=== PATIENT | female | born 1955 | race Caucasian/White ===

== ENCOUNTER 2022-12-01 14:34 | Inpatient (IN) | payer MEDICARE, SELFPAY ==
--- NOTE | ~2022-12-01 | US_ITS ---
EXAMINATION: US RETROPERITONEAL LIMITED (RENAL ONLY) CLINICAL INFORMATION: Acute renal sufficiency.. COMPARISON: None available. TECHNIQUE: Real-time imaging of the kidneys. FINDINGS: RIGHT KIDNEY: 13.0 x 6.1 x 6.8 cm (SAG x AP x TRV). The kidney is normal in size, contour, and echogenicity. Renal cortical thickness is normal. No calculi or focal parenchymal lesions. No hydronephrosis. LEFT KIDNEY: 11.5 x 6.8 x 6.8 cm (SAG x AP x TRV). The kidney is normal in size, contour, and echogenicity. Renal cortical thickness is normal. No calculi or focal parenchymal lesions. No hydronephrosis. US/US renal BI IMPRESSION: Unremarkable renal ultrasound.
--- NOTE | ~2022-12-01 | US_ITS ---
EXAMINATION: US VENOUS ULTRASOUND WITH DOPPLER LOWER EXTREMITY, RIGHT CLINICAL INFORMATION: Right lower extremity edema and pain. COMPARISON: None available. TECHNIQUE: Ultrasound of the deep veins is performed from the hip to the calf with compression sonography and color and pulse Doppler assessment. Spectral analysis with color-flow imaging is performed. FINDINGS: Evaluation is very limited due to overlying subcutaneous edema as well as the presence of wounds that are covered by bandages. The calf veins were not well seen. The visualized common femoral vein, superficial femoral vein, profunda femoral vein, and popliteal vein shows no evidence of deep venous thrombosis. There is a 3.5 x 1.7 x 2.2 cm cyst in the popliteal fossa with some degree of wall thickening as well as heterogeneous avascular debris. US/US venous duplex LE RT IMPRESSION: 1. No evidence of deep venous thrombosis in the right lower extremity with the caveat that the calf veins were not visualized in view of the limitations as above. If the patient's symptoms persist, followup ultrasound in 5 days 7 days might be of value to exclude proximal propagation from a non-visualized calf vein. 2. There is a 3.5 cm complicated Bran's cyst in the popliteal fossa with some degree of wall thickening and heterogeneous debris, recommend clinical correlation for superimposed infection. A short-term follow-up ultrasound is recommended.
--- NOTE | ~2022-12-01 | CT_ITS ---
EXAMINATION: CT HEAD WITHOUT CONTRAST CLINICAL INFORMATION: Pain. COMPARISON: 12/25/2013. TECHNIQUE: Contiguous axial imaging was performed from the skull base to vertex without intravenous administration of contrast. This CT examination was performed using dose optimization techniques as appropriate, variously including the following: *Automated exposure control *Adjustment of mA and/or kV according to patient size (this includes techniques or standardized protocols for targeted exams where dose is matched to indication/reason for exam; i.e. extremities or head) *Use of iterative reconstruction technique DLP: 1138 mGy-cm FINDINGS: The lateral, third and fourth ventricles are normally outlined. The cortical sulci and basal cisterns are normally outlined as well. There is no acute territorial defect, hemorrhage or midline shift. The extra-axial spaces are unremarkable. Calvarium: Intact. Maxillofacial sinuses and mastoids: Clear as visualized CT/CT head/brain wo IV con IMPRESSION: No acute intracranial abnormality.
--- NOTE | ~2022-12-01 | XR_ITS ---
EXAMINATION: XR CHEST CLINICAL INFORMATION: Shortness of breath. COMPARISON: Chest radiograph 12/25/2013. TECHNIQUE: Frontal view of the chest was obtained. FINDINGS: Evaluation is limited due to patient's rotation and poor inspiratory effort. Stable prominence of the cardiomediastinal silhouette and epicardial fat pad obscuring the left lower lobe. Clear right lung. No significant pleural effusion. No pneumothorax. No acute osseous findings. XR/XR chest 1V IMPRESSION: Limited examination without convincing change compared to 12/25/2013. Evaluation of the left lower lobe is limited as above, further imaging with a lateral x-ray could be obtained as clinically deemed appropriate.
--- NOTE | 2022-12-01 15:37 | ED.GENADULT ---
HPI - General Adult General Chief complaint: Wound/Laceration Stated complaint: r leg swelling and leaking fluid Time Seen by Provider: 12/01/22 16:35 Source: patient Mode of arrival: ambulatory Limitations: no limitations History of Present Illness HPI narrative: Patient comes to the emergency room complaining of left lower extremity swelling, pain, cellulitis from the toes on the right leg up to the buttocks. Patient also complaining of nausea and vomiting for 3 days. Note, patient states she has no past medical history but has not been seen by a doctor in 34 years. Related Data Allergies Allergy/AdvReac Type Severity Reaction Status Date / Time No Known Allergies Allergy Unverified 10/31/19 14:57 Review of Systems Review of Systems: Constitutional : No Weight loss, No Fever, No Chills, No Night Sweats, No Fatigue, No Malaise ENT/Mouth : No Hearing loss, No Ear Pain, No Nasal Congestion, No Sinus Pain, No Hoarseness, No sore throat, No Rhinorrhea, No Swallowing Difficulty Eyes: No Eye Pain, No Swelling, No Redness, No Foreign Body, No Discharge, No Vision Changes Cardiovascular : No Chest Pain, No SOB, No Dyspnea on Exertion, No Orthopnea, No Edema, No Palpitations Respiratory : No Cough, No Sputum, No Wheezing, No Smoke Exposure, No Dyspnea Gastrointestinal : Complaining of nausea and vomiting, No Diarrhea, No Constipation, No abdominal Pain, No Hematochezia, No Melena Genitourinary : no irregular bleeding, No Dysuria, No Urinary Frequency, No Hematuria, No Urinary Incontinence, No Urgency, No Flank Pain, No Urinary Flow Changes, No Hesitancy Musculoskeletal : No joint pain, No Myalgias, No Joint Swelling Skin : Complaining of skin redness, right lower extremity weeping and pain Neuro : No Weakness, No Numbness, No Paresthesias, No Loss of Consciousness, No Dizziness, No Headache Psych : No Anxiety/Panic, No Depression, No SI/HI/AH/VH, No Social Issues, Heme/Lymph: No Bruising, No Bleeding,No Lymphadenopathy Endocrine : No Polyuria, No Polydipsia, No Temperature Intolerance PMF Social History Social History Advance Directives: No Advance Directives Information Provided: No Physical Exam ED Vital Signs: Vital Signs - 24 hr 12/01/22 15:38 Temperature 97.2 F Pulse Rate 89 Respiratory Rate 22 H Blood Pressure 107/62 Pulse Oximetry 96 Oxygen Delivery Method Room Air BMI result Body Mass Index 45.8 Const Other: Appearance: Alert. Oriented X3. Seems uncomfortable Eyes: Pupils equal, round and reactive to light. ENT: Pharynx normal. Neck: Normal inspection. Neck supple. No lymph nodes noted. No crepitus CVS: Normal heart rate and rhythm. Pulses normal. Normal S1 and S2 Respiratory: No respiratory distress. Breath sounds normal. No Wheezing. No rales Abdomen: Soft and nontender. No rigidity. No distention. Skin: Patient has extensive cellulitis in the right lower extremity, candidiasis in the left groin area Extremities: No lower extremity edema. No Lacerations. No Rash Neuro: Oriented X 3. No motor deficit. No sensory deficit. Moving all extremities. No slurred speech. CN 2 through 12 grossly intact Psych: calm, cooperative, normal affect Course Course Course Narrative: RME: 67yo F w/no sig PMHx (has not been to a doctor in 30+ years) c/o Left groin and RLE weeping blisters x2 weeks & decreased PO intake. chronic SOB. Denies taking any home medications +RLE edema w/erythema and fluid filled vesicles w/weeping. Groin not evaluated in triage Labs, lactic/blood cx, viral testing, CXR ordered Full HPI, ROS and PE to be performed by primary ED provider. Medications Administered Discontinued Medications Generic Name Dose Route Start Last Admin Trade Name Freq PRN Reason Stop Dose Admin Sodium Chloride 2,000 mls @ 999 mls/hr 12/01/22 17:33 12/01/22 18:34 Ns IVCONT 12/01/22 19:33 999 mls/hr .Q2H1M ONE Administration Vancomycin HCl 2,000 mg in 500 mls @ 250 mls/hr 12/01/22 17:33 12/01/22 19:07 Vancomycin/Ns IV 12/01/22 19:32 250 mls/hr ONCE ONE Administration Piperacillin Sod/Tazobactam 50 mls @ 100 mls/hr 12/01/22 17:33 12/01/22 19:16 Sod 3.375 gm/ Sodium Chloride IV 12/01/22 18:02 Infused ONCE ONE Infusion Nystatin 1 appl 12/01/22 17:42 12/01/22 18:35 Nystatin Powder 15 Gm Bottle TOPICAL 12/01/22 17:43 1 appl ONCE ONE Administration Protocol Ondansetron HCl 4 mg 12/01/22 16:23 12/01/22 19:07 Ondansetron Odt 4 Mg Tab.Rapdis TRANSLINGU 12/01/22 16:24 Not Given ONCE ONE Ondansetron HCl 4 mg 12/01/22 17:34 12/01/22 18:35 Ondansetron Hcl 4 Mg/2 Ml Vial IVPUSH 12/01/22 17:35 4 mg ONCE ONE Administration Potassium Chloride 80 meq 12/01/22 17:40 12/01/22 19:08 Potassium Chloride Packet 20 Meq Packet PO 12/01/22 17:41 Not Given ONCE ONE Medical Decision Making Medical Decision Making [facility] Narrative: -my interpretation of ultrasound, no obvious DVT -discussed with Dr. Amaral that patient does have a Bran's cyst in the popliteal fossa which may be infected. Given the patient's extensive cellulitis, it may be a possibility, patient may need orthopedics consult -patient was not able to tolerate p.o. potassium, patient was given -interpretation of EKG: Atrial fibrillation, heart rate 77, rate control, no ST segment depression or elevation, no T-wave inversions, QTC 457 -my interpretation of chest x-ray: No pneumonia or infiltrates -patient's troponin 24.5, likely secondary to intermittent tachycardia due to AFib patient denies any chest pain or shortness of breath -I discussed the patient with Dr. Kim, patient being admitted Differential Diagnosis Differential Diagnoses: The differential diagnosis associated with the presentation includes (Cellulitis, abscess, DVT, infected Bran cyst) Admission/Observation Consideration of admission/observation: Escalation of care including admission/observation considered Consult Healthcare Provider Management of the patient was discussed with: Hospitalist Lab Data [facility] Lab Attestation statement: I reviewed the patient's lab results. 12/01/22 16:15 12/01/22 16:15 Labs: Lab Results 12/01/22 Range/Units 16:15 WBC 23.3 H (4.8-10.8) X10*3/uL RBC 5.05 (4.20-5.50) X10*6/uL Hgb 15.5 (12.0-16.0) g/dl Hct 45.5 (37.0-47.0) % MCV 90.1 (80.0-98.0) fL MCH 30.7 (27.0-33.0) pg MCHC 34.1 (31.0-35.0) g/dl RDW 14.2 (11.0-16.0) % Plt Count 240 (160-400) X10*3/uL MPV 9.9 (9.4-12.3) fL Immature Gran % (Auto) 1.3 H (0.0-0.4) % Neut % (Auto) 91.5 H (45-73) % Lymph % (Auto) 2.5 L (20-40) % [place] % (Auto) 4.0 (2-11) % Eos % (Auto) 0.2 (0-4) % Baso % (Auto) 0.5 (0-2) % Lymph # (Auto) 0.6 L (1.2-4.9) X10*3/uL [place] # (Auto) 0.9 (0.1-1.2) X10*3/uL Eos # (Auto) 0.1 (0.0-0.4) X10*3/uL Baso # (Auto) 0.1 (0.0-0.2) X10*3/uL Abs Immat Gran (auto) 0.31 H (0.00-0.03) X10*3/uL Absolute Neuts (auto) 21.2 H (2.0-8.3) x10*3/uL Absolute Nucleated RBC 0.020 H (0.0-0.012) X10*3/uL Nucleated RBC % (auto) 0.1 (0.0-0.2) /100WBC Smear Tech's Comments VERIFIED ESR 64 H (0-20) MM/HR PT 15.9 H (11.1-13.3) SEC INR 1.3 H (0.9-1.1) Sodium 138 (135-145) mmol/L Potassium 2.8 L (3.3-5.1) mmol/L Chloride 99 (96-108) mmol/L Carbon Dioxide 18 L (22-29) mmol/L Anion Gap 24 H (12-20) BUN 60 H (9-16) mg/dL Creatinine 2.71 H (0.5-1.4) mg/dL Estim Creat Clear Calc 26.4 Estimated GFR 17 Random Glucose 124 H (60-115) mg/dL Estimat Average Glucose 103 mg/dL Hemoglobin A1c % 5.2 (<6.0) % Lactic Acid 1.5 (0.5-2.0) mmol/L Calcium 9.1 (8.4-10.2) mg/dL Magnesium 2.1 (1.6-2.6) mg/dL Total Bilirubin 0.6 (0.0-1.0) mg/dL Direct Bilirubin 0.6 H (0.0-0.5) mg/dL AST 46 H (5-31) U/L ALT 28 (0-31) U/L Alkaline Phosphatase 148 H (39-117) U/L Troponin I High Sens 24.5 H (<3.5-17.0) ng/L C-Reactive Protein 47.39 H (< or = 0.50) mg/dL B-Natriuretic Peptide 115 H (<100) pg/mL Total Protein 8.0 (6.5-8.0) g/dL Albumin 3.4 L (3.5-5.0) g/dL COVID-19 (OG) Negative (Negative) COVID-19 Clin Com See Note Influenza Type A (PER) Negative (Negative) Influenza Type B (PER) Negative (Negative) Influenza A & B Note See Note Independent Interpretation I performed an independent interpretation of an: EKG Interpretation: FINDINGS: Evaluation is very limited due to overlying subcutaneous edema as well as the presence of wounds that are covered by bandages. The calf veins were not well seen. The visualized common femoral vein, superficial femoral vein, profunda femoral vein, and popliteal vein shows no evidence of deep venous thrombosis. There is a 3.5 x 1.7 x 2.2 cm cyst in the popliteal fossa with some degree of wall thickening as well as heterogeneous avascular debris. US/US venous duplex LE RT IMPRESSION: 1. No evidence of deep venous thrombosis in the right lower extremity with the caveat that the calf veins were not visualized in view of the limitations as above. If the patient's symptoms persist, followup ultrasound in 5 days 7 days might be of value to exclude proximal propagation from a non-visualized calf vein. 2. There is a 3.5 cm complicated Bran's cyst in the popliteal fossa with some degree of wall thickening and heterogeneous debris, recommend clinical correlation for superimposed infection. A short-term follow-up ultrasound is recommended. Critical Care Time Critical Care Time Critical Care Time: Yes Total Critical Care Time: 90 Attestation: I have personally provided critical care time. Time includes review of lab data, radiology results, discussion with consultants, and monitoring for potential decompensation. Intervention performed as documented. Discharge Plan Discharge Clinical Impression: Cellulitis, Acute hypokalemia, WANDY (acute kidney injury), New onset a-fib Patient Disposition: Admitted As Inpatient
[2022-12-01 15:38] VITALS: BP 107/62; PULSE 89; RESP 22; TEMP 36.2; O2SAT 96; BMI 45.8
--- NOTE | 2022-12-01 15:43 | ECG_ITS ---
Test Reason : LEG WOUND Blood Pressure : / mmHG Vent. Rate : 077 BPM Atrial Rate : 000 BPM P-R Int : 000 ms QRS Dur : 096 ms QT Int : 404 ms P-R-T Axes : 000 -32 024 degrees QTc Int : 457 ms Atrial fibrillation Left anterior fascicular block Nonspecific ST abnormality Abnormal ECG No previous ECGs available Referred By: Lily Foss Electronically Signed By:DONNY WHITAKER MD
[2022-12-01 16:35] LABS: Basophils Absolute Auto 0.1 X10*3/uL (0.0-0.2); Basophils Percent Auto 0.5 % (0-2); Eosinophils Absolute Auto 0.1 X10*3/uL (0.0-0.4); Eosinophils Percent Auto 0.2 % (0-4); Hematocrit 45.5 % (37.0-47.0); Hemoglobin 15.5 g/dl (12.0-16.0); Imm Gran Abs Auto 0.31 X10*3/uL (0.00-0.03); Imm Gran Pct Auto 1.3 % (0.0-0.4); Lymphocytes Absolute Auto 0.6 X10*3/uL (1.2-4.9); Lymphocytes Percent Auto 2.5 % (20-40); MANUAL DIFF FLAG SCAN; Mean Corpuscular HGB Conc 34.1 g/dl (31.0-35.0); Mean Corpuscular Hemoglobin 30.7 pg (27.0-33.0); Mean Corpuscular Volume 90.1 fL (80.0-98.0); Mean Platelet Volume 9.9 fL (9.4-12.3); Monocytes Absolute Auto 0.9 X10*3/uL (0.1-1.2); NRBC Pct Auto 0.1 /100WBC (0.0-0.2); Neutrophils Absolute Auto 21.2 x10*3/uL (2.0-8.3); Neutrophils Percent Auto 91.5 % (45-73); Platelet Count 240 X10*3/uL (160-400); Red Blood Count 5.05 X10*6/uL (4.20-5.50); Red Cell Distribution Width 14.2 % (11.0-16.0); SCAN SMEAR FLAG 1; White Blood Count 23.3 X10*3/uL (4.8-10.8)
[2022-12-01 16:37] LABS: Lactic Acid 1.5 mmol/L (0.5-2.0)
[2022-12-01 16:38] LABS: INTERNATIONAL NORM RATIO 1.3 (0.9-1.1); Prothrombin Time 15.9 SEC (11.1-13.3)
[2022-12-01 16:44] LABS: COVID-19 Test Negative (Negative); IDNOW Serial# 55D5AD1C
[2022-12-01 16:45] LABS: IDNOW Serial# 9DB6401D; Influenza A Negative (Negative); Influenza B2 Negative (Negative)
[2022-12-01 16:47] LABS: Estimated Average Glucose 103 mg/dL; Hemoglobin A1c % 5.2 % (<6.0)
[2022-12-01 16:48] LABS: Alanine Aminotransferase 28 U/L (0-31); Albumin Level 3.4 g/dL (3.5-5.0); Alkaline Phosphatase 148 U/L (39-117); Anion Gap 24 (12-20); Aspartate Amino Transferase 46 U/L (5-31); Bilirubin Direct 0.6 mg/dL (0.0-0.5); Bilirubin Total 0.6 mg/dL (0.0-1.0); Blood Urea Nitrogen 60 mg/dL (9-16); C Reactive Protein 47.39 mg/dL (< or = 0.50); Calcium 9.1 mg/dL (8.4-10.2); Carbon Dioxide 18 mmol/L (22-29); Chloride 99 mmol/L (96-108); Creatinine Clr Calc Pharmacy 26.4; Estimated Glomerular Filt Rate 17; Glucose Random 124 mg/dL (60-115); Magnesium 2.1 mg/dL (1.6-2.6); Potassium 2.8 mmol/L (3.3-5.1); Sodium 138 mmol/L (135-145)
[2022-12-01 16:52] LABS: B Type Natriuretic Peptide 115 pg/mL (<100)
[2022-12-01 16:53] LABS: Troponin-I High Sensitivity 24.5 ng/L (<3.5-17.0)
[2022-12-01 17:05] LABS: SLIDE REVIEW VERIFIED
[2022-12-01 17:21] LABS: Erythrocyte Sedimentation Rate 64 MM/HR (0-20)
[2022-12-01] MEDS: Piperacillin Sodium/Tazobactam 3.375 GM in 0.9 % Sodium Chloride 50 ML IV (18:33)
[2022-12-01] MEDS: 0.9 % Sodium Chloride 2,000 ML 999 ML IVCONT (18:34)
[2022-12-01] MEDS: Nystatin Powder 15 GM BOTTLE 1 APPL TOPICAL (18:35)
[2022-12-01] MEDS: ondansetron HCL 4 MG/2 ML VIAL IVPUSH (18:35)
[2022-12-01] MEDS: vancomycin/NS 2,000 MG/500 ML PLAST..BAG 250 MG IV (19:07)
--- NOTE | 2022-12-01 19:21 | PM.IMHP ---
History of Present Illness Date of Service: 12/01/22 Attending physician on admission: Channing Kim Chief Complaint: Left leg swelling and redness Pt is a 67-year-old female with no reported significant PMH who has not seen a PCP in 34 years who presents to the ED for evaluation of right lower leg swelling, pain, and redness for the past couple weeks. Patient states symptoms began when she noticed redness and swelling of her lower right leg. Redness eventually spread to foot and up her thigh to her buttocks and she began developing fluid filled blisters and sores on her lower leg. This started a few days ago with a couple of ?bubbles and then her leg ?blew up? with multiple weeping sores. Patient also been experiencing nausea and vomiting x3 days with 1 episode of vomiting per day. Notes decreased p.o. intake during this time, occasional subjective fever and chills. Patient denies any trauma to the area or any known cuts or lacerations. Patient currently experiencing 10/10 pain in the back of her calf near her Achilles that wraps around to the front. Also complains of chronic SOB with exertion. Denies history of smoking. Patient denies chest pain/pressure, palpitations. No abdominal pain the patient sates she is often ?burpy? and ?gassy?. Reports redness and itching in her left groin.? In the ED patient was afebrile with pulse of 89 and tachypneic at 22, satting at 96% on RA. Labs were significant for WBC 23.3, potassium 2.8, BUN 60 with creatinine 2.71 (baseline unknown), bilirubin 0.6, AST 46, alk-phos 148, initial troponin 24.5, BNP mildly elevated to 115. Stable H&H. A1c 5.2. Lactic acid WNL at 1.5. CXR limited without convincing change compared to 12/25/2013. Venous duplex ultrasound of right lower extremity found no evidence of deep vein thrombosis with the caveats that the calf veins were not well visualized. Did show a 3.5 cm complicated Bran cyst in the popliteal fossa with some degree of wall thickening and heterogeneous debris, recommend short-term follow-up ultrasound. EKG demonstrated atrial fibrillation let evidence of significant ST elevations or depressions. Pt was treated with vancomycin and Zosyn, IVF, ondansetron, nystatin, and potassium chloride. Pt will be admitted to the hospital for treatment right leg cellulitis, hypokalemia, and new onset AFib. Review of Systems Review of Systems: Right lower leg swelling, pain, and erythema Subjective fever, chills Nausea, vomiting x3 days Reduced p.o. intake Left groin itching, redness Chronic SOB with exertion Denies chest pain/pressure, palpitations PMFSH Social History Advance Directives: No Advance Directives Information Provided: No Meds Allergies Allergy/AdvReac Type Severity Reaction Status Date / Time No Known Allergies Allergy Unverified 10/31/19 14:57 Active Medications: Current Medications Acetaminophen (Acetaminophen 325 Mg Tablet) 650 mg PO Q6H PRN PRN Reason: Pain, Mild (Pain Scale 1-3) Acetaminophen (Acetaminophen Supp 650 Mg Supp.Rect) 650 mg IN Q6H PRN PRN Reason: Pain, Mild (Pain Scale 1-3) Enoxaparin Sodium (Enoxaparin Sodium 30 Mg/0.3 Ml Syringe) 30 mg SUBCUT Q24H [facility] Sodium Chloride (Ns) 2,000 mls @ 999 mls/hr IVCONT .Q2H1M ONE Stop: 12/01/22 19:33 Last Admin: 12/01/22 18:34 Dose: 999 mls/hr Vancomycin HCl (Vancomycin/Ns) 2,000 mg in 500 mls @ 250 mls/hr IV ONCE ONE Stop: 12/01/22 19:32 Last Admin: 12/01/22 19:07 Dose: 250 mls/hr Potassium Chloride (Potassium Chloride/H20) 10 meq in 100 mls @ 100 mls/hr IV Q1H [facility] Stop: 12/01/22 20:59 Melatonin (Melatonin 3 Mg Tablet) 6 mg PO BEDTIME PRN PRN Reason: Insomnia Ondansetron HCl (Ondansetron Hcl 4 Mg/2 Ml Vial) 4 mg IVPUSH Q8H PRN PRN Reason: Nausea and Vomiting Pharmacy Consult (Consult Rx Vancomycin Dosing) 1 each MISCELLANE DAILY PRN PRN Reason: Consult order Sodium Chloride (0.9 % Sodium Chloride Flush 3 Ml Syringe) 3 ml IVFLUSH QSHIFT [facility] Home Medications Medication Instructions Recorded Confirmed Last Taken Type ibuprofen 200 mg tablet 400 mg PO Q6H PRN Pain 12/01/22 12/01/22 Unknown History Physical Exam Vital Signs and Narrative: Vital Signs: Last Vital Signs Temp 97.2 F 12/01/22 15:38 Pulse 89 12/01/22 15:38 Resp 22 H 12/01/22 15:38 BP 107/62 12/01/22 15:38 Pulse Ox 96 12/01/22 15:38 O2 Del Method Room Air 12/01/22 15:38 BMI result Body Mass Index 45.8 Constitutional: Alert, in no acute distress. Mental Status: Oriented to person, place and time. Eyes: Pupils are equal, round, and reactive to light. Ear, Nose, and Throat: Oropharynx clear, mucous membranes moist. Ears and nose without deformities. Trachea midline. Respiratory: Clear to auscultation bilaterally. No wheezing, rales, or rhonchi. Cardiovascular: Irregularly irregular rhythm. 2/6 murmur heard at right sternal border. Gastrointestinal: Abdomen soft, non-tender, obese. Normal bowel sounds. Neurologic: Cranial nerves II-XII are grossly intact bilaterally. No focal neurological deficits. Moves all extremities spontaneously. Musculoskeletal: No cyanosis or clubbing. Extremities: Bilateral nonpitting lower leg edema. Right leg with significant erythema from toes up to buttocks. Multiple lesions and fluid-filled vesicles. Signs of chronic venous insufficiency. See pictures below. Psychiatric: Normal mood and affect. Results Labs 12/01/22 16:15 12/01/22 16:15 Labs: Laboratory Results - last 24 hr 12/01/22 16:15 MCV 90.1 MCH 30.7 MCHC 34.1 RDW 14.2 Plt Count 240 MPV 9.9 Immature Gran % (Auto) 1.3 H Neut % (Auto) 91.5 H Lymph % (Auto) 2.5 L [place] % (Auto) 4.0 Eos % (Auto) 0.2 Baso % (Auto) 0.5 Lymph # (Auto) 0.6 L [place] # (Auto) 0.9 Eos # (Auto) 0.1 Baso # (Auto) 0.1 Abs Immat Gran (auto) 0.31 H Absolute Neuts (auto) 21.2 H Absolute Nucleated RBC 0.020 H Nucleated RBC % (auto) 0.1 Smear Tech's Comments VERIFIED ESR 64 H PT 15.9 H INR 1.3 H Anion Gap 24 H Estim Creat Clear Calc 26.4 Estimated GFR 17 Random Glucose 124 H Estimat Average Glucose 103 Hemoglobin A1c % 5.2 Lactic Acid 1.5 Calcium 9.1 Magnesium 2.1 Total Bilirubin 0.6 Direct Bilirubin 0.6 H AST 46 H ALT 28 Alkaline Phosphatase 148 H C-Reactive Protein 47.39 H B-Natriuretic Peptide 115 H Total Protein 8.0 Albumin 3.4 L COVID-19 (OG) Negative COVID-19 Clin Com See Note Influenza Type A (PER) Negative Influenza Type B (PER) Negative Influenza A & B Note See Note Imaging Radiologist's Impressions: Impressions Chest X-Ray 12/01/22 15:57 IMPRESSION: Limited examination without convincing change compared to 12/25/2013. Evaluation of the left lower lobe is limited as above, further imaging with a lateral x-ray could be obtained as clinically deemed appropriate. Assessment and Plan (1) New onset a-fib: Status: Acute (2) Acute hypokalemia: Status: Acute (3) Cellulitis of right leg: Status: Acute Plan Pt is a 67-year-old female with no reported significant PMH who has not seen a PCP in 34 years who presents to the ED for evaluation of right lower leg swelling, pain, and redness for the past couple weeks. Pt will be admitted to the hospital for treatment of right leg cellulitis, hypokalemia, and new onset AFib. Right leg cellulitis Patient with extensive swelling and extending from toes to buttocks and multiple weeping lesions on RLE Patient meets sepsis criteria: Leukocytosis, tachypnea; lactic acid WNL at 1.5 Patient received IVF and started on broad-spectrum antibiotics in ED Will treat with vancomycin and Zosyn, started on 12/01/2022 Analgesics for pain management General surgery consult for possible debridement of lesions New onset AFib EKG shows AFib with rate of 77, auscultation reveals irregularly irregular rhythm with 2/6 murmur Patient denies any previous cardiac history, has not seen a doctor in over 34 years Echocardiogram Cardiology consult Monitor on telemetry Hypokalemia Patient's potassium 2.8 Likely secondary to reduced p.o. intake and GI losses from vomiting Patient received potassium supplementation in ED Follow BMP Elevated creatinine BUN 60 with creatinine 2.71, baseline unknown Patient with decreased p.o. intake and GI losses from vomiting Patient given IVF in the ED Follow BMP Elevated troponins Initial troponin elevated at 24.5 Patient asymptomatic, EKG without ischemic changes Most likely type 2 in the setting of demand ischemia Check repeat troponin Complicated Bran cyst Venous duplex of right lower extremity found 3.5 cm complicated Bran cyst in popliteal fossa with some degree of wall thickening and heterogeneous debris Ortho consult Obesity class III Weight loss encouraged DNR/DNI Attending:?Dr. Kim DVT Prophylaxis: Lovenox Pt will require a hospitalization of at least two nights for treatment of?right leg cellulitis, hypokalemia, and new onset AFib patient will be treated with IVF, IV antibiotics, and specialist consultation. Time Spent With Patient Time: Total time managing care of this patient today ____ minutes. Quality Stroke Does the patient have a stroke diagnosis?: No VTE Prior VTE?: No VTE Risk Level:: Medical - moderate - high VTE Device Contraindication: Treatment Not Indicated VTE Drug Contraindication: N/A - Med Ordered
--- NOTE | 2022-12-01 20:05 | PHA.MEDREC ---
Pharmacy Consult ? Medication Reconciliation Pharmacy has completed the medication reconciliation. Patient report no medications, just ibuprofen if needed. Genny Max, LaliD
--- NOTE | 2022-12-01 20:07 | PHA.PROG ---
Admission Date/Time: Indication: Cellulitis Weight in k.738 kg Adjusted body weight in K kg [place] body weight in K kg Obesity Dosing Indication % IBW: 217% Serum Creatinine - Last 168 Hours 12/01/22 16:15 Creatinine 2.71 H Estimated CrCl and GFR - Last 168 Hours 12/01/22 16:15 Estim Creat Clear Calc 26.4 Estimated GFR 17 Vancomycin Loading Dose: 2000 mg (16 mg/kg) Current Vancomycin Dosing Regimen: 500 mg Q24H Vancomycin Monitoring using AUC goal of 400 - 600 range with trough as surrogate marker: Date and Time for next Vancomycin Level to be drawn: Pharmacist Comments on Vancomycin Plan: Patient is morbidly obese with %IBW > 130% therefore careful monitoring is required due to vancomycin high volume of distribution Patient received load dose vancomycin 2000 mg on 12/01 @ 1907 Maintenance dose vancomycin 500 mg Q24H is scheduled to start 12/02 @ 1907. Expected AUC 428 with a trough of 15. Level is scheduled for prior to the 4th dose, if patient's renal function worsen then a level can be drawn sooner to access for safety Pharmacy will monitor renal function daily. Genny Max, Wilfredo Vancomycin dosing will take advantage of [employer] as a clinical decision support tool that uses Bayesian modeling to calculate individual patient's pharmacokinetic parameters and forecast the patient's drug concentration time course with the target goal AUC 24 range of 400 - 600 mg/L/hr.
--- NOTE | 2022-12-01 20:35 | MHC.EDTECH ---
Walked patient to the bathroom pads changed on bed
[2022-12-01 20:44] VITALS: BP 126/70; PULSE 83; RESP 18; TEMP 36.7; O2SAT 96
--- NOTE | 2022-12-01 20:44 | MHC.EDTECH ---
Patient given, water, gingerale and crackers
[2022-12-01] MEDS: oxyCODONE HCl Immed Release 5 MG TABLET PO (21:05)
[2022-12-01] MEDS: Potassium Chloride ER 20 MEQ TAB.ER.PRT PO (21:06)
[2022-12-01] MEDS: Enoxaparin Sodium 30 MG/0.3 ML SYRINGE SUBCUT (21:06)
[2022-12-01] MEDS: Prochlorperazine Edisylate 10 MG/2 ML VIAL IVPUSH (21:07)
[2022-12-01] MEDS: Potassium Chloride/H20 10 MEQ/100 ML PIGGYBACK 100 MEQ IV (21:08)
--- NOTE | 2022-12-01 21:12 | PC.NURSE ---
pt reposition for comfort, medicated per Mar, Pt placed on bedside monitor. Will continue to monitor.
[2022-12-01 21:18] LABS: Appearance Urine Cloudy; Color Urine Dark Yellow; Glucose Urine UA Negative (Negative); Leukocyte Esterase Urine Small (1+) (Negative); Nitrite Urine Negative (Negative); PH 5.5 (5.0-9.0); UMIC TRIGGER UACC YES; Urine Blood Small (1+) (Negative); Urine Ketones Negative (Negative); Urine Protein 100 (2+) mg/dL (Neg-Trace)
[2022-12-01 21:27] LABS: Bacteria Urine 1+ (None Seen); Granular Casts Urine Present; Squamous Epithelial Cell Urine >20 /HPF (0-2); UACC Culture Trigger YES; WBC Urine 0-5 /HPF (0-5)
--- NOTE | 2022-12-01 21:53 | PC.NURSE ---
second line place by faraz lopez, medicated per Mar, Will continue to monitor.
--- NOTE | 2022-12-01 21:57 | PC.NURSE ---
Per Dr. Kim only administer 2 bags of Iv Potassium
[2022-12-01] MEDS: Morphine Sulfate 2 MG/ML CARTRIDGE IVPUSH (22:51)
[2022-12-01] MEDS: Nystatin Cream 15 GM TUBE 1 APPL TOPICAL (22:56)
--- NOTE | 2022-12-01 22:59 | PC.NURSE ---
pt medicated per pain managment.
[2022-12-02] VITALS (10 sets, daily range): BP systolic 111–135; BP diastolic 57–76; PULSE 58–97; RESP 13–18; TEMP 35.9–37; O2SAT 91–97
[2022-12-02] MEDS: 0.9 % Sodium Chloride Flush 3 ML SYRINGE IVFLUSH ×3 (02:29→15:33)
--- NOTE | 2022-12-02 02:31 | PC.NURSE ---
pt transferred to Hospital bed, compete hanny care, pure wic in place. Pt placed on bed side monitor. Will continue to monitor.
--- NOTE | 2022-12-02 04:01 | PC.NURSE ---
Bilateral legs still sweeping, plumber maintenance pads placed, pt repoitioned for comfort, are is red, warm to touch, does have foul odor. Will continue to monitor.
--- NOTE | 2022-12-02 06:21 | MHC.EDTECH ---
This tech went in with the RN with the goals of changing the bed pad from PT's leg, As well as get a core temp. The patient refused a core temp. The nurse went over how important a core temp is for anyone with an infection. The patient stated again I Don't want a core temp .
--- NOTE | 2022-12-02 06:30 | PC.NURSE ---
This Rn with PCT AJ attempted to take rectal temp, pt refusing, this Rn educated pt on the importance of a core temp, when having an infection. pt still refused, vp publisher development pads replace and legs repositioned for comfort. Will continue to monitor
--- NOTE | 2022-12-02 07:00 | CA_ITS ---
Transthoracic Echocardiogram Patient (Last, First, Middle): Karma Yee J Gender: Female Date of : 1955 Age: 67 Procedure Date: 12/02/2022 Procedure Type: Transthoracic Echocardiogram Location: ER Height: 165.1 cm Weight: 124.74 kg BSA: 2.26 m2 Heart Rate: bpm BP: 125 / 75 mmHg Technology Manager: Referring MD: Channing Kim MD Symptoms: new onset afib ; murmur Study Quality: Technically Difficult due to obesity ECG Rhythm: Atrial Fibrillation Conclusions: - The left ventricular systolic function is normal. The visually estimated ejection fraction is between 65-70%. - There is moderately increased left ventricular wall thickness. - There is moderate to severe aortic valve stenosis. Paradoxical low flow, low gradient. Findings Procedure Information Contrast agent, definity, is being given per protocol without apparent complications. Left Ventricle Normal left ventricular cavity size. There is moderately increased left ventricular wall thickness. The left ventricular systolic function is normal. The visually estimated ejection fraction is between 65-70%. There is no evidence of regional wall motion abnormalities. Diastolic function is indeterminate on the basis of available data. Right Ventricle Mildly increased right ventricular cavity size. There is normal right ventricular systolic function. Atria The left atrium is normal in size. Aortic Valve There is moderate calcification of the aortic valve. There is moderate to severe aortic valve stenosis. The peak aortic velocity is 2.83 m/s with a calculated peak gradient of 32 mmHg. The mean gradient is 18 mmHg. The aortic valve area is 0.82 cm2. Dimensionless index 0.28. Stroke volume index 19ml/m2. Mitral Valve There is mild mitral annular calcification. There is no mitral valve regurgitation. There is no mitral valve stenosis. Pulmonic Valve The pulmonic valve is likely normal. Tricuspid Valve There is mild tricuspid valve regurgitation. Mild pulmonary hypertension is present. Great Vessels The aorta was not well visualized. The asc aorta is normal in size. Venous The inferior vena cava is mildly dilated and collapses greater than 50% with inspiration. Pericardium/Pleural There is no evidence of pericardial effusion. Prior Study Comparison No prior study available for comparison. Measurements 2D Linear Measurements IVSd: 1.39 0.6-0.9/0.6-1.0 cm LVIDd: 4.69 3.9-5.3/4.2-5.9 cm LVIDd Index: 2.08 2.4-3.2/2.2-3.1 cm/m2 LVIDs: 3.57 2.0-3.6 cm LVPWd: 1.35 0.7-1.1 cm LA Diam: 3.70 2.7-3.8/3.0-4.0 cm LAIDs Index: 1.64 1.5-2.3 cm/m2 LV Mass: 319.29 67-162/88-224 g LV Mass Index: 141.28 43-95/49-115 g/m2 LVOT Diam: 2.00 3.0+(-)1.3 cm 2D Systolic Function EF 4C: 60.70 >55% EF 2C: 70.50 >55% EF BiP: 66.60 >55% Mitral Valve MV Pk E: 1.10 MV Decel Time: 204.00 E'Lateral: 14.40 E'Medial: 8.81 E/E' Med: 12.50 E/E' Lat: 7.60 PHT: 60.00 MVA PHT: 3.67 Decel Harper: 5.40 Aortic Valve AoV Pk Pee: 2.83 AoV Mn Pee: 1.98 AoV VTI: 0.52 AoV Pk Grad: 32.00 Aov Mn Grad: 18.00 MEDINA Cont.VTI: 0.82 LVOT LVOT Pk Pee: 0.79 LVOT Mn Pee: 0.55 LVOT VTI: 0.14 LVOT Pk Grad: 2.00 LVOT Mn Grad: 2.00 LVOT Diam: 2.00 LVOT Area: 3.14 Diastolic Function MV Pk E: 1.10 E'Medial: 8.81 E/E' Med: 12.50 E' Laterial: 14.40 E/E' Lat: 7.60 Right Ventricle TAPSE (mm): 30.00 TVS' Pee: 13.00 Tricuspid Valve TR Pk Pee: 2.95 TR Pk Grad: 35.00 RA Press: 8.00 RVSP: 43.00 Pulmonary Valve PV Pk Pee: 1.22 Peak PV Grad: 6.00 Updated in Other Vendor System with Status of Final Mitchell Greco MD electronically signed on 12/02/2022 12:00:57 PM with status of Final
--- NOTE | 2022-12-02 07:16 | PM.EVENT ---
Event Note Date of Service: 12/02/22 Event Note: Imaging reviewed: No orthopedic intervention warranted at this time Bakers cyst may be drained by IR if they feel is warranted but at this time with the cellulitis unlikely No additional treatment for Bakers cyst by orthopedics Time Spent With Patient Time: Total time managing care of this patient today ____ minutes.
--- NOTE | 2022-12-02 08:55 | PC.NURSE ---
echocardiogram being performed at the bedside
--- NOTE | 2022-12-02 09:22 | MHC.CM.PN ---
CM ATTEMPTED TO SEE PT X2, PT HAVING BEDSIDE IMAGING COMPLETED CM WILL REVISIT
--- NOTE | 2022-12-02 09:33 | PM.CNCAR ---
History of Present Illness History of Present Illness Date of Service: 12/02/22 Chief complaint: leg infection Narrative: This is a cardiology consultation regarding question of atrial fibrillation. Patient apparently has not seen a doctor in more than 30 years. Current admission because of right lower extremity swelling redness for the last few weeks. There has also been bubble/weeping sores extra. Some nausea and vomiting. From a cardiac standpoint, no clear symptoms. There was evidence of atrial fibrillation on the EKG and hence we been asked to see her. Patient denies any history of cardiac issues in the past. However, does not follow up with medical care either. Does not have any acute cardiac symptoms at this time. Review of Systems Review of Systems: Yes all other systems are reviewed and are negative Constitutional: Constitutional: Reports as per HPI and Reports no additional constitutional complaints Eyes: Eyes: Reports as per HPI and Denies no additional eye complaints ENT: Denies system reviewed and no additional complaints, except as documented and Reports as per HPI Cardiovascular: Cardiovascular: Reports as per HPI, Reports no additional cardiovascular complaints, Denies acrocyanosis, Denies cool extremities, Denies chest pain, Denies leg edema, Denies lightheadedness, Denies palpitations and Denies dyspnea Respiratory: Respiratory: Reports as per HPI, Denies no additional respiratory complaints and Denies dyspnea Gastrointestinal: Gastrointestinal: Reports as per HPI and Denies no additional gastrointestinal complaints Genitourinary: Genitourinary: Reports as per HPI Musculoskeletal: Musculoskeletal: Reports no additional musculoskeletal complaints and Reports as per HPI Integumentary/Breasts: Skin/Breast: Reports system reviewed and no additional complaints, except as docu Neurologic: Reports system reviewed and no additional complaints, except as documented and Reports as per HPI Psychiatric: Psychiatric: Reports no additional psychiatric complaints and Reports as per HPI Endocrine: Endocrine: Reports no additional endocrine complaints, Reports as per HPI and Denies palpitations Hematologic/Lymphatic: Hematologic/Lymphatic: Reports no additional hematologic/lymphatic complaints and Reports as per HPI Allergic/Immunologic: Allergic/Immunologic: Reports no additional allergic/immunologic complaints and Reports as per HPI [facility] Family History Pertinent family history: No significant past family history pertinent to this admission. Social History Social History Patient Tobacco Use Status: Never used Tobacco service: No Meds Allergies Allergy/AdvReac Type Severity Reaction Status Date / Time No Known Allergies Allergy Unverified 10/31/19 14:57 Active Medications: Current Medications Acetaminophen (Acetaminophen 325 Mg Tablet) 650 mg PO Q6H PRN PRN Reason: Pain, Mild (Pain Scale 1-3) Acetaminophen (Acetaminophen Supp 650 Mg Supp.Rect) 650 mg IN Q6H PRN PRN Reason: Pain, Mild (Pain Scale 1-3) Enoxaparin Sodium (Enoxaparin Sodium 30 Mg/0.3 Ml Syringe) 30 mg SUBCUT Q24H [facility] Last Admin: 12/01/22 21:06 Dose: 30 mg Vancomycin HCl 500 mg/ Sodium (Chloride) 110 mls @ 110 mls/hr IV Q24H [facility] Melatonin (Melatonin 3 Mg Tablet) 6 mg PO BEDTIME PRN PRN Reason: Insomnia Morphine Sulfate (Morphine Sulfate 2 Mg/Ml Cartridge) 2 mg IVPUSH Q4H PRN; Protocol PRN Reason: Pain, Severe (Pain Scale 7-10) Last Admin: 12/01/22 22:51 Dose: 2 mg Nystatin (Nystatin Cream 15 Gm Tube) 1 appl TOPICAL BID STEFAN; Protocol Last Admin: 12/01/22 22:56 Dose: 1 appl Ondansetron HCl (Ondansetron Hcl 4 Mg/2 Ml Vial) 4 mg IVPUSH Q8H PRN PRN Reason: Nausea and Vomiting Oxycodone HCl (Oxycodone Hcl Immed Release 5 Mg Tablet) 5 mg PO Q6H PRN PRN Reason: Pain, Moderate(Pain Scale 4-6) Last Admin: 12/01/22 21:05 Dose: 5 mg Pharmacy Consult (Consult Rx Vancomycin Dosing) 1 each MISCELLANE DAILY PRN PRN Reason: Consult order Sodium Chloride (0.9 % Sodium Chloride Flush 3 Ml Syringe) 3 ml IVFLUSH QSHIFT [facility] Last Admin: 12/02/22 02:29 Dose: 3 ml Home Medications Medication Instructions Recorded Confirmed Last Taken Type ibuprofen 200 mg tablet 400 mg PO Q6H PRN Pain 12/01/22 12/01/22 Unknown History Physical Exam Vital Signs: Vital Signs: Last Vital Signs Temp 97.1 F 12/02/22 05:51 Pulse 95 12/02/22 05:51 Resp 15 12/02/22 05:51 BP 125/75 12/02/22 05:51 Pulse Ox 96 12/02/22 05:51 O2 Del Method Nasal Cannula 12/02/22 05:51 O2 Flow Rate 2 12/02/22 05:51 BMI result Body Mass Index 45.8 Const: General: ill appearing, poor hygiene and tired appearing Nutritional Appearance: overweight Orientation/consciousness: patient oriented x3 Limitations: physical limitations HEENT: Other: Unremarkable Head: Yes normal to inspection Neck: Neck: Yes normal visual inspection Chest: Chest palpation & inspection: normal inspection of the chest Resp: Auscultation: clear to auscultation bilaterally Cardio: Palpation: normal PMI Heart sounds: S1 normal heart sound present, S2 normal heart sound present, no gallops, Murmur heart sound present systolic III/ and at the right sternal border and no rubs GI: Palpation (GI): Soft to palpation Back/Spine/Pelvis: Other: unremarkable Skin: General skin exam: no rashes or lesions noted Neuro: General: patient oriented x3 Extrem: Other: Chronic changes in both lower extremities with more acute findings on the right side. Psych: Mental Status: mental status grossly normal Objective Labs and Meds 12/01/22 16:15 12/01/22 16:15 Lab results: Laboratory Results - last 24 hr 12/01/22 12/01/22 16:15 21:11 WBC 23.3 H RBC 5.05 Hgb 15.5 Hct 45.5 MCV 90.1 MCH 30.7 MCHC 34.1 RDW 14.2 Plt Count 240 MPV 9.9 Immature Gran % (Auto) 1.3 H Neut % (Auto) 91.5 H Lymph % (Auto) 2.5 L [place] % (Auto) 4.0 Eos % (Auto) 0.2 Baso % (Auto) 0.5 Lymph # (Auto) 0.6 L [place] # (Auto) 0.9 Eos # (Auto) 0.1 Baso # (Auto) 0.1 Abs Immat Gran (auto) 0.31 H Absolute Neuts (auto) 21.2 H Absolute Nucleated RBC 0.020 H Nucleated RBC % (auto) 0.1 Smear Tech's Comments VERIFIED ESR 64 H PT 15.9 H INR 1.3 H Sodium 138 Potassium 2.8 L Chloride 99 Carbon Dioxide 18 L Anion Gap 24 H BUN 60 H Creatinine 2.71 H Estim Creat Clear Calc 26.4 Estimated GFR 17 Random Glucose 124 H Estimat Average Glucose 103 Hemoglobin A1c % 5.2 Lactic Acid 1.5 Calcium 9.1 Magnesium 2.1 Total Bilirubin 0.6 Direct Bilirubin 0.6 H AST 46 H ALT 28 Alkaline Phosphatase 148 H Troponin I High Sens 24.5 H C-Reactive Protein 47.39 H B-Natriuretic Peptide 115 H Total Protein 8.0 Albumin 3.4 L Urine Color Dark Yellow Urine Appearance Cloudy Urine pH 5.5 Ur Specific [place] 1.020 Urine Protein 100 (2+) H Urine Glucose (UA) Negative Urine Ketones Negative Urine Blood Small (1+) H Urine Nitrite Negative Ur Leukocyte Esterase Small (1+) H Urine RBC 3-5 H Urine WBC 0-5 Ur Squamous Epith Cells >20 Urine Bacteria 1+ Hyaline Casts 11-20 Granular Casts Present COVID-19 (OG) Negative COVID-19 Clin Com See Note Influenza Type A (PER) Negative Influenza Type B (PER) Negative Influenza A & B Note See Note ECG Interpretation: EKG with atrial fibrillation at a rate of 77/Min; leftward axis; nonspecific ST-T changes. Imaging Radiologist's impression: Impressions Chest X-Ray 12/01/22 15:57 IMPRESSION: Limited examination without convincing change compared to 12/25/2013. Evaluation of the left lower lobe is limited as above, further imaging with a lateral x-ray could be obtained as clinically deemed appropriate. Venous Duplex 12/01/22 18:45 IMPRESSION: 1. No evidence of deep venous thrombosis in the right lower extremity with the caveat that the calf veins were not visualized in view of the limitations as above. If the patient's symptoms persist, followup ultrasound in 5 days 7 days might be of value to exclude proximal propagation from a non-visualized calf vein. 2. There is a 3.5 cm complicated Bran's cyst in the popliteal fossa with some degree of wall thickening and heterogeneous debris, recommend clinical correlation for superimposed infection. A short-term follow-up ultrasound is recommended. Assessment and Plan (1) New onset a-fib: Status: Acute (2) Cellulitis: Status: Acute (3) Hypokalemia: Status: Acute Plan Atrial fibrillation of unknown duration. As she does not follow up with regular medical care, we do not know how long she has had for. Could have been chronic. On clinical exam, murmur suggestive of aortic stenosis. At this time, primarily treat the lower extremity cellulitis. Potassium levels are low and that needs to be corrected. With regard to atrial fibrillation self, we can monitor on telemetry. If the rates are too fast, then start some beta-blockers. Otherwise, anticoagulation. If no surgery is planned, then can start Eliquis. If there is plan for surgery, then use IV heparin or Lovenox. Echocardiogram. Discussed with Dr. Hurley. Time Spent With Patient Time: Total time managing care of this patient today ____ minutes. Procedures Date of Service Date of Service: 12/02/22
--- NOTE | 2022-12-02 09:37 | MHC.CM.PN ---
PT REPORTS SHE LIVES WITH HER AND DAUGHTER AND IS INDEPENDENT WITH CARE SHE DENIES USE OF DME OR HOME SERVICES PT REPORTS SHE DID NOT HAVE A PCP FOR MANY YEARS BUT DOES HAVE AN APPT NOW WITH DR SIMONS SHE DECLINES TO COMPLETE A HCP IMM DELIVERED DCP: HOME NO SERVICES VIA FAM[facility] TRANSPORT PT AWARE IF [facility] IS INDICATED, THE PCP WILL HAVE TO ARRANGE AFTER APPT
--- NOTE | 2022-12-02 10:21 | P.CONGS_ITS ---
History of Present Illness Consult details Consult date: 12/02/22 <Keira Olsen PA-C - Last Filed: 12/02/22 10:36> Reason for consult: wound care <MACIEL Cabrera Last Filed: 12/02/22 10:36> Requesting physician: Johnie Arango <MACIEL Cabrera Last Filed: 12/02/22 10:36> Narrative: Pt is a 67-year-old female with no reported significant PMH who has not seen a PCP in 34 years who presents to the ED for evaluation of right lower leg swelling, pain, and redness for the past couple weeks. The patient is a very poor historian. The redness began at the right lower leg and eventually spread to her foot and up to her thigh and buttocks along with swelling, pain and subjective fevers and chills. She then developed blisters and wounds on her lower leg. Patient denies any trauma to the area, cuts or lacerations or bites. She had a WBC count of 23.3. Venous duplex ultrasound of right lower extremity found no evidence of deep vein thrombosis however calf veins were not well visualized. She was admitted to the hospitalist service for treatment of right leg cellulitis, hypokalemia, and new onset AFib. She was started on IV vanco. General surgery was asked to see regarding her right lower leg cellulitis and wounds. <MACIEL Cabrera Last Filed: 12/02/22 10:36> Review of Systems 2 Constitutional: Constitutional: Reports as per HPI and Reports chills < MACIEL Cabrera Last Filed: 12/02/22 10:36> ENT: Denies dizziness <MACIEL Cabrera Last Filed: 12/02/22 10:36> Cardiovascular: Cardiovascular: Denies chest pain <ASHWIN Cabrera Last Filed: 12/02/22 10:36> Gastrointestinal: Gastrointestinal: Denies abdominal pain and Denies nausea <MACIEL Cabrera Last Filed: 12/02/22 10:36> Integumentary/Breasts: Skin/Breast: Reports as per HPI <MACIEL Cabrera Filed: 12/02/22 10:36> Neurologic: Denies dizziness <Keira Olsen PA-C - Last Filed: 12/02/22 10:36> [facility] Social History Social History: Social History Patient Tobacco Use Status: Never used Tobacco Smoked in Last 30 Days: No Use of substances other than those prescribed or required for medical reasons: No Advance Directives: No Advance Directives Information Provided: No service: No <Keira Olsen PA-C - Last Filed: 12/02/22 10:36> Meds Allergies/Adverse reactions: Allergies Allergy/AdvReac Type Severity Reaction Status Date / Time No Known Allergies Allergy Unverified 10/31/19 14:57 <Keira Olsen PA-C - Last Filed: 12/02/22 10:36> Active Medications: Current Medications Acetaminophen (Acetaminophen 325 Mg Tablet) 650 mg PO Q6H PRN PRN Reason: Pain, Mild (Pain Scale 1-3) Acetaminophen (Acetaminophen Supp 650 Mg Supp.Rect) 650 mg [place] Q6H PRN PRN Reason: Pain, Mild (Pain Scale 1-3) Enoxaparin Sodium (Enoxaparin Sodium 30 Mg/0.3 Ml Syringe) 30 mg SUBCUT Q24H [facility] Last Admin: 12/01/22 21:06 Dose: 30 mg Vancomycin HCl 500 mg/ Sodium (Chloride) 110 mls @ 110 mls/hr IV Q24H [facility] Melatonin (Melatonin 3 Mg Tablet) 6 mg PO BEDTIME PRN PRN Reason: Insomnia Morphine Sulfate (Morphine Sulfate 2 Mg/Ml Cartridge) 2 mg IVPUSH Q4H PRN; Protocol PRN Reason: Pain, Severe (Pain Scale 7-10) Last Admin: 12/01/22 22:51 Dose: 2 mg Nystatin (Nystatin Cream 15 Gm Tube) 1 appl TOPICAL BID [facility]; Protocol Last Admin: 12/01/22 22:56 Dose: 1 appl Ondansetron HCl (Ondansetron Hcl 4 Mg/2 Ml Vial) 4 mg IVPUSH Q8H PRN PRN Reason: Nausea and Vomiting Oxycodone HCl (Oxycodone Hcl Immed Release 5 Mg Tablet) 5 mg PO Q6H PRN PRN Reason: Pain, Moderate(Pain Scale 4-6) Last Admin: 12/01/22 21:05 Dose: 5 mg Pharmacy Consult (Consult Rx Vancomycin Dosing) 1 each MISCELLANE DAILY PRN PRN Reason: Consult order Sodium Chloride (0.9 % Sodium Chloride Flush 3 Ml Syringe) [facility] Last Admin: 12/02/22 02:29 Dose: 3 ml <MACIEL Cabrera Last Filed: 12/02/22 10:36> Home medications: Home Medications Medication Instructions Recorded Confirmed Last Taken Type ibuprofen 200 mg tablet 400 mg PO Q6H PRN Pain 12/01/22 12/01/22 Unknown History <MACIEL Cabrera Last Filed: 12/02/22 10:36> Physical Exam 2 Vital Signs: Vital Signs: Last Vital Signs Temp 97.1 F 12/02/22 05:51 Pulse 95 12/02/22 05:51 Resp 15 12/02/22 05:51 BP 125/75 12/02/22 05:51 Pulse Ox 96 12/02/22 05:51 O2 Del Method Nasal Cannula 12/02/22 05:51 O2 Flow Rate 2 12/02/22 05:51 BMI result Body Mass Index 45.8 <MACIEL Cabrera Last Filed: 12/02/22 10:36> Const: General: no acute distress and alert <MACIEL Cabrera Last Filed: 12/02/22 10:36> Nutritional Appearance: obese <MACIEL Cabrera Last Filed: 12/02/22 10:36> Orientation/consciousness: patient oriented x3 <MACIEL Cabrera Last Filed: 12/02/22 10:36> Skin: General skin exam: no jaundice <MACIEL Cabrera Last Filed: 12/02/22 10:36> Neuro: General: patient oriented x3 <MACIEL Cabrera Last Filed: 12/02/22 10:36> Extrem: Other: deep erythema and significant edema of right lower leg with multiple weeping bulla of anterior and lateral lower leg with serous drainage with desquamation of skin; no appreciable fluctuance or crepitus, erythema and edema extends proximally to right hip on the lateral aspect of leg <Keira Olsen PA-C - Last Filed: 12/02/22 10:36> Results Labs Result diagrams: 12/01/22 16:15 12/01/22 16:15 <Keira Olsen PA-C - Last Filed: 12/02/22 10:36> Labs: Abnormal lab results 12/01/22 12/01/22 Range/Units 16:15 21:11 WBC 23.3 H (4.8-10.8) X10*3/uL Immature Gran % (Auto) 1.3 H (0.0-0.4) % Neut % (Auto) 91.5 H (45-73) % Lymph % (Auto) 2.5 L (20-40) % Lymph # (Auto) 0.6 L (1.2-4.9) X10*3/uL Abs Immat Gran (auto) 0.31 H (0.00-0.03) X10*3/uL Absolute Neuts (auto) 21.2 H (2.0-8.3) x10*3/uL Absolute Nucleated RBC 0.020 H (0.0-0.012) X10*3/uL ESR 64 H (0-20) MM/HR PT 15.9 H (11.1-13.3) SEC INR 1.3 H (0.9-1.1) Potassium 2.8 L (3.3-5.1) mmol/L Carbon Dioxide 18 L (22-29) mmol/L Anion Gap 24 H (12-20) BUN 60 H (9-16) mg/dL Creatinine 2.71 H (0.5-1.4) mg/dL Random Glucose 124 H (60-115) mg/dL Direct Bilirubin 0.6 H (0.0-0.5) mg/dL AST 46 H (5-31) U/L Alkaline Phosphatase 148 H (39-117) U/L Troponin I High Sens 24.5 H (<3.5-17.0) ng/L C-Reactive Protein 47.39 H (< or = 0.50) mg/dL B-Natriuretic Peptide 115 H (<100) pg/mL Albumin 3.4 L (3.5-5.0) g/dL Urine Protein 100 (2+) H (Neg-Trace) mg/dL Urine Blood Small (1+) H (Negative) Ur Leukocyte Esterase Small (1+) H (Negative) Urine RBC 3-5 H (0-2) /HPF Short CBC 12/01/22 Range/Units 16:15 WBC 23.3 H (4.8-10.8) X10*3/uL Hgb 15.5 (12.0-16.0) g/dl Hct 45.5 (37.0-47.0) % Plt Count 240 (160-400) X10*3/uL BMP 12/01/22 16:15 Sodium 138 Potassium 2.8 L Chloride 99 Carbon Dioxide 18 L BUN 60 H Creatinine 2.71 H Calcium 9.1 Liver Function 12/01/22 Range/Units 16:15 Total Bilirubin 0.6 (0.0-1.0) mg/dL Direct Bilirubin 0.6 H (0.0-0.5) mg/dL AST 46 H (5-31) U/L ALT 28 (0-31) U/L Alkaline Phosphatase 148 H (39-117) U/L Albumin 3.4 L (3.5-5.0) g/dL Urine 12/01/22 Range/Units 21:11 Urine Color Dark Yellow Urine Appearance Cloudy Urine pH 5.5 (5.0-9.0) Ur Specific [place] 1.020 (1.005-1.025) Urine Protein 100 (2+) H (Neg-Trace) mg/dL Urine Glucose (UA) Negative (Negative) mg/dL All other labs normal. <Keira Olsen PA-C - Last Filed: 12/02/22 10:36> Assessment and Plan (1) Cellulitis of right leg: Status: Acute <Keira Olsen PA-C - Last Filed: 12/02/22 10:36> 67 year old female with multiple acute medical problems including right lower leg cellulitis for which she is on IV vanco. She has several large bulla that are open and draining serous fluid. Recommend applying nonadherent dressing (telfa) followed by abd dressing and kerlix wrap. She has a significant amount of edema and needs right leg elevation to help reduce this. The bulla may need to be unroofed however will hold off currently as they are open and draining. Will follow along. <Keira Olsen PA-C - Last Filed: 12/02/22 10:36> Time Spent With Patient Time: Total time managing care of this patient today ____ minutes. <Keira Olsen PA-C - Last Filed: 12/02/22 10:36> Procedures Date of Service Date of Service: 12/02/22 <Keira Olsen PA-C - Last Filed: 12/02/22 10:36> 12/02/22 <Miguelangel Love MD - Last Filed: 12/02/22 11:04>
--- NOTE | 2022-12-02 11:00 | HO.PM.IMPN ---
Subjective Subjective Date of Service: 12/02/22 Interval History: reporting pain in her right leg still has erythema and drainage Afib w controlled rate Review of Systems Review of Systems: Yes all other systems are reviewed and are negative Physical Exam Vital Signs: Vital Signs: Last Vital Signs Temp 97.1 F 12/02/22 05:51 Pulse 95 12/02/22 05:51 Resp 15 12/02/22 05:51 BP 125/75 12/02/22 05:51 Pulse Ox 96 12/02/22 05:51 O2 Del Method Nasal Cannula 12/02/22 05:51 O2 Flow Rate 2 12/02/22 05:51 BMI result Body Mass Index 45.8 Const: Other: Constitutional : Awake, interactive, morbidly obese, not in distress Neck : Normal inspection, Supple Cardiovascular : RRR, no JVP, +1 bilateral lower extremity edema Respiratory : good bilateral air entry, no crackles, wheezes or rhonchi Gastrointestinal: soft, lax, Normal bowel sounds, Non tender Skin : Warm, Dry, multiple open wounds and bullae in RLE with erythema and tenderness Neurological : Alert & oriented x3, No focal deficit Extrem: Other: deep erythema and significant edema of right lower leg with multiple weeping bulla of anterior and lateral lower leg with serous drainage with desquamation of skin; no appreciable fluctuance or crepitus, erythema and edema extends proximally to right hip on the lateral aspect of leg Objective Data Active Medications Acetaminophen (Acetaminophen 325 Mg Tablet) 650 mg PO Q6H PRN PRN Reason: Pain, Mild (Pain Scale 1-3) Acetaminophen (Acetaminophen Supp 650 Mg Supp.Rect) 650 mg [place] Q6H PRN PRN Reason: Pain, Mild (Pain Scale 1-3) Enoxaparin Sodium (Enoxaparin Sodium 30 Mg/0.3 Ml Syringe) 30 mg SUBCUT Q[facility]H [facility] Last Admin: 12/01/22 21:06 Dose: 30 mg Documented By: ESTEFANY Vancomycin HCl 500 mg/ Sodium (Chloride) 110 mls @ 110 mls/hr IV Q24H [facility] Melatonin (Melatonin 3 Mg Tablet) 6 mg PO BEDTIME PRN PRN Reason: Insomnia Morphine Sulfate (Morphine Sulfate 2 Mg/Ml Cartridge) 2 mg IVPUSH Q4H PRN; Protocol PRN Reason: Pain, Severe (Pain Scale 7-10) Last Admin: 12/01/22 22:51 Dose: 2 mg Documented By: ESTEFANY Nystatin (Nystatin Cream 15 Gm Tube) 1 appl TOPICAL BID STEFAN; Protocol Last Admin: 12/01/22 22:56 Dose: 1 appl Documented By: ESTEFANY Ondansetron HCl (Ondansetron Hcl 4 Mg/2 Ml Vial) 4 mg IVPUSH Q8H PRN PRN Reason: Nausea and Vomiting Oxycodone HCl (Oxycodone Hcl Immed Release 5 Mg Tablet) 5 mg PO Q6H PRN PRN Reason: Pain, Moderate(Pain Scale 4-6) Last Admin: 12/01/22 21:05 Dose: 5 mg Documented By: ESTEFANY Pharmacy Consult (Consult Rx Vancomycin Dosing) 1 each MISCELLANE DAILY PRN PRN Reason: Consult order Sodium Chloride (0.9 % Sodium Chloride Flush 3 Ml Syringe) 3 ml IVFLUSH [facility] Last Admin: 12/02/22 02:29 Dose: 3 ml Documented By: ESTEFANY Labs 12/01/22 16:15 12/01/22 16:15 Labs: Laboratory Results - last 24 hr 12/01/22 12/01/22 16:15 21:11 MCV 90.1 MCH 30.7 MCHC 34.1 RDW 14.2 Plt Count 240 MPV 9.9 Immature Gran % (Auto) 1.3 H Neut % (Auto) 91.5 H Lymph % (Auto) 2.5 L [place] % (Auto) 4.0 Eos % (Auto) 0.2 Baso % (Auto) 0.5 Lymph # (Auto) 0.6 L [place] # (Auto) 0.9 Eos # (Auto) 0.1 Baso # (Auto) 0.1 Abs Immat Gran (auto) 0.31 H Absolute Neuts (auto) 21.2 H Absolute Nucleated RBC 0.020 H Nucleated RBC % (auto) 0.1 Smear Tech's Comments VERIFIED ESR 64 H PT 15.9 H INR 1.3 H Anion Gap 24 H Estim Creat Clear Calc 26.4 Estimated GFR 17 Random Glucose 124 H Estimat Average Glucose 103 Hemoglobin A1c % 5.2 Lactic Acid 1.5 Calcium 9.1 Magnesium 2.1 Total Bilirubin 0.6 Direct Bilirubin 0.6 H AST 46 H ALT 28 Alkaline Phosphatase 148 H C-Reactive Protein 47.39 H B-Natriuretic Peptide 115 H Total Protein 8.0 Albumin 3.4 L Urine Color Dark Yellow Urine Appearance Cloudy Urine pH 5.5 Ur Specific [place] 1.020 Urine Protein 100 (2+) H Urine Glucose (UA) Negative Urine Ketones Negative Urine Blood Small (1+) H Urine Nitrite Negative Ur Leukocyte Esterase Small (1+) H Urine RBC 3-5 H Urine WBC 0-5 Ur Squamous Epith Cells >20 Urine Bacteria 1+ Hyaline Casts 11-20 Granular Casts Present COVID-19 (OG) Negative COVID-19 Clin Com See Note Influenza Type A (PER) Negative Influenza Type B (PER) Negative Influenza A & B Note See Note Assessment and Plan (1) Hypokalemia: Status: Acute (2) Cellulitis of right leg: Status: Acute (3) New onset a-fib: Status: Acute (4) Acute hypokalemia: Status: Acute (5) Sepsis: Status: Acute Plan Pt is a 67-year-old female with no reported significant PMH who has not seen a PCP in 34 years who presents to the ED for evaluation of right lower leg swelling, pain, and redness for the past couple weeks. Pt will be admitted to the hospital for treatment of right leg cellulitis, hypokalemia, and new onset AFib. Sepsis 2\2 Right leg cellulitis Pending cultures Continue IV Vancomycin and Zosyn, started on 12/01/2022 Leg elevation, Lasix for edema Surgery input,Recommend applying nonadherent dressing (telfa) followed by abd dressing and kerlix wrap Analgesics for pain management Wound care to follow Newly diagnosed AFib Rate controlled Patient denies any previous cardiac history, has not seen a doctor in over 34 years Echocardiogram Cardiology consult Monitor on telemetry Hypokalemia Patient's potassium 2.8, replacement given Follow BMP Elevated creatinine BUN 60 with creatinine 2.71, baseline unknown Hx of NSAIDs usage, images? Patient given IVF in the ED Follow BMP Elevated troponins Trop trended negative Complicated Bran cyst Venous duplex of right lower extremity found 3.5 cm complicated Bran cyst in popliteal fossa with some degree of wall thickening and heterogeneous debris Ortho recommended No intervention at this point, IR may drain the cyst after cellulitis is treated Obesity class III Weight loss encouraged DNR/DNI DVT Prophylaxis: Lovenox Pt will require a hospitalization of at least overnight for treatment of?right leg cellulitis, hypokalemia, and new onset AFib patient will be treated with IVF, IV antibiotics, and specialist consultation. Time Spent With Patient Time: Total time managing care of this patient today ____ minutes. Quality Stroke Does the patient have a stroke diagnosis?: No VTE Prior VTE?: No VTE Risk Level:: Medical - moderate - high VTE Device Contraindication: Treatment Not Indicated VTE Drug Contraindication: N/A - Med Ordered
[2022-12-02] MEDS: Nystatin Cream 15 GM TUBE 1 APPL TOPICAL ×2 (11:13→20:01)
[2022-12-02] MEDS: Morphine Sulfate 2 MG/ML CARTRIDGE IVPUSH (11:14)
--- NOTE | 2022-12-02 11:33 | PC.NURSE ---
medicated per the MAR, requesting morphine for pain. nystatin cream to groin area. pt refusing to wear oxygen at this time stating she only wears it when she is sleeping.
[2022-12-02] MEDS: Furosemide 40 MG/4 ML VIAL IVPUSH (12:51)
[2022-12-02] MEDS: Enoxaparin Sodium 120 MG/0.8 ML SYRINGE SUBCUT (12:51)
--- NOTE | 2022-12-02 12:58 | MHC.CLN ---
NUTRITION CONSULT FOR RLE WOUND. PATIENT WITH RIGHT CELLULITIS AND WEEPING BLISTERS, WOUNDS DO NOT APPEAR TO BE PRESSURE RELATED. NO ADDITIONAL NUTRITION INTERVENTIONS AT THIS TIME.
[2022-12-02 14:07] LABS: Anion Gap 25 (12-20); Blood Urea Nitrogen 66 mg/dL (9-16); Calcium 8.1 mg/dL (8.4-10.2); Carbon Dioxide 10 mmol/L (22-29); Chloride 105 mmol/L (96-108); Creatinine Clr Calc Pharmacy 30.5; Estimated Glomerular Filt Rate 21; Glucose Random 111 mg/dL (60-115); Potassium 3.9 mmol/L (3.3-5.1); Sodium 136 mmol/L (135-145)
--- NOTE | 2022-12-02 15:00 | HE.PHANOTE ---
Lovenox Lovenox 120 mg q12h order by dr. sagastume. Patient Crcl borderline for q24h dosing. One time dose of lovenox 120 mg ordered and will reasses renal function and surgery status in the morning.
[2022-12-02] MEDS: Sodium Bicarbonate 8.4% 150 MEQ in Dextrose 5 % 850 ML 100 MEQ IV (15:33)
[2022-12-02] MEDS: oxyCODONE HCl Immed Release 5 MG TABLET PO (20:09)
[2022-12-02] MEDS: vancomycin HCL 500 MG in 0.9 % Sodium Chloride 100 ML 110 MG IV (20:10)
--- NOTE | 2022-12-02 20:20 | P.EN_ITS ---
Event Note Date of Service: 12/02/22 Event Note: Was asked to evaluate the patient. Patient has no complaints at the time of my evaluation. She is drowsy but awakens to verbal stimulus. Follows commands and is conversational. Knows she is at [facility] but does not know why she is here. CT head, VBG and BMP pending Time Spent With Patient Time: Total time managing care of this patient today ____ minutes.
[2022-12-03 03:07] VITALS: BP 106/51; PULSE 103; RESP 14; TEMP 36.6; O2SAT 93
[2022-12-03] MEDS: Sodium Bicarbonate 8.4% 150 MEQ in Dextrose 5 % 850 ML 100 MEQ IV ×2 (03:19→13:42)
[2022-12-03 06:13] LABS: Hematocrit 39.7 % (37.0-47.0); Mean Corpuscular HGB Conc 32.7 g/dl (31.0-35.0); Mean Corpuscular Hemoglobin 30.7 pg (27.0-33.0); Mean Corpuscular Volume 93.9 fL (80.0-98.0); Platelet Count 217 X10*3/uL (160-400); Red Blood Count 4.23 X10*6/uL (4.20-5.50); Red Cell Distribution Width 14.6 % (11.0-16.0)
[2022-12-03 06:27] LABS: Anion Gap 20 (12-20); Blood Urea Nitrogen 78 mg/dL (9-16); Calcium 7.5 mg/dL (8.4-10.2); Carbon Dioxide 17 mmol/L (22-29); Chloride 102 mmol/L (96-108); Creatinine Clr Calc Pharmacy 27.5; Estimated Glomerular Filt Rate 18; Glucose Random 120 mg/dL (60-115); Potassium 3.1 mmol/L (3.3-5.1); Sodium 136 mmol/L (135-145)
[2022-12-03 07:16] VITALS: BP 113/56; PULSE 95; RESP 12; TEMP 36.4; O2SAT 95
[2022-12-03] MEDS: Potassium Chloride Packet 20 MEQ PACKET 40 MEQ PO (07:52)
[2022-12-03] MEDS: Nystatin Cream 15 GM TUBE 1 APPL TOPICAL ×2 (07:54→19:37)
--- NOTE | 2022-12-03 10:13 | PM.PNGS ---
Subjective Subjective Date of Service: 12/03/22 Interval history: Lower extremities examined Complains of pain especially on the right lower leg Physical Exam Vital Signs: Vital Signs: Last Vital Signs Temp 97.6 F 12/03/22 07:16 Pulse 95 12/03/22 07:16 Resp 12 12/03/22 07:16 BP 113/56 L 12/03/22 07:16 Pulse Ox 95 12/03/22 07:16 O2 Del Method Nasal Cannula 12/03/22 07:16 O2 Flow Rate 2.5 12/03/22 07:16 BMI result Body Mass Index 45.8 Const: Other: With significant wheezing General: comfortable and no acute distress Nutritional Appearance: obese Resp: Other: Significant wheezing Cardio: Rhythm: regular rhythm GI: Other: Obese, soft Extrem: Other: Marked edema of both lower extremities with significant stasis changes on the right lower, some blistering, dry, nonviable skin patches, diffuse weeping, cellulitis Objective Data Active Medications Acetaminophen (Acetaminophen 325 Mg Tablet) 650 mg PO Q6H PRN PRN Reason: Pain, Mild (Pain Scale 1-3) Acetaminophen (Acetaminophen Supp 650 Mg Supp.Rect) 650 mg [place] Q6H PRN PRN Reason: Pain, Mild (Pain Scale 1-3) Albuterol Sulfate (Albuterol Sulfate (0.083%) 2.5 Mg/3 Ml Vial.Neb) 2.5 mg INHALE Q4H PRN PRN Reason: Wheezing Albuterol/Ipratropium (Albuterol/Iprat 2.5/0.5mg 3 Ml Ampul.Neb) 3 ml INHALE RQ6H WHILE AWAKE [facility] Enoxaparin Sodium (Enoxaparin Sodium 120 Mg/0.8 Ml Syringe) 120 mg 1 mg/kg (120 mg) SUBCUT Q24H [facility] Vancomycin HCl 500 mg/ Sodium (Chloride) 110 mls @ 110 mls/hr IV Q24H [facility] Last Infusion: 12/02/22 21:10 Dose: Infused Documented By: GONSALO Sodium Bicarbonate 150 meq/ (Dextrose) 1,000 mls @ 100 mls/hr IV .Q10H [facility] Last Admin: 12/03/22 03:19 Dose: 100 mls/hr Documented By: GHANSHYAM Melatonin (Melatonin 3 Mg Tablet) 6 mg PO BEDTIME PRN PRN Reason: Insomnia Nystatin (Nystatin Cream 15 Gm Tube) 1 appl TOPICAL BID [facility]; Protocol Last Admin: 12/03/22 07:54 Dose: 1 appl Documented By: JUDSON Ondansetron HCl (Ondansetron Hcl 4 Mg/2 Ml Vial) 4 mg IVPUSH Q8H PRN PRN Reason: Nausea and Vomiting Oxycodone HCl (Oxycodone Hcl Immed Release 5 Mg Tablet) 5 mg PO Q6H PRN PRN Reason: Pain, Moderate(Pain Scale 4-6) Last Admin: 12/02/22 20:09 Dose: 5 mg Documented By: GONSALO Pharmacy Consult (Consult Rx Vancomycin Dosing) 1 each MISCELLANE DAILY PRN PRN Reason: Consult order Sodium Chloride (0.9 % Sodium Chloride Flush 3 Ml Syringe) 3 ml IVFLUSH QSHIFT [facility] Last Admin: 12/03/22 07:51 Dose: Not Given Documented By: JUDSON Non-Admin Reason: IV Running Labs 12/03/22 05:29 12/03/22 05:29 Labs: Laboratory Results - last 24 hr 12/02/22 12/03/22 10:45 05:29 MCV 93.9 MCH 30.7 MCHC 32.7 RDW 14.6 Plt Count 217 MPV 10.0 Absolute Nucleated RBC 0.000 Nucleated RBC % (auto) 0.0 Anion Gap 25 H 20 Estim Creat Clear Calc 30.5 27.5 Estimated GFR 21 18 Random Glucose 111 120 H Estimat Average Glucose Cancelled Hemoglobin A1c % Cancelled Calcium 8.1 L D 7.5 L D Total Creatine Kinase 134 Microbiology Microbiology Results: Microbiology 12/01/22 18:25 Blood Culture - Preliminary Blood - Venous No growth after 24 hours. 12/01/22 16:17 Blood Culture - Preliminary Blood - Venous No growth after 24 hours. 12/01/22 21:11 Urine Culture - Preliminary Urine clean catch - Urine barros top Culture too young to evaluate. Procedures Date of Service Date of Service: 12/03/22 Progress Note: A&P Assessment and plan (1) Cellulitis of right leg: Status: Acute Assessment and Plan: She has had chronic diffuse edema with significant stasis changes, cellulitis I did sharp excisional debridement of areas of blisters on the anterior leg and some nonviable tissue patchy areas, probably about 3 x 4 cm total to remove part of nonviable skin I wrapped the entire leg with thick jimenez Placed pillow under Continue leg elevation Redness seems to have faded compared to yesterday Continue current care Has multiple medical problems Time Spent With Patient Time: Total time managing care of this patient today ____ minutes. Quality Stroke Does the patient have a stroke diagnosis?: No VTE Prior VTE?: No VTE Risk Level:: Medical - moderate - high VTE Device Contraindication: Treatment Not Indicated VTE Drug Contraindication: N/A - Med Ordered
[2022-12-03] MEDS: Enoxaparin Sodium 120 MG/0.8 ML SYRINGE SUBCUT (11:16)
[2022-12-03 11:57] VITALS: BP 117/63; PULSE 83; RESP 14; TEMP 36.5; O2SAT 96
--- NOTE | 2022-12-03 12:42 | HO.PM.IMPN ---
Subjective Subjective Date of Service: 12/03/22 Interval History: reporting pain in her right leg still has erythema and drainage Cr mildly worse Afib w controlled rate Review of Systems Review of Systems: Yes all other systems are reviewed and are negative Physical Exam Vital Signs: Vital Signs: Last Vital Signs Temp 97.7 F 12/03/22 11:57 Pulse 83 12/03/22 11:57 Resp 14 12/03/22 11:57 BP 117/63 12/03/22 11:57 Pulse Ox 96 12/03/22 11:57 O2 Del Method Nasal Cannula 12/03/22 11:57 O2 Flow Rate 2.5 12/03/22 11:57 BMI result Body Mass Index 45.8 Const: Other: Constitutional : Awake, interactive, morbidly obese, not in distress Neck : Normal inspection, Supple Cardiovascular : RRR, no JVP, +1 bilateral lower extremity edema Respiratory : good bilateral air entry, no crackles, wheezes or rhonchi Gastrointestinal: soft, lax, Normal bowel sounds, Non tender Skin : Warm, Dry, multiple open wounds and bullae in RLE with erythema and tenderness Neurological : Alert & oriented x3, No focal deficit Objective Data Active Medications Acetaminophen (Acetaminophen 325 Mg Tablet) 650 mg PO Q6H PRN PRN Reason: Pain, Mild (Pain Scale 1-3) Acetaminophen (Acetaminophen Supp 650 Mg Supp.Rect) 650 mg [place] Q6H PRN PRN Reason: Pain, Mild (Pain Scale 1-3) Albuterol Sulfate (Albuterol Sulfate (0.083%) 2.5 Mg/3 Ml Vial.Neb) 2.5 mg INHALE Q4H PRN PRN Reason: Wheezing Albuterol/Ipratropium (Albuterol/Iprat 2.5/0.5mg 3 Ml Ampul.Neb) 3 ml INHALE RQ6H WHILE AWAKE [facility] Last Admin: 12/03/22 11:57 Dose: Not Given Documented By: ROB Non-Admin Reason: Administered by Alternate Route Enoxaparin Sodium (Enoxaparin Sodium 120 Mg/0.8 Ml Syringe) 120 mg 1 mg/kg (120 mg) SUBCUT Q24H [facility] Last Admin: 12/03/22 11:16 Dose: 120 mg Documented By: JUDSON Vancomycin HCl 500 mg/ Sodium (Chloride) 110 mls @ 110 mls/hr IV Q24H [facility] Last Infusion: 12/02/22 21:10 Dose: Infused Documented By: GONSALO Sodium Bicarbonate 150 meq/ (Dextrose) 1,000 mls @ 100 mls/hr IV .Q10H [facility] Last Admin: 12/03/22 03:19 Dose: 100 mls/hr Documented By: GHANSHYAM Melatonin (Melatonin 3 Mg Tablet) 6 mg PO BEDTIME PRN PRN Reason: Insomnia Nystatin (Nystatin Cream 15 Gm Tube) 1 appl TOPICAL BID STEFAN; Protocol Last Admin: 12/03/22 07:54 Dose: 1 appl Documented By: JUDSON Ondansetron HCl (Ondansetron Hcl 4 Mg/2 Ml Vial) 4 mg IVPUSH Q8H PRN PRN Reason: Nausea and Vomiting Oxycodone HCl (Oxycodone Hcl Immed Release 5 Mg Tablet) 5 mg PO Q6H PRN PRN Reason: Pain, Moderate(Pain Scale 4-6) Last Admin: 12/02/22 20:09 Dose: 5 mg Documented By: GONSALO Pharmacy Consult (Consult Rx Vancomycin Dosing) 1 each MISCELLANE DAILY PRN PRN Reason: Consult order Sodium Chloride (0.9 % Sodium Chloride Flush 3 Ml Syringe) 3 ml IVFLUSH QSHIFT [facility] Last Admin: 12/03/22 07:51 Dose: Not Given Documented By: JUDSON Non-Admin Reason: IV Running Labs 12/03/22 05:29 12/03/22 05:29 Labs: Laboratory Results - last 24 hr 12/02/22 12/03/22 10:45 05:29 MCV 93.9 MCH 30.7 MCHC 32.7 RDW 14.6 Plt Count 217 MPV 10.0 Absolute Nucleated RBC 0.000 Nucleated RBC % (auto) 0.0 Anion Gap 25 H 20 Estim Creat Clear Calc 30.5 27.5 Estimated GFR 21 18 Random Glucose 111 120 H Estimat Average Glucose Cancelled Hemoglobin A1c % Cancelled Calcium 8.1 L D 7.5 L D Total Creatine Kinase 134 Microbiology Microbiology Results: Microbiology 12/01/22 21:11 Urine Culture - Final Urine clean catch - Urine barros top 12/01/22 18:25 Blood Culture - Preliminary Blood - Venous No growth after 24 hours. 12/01/22 16:17 Blood Culture - Preliminary Blood - Venous No growth after 24 hours. Assessment and Plan (1) Sepsis: Status: Acute (2) Hypokalemia: Status: Acute (3) WANDY (acute kidney injury): Status: Acute (4) Metabolic acidosis: Status: Acute Plan Pt is a 67-year-old female with no reported significant PMH who has not seen a PCP in 34 years who presents to the ED for evaluation of right lower leg swelling, pain, and redness for the past couple weeks. Pt will be admitted to the hospital for treatment of right leg cellulitis, hypokalemia, and new onset AFib. Sepsis 2\2 Right leg cellulitis in state of chronic stasis dermatitis Pending cultures Continue IV Vancomycin and Zosyn, started on 12/01/2022 Leg elevation, Lasix for edema Surgery input,sharp excisional debridement of areas of blisters on the anterior leg and some nonviable tissue patchy areas, leg elevation Analgesics for pain management Wound care to follow Newly diagnosed AFib Rate controlled Patient denies any previous cardiac history, has not seen a doctor in over 34 years Echocardiogram Cardiology following Monitor on telemetry Hypokalemia improved as replacement given Follow BMP Elevated creatinine BUN 78 with creatinine 2.7, baseline unknown Hx of NSAIDs usage US negative for any obstructions Patient given IVF in the ED Follow BMP Elevated troponins Trop trended negative Complicated Bran cyst Venous duplex of right lower extremity found 3.5 cm complicated Bran cyst in popliteal fossa with some degree of wall thickening and heterogeneous debris Ortho recommended No intervention at this point, IR may drain the cyst after cellulitis is treated Obesity class III Weight loss encouraged DNR/DNI DVT Prophylaxis: Lovenox Pt will require a hospitalization of at least overnight for treatment of?right leg cellulitis, hypokalemia, and new onset AFib patient will be treated with IVF, IV antibiotics, and specialist consultation. Time Spent With Patient Time: Total time managing care of this patient today ____ minutes. Quality Stroke Does the patient have a stroke diagnosis?: No VTE Prior VTE?: No VTE Risk Level:: Medical - moderate - high VTE Device Contraindication: Treatment Not Indicated VTE Drug Contraindication: N/A - Med Ordered
[2022-12-03 15:17] VITALS: BP 121/55; PULSE 84; RESP 14; TEMP 35.8; O2SAT 95
--- NOTE | 2022-12-03 15:40 | MHC.CM.PN ---
Pt completed HCP form today, her daughter was here visiting and requested to complete this, Karma was able to state that she wanted her daughter Katarzyna to be her HCP and her Stan to be the alternate. Form added to chart.
[2022-12-03 15:41] VITALS: BP 100/59; PULSE 78; RESP 16; TEMP 35.8; O2SAT 95
[2022-12-03 17:25] LABS: Vancomycin Random 11.5 mcg/mL (15-20)
[2022-12-03 19:17] VITALS: BP 119/58; PULSE 86; RESP 16; TEMP 35.8; O2SAT 93
[2022-12-03] MEDS: vancomycin HCL 500 MG in 0.9 % Sodium Chloride 100 ML 110 MG IV (19:36)
[2022-12-03] MEDS: ondansetron HCL 4 MG/2 ML VIAL IVPUSH (22:29)
[2022-12-04] VITALS (9 sets, daily range): BP systolic 93–117; BP diastolic 52–69; PULSE 73–96; RESP 16–22; TEMP 36.1–36.8; O2SAT 88–97
[2022-12-04] MEDS: Sodium Bicarbonate 8.4% 150 MEQ in Dextrose 5 % 850 ML 100 MEQ IV (04:08)
[2022-12-04] MEDS: oxyCODONE HCl Immed Release 5 MG TABLET PO (04:19)
--- NOTE | 2022-12-04 04:35 | PC.NURSE ---
Patient c/o low abdomen pain with soriano in place and not draining. Bladder scan >700. Patient states she often has sediment in urine, MD contacted for orders to irrigate. Sediment removed and now draining properly with releif to patient.
[2022-12-04 06:33] LABS: Hematocrit 37.2 % (37.0-47.0); Mean Corpuscular HGB Conc 32.3 g/dl (31.0-35.0); Mean Corpuscular Hemoglobin 30.6 pg (27.0-33.0); Mean Corpuscular Volume 94.9 fL (80.0-98.0); Mean Platelet Volume 10.1 fL (9.4-12.3); NRBC Pct Auto 0.1 /100WBC (0.0-0.2); Platelet Count 211 X10*3/uL (160-400); Red Blood Count 3.92 X10*6/uL (4.20-5.50); Red Cell Distribution Width 14.6 % (11.0-16.0); White Blood Count 18.7 X10*3/uL (4.8-10.8)
[2022-12-04 06:55] LABS: Anion Gap 18 (12-20); Blood Urea Nitrogen 87 mg/dL (9-16); Calcium 7.2 mg/dL (8.4-10.2); Carbon Dioxide 22 mmol/L (22-29); Chloride 99 mmol/L (96-108); Creatinine Clr Calc Pharmacy 32.3; Estimated Glomerular Filt Rate 22; Glucose Random 117 mg/dL (60-115); Potassium 3.6 mmol/L (3.3-5.1); Sodium 135 mmol/L (135-145)
--- NOTE | 2022-12-04 07:56 | PM.CNNEP ---
History of Present Illness Reason for Consult Consult date: 12/04/22 Chief Complaint Chief complaint: leg infection History of Present Illness Narrative: 67 year old patient with unknown baseline kidney function admitted with cellulitis currently with elevated serum creatinine. She reports decreased oral intake and vomiting. Patient admits also taking NSAID. Renal US was negative for obstrtuction. Review of her vital signs showed low BP with systolic BP down to the 90s. Review of Systems Review of Systems 10 points ROS negative except for pertinent in [facility] Social History Social History Household Members: Family Housing: House Do you presently have visiting nurse or other home services: No Patient Tobacco Use Status: Never used Tobacco service: No Meds Allergies Allergy/AdvReac Type Severity Reaction Status Date / Time No Known Allergies Allergy Unverified 10/31/19 14:57 Active Medications: Current Medications Acetaminophen (Acetaminophen 325 Mg Tablet) 650 mg PO Q6H PRN PRN Reason: Pain, Mild (Pain Scale 1-3) Acetaminophen (Acetaminophen Supp 650 Mg Supp.Rect) 650 mg [place] Q6H PRN PRN Reason: Pain, Mild (Pain Scale 1-3) Albuterol Sulfate (Albuterol Sulfate (0.083%) 2.5 Mg/3 Ml Vial.Neb) 2.5 mg INHALE Q4H PRN PRN Reason: Wheezing Albuterol/Ipratropium (Albuterol/Iprat 2.5/0.5mg 3 Ml Ampul.Neb) 3 ml INHALE RQ6H WHILE AWAKE [facility] Last Admin: 12/04/22 07:46 Dose: Not Given Enoxaparin Sodium (Enoxaparin Sodium 120 Mg/0.8 Ml Syringe) 120 mg 1 mg/kg (120 mg) SUBCUT Q24H [facility] Last Admin: 12/03/22 11:16 Dose: 120 mg Vancomycin HCl 500 mg/ Sodium (Chloride) 110 mls @ 110 mls/hr IV Q24H [facility] Last Infusion: 12/03/22 20:43 Dose: Infused Sodium Bicarbonate 150 meq/ (Dextrose) 1,000 mls @ 100 mls/hr IV .Q10H [facility] Last Admin: 12/04/22 04:08 Dose: 100 mls/hr Melatonin (Melatonin 3 Mg Tablet) 6 mg PO BEDTIME PRN PRN Reason: Insomnia Nystatin (Nystatin Cream 15 Gm Tube) 1 appl TOPICAL BID STEFAN; Protocol Last Admin: 12/03/22 19:37 Dose: 1 appl Ondansetron HCl (Ondansetron Hcl 4 Mg/2 Ml Vial) 4 mg IVPUSH Q8H PRN PRN Reason: Nausea and Vomiting Last Admin: 12/03/22 22:29 Dose: 4 mg Oxycodone HCl (Oxycodone Hcl Immed Release 5 Mg Tablet) 5 mg PO Q6H PRN PRN Reason: Pain, Moderate(Pain Scale 4-6) Last Admin: 12/04/22 04:19 Dose: 5 mg Pharmacy Consult (Consult Rx Vancomycin Dosing) 1 each MISCELLANE DAILY PRN PRN Reason: Consult order Sodium Chloride (0.9 % Sodium Chloride Flush 3 Ml Syringe) 3 ml IVFLUSH QSHIFT [facility] Last Admin: 12/04/22 00:28 Dose: Not Given Home Medications Medication Instructions Recorded Confirmed Last Taken Type ibuprofen 200 mg tablet 400 mg PO Q6H PRN Pain 12/01/22 12/01/22 Unknown History Physical Exam Vital Signs: Last Vital Signs Temp 96.9 F 12/04/22 07:21 Pulse 94 12/04/22 07:21 Resp 22 H 12/04/22 07:21 BP 94/59 L 12/04/22 07:21 Pulse Ox 90 L 12/04/22 07:21 O2 Del Method Aerosol Mask 12/04/22 07:21 O2 Flow Rate 2 12/04/22 07:21 BMI result Body Mass Index 45.8 Const General: alert and awake HEENT Head: Yes normocephalic and Yes atraumatic Neck Neck: Yes supple Resp Auscultation: diminished lung sounds Cardio Heart sounds: S1 normal heart sound present and S2 normal heart sound present GI Palpation (GI): Soft to palpation and nontender Extrem General: Yes normal to inspection Results Lab Results 12/04/22 05:44 12/04/22 05:44 Lab results: Chemistry 12/01/22 12/02/22 12/03/22 16:15 10:45 05:29 Sodium 138 136 136 Potassium 2.8 L 3.9 D 3.1 L D Carbon Dioxide 18 L 10 L* D 17 L BUN 60 H 66 H 78 H Creatinine 2.71 H 2.34 H 2.60 H Calcium 9.1 8.1 L D 7.5 L D 12/04/22 05:44 Sodium 135 Potassium 3.6 Carbon Dioxide 22 BUN 87 H Creatinine 2.21 H Calcium 7.2 L Hematology 12/01/22 12/03/22 12/04/22 16:15 05:29 05:44 WBC 23.3 H 21.0 H 18.7 H Hgb 15.5 13.0 12.0 Plt Count 240 217 211 Urinalysis 12/01/22 21:11 Urine Color Dark Yellow Urine Appearance Cloudy Urine pH 5.5 Ur Specific [place] 1.020 Urine Protein 100 (2+) H Urine Glucose (UA) Negative Urine Ketones Negative Urine Blood Small (1+) H Urine Nitrite Negative Ur Leukocyte Esterase Small (1+) H Urine RBC 3-5 H Urine WBC 0-5 Ur Squamous Epith Cells >20 Hyaline Casts 11-20 Assessment and Plan (1) WANDY (acute kidney injury): Status: Acute Plan elevated Scr hypotensive WANDY versus CKD no prior baseline kidney function available h/o NSAID use differential diagnosis includes: -renal hypoperfusion -hanny infectious GN renal US negative for obstruction urine c/w microsocpic hematuria REC dc bicarbonate dripo LR 80 cc/hr complement level c3 and c4 urine protein to creatinine ratio urine sodium follow random vancomycin level follow kidney function and electrolytes Time Spent With Patient Time: Total time managing care of this patient today ____ minutes. Procedures Date of Service Date of Service: 12/04/22
[2022-12-04] MEDS: Nystatin Cream 15 GM TUBE 1 APPL TOPICAL ×2 (08:23→19:29)
[2022-12-04] MEDS: Lactated Ringers 1,000 ML 80 ML IVCONT ×2 (08:24→19:23)
[2022-12-04 08:44] LABS: Alanine Aminotransferase 48 U/L (0-31); Albumin Level 2.6 g/dL (3.5-5.0); Alkaline Phosphatase 122 U/L (39-117); Aspartate Amino Transferase 120 U/L (5-31); Bilirubin Direct 0.1 mg/dL (0.0-0.5); Bilirubin Total 0.4 mg/dL (0.0-1.0); Total Protein 6.6 g/dL (6.5-8.0)
--- NOTE | 2022-12-04 10:03 | P.PNGS_ITS ---
Subjective Subjective Date of Service: 12/05/22 Interval history: no new events reported patient clinically looks the same some shortness of breath and wheezing Physical Exam 2 Vital Signs: Vital Signs: Last Vital Signs Temp 96.9 F 12/04/22 07:21 Pulse 94 12/04/22 07:21 Resp 22 H 12/04/22 07:21 BP 94/59 L 12/04/22 07:21 Pulse Ox 90 L 12/04/22 07:21 O2 Del Method Aerosol Mask 12/04/22 07:21 O2 Flow Rate 2 12/04/22 07:21 BMI result Body Mass Index 45.8 Const: Other: morbidly obese and frail looking General: comfortable Resp: Other: some wheezing and shortness of breath Cardio: Rate: tachycardic GI: Other: morbidly obese, with pannus, and under the pannus if usually Extrem: Other: dressings in place on the right lower leg, cellulitic changes not worse Objective Data Active Medications Acetaminophen (Acetaminophen 325 Mg Tablet) 650 mg PO Q6H PRN PRN Reason: Pain, Mild (Pain Scale 1-3) Acetaminophen (Acetaminophen Supp 650 Mg Supp.Rect) 650 mg [place] Q6H PRN PRN Reason: Pain, Mild (Pain Scale 1-3) Albuterol Sulfate (Albuterol Sulfate (0.083%) 2.5 Mg/3 Ml Vial.Neb) 2.5 mg INHALE Q4H PRN PRN Reason: Wheezing Albuterol/Ipratropium (Albuterol/Iprat 2.5/0.5mg 3 Ml Ampul.Neb) 3 ml INHALE RQ6H WHILE AWAKE [facility] Last Admin: 12/04/22 07:46 Dose: Not Given Documented By: LOLI Non-Admin Reason: Patient Asleep Enoxaparin Sodium (Enoxaparin Sodium 120 Mg/0.8 Ml Syringe) 120 mg 1 mg/kg (120 mg) SUBCUT Q24H [facility] Last Admin: 12/03/22 11:16 Dose: 120 mg Documented By: JUDSON Vancomycin HCl 500 mg/ Sodium (Chloride) 110 mls @ 110 mls/hr IV Q24H [facility] Last Infusion: 12/03/22 20:43 Dose: Infused Documented By: IVAN Lactated Ringer's (Lr) 1,000 mls @ 80 mls/hr IVCONT .[id number] [facility] Last Admin: 12/04/22 08:24 Dose: 80 mls/hr Documented By: JUDSON Melatonin (Melatonin 3 Mg Tablet) 6 mg PO BEDTIME PRN PRN Reason: Insomnia Nystatin (Nystatin Cream 15 Gm Tube) 1 appl TOPICAL BID [facility]; Protocol Last Admin: 12/04/22 08:23 Dose: 1 appl Documented By: JUDSON Ondansetron HCl (Ondansetron Hcl 4 Mg/2 Ml Vial) 4 mg IVPUSH Q8H PRN PRN Reason: Nausea and Vomiting Last Admin: 12/03/22 22:29 Dose: 4 mg Documented By: IVAN Oxycodone HCl (Oxycodone Hcl Immed Release 5 Mg Tablet) 5 mg PO Q6H PRN PRN Reason: Pain, Moderate(Pain Scale 4-6) Last Admin: 12/04/22 04:19 Dose: 5 mg Documented By: GHANSHYAM Pharmacy Consult (Consult Rx Vancomycin Dosing) 1 each MISCELLANE DAILY PRN PRN Reason: Consult order Sodium Chloride (0.9 % Sodium Chloride Flush 3 Ml Syringe) 3 ml IVFLUSH QSHIFT [facility] Last Admin: 12/04/22 08:26 Dose: Not Given Documented By: JUDSON Non-Admin Reason: IV Running Labs 12/05/22 05:53 12/05/22 05:53 Labs: Laboratory Results - last 24 hr 12/03/22 12/04/22 16:58 05:44 MCV 94.9 MCH 30.6 MCHC 32.3 RDW 14.6 Plt Count 211 MPV 10.1 Absolute Nucleated RBC 0.020 H Nucleated RBC % (auto) 0.1 Anion Gap 18 Estim Creat Clear Calc 32.3 Estimated GFR 22 Random Glucose 117 H Calcium 7.2 L Total Bilirubin 0.4 Direct Bilirubin 0.1 AST 120 H ALT 48 H Alkaline Phosphatase 122 H Total Protein 6.6 Albumin 2.6 L Random Vancomycin 11.5 L Microbiology Microbiology Results: Microbiology 12/01/22 18:25 Blood Culture - Preliminary Blood - Venous No growth after 48 hours. 12/01/22 16:17 Blood Culture - Preliminary Blood - Venous No growth after 48 hours. 12/01/22 21:11 Urine Culture - Final Urine clean catch - Urine barros top Procedures Date of Service Date of Service: 12/05/22 Progress Note: A&P Assessment and plan (1) Cellulitis of right leg: Status: Acute Assessment and Plan: dressings changed by the nursing staff continue good wound care leg elevation manage ongoing medical conditions Time Spent With Patient Time: Total time managing care of this patient today ____ minutes. Quality Stroke Does the patient have a stroke diagnosis?: No VTE Prior VTE?: No VTE Risk Level:: Medical - moderate - high VTE Device Contraindication: Treatment Not Indicated VTE Drug Contraindication: N/A - Med Ordered
[2022-12-04] MEDS: Enoxaparin Sodium 120 MG/0.8 ML SYRINGE SUBCUT (11:54)
--- NOTE | 2022-12-04 13:22 | P.PNIM_ITS ---
Subjective Subjective Date of Service: 12/04/22 Interval History: reporting improving pain in her right leg mildly better erythema and but has extensive drainage Cr mildly better at 2.2 Acidemia resolved Afib w controlled rate Review of Systems Review of Systems: Yes all other systems are reviewed and are negative Physical Exam 2 Vital Signs: Vital Signs: Last Vital Signs Temp 96.9 F 12/04/22 07:21 Pulse 94 12/04/22 07:21 Resp 22 H 12/04/22 07:21 BP 94/59 L 12/04/22 07:21 Pulse Ox 97 12/04/22 11:22 O2 Del Method Nasal Cannula 12/04/22 11:22 O2 Flow Rate 2 12/04/22 11:22 BMI result Body Mass Index 45.8 Const: Other: Constitutional : Awake, interactive, morbidly obese, not in distress Neck : Normal inspection, Supple Cardiovascular : RRR, no JVP, +1 bilateral lower extremity edema Respiratory : good bilateral air entry, no crackles, wheezes or rhonchi Gastrointestinal: soft, lax, Normal bowel sounds, Non tender Skin : Warm, Dry, multiple open wounds and bullae in RLE with erythema and tenderness Neurological : Alert & oriented x3, No focal deficit Objective Data Active Medications Acetaminophen (Acetaminophen 325 Mg Tablet) 650 mg PO Q6H PRN PRN Reason: Pain, Mild (Pain Scale 1-3) Acetaminophen (Acetaminophen Supp 650 Mg Supp.Rect) 650 mg [place] Q6H PRN PRN Reason: Pain, Mild (Pain Scale 1-3) Albuterol Sulfate (Albuterol Sulfate (0.083%) 2.5 Mg/3 Ml Vial.Neb) 2.5 mg INHALE Q4H PRN PRN Reason: Wheezing Albuterol/Ipratropium (Albuterol/Iprat 2.5/0.5mg 3 Ml Ampul.Neb) 3 ml INHALE RQ6H WHILE AWAKE [facility] Last Admin: 12/04/22 07:46 Dose: Not Given Documented By: LOLI Non-Admin Reason: Patient Asleep Enoxaparin Sodium (Enoxaparin Sodium 120 Mg/0.8 Ml Syringe) 120 mg 1 mg/kg (120 mg) SUBCUT Q24H [facility] Last Admin: 12/04/22 11:54 Dose: 120 mg Documented By: JUDSON Fluconazole (Fluconazole 100 Mg Tablet) 100 mg PO DAILY [facility] Vancomycin HCl 500 mg/ Sodium (Chloride) 110 mls @ 110 mls/hr IV Q24H [facility] Last Infusion: 12/03/22 20:43 Dose: Infused Documented By: IVAN Lactated Ringer's (Lr) 1,000 mls @ 80 mls/hr IVCONT .[id number] [facility] Last Admin: 12/04/22 08:24 Dose: 80 mls/hr Documented By: JUDSON Melatonin (Melatonin 3 Mg Tablet) 6 mg PO BEDTIME PRN PRN Reason: Insomnia Nystatin (Nystatin Cream 15 Gm Tube) 1 appl TOPICAL BID STEFAN; Protocol Last Admin: 12/04/22 08:23 Dose: 1 appl Documented By: JUDSON Ondansetron HCl (Ondansetron Hcl 4 Mg/2 Ml Vial) 4 mg IVPUSH Q8H PRN PRN Reason: Nausea and Vomiting Last Admin: 12/03/22 22:29 Dose: 4 mg Documented By: IVAN Oxycodone HCl (Oxycodone Hcl Immed Release 5 Mg Tablet) 5 mg PO Q6H PRN PRN Reason: Pain, Moderate(Pain Scale 4-6) Last Admin: 12/04/22 04:19 Dose: 5 mg Documented By: GHANSHYAM Pharmacy Consult (Consult Rx Vancomycin Dosing) 1 each MISCELLANE DAILY PRN PRN Reason: Consult order Sodium Chloride (0.9 % Sodium Chloride Flush 3 Ml Syringe) 3 ml IVFLUSH QSHIFT [facility] Last Admin: 12/04/22 08:26 Dose: Not Given Documented By: JUDSON Non-Admin Reason: IV Running Labs 12/04/22 05:44 12/04/22 05:44 Labs: Laboratory Results - last 24 hr 12/03/22 12/04/22 16:58 05:44 MCV 94.9 MCH 30.6 MCHC 32.3 RDW 14.6 Plt Count 211 MPV 10.1 Absolute Nucleated RBC 0.020 H Nucleated RBC % (auto) 0.1 Anion Gap 18 Estim Creat Clear Calc 32.3 Estimated GFR 22 Random Glucose 117 H Calcium 7.2 L Total Bilirubin 0.4 Direct Bilirubin 0.1 AST 120 H ALT 48 H Alkaline Phosphatase 122 H Total Protein 6.6 Albumin 2.6 L Random Vancomycin 11.5 L Microbiology Microbiology Results: Microbiology 12/01/22 18:25 Blood Culture - Preliminary Blood - Venous No growth after 48 hours. 12/01/22 16:17 Blood Culture - Preliminary Blood - Venous No growth after 48 hours. 12/01/22 21:11 Urine Culture - Final Urine clean catch - Urine barros top Assessment and Plan (1) Metabolic acidosis: Status: Acute (2) Hypokalemia: Status: Acute (3) Cellulitis of right leg: Status: Acute (4) New onset a-fib: Status: Acute (5) Acute hypokalemia: Status: Acute Plan Pt is a 67-year-old female with no reported significant PMH who has not seen a PCP in 34 years who presents to the ED for evaluation of right lower leg swelling, pain, and redness for the past couple weeks. Pt will be admitted to the hospital for treatment of right leg cellulitis, hypokalemia, and new onset AFib. Sepsis 2\2 Right leg cellulitis in state of chronic stasis dermatitis Pending cultures Continue IV Vancomycin and Zosyn, started on 12/01/2022 Leg elevation, Hold on Lasix Surgery input,sharp excisional debridement of areas of blisters on the anterior leg and some nonviable tissue patchy areas, leg elevation Analgesics for pain management Wound care to follow Newly diagnosed AFib Rate controlled Patient denies any previous cardiac history, has not seen a doctor in over 34 years Echocardiogram on Lovenox renally adjusted dose Cardiology following Monitor on telemetry Hypokalemia improved as replacement given Follow BMP Elevated creatinine w metabolic acidosis WANDY vs CKD ? BUN continues to increase: check occult, give IVF creatinine 2.2 today, baseline unknown US negative for any obstructions Nephrology consult Follow BMP PseudoHypocalcemia corrected Ca of 8.2 Elevated troponins Trop trended negative Complicated Bran cyst Venous duplex of right lower extremity found 3.5 cm complicated Bran cyst in popliteal fossa with some degree of wall thickening and heterogeneous debris Ortho recommended No intervention at this point, IR may drain the cyst after cellulitis is treated Obesity class III Weight loss encouraged DNR/DNI DVT Prophylaxis: Lovenox Pt will require a hospitalization of at least overnight for treatment of?right leg cellulitis, hypokalemia, and new onset AFib patient will be treated with IVF, IV antibiotics, and specialist consultation. Time Spent With Patient Time: Total time managing care of this patient today ____ minutes. Quality Stroke Does the patient have a stroke diagnosis?: No VTE Prior VTE?: No VTE Risk Level:: Medical - moderate - high VTE Device Contraindication: Treatment Not Indicated VTE Drug Contraindication: N/A - Med Ordered
[2022-12-04] MEDS: Fluconazole 150 MG TABLET PO (13:59)
[2022-12-04 15:22] LABS: Creatinine Urine 92.35 mg/dL; Sodium Urine Random < 20.0 mmol/L; Total Protein Urine Random 72 mg/dL (<12)
[2022-12-04 17:13] LABS: Vancomycin Trough 11.2 mcg/mL (10.0-20.0)
[2022-12-04] MEDS: vancomycin HCL 500 MG in 0.9 % Sodium Chloride 100 ML 110 MG IV (19:27)
[2022-12-04] MEDS: Albuterol/Iprat 2.5/0.5MG 3 ML AMPUL.NEB INHALE (20:03)
[2022-12-04] MEDS: Acetaminophen 325 MG TABLET 650 MG PO (20:05)
[2022-12-05] MEDS: oxyCODONE HCl Immed Release 5 MG TABLET PO ×3 (00:08→17:03)
[2022-12-05 06:06] LABS: Hematocrit 35.2 % (37.0-47.0); Hemoglobin 11.2 g/dl (12.0-16.0); Mean Corpuscular HGB Conc 31.8 g/dl (31.0-35.0); Mean Corpuscular Hemoglobin 30.7 pg (27.0-33.0); Mean Corpuscular Volume 96.4 fL (80.0-98.0); Mean Platelet Volume 9.6 fL (9.4-12.3); Platelet Count 204 X10*3/uL (160-400); Red Blood Count 3.65 X10*6/uL (4.20-5.50); Red Cell Distribution Width 14.6 % (11.0-16.0); White Blood Count 15.5 X10*3/uL (4.8-10.8)
[2022-12-05 06:19] LABS: Anion Gap 15 (12-20); Blood Urea Nitrogen 99 mg/dL (9-16); Calcium 7.6 mg/dL (8.4-10.2); Carbon Dioxide 27 mmol/L (22-29); Chloride 100 mmol/L (96-108); Creatinine Clr Calc Pharmacy 31.6; Estimated Glomerular Filt Rate 22; Glucose Random 108 mg/dL (60-115); Potassium 3.1 mmol/L (3.3-5.1); Sodium 139 mmol/L (135-145)
[2022-12-05 08:00] VITALS: BP 130/58; PULSE 84; RESP 17; TEMP 36.3; O2SAT 96
[2022-12-05] MEDS: Albuterol/Iprat 2.5/0.5MG 3 ML AMPUL.NEB INHALE ×3 (08:05→20:06)
[2022-12-05 08:07] VITALS: PULSE 76; RESP 18; O2SAT 93
[2022-12-05] MEDS: Lactated Ringers 1,000 ML 80 ML IVCONT ×2 (08:41→21:47)
[2022-12-05] MEDS: Fluconazole 100 MG TABLET PO (08:42)
[2022-12-05] MEDS: Potassium Chloride Packet 20 MEQ PACKET 40 MEQ PO (08:42)
[2022-12-05] MEDS: Nystatin Cream 15 GM TUBE 1 APPL TOPICAL ×2 (08:43→21:56)
--- NOTE | 2022-12-05 09:46 | PM.PNGS ---
Subjective Subjective Date of Service: 12/05/22 Interval history: No new complaints Has some pain on the right leg ulcer Remains short of breath Physical Exam Vital Signs: Vital Signs: Last Vital Signs Temp 97.4 F 12/05/22 08:00 Pulse 76 12/05/22 08:07 Resp 18 12/05/22 08:07 BP 130/58 L 12/05/22 08:00 Pulse Ox 96 12/05/22 08:00 O2 Del Method Nasal Cannula 12/05/22 08:00 O2 Flow Rate 5.0 12/05/22 08:00 BMI result Body Mass Index 45.8 Const: Other: Has some mild shortness of breath Resp: Other: Mild shortness of breath Cardio: Rate: regular rate GI: Other: Obese, soft Extrem: Other: Right dressings changed - ulcers examined; no necrotic tissue, no pus, of diffuse weeping throughout the very edematous leg, cellulitis seems actually better Objective Data Active Medications Acetaminophen (Acetaminophen 325 Mg Tablet) 650 mg PO Q6H PRN PRN Reason: Pain, Mild (Pain Scale 1-3) Last Admin: 12/04/22 20:05 Dose: 650 mg Documented By: IVAN Acetaminophen (Acetaminophen Supp 650 Mg Supp.Rect) 650 mg IA Q6H PRN PRN Reason: Pain, Mild (Pain Scale 1-3) Albuterol Sulfate (Albuterol Sulfate (0.083%) 2.5 Mg/3 Ml Vial.Neb) 2.5 mg INHALE Q4H PRN PRN Reason: Wheezing Albuterol/Ipratropium (Albuterol/Iprat 2.5/0.5mg 3 Ml Ampul.Neb) 3 ml INHALE RQ6H WHILE AWAKE [facility] Last Admin: 12/05/22 08:05 Dose: 3 ml Documented By: LOLI Enoxaparin Sodium (Enoxaparin Sodium 120 Mg/0.8 Ml Syringe) 120 mg 1 mg/kg (120 mg) SUBCUT Q24H [facility] Last Admin: 12/04/22 11:54 Dose: 120 mg Documented By: JUDSON Fluconazole (Fluconazole 100 Mg Tablet) 100 mg PO DAILY [facility] Last Admin: 12/05/22 08:42 Dose: 100 mg Documented By: AUBRIE Vancomycin HCl 500 mg/ Sodium (Chloride) 110 mls @ 110 mls/hr IV Q24H [facility] Last Infusion: 12/04/22 20:51 Dose: Infused Documented By: IVAN Lactated Ringer's (Lr) 1,000 mls @ 80 mls/hr IVCONT .[id number] [facility] Last Admin: 12/05/22 08:41 Dose: 80 mls/hr Documented By: AUBRIE Melatonin (Melatonin 3 Mg Tablet) 6 mg PO BEDTIME PRN PRN Reason: Insomnia Nystatin (Nystatin Cream 15 Gm Tube) 1 appl TOPICAL BID [facility]; Protocol Last Admin: 12/05/22 08:43 Dose: 1 appl Documented By: AUBRIE Ondansetron HCl (Ondansetron Hcl 4 Mg/2 Ml Vial) 4 mg IVPUSH Q8H PRN PRN Reason: Nausea and Vomiting Last Admin: 12/03/22 22:29 Dose: 4 mg Documented By: IVAN Oxycodone HCl (Oxycodone Hcl Immed Release 5 Mg Tablet) 5 mg PO Q6H PRN PRN Reason: Pain, Moderate(Pain Scale 4-6) Last Admin: 12/05/22 08:27 Dose: 5 mg Documented By: AUBRIE Pharmacy Consult (Consult Rx Vancomycin Dosing) 1 each MISCELLANE DAILY PRN PRN Reason: Consult order Sodium Chloride (0.9 % Sodium Chloride Flush 3 Ml Syringe) 3 ml IVFLUSH QSHIFT [facility] Last Admin: 12/05/22 08:43 Dose: Not Given Documented By: AUBRIE Non-Admin Reason: IV Running Labs 12/05/22 05:53 12/05/22 05:53 Labs: Laboratory Results - last 24 hr 12/04/22 12/04/22 12/05/22 12:30 16:48 05:53 MCV 96.4 MCH 30.7 MCHC 31.8 RDW 14.6 Plt Count 204 MPV 9.6 Absolute Nucleated RBC 0.000 Nucleated RBC % (auto) 0.0 Anion Gap 15 Estim Creat Clear Calc 31.6 Estimated GFR 22 Random Glucose 108 Calcium 7.6 L U Random Total Protein 72 H Ur Random Sodium < 20.0 Urine Creatinine 92.35 Vancomycin Trough 11.2 Procedures Date of Service Date of Service: 12/05/22 Progress Note: A&P Assessment and plan (1) Cellulitis of right leg: Status: Acute Assessment and Plan: I changed her dressings and applied nonadherent dressings on the ulcer sites on the anterior leg and posteriorly I wrapped the leg with Kerlix roll as well as Mao bandage Leg elevation Continue current care Good wound care Patient with multiple medical problems Time Spent With Patient Time: Total time managing care of this patient today ____ minutes. Quality Stroke Does the patient have a stroke diagnosis?: No VTE Prior VTE?: No VTE Risk Level:: Medical - moderate - high VTE Device Contraindication: Treatment Not Indicated VTE Drug Contraindication: N/A - Med Ordered
--- NOTE | 2022-12-05 10:28 | MHC.CM.PN ---
EMR reviewed and per MD rounds pt is not medically cleared for dc at this time. CM will continue to follow.
--- NOTE | 2022-12-05 10:37 | MHC.CM.PN ---
EMR reviewed and per MD rounds patient is not medically cleared for dc. Pts baseline is independent at home, currently 2-3 assist. MD will order PT eval, ?STR. Patient is agreeable and does not have a preferred facility, but would like to stay in the [place] area if possible. Referrals placed. CM will continue to follow.
--- NOTE | 2022-12-05 14:03 | P.PNIM_ITS ---
Subjective Subjective Date of Service: 12/05/22 Interval History: improving pain, erythema in her right leg still having extensive drainage surgery did bedside excision Cr mildly better at 2.2 Afib w controlled rate Review of Systems Review of Systems: Yes all other systems are reviewed and are negative Physical Exam 2 Vital Signs: Vital Signs: Last Vital Signs Temp 97.4 F 12/05/22 08:00 Pulse 76 12/05/22 08:07 Resp 18 12/05/22 08:07 BP 130/58 L 12/05/22 08:00 Pulse Ox 96 12/05/22 08:00 O2 Del Method Nasal Cannula 12/05/22 08:00 O2 Flow Rate 5.0 12/05/22 08:00 BMI result Body Mass Index 45.8 Const: Other: Constitutional : Awake, interactive, morbidly obese, not in distress Neck : Normal inspection, Supple Cardiovascular : RRR, no JVP, +1 bilateral lower extremity edema Respiratory : good bilateral air entry, no crackles, wheezes or rhonchi Gastrointestinal: soft, lax, Normal bowel sounds, Non tender Skin : Warm, Dry, multiple open wounds bilaterally more in RLE with erythema and tenderness that is improving Neurological : Alert & oriented x3, No focal deficit Objective Data Active Medications Acetaminophen (Acetaminophen 325 Mg Tablet) 650 mg PO Q6H PRN PRN Reason: Pain, Mild (Pain Scale 1-3) Last Admin: 12/04/22 20:05 Dose: 650 mg Documented By: IVAN Acetaminophen (Acetaminophen Supp 650 Mg Supp.Rect) 650 mg [place] Q6H PRN PRN Reason: Pain, Mild (Pain Scale 1-3) Albuterol Sulfate (Albuterol Sulfate (0.083%) 2.5 Mg/3 Ml Vial.Neb) 2.5 mg INHALE Q4H PRN PRN Reason: Wheezing Albuterol/Ipratropium (Albuterol/Iprat 2.5/0.5mg 3 Ml Ampul.Neb) 3 ml INHALE RQ6H WHILE AWAKE [facility] Last Admin: 12/05/22 08:05 Dose: 3 ml Documented By: LOLI Enoxaparin Sodium (Enoxaparin Sodium 120 Mg/0.8 Ml Syringe) 120 mg 1 mg/kg (120 mg) SUBCUT Q24H [facility] Last Admin: 12/04/22 11:54 Dose: 120 mg Documented By: JUDSON Fluconazole (Fluconazole 100 Mg Tablet) 100 mg PO DAILY [facility] Last Admin: 12/05/22 08:42 Dose: 100 mg Documented By: AUBRIE Vancomycin HCl 500 mg/ Sodium (Chloride) 110 mls @ 110 mls/hr IV Q24H [facility] Last Infusion: 12/04/22 20:51 Dose: Infused Documented By: IVAN Lactated Ringer's (Lr) 1,000 mls @ 80 mls/hr IVCONT .[id number] [facility] Last Admin: 12/05/22 08:41 Dose: 80 mls/hr Documented By: AUBRIE Melatonin (Melatonin 3 Mg Tablet) 6 mg PO BEDTIME PRN PRN Reason: Insomnia Nystatin (Nystatin Cream 15 Gm Tube) 1 appl TOPICAL BID [facility]; Protocol Last Admin: 12/05/22 08:43 Dose: 1 appl Documented By: AUBRIE Ondansetron HCl (Ondansetron Hcl 4 Mg/2 Ml Vial) 4 mg IVPUSH Q8H PRN PRN Reason: Nausea and Vomiting Last Admin: 12/03/22 22:29 Dose: 4 mg Documented By: IVAN Oxycodone HCl (Oxycodone Hcl Immed Release 5 Mg Tablet) 5 mg PO Q6H PRN PRN Reason: Pain, Moderate(Pain Scale 4-6) Last Admin: 12/05/22 08:27 Dose: 5 mg Documented By: AUBRIE Pharmacy Consult (Consult Rx Vancomycin Dosing) 1 each MISCELLANE DAILY PRN PRN Reason: Consult order Sodium Chloride (0.9 % Sodium Chloride Flush 3 Ml Syringe) 3 ml IVFLUSH QSHIFT [facility] Last Admin: 12/05/22 08:43 Dose: Not Given Documented By: AUBRIE Non-Admin Reason: IV Running Labs 12/05/22 05:53 12/05/22 05:53 Labs: Laboratory Results - last 24 hr 12/04/22 12/04/22 12/05/22 12:30 16:48 05:53 MCV 96.4 MCH 30.7 MCHC 31.8 RDW 14.6 Plt Count 204 MPV 9.6 Absolute Nucleated RBC 0.000 Nucleated RBC % (auto) 0.0 Anion Gap 15 Estim Creat Clear Calc 31.6 Estimated GFR 22 Random Glucose 108 Calcium 7.6 L U Random Total Protein 72 H Ur Random Sodium < 20.0 Urine Creatinine 92.35 Vancomycin Trough 11.2 Assessment and Plan (1) Metabolic acidosis: Status: Acute (2) Sepsis: Status: Acute (3) Hypokalemia: Status: Acute (4) Cellulitis of right leg: Status: Acute (5) WANDY (acute kidney injury): Status: Acute Plan Pt is a 67-year-old female with no reported significant PMH who has not seen a PCP in 34 years who presents to the ED for evaluation of right lower leg swelling, pain, and redness for the past couple weeks. Pt will be admitted to the hospital for treatment of right leg cellulitis, hypokalemia, and new onset AFib. Sepsis 2\2 Right leg cellulitis in state of chronic stasis dermatitis Improving Negative cultures Continue IV Vancomycin and PO Diflucan, started on 12/01/2022 Leg elevation, Hold on Lasix Surgery input,sharp excisional debridement of areas of blisters on the anterior leg, repeated, leg elevation Analgesics for pain management Wound care to follow Newly diagnosed AFib Rate controlled Patient denies any previous cardiac history, has not seen a doctor in over 34 years Echocardiogram on Lovenox renally adjusted dose Cardiology following Monitor on telemetry acute Hypokalemia replacement given Follow BMP Elevated creatinine w metabolic acidosis WANDY vs CKD ? BUN continues to increase to 90s: check occult, give IVF creatinine 2.2 today, baseline unknown US negative for any obstructions Nephrology consult Follow BMP PseudoHypocalcemia corrected Ca of 8.2 Elevated troponins Trop trended negative Complicated Bran cyst Venous duplex of right lower extremity found 3.5 cm complicated Bran cyst in popliteal fossa with some degree of wall thickening and heterogeneous debris Ortho recommended No intervention at this point, IR may drain the cyst after cellulitis is treated Obesity class III Weight loss encouraged DNR/DNI DVT Prophylaxis: Lovenox Pt will require a hospitalization of at least overnight for treatment of?right leg cellulitis, hypokalemia, and new onset AFib patient will be treated with IVF, IV antibiotics, and specialist consultation. Time Spent With Patient Time: Total time managing care of this patient today ____ minutes. Quality Stroke Does the patient have a stroke diagnosis?: No VTE Prior VTE?: No VTE Risk Level:: Medical - moderate - high VTE Device Contraindication: Treatment Not Indicated VTE Drug Contraindication: N/A - Med Ordered
--- NOTE | 2022-12-05 14:25 | MHC.CLN ---
NUTRITION CONSULT FOR POOR APPETITE. INTAKE VARIABLE WITH MOST MEALS LESS THAN OR EQUAL TO 50%. PATIENT NOT ABLE TO DISCUSS DIET CONCERNS. SKIN WITH LEG INFECTION. DOES NOT APPEAR TO BE PRESSURE RELATED. RD TO FOLLOW UP IN 5 DAYS.
[2022-12-05 15:09] VITALS: PULSE 93; RESP 20
[2022-12-05 15:55] VITALS: BP 108/49; PULSE 93; RESP 20; TEMP 36.7; O2SAT 92
[2022-12-05 18:31] LABS: Vancomycin Random 11.1 mcg/mL (15-20)
--- NOTE | 2022-12-05 18:44 | HE.PHANOTE ---
RE POLO INCREASE DOSE TO 750MG Q24H, AUC 467 AND TROUGH 15.9. NEXT LEVEL DUE 12/06 @1700
[2022-12-05 20:00] VITALS: BP 125/58; PULSE 99; RESP 20; TEMP 36.6; O2SAT 93
[2022-12-05 20:06] VITALS: PULSE 94; RESP 16; O2SAT 94
[2022-12-05] MEDS: vancomycin HCL 750 MG in 0.9 % Sodium Chloride 250 ML 265 MG IV (21:45)
[2022-12-06] VITALS (20 sets, daily range): BP systolic 91–118; BP diastolic 44–66; PULSE 69–100; RESP 10–80; TEMP 36.1–36.8; O2SAT 93–98
[2022-12-06] MEDS: oxyCODONE HCl Immed Release 5 MG TABLET PO (05:39)
[2022-12-06 06:44] LABS: Hematocrit 36.2 % (37.0-47.0); Hemoglobin 11.3 g/dl (12.0-16.0); Mean Corpuscular HGB Conc 31.2 g/dl (31.0-35.0); Mean Corpuscular Hemoglobin 30.3 pg (27.0-33.0); Mean Corpuscular Volume 97.1 fL (80.0-98.0); Mean Platelet Volume 9.7 fL (9.4-12.3); NRBC Pct Auto 0.2 /100WBC (0.0-0.2); Platelet Count 221 X10*3/uL (160-400); Red Blood Count 3.73 X10*6/uL (4.20-5.50); Red Cell Distribution Width 14.4 % (11.0-16.0)
[2022-12-06 06:50] LABS: Anion Gap 17 (12-20); Blood Urea Nitrogen 113 mg/dL (9-16); Calcium 8.6 mg/dL (8.4-10.2); Carbon Dioxide 26 mmol/L (22-29); Chloride 101 mmol/L (96-108); Creatinine Clr Calc Pharmacy 35.9; Estimated Glomerular Filt Rate 25; Glucose Random 97 mg/dL (60-115); Potassium 3.5 mmol/L (3.3-5.1); Sodium 140 mmol/L (135-145)
[2022-12-06 07:43] LABS: Alanine Aminotransferase 35 U/L (0-31); Albumin Level 2.7 g/dL (3.5-5.0); Alkaline Phosphatase 101 U/L (39-117); Aspartate Amino Transferase 60 U/L (5-31); Bilirubin Direct 0.2 mg/dL (0.0-0.5); Bilirubin Total 0.4 mg/dL (0.0-1.0); Total Protein 6.7 g/dL (6.5-8.0)
--- NOTE | 2022-12-06 07:59 | HE.PHANOTE ---
re marylino SCR improving. will change trough date to 12/07 @ 1700. predicted auc 430 and trough 14.3 yamile
[2022-12-06] MEDS: Albuterol/Iprat 2.5/0.5MG 3 ML AMPUL.NEB INHALE ×3 (08:28→19:23)
[2022-12-06 08:37] LABS: VBG Base Excess 1.4 mmol/L; VBG HCO3 29 mmol/L (22-26); VBG pCO2 62 mmHg; VBG pH 7.27 (7.32-7.43); VBG pO2 87 mmHg
[2022-12-06 08:44] LABS: Venous Blood Gas Refer to POC result
[2022-12-06] MEDS: Acetaminophen 325 MG TABLET 650 MG PO (09:01)
[2022-12-06] MEDS: Fluconazole 100 MG TABLET PO (09:01)
[2022-12-06] MEDS: Nystatin Cream 15 GM TUBE 1 APPL TOPICAL (09:34)
[2022-12-06 10:30] LABS: ABG Base Excess 2.5 mmol/L; ABG HCO3 31 mmol/L (22-26); ABG pCO2 67 mmHg (32-45); ABG pH 7.26 (7.35-7.45); ABG pO2 99 mmHg (83-108)
[2022-12-06] MEDS: Lactated Ringers 1,000 ML 80 ML IVCONT (10:35)
--- NOTE | 2022-12-06 11:00 | PC.NURSE ---
Pt very lethargic today. Will open eyes to verbal stimuli, but then falls back asleep. V.S.S. Venous blood gas done, and then Arterial blood gas done. Decision made to send pt to ICU for Bipap. Report called to nurse and pt brought down to ICU by Gian and Nery.
--- NOTE | 2022-12-06 12:04 | W.PM.CCCN ---
History of Present Illness Data of Consult Service Date: 12/06/22 Requesting physician: Yany Hurley Primary Care Provider: Dennis Chavira MD [facility] Reason for consult: metabolic encephalopathy/ acute hypercapnic respiratory failure 67-year-old morbidly obese female presents with right lower extremity cellulitis with a large open weeping wound cared for by a surgical debridement and wound care and thus far to our knowledge also acute renal insufficiency and atrial fibrillation we do not know the timing of which because she has not seen a physician in many years and over time start to become more lethargic and in the face of increasing azotemia while creatinine is coming down and I urine sodium done that was less than 20 mEq per L and I went and reviewed the echocardiogram and I think that there is evidence of at at least mild reduction of systolic reserve I believe the ejection fraction is about 50% there is mild diffuse hypokinesis and it concentric left ventricular hypertrophy and I do believe there is at least mild dilatation of the right ventricle and the aortic valve is moderately calcified with reduced opening but a peak velocity just under 3 m/sec and a calculated aortic valve area of about 0.8 sq cm and that might be Spore E a Slee low because in the face of the atrial fibrillation and some reduction of systolic reserve this could be a lower flow scenario for that we would need to test her with dobutamine but I do think that the you low urine sodium is an indication of a relatively low flow or cardiac output state and probably exacerbated by an acute on chronic cor pulmonale picture but this is mostly acute hypercarbic respiratory failure I think resulting in her diminished mental state and toward that and just placing her on BiPAP might give us the mechanical support to 1 load left and right ventricle and then aim to control heart rate with digoxin and withhold her IV fluid and see if he starts auto diurese and we should start to see improvement in urine sodium and also a diminished degree of azotemia Review of Systems Review of Systems: Yes Unobtainable due to mental status PMFSH Social History Social History Household Members: Family Housing: House Do you presently have visiting nurse or other home services: No Patient Tobacco Use Status: Never used Tobacco service: No Meds Allergies Allergy/AdvReac Type Severity Reaction Status Date / Time No Known Allergies Allergy Unverified 10/31/19 14:57 Active Medications: Current Medications Acetaminophen (Acetaminophen 325 Mg Tablet) 650 mg PO Q6H PRN PRN Reason: Pain, Mild (Pain Scale 1-3) Last Admin: 12/06/22 09:01 Dose: 650 mg Acetaminophen (Acetaminophen Supp 650 Mg Supp.Rect) 650 mg [place] Q6H PRN PRN Reason: Pain, Mild (Pain Scale 1-3) Albuterol Sulfate (Albuterol Sulfate (0.083%) 2.5 Mg/3 Ml Vial.Neb) 2.5 mg INHALE Q4H PRN PRN Reason: Wheezing Albuterol/Ipratropium (Albuterol/Iprat 2.5/0.5mg 3 Ml Ampul.Neb) 3 ml INHALE RQ6H WHILE AWAKE [facility] Last Admin: 12/06/22 08:28 Dose: 3 ml Enoxaparin Sodium (Enoxaparin Sodium 120 Mg/0.8 Ml Syringe) 120 mg 1 mg/kg (120 mg) SUBCUT Q24H [facility] Last Admin: 12/04/22 11:54 Dose: 120 mg Fluconazole (Fluconazole 100 Mg Tablet) 100 mg PO DAILY [facility] Last Admin: 12/06/22 09:01 Dose: 100 mg Lactated Ringer's (Lr) 1,000 mls @ 80 mls/hr IVCONT .[id number] [facility] Last Admin: 12/06/22 10:35 Dose: 80 mls/hr Vancomycin HCl 750 mg/ Sodium (Chloride) 265 mls @ 265 mls/hr IV Q24H [facility] Last Infusion: 12/05/22 23:29 Dose: Infused Melatonin (Melatonin 3 Mg Tablet) 6 mg PO BEDTIME PRN PRN Reason: Insomnia Nystatin (Nystatin Cream 15 Gm Tube) 1 appl TOPICAL BID [facility]; Protocol Last Admin: 12/06/22 09:34 Dose: 1 appl Ondansetron HCl (Ondansetron Hcl 4 Mg/2 Ml Vial) 4 mg IVPUSH Q8H PRN PRN Reason: Nausea and Vomiting Last Admin: 12/03/22 22:29 Dose: 4 mg Oxycodone HCl (Oxycodone Hcl Immed Release 5 Mg Tablet) 5 mg PO Q6H PRN PRN Reason: Pain, Moderate(Pain Scale 4-6) Last Admin: 12/06/22 05:39 Dose: 5 mg Pharmacy Consult (Consult Rx Vancomycin Dosing) 1 each MISCELLANE DAILY PRN PRN Reason: Consult order Sodium Chloride (0.9 % Sodium Chloride Flush 3 Ml Syringe) 3 ml IVFLUSH QSHIFT [facility] Last Admin: 12/06/22 09:06 Dose: Not Given Home Medications Medication Instructions Recorded Confirmed Last Taken Type ibuprofen 200 mg tablet 400 mg PO Q6H PRN Pain 12/01/22 12/01/22 Unknown History Physical Exam Vital Signs: Vital Signs: Last Vital Signs Temp 97.1 F 12/06/22 08:00 Pulse 81 12/06/22 08:31 Resp 14 12/06/22 11:38 BP 118/64 12/06/22 08:00 Pulse Ox 97 12/06/22 08:00 O2 Del Method Nasal Cannula 12/06/22 08:00 O2 Flow Rate 3.0 12/06/22 08:00 BMI result Body Mass Index 45.8 vital signs are stable and the patient is easily arousable especially when the wound was being dressed and cleaned somewhat diminished bilateral carotid upstrokes commensurate w ith diminished stroke work reserve abdomen seems to be benign it is obese but the no organomegaly lungs clear by chest x-ray and no adventitious sounds by auscultation Results Labs 12/06/22 05:36 12/06/22 05:36 Labs: Short CBC 12/06/22 Range/Units 05:36 WBC 17.0 H (4.8-10.8) X10*3/uL Hgb 11.3 L (12.0-16.0) g/dl Hct 36.2 L (37.0-47.0) % Plt Count 221 (160-400) X10*3/uL BMP 12/06/22 12/06/22 05:36 05:36 Sodium 140 Potassium 3.5 Chloride 101 Carbon Dioxide 26 BUN 113 H Creatinine 1.99 H Cancelled Calcium 8.6 D Liver Function 12/06/22 Range/Units 05:36 Total Bilirubin 0.4 (0.0-1.0) mg/dL Direct Bilirubin 0.2 (0.0-0.5) mg/dL AST 60 H (5-31) U/L ALT 35 H (0-31) U/L Alkaline Phosphatase 101 (39-117) U/L Albumin 2.7 L (3.5-5.0) g/dL Microbiology Microbiology Results: Microbiology 12/01/22 18:25 Blood - Venous Blood Culture - Preliminary No growth after 48 hours. 12/01/22 16:17 Blood - Venous Blood Culture - Preliminary No growth after 48 hours. 12/01/22 21:11 Urine clean catch - Urine barors top Urine Culture - Final Assessment and Plan (1) Sepsis: Status: Acute (2) Hypokalemia: Status: Acute (3) Cellulitis of right leg: Status: Acute (4) New onset a-fib: Status: Acute (5) WANDY (acute kidney injury): Status: Acute (6) Acute hypokalemia: Status: Acute (7) Acute hypercapnic respiratory failure: Status: Acute (8) Altered mental status: Status: Acute (9) Acute systolic CHF (congestive heart failure), NYHA class 3: Status: Acute Plan plan is to bring her down for BiPAP and see if that along with fluid restriction creates Maria Antonia diuresis but some improvement in the low-flow state Time Spent With Patient Time: Total time managing care of this patient today 60____ minutes.
--- NOTE | 2022-12-06 12:16 | HO.SKINPHOTO ---
Location:Gluteal Fold Category: Stage: Length: Width: Depth: cm Location:Breast Fold Right Category: Stage: Length: Width: Depth: cm Location:Right Leg Category: Stage: Length: Width: Depth: cm Location:Right Posterior Lower Leg Category: Stage: Length: Width: Depth: cm Location: Right Lower Leg Anterior Category: Stage: Length: Width: Depth: cm Location: Category: Stage: Length: Width: Depth: cm
--- NOTE | 2022-12-06 12:19 | HO.WOUND ---
Wound Consult: Initial 67yr old female admitted to [facility] on?12/01/22 19:17 - See progress notes and H&P for detailed history. Etiology: Cellulttis with Venous Dermatitis and Wounds Measurements: 20cm x 45cm x 0.3cm Wound Bed: Various areas of wound beds appearance - moist brown eschar, moist yellow parrish necrotic tissue, scattered areas of full thickness tissue loss with granulations buds observed through adherent yellow white slough, area of partial thickness tissue loss with red and pink moist wound bed Drainage / Odor: Foul odor noted - with large amount of drainage observed on dressing, and disposable dry flow pad. Edges: ? irregular and unattached Diya wound: ? Red, warm / hot edematous blanchable tissue with epidermal peeling noted Mild Induration throughout, Fluctuance noted at the moist eschar site, Erythema, Warmth noted concern for wound infection Pain: Pt reported significant pain at the time of the wound assessment Goals of Treatment: ? Provider to consider ID Consult Elevate lower Leg and Topical Dakins to provide antimicrobial growth and moist wound healing. Gluteal Fold Etiology: MASD (Moisture Associated Skin Damage - Intertrigo and IAD (Incontinence Associated Dermatitis) Measurements: 6cm x 0.2cm x 0.1cm Wound Bed: Partial thickness tissue loss at the base of the fold - red pink clean moist tissue Drainage / Odor: No odor noted - serosang drainage noted Edges: ? Linear and attached Diya wound: Red blanchable intact tissue No Induration, No Fluctuance Pain: Pt denies pain Goals of Treatment: ? Off Load Pressure - Protect from moisture and friciton with barrier cream (Purple Top) Bilateral Axilla, Bilateral Breast and Abdominal Skin Folds Etiology: MASD - Intertrigo (Moisture Associated Skin Damage) Wound Bed: Mirrored red blanchable tissue with scattered areas of partial thickness tissue loss Drainage / Odor: Scant serosang drainage Edges: ? Mirrored and attached Diya wound: Intact No Induration, No Fluctuance Pain: Mild pain reported Goals of Treatment:Currently treated with topical antifungal per provider orders - to be continued - Moisture Management with Interdry. Follow up in 3-5 days if patient remains inpatient. Recommendations: 1. Turn and Reposition every 2 hours and as needed for patient comfort consider use of wedges available in the storeroom. 2. Off Load all bony prominences with use of pillows, wedges and heel boots. 3. Monitor for incontinence and moisture control - Barrier Cream to be used. 4. Provide adequate and supplemental nutrition - Nutrition consult placed. 5. Order low air loss mattress. 6. Right Lower Leg - Elevate lower leg off of surface of bed - Cleanse with Saline, pat dry. Apply Dakin's moist gauze to wound bed, cover with dry ABD pads, gauze wrap. Change twice a day. 7. Bilateral Axilla, Breast and Abdominal Skin Folds - Cleanse with soap and water per routine bathing and PRN, dry well. Apply Antifungal cream per provider orders. Apply Interdry to affected areas as follows: Lay a single layer of fabric in the skin fold, Gently smooth the rest of the fabric over the skin, keeping it flat. Leave at least 2 inches of the fabric exposed outside the skin fold. Secure the fabric with the skin fold, Each piece of InterDry may be used up to 5 days, depending on fabric soiling, odor, amount of moisture. Replace InterDry if it becomes soiled with blood, urine or stool. 8. Gluteal Fold / Buttocks - Cleanse with soap and water per routine bathing and if incontinence episodes. Apply Barrier cream to protect from moisture and friction. Reapply twice daily and PRN. Re-consult wound care Nurse for wound deterioration or wound changes.
--- NOTE | 2022-12-06 12:30 | PM.EVENT ---
Event Note Date of Service: 12/06/22 Event Note: Patient was found in altered mentation this morning ABG showed hypercapnia Discussed with ICU who accepted taking her to the unit for BiPAP Plan for sleep study BUN continues to increase, Creatinine trending down. Nephro to follow Time Spent With Patient Time: Total time managing care of this patient today ____ minutes.
[2022-12-06 12:48] LABS: Complement C3 161 mg/dL (83-193)
[2022-12-06] MEDS: Enoxaparin Sodium 120 MG/0.8 ML SYRINGE SUBCUT (13:21)
[2022-12-06 15:04] LABS: Venous Blood Gas Refer to POC result
[2022-12-06 15:21] LABS: VBG Base Excess 1.1 mmol/L; VBG HCO3 28 mmol/L (22-26); VBG pCO2 53 mmHg; VBG pH 7.32 (7.32-7.43); VBG pO2 76 mmHg
[2022-12-06] MEDS: vancomycin HCL 750 MG in 0.9 % Sodium Chloride 250 ML 265 MG IV (18:16)
--- NOTE | 2022-12-06 21:15 | P.PNNP_ITS ---
Subjective Subjective Date of Service: 12/06/22 Interval history: surgery did bedside excision Cr mildly better BUN is high Afib w controlled rate Physical Exam 2 Vital Signs: Vital Signs: Last Vital Signs Temp 98.2 F 12/06/22 21:00 Pulse 83 12/06/22 21:00 Resp 15 12/06/22 21:00 BP 106/49 L 12/06/22 21:00 Pulse Ox 94 12/06/22 21:00 O2 Del Method Nasal Cannula 12/06/22 21:00 O2 Flow Rate 2 12/06/22 21:00 FiO2 30 12/06/22 20:00 BMI result Body Mass Index 45.8 Const: Other: Constitutional : Awake, interactive, morbidly obese, not in distress Neck : Normal inspection, Supple Cardiovascular : RRR, no JVP, +1 bilateral lower extremity edema Respiratory : good bilateral air entry, no crackles, wheezes or rhonchi Gastrointestinal: soft, lax, Normal bowel sounds, Non tender Skin : Warm, Dry, multiple open wounds bilaterally more in RLE with erythema and tenderness that is improving Neurological : Alert & oriented x3, No focal deficit Objective Data Labs 12/06/22 05:36 12/06/22 05:36 Labs: Laboratory Results - last 24 hr 12/04/22 12/06/22 12/06/22 08:56 05:36 05:36 WBC 17.0 H RBC 3.73 L Hgb 11.3 L Hct 36.2 L MCV 97.1 MCH 30.3 MCHC 31.2 RDW 14.4 Plt Count 221 MPV 9.7 Absolute Nucleated RBC 0.030 H Nucleated RBC % (auto) 0.2 O2 Saturation ABG pH at Pt Temp ABG pCO2 at Pt Temp ABG pO2 at Pt Temp ABG HCO3 ABG Base Excess (Actual) VBG pH VBG pCO2 VBG pO2 VBG HCO3 VBG O2 Saturation VBG Base Excess Sodium 140 Potassium 3.5 Chloride 101 Carbon Dioxide 26 Anion Gap 17 BUN 113 H Creatinine 1.99 H Cancelled Estim Creat Clear Calc 35.9 Estimated GFR Random Glucose Calcium Total Bilirubin Direct Bilirubin AST ALT Alkaline Phosphatase Total Protein Albumin Complement C3 161 Complement C4 37 12/06/22 12/06/22 12/06/22 05:36 05:36 08:32 WBC RBC Hgb Hct MCV MCH MCHC RDW Plt Count MPV Absolute Nucleated RBC Nucleated RBC % (auto) O2 Saturation ABG pH at Pt Temp ABG pCO2 at Pt Temp ABG pO2 at Pt Temp ABG HCO3 ABG Base Excess (Actual) VBG pH 7.27 L VBG pCO2 62 VBG pO2 87 VBG HCO3 29 H VBG O2 Saturation 96.0 VBG Base Excess 1.4 Sodium Potassium Chloride Carbon Dioxide Anion Gap BUN Creatinine Estim Creat Clear Calc Cancelled Estimated GFR 25 Cancelled Random Glucose 97 Calcium 8.6 D Total Bilirubin 0.4 Direct Bilirubin 0.2 AST 60 H ALT 35 H Alkaline Phosphatase 101 Total Protein 6.7 Albumin 2.7 L Complement C3 Complement C4 12/06/22 12/06/22 10:24 15:16 WBC RBC Hgb Hct MCV MCH MCHC RDW Plt Count MPV Absolute Nucleated RBC Nucleated RBC % (auto) O2 Saturation 97.0 ABG pH at Pt Temp 7.26 L ABG pCO2 at Pt Temp 67 H* ABG pO2 at Pt Temp 99 ABG HCO3 31 H ABG Base Excess (Actual) 2.5 VBG pH 7.32 VBG pCO2 53 VBG pO2 76 VBG HCO3 28 H VBG O2 Saturation 94.0 VBG Base Excess 1.1 Sodium Potassium Chloride Carbon Dioxide Anion Gap BUN Creatinine Estim Creat Clear Calc Estimated GFR Random Glucose Calcium Total Bilirubin Direct Bilirubin AST ALT Alkaline Phosphatase Total Protein Albumin Complement C3 Complement C4 Microbiology Microbiology Results: Microbiology 12/01/22 18:25 Blood - Venous Blood Culture - Final No growth after 5 days. 12/01/22 16:17 Blood - Venous Blood Culture - Final No growth after 5 days. 12/01/22 21:11 Urine clean catch - Urine barros top Urine Culture - Final Procedures Date of Service Date of Service: 12/06/22 Assessment & Plan Assessment and plan (1) WANDY (acute kidney injury): Status: Acute Assessment and Plan: WANDY : elevated Scr- Cr is better hypotensive WANDY on CKD no prior baseline kidney function available h/o NSAID use differential diagnosis includes: -renal hypoperfusion -hanny infectious GN renal US negative for obstruction urine c/w microsocpic hematuria REC Cr is better Increased BUN _ non renal cause ? ( pt not on stroids/ No TPN/ No GI bleed ) Normal complement level c3 and c4- Doubt periinfectious GN follow kidney function and electrolytes Pt going to ICU for hypercarbic respiratory issues (2) Acute hypercapnic respiratory failure: Status: Acute (3) Altered mental status: Status: Acute (4) Cellulitis of right leg: Status: Acute Time Spent With Patient Time: Total time managing care of this patient today ____ minutes. Progress Note: Quality Stroke Does the patient have a stroke diagnosis?: No
--- NOTE | 2022-12-06 22:50 | PC.NURSE ---
Assumed care of patient at 2000 pm. Patient initially sleeping with bipap in place. Woke patient for assessment, she states she is very thirsty. Per provider, able to come off bipap for short while. Placed on 2L NC, tolerating well. Patient drank 3 cups ice water. Combed, freshened hair, patient states feels much better because was pulling with bipap. Bilateral edema, pitting 3+. Positive pedal pulses to left, to right only with doppler. Dressing to right calf changed by wound nurse on days, intact. Patient able to move self minimally in bed, assisted with reposition. Patient placed back on bipap after about 30 min. Back to sleep shortly after. No complaints. Clear lung sounds. Afib in 70s on monitor. Call javier in reach.
[2022-12-07] VITALS (30 sets, daily range): BP systolic 105–144; BP diastolic 47–78; PULSE 76–103; RESP 10–22; TEMP 36.7–37.6; O2SAT 92–100; BMI 60.5
[2022-12-07 04:55] LABS: VBG Base Excess 7.5 mmol/L; VBG HCO3 33 mmol/L (22-26); VBG pCO2 53 mmHg; VBG pO2 37 mmHg
[2022-12-07 05:11] LABS: Mean Corpuscular HGB Conc 32.3 g/dl (31.0-35.0); Mean Corpuscular Hemoglobin 30.7 pg (27.0-33.0); Mean Corpuscular Volume 95.1 fL (80.0-98.0); Mean Platelet Volume 9.2 fL (9.4-12.3); Platelet Count 188 X10*3/uL (160-400); Red Blood Count 3.26 X10*6/uL (4.20-5.50); White Blood Count 14.1 X10*3/uL (4.8-10.8)
[2022-12-07 05:29] LABS: Alanine Aminotransferase 34 U/L (0-31); Albumin Level 2.4 g/dL (3.5-5.0); Alkaline Phosphatase 77 U/L (39-117); Anion Gap 12 (12-20); Aspartate Amino Transferase 71 U/L (5-31); Bilirubin Total 0.4 mg/dL (0.0-1.0); Blood Urea Nitrogen 101 mg/dL (9-16); Calcium 8.6 mg/dL (8.4-10.2); Carbon Dioxide 29 mmol/L (22-29); Chloride 105 mmol/L (96-108); Creatinine Clr Calc Pharmacy 64.3; Estimated Glomerular Filt Rate 49; Glucose Random 111 mg/dL (60-115); Magnesium 2.3 mg/dL (1.6-2.6); Phosphorus 3.5 mg/dL (2.7-4.5); Sodium 143 mmol/L (135-145)
[2022-12-07 05:35] LABS: Band Neutrophils Percent 9 % (3-5); Basophils Abs Manual 0.1 X10*3/uL (0.0-0.2); Basophils Percent Manual 1 % (0-2); Eosinophils Absolute Manual 0.1 X10*3/uL (0.0-0.4); Eosinophils Percent Manual 1 % (0-4); Large Platelet PRESENT; Lymphocytes Absolute Manual 0.6 X10*3/uL (1.2-4.9); Lymphocytes Percent Manual 4 % (20-40); Macrocytosis 1+ (5-14) /OIF; Metamyelocytes Absolute 0.1 X10*3/uL; Metamyelocytes Percent 1 %; Monocytes Absolute Manual 0.3 X10*3/uL (0.1-1.2); Monocytes Percent Manual 2 % (2-11); Neutrophils Absolute Manual 12.5 X10*3/uL (2.0-8.3); Neutrophils Percent Manual 80 % (45-73); Nucleated Red Blood Cells 1 /100WBC (0-0); Platelet Estimate SLIGHTLY DECREASED (NORMAL); Platelet Morphology Comment NORMAL; Promyelocytes Absolute 0.3 X10*3/uL; Promyelocytes Percent 2 %; RBC Morphology NOTED
[2022-12-07 05:36] LABS: Basophilic Stippling 1+ (0-2) /OIF; Smudge Cells PRESENT; Toxic Granulation PRESENT; Toxic Vacuolation PRESENT
[2022-12-07] MEDS: Furosemide 20 MG/2 ML VIAL IVPUSH (06:05)
[2022-12-07] MEDS: Potassium Chloride Packet 20 MEQ PACKET 40 MEQ PO (06:05)
[2022-12-07] MEDS: Spironolactone 25 MG TABLET PO (06:05)
[2022-12-07 06:08] LABS: Venous Blood Gas Refer to POC result
--- NOTE | 2022-12-07 06:42 | PM.CCPN ---
Subjective Subjective Date of Service: 12/07/22 Interval History: 67-year-old morbidly obese female presents with cellulitic wound infection right lower extremity but of course notably very significant anasarca who has been receiving IV fluids these last several days here in the hospital so she has got a very high cumulative volume positivity and yesterday developed diminished mental status and we noted that she was acutely hypercarbic brought down and placed on BiPAP and monitored bedside echo we saw that she did have combined issues I do believe reduced systolic reserve mildly of the left ventricle but is probably going to be moderately severe calcific aortic stenosis but we need a dobutamine study to document and also what appears to be a prominent right ventricle and I do believe she has got biventricular dysfunction but predominant right heart failure and so IV fluids were stopped and of course she diuresed nicely as a result of just a BiPAP unloading both right and left ventricular function did very well much more alert blood gas is pending but I am going to expedite with a a little diuresis now using Lasix and spironolactone combination and try to accomplish unloading her 3rd spaced volume and then restoring her back to her normal chronic respiratory status Critical Care Time (minutes): 45 Physical Exam Vital Signs: Vital Signs: Last Vital Signs Temp 98.4 F 12/07/22 06:00 Pulse 76 12/07/22 06:00 Resp 16 12/07/22 06:00 BP 114/58 L 12/07/22 06:00 Pulse Ox 96 12/07/22 06:00 O2 Del Method BiPAP 12/07/22 06:00 O2 Flow Rate 35 12/07/22 06:00 FiO2 30 12/07/22 04:00 BMI result Body Mass Index 45.8 awake and alert nonfocal neurologically cardiac exam is as explained by echo but does have palpable neck vein distension and she is in a controlled atrial fibrillation at a rate of 80 with systolic blood pressure 114 lungs are clear to auscultation no adventitious sounds abdomen is soft no organomegaly Objective Data Labs 12/07/22 04:50 12/07/22 04:50 Labs: Laboratory Results - last 24 hr 12/04/22 12/06/22 12/06/22 08:56 05:36 08:32 WBC 17.0 H RBC 3.73 L Hgb 11.3 L Hct 36.2 L MCV 97.1 MCH 30.3 MCHC 31.2 RDW 14.4 Plt Count 221 MPV 9.7 Immature Gran % (Auto) Neut % (Auto) Lymph % (Auto) [place] % (Auto) Eos % (Auto) Baso % (Auto) Lymph # (Auto) [place] # (Auto) Eos # (Auto) Baso # (Auto) Abs Immat Gran (auto) Absolute Neuts (auto) Absolute Nucleated RBC 0.030 H Nucleated RBC % (auto) 0.2 Neutrophils % (Manual) Band Neutrophils % Lymphocytes % (Manual) Monocytes % (Manual) Eosinophils % (Manual) Basophils % (Manual) Metamyelocytes % Promyelocytes % Abs Neuts (Manual) Lymphocytes # (Manual) Monocytes # (Manual) Eosinophils # (Manual) Basophils # (Manual) Metamyelocytes # Promyelocytes # Nucleated RBCs Smudge Cells Toxic Granulation Toxic Vacuolation Platelet Estimate Large Platelets Plt Morphology Comment RBC Morphology Basophilic Stippling Macrocytosis O2 Saturation ABG pH at Pt Temp ABG pCO2 at Pt Temp ABG pO2 at Pt Temp ABG HCO3 ABG Base Excess (Actual) VBG pH 7.27 L VBG pCO2 62 VBG pO2 87 VBG HCO3 29 H VBG O2 Saturation 96.0 VBG Base Excess 1.4 Sodium 140 Potassium 3.5 Chloride 101 Carbon Dioxide 26 Anion Gap 17 BUN 113 H Creatinine 1.99 H Estim Creat Clear Calc 35.9 Estimated GFR 25 Random Glucose 97 Calcium 8.6 D Phosphorus Magnesium Total Bilirubin 0.4 Direct Bilirubin 0.2 AST 60 H ALT 35 H Alkaline Phosphatase 101 Total Protein 6.7 Albumin 2.7 L Complement C3 161 Complement C4 37 12/06/22 12/06/22 12/07/22 10:24 15:16 04:50 WBC 14.1 H RBC 3.26 L Hgb 10.0 L Hct 31.0 L MCV 95.1 MCH 30.7 MCHC 32.3 RDW 14.0 Plt Count 188 MPV 9.2 L Immature Gran % (Auto) Cancelled Neut % (Auto) Cancelled Lymph % (Auto) Cancelled [place] % (Auto) Cancelled Eos % (Auto) Cancelled Baso % (Auto) Cancelled Lymph # (Auto) Cancelled [place] # (Auto) Cancelled Eos # (Auto) Cancelled Baso # (Auto) Cancelled Abs Immat Gran (auto) Cancelled Absolute Neuts (auto) Cancelled Absolute Nucleated RBC 0.000 Nucleated RBC % (auto) 0.0 Neutrophils % (Manual) 80 H Band Neutrophils % 9 H Lymphocytes % (Manual) 4 L Monocytes % (Manual) 2 Eosinophils % (Manual) 1 Basophils % (Manual) 1 Metamyelocytes % 1 Promyelocytes % 2 Abs Neuts (Manual) 12.5 H Lymphocytes # (Manual) 0.6 L Monocytes # (Manual) 0.3 Eosinophils # (Manual) 0.1 Basophils # (Manual) 0.1 Metamyelocytes # 0.1 Promyelocytes # 0.3 Nucleated RBCs 1 H Smudge Cells PRESENT Toxic Granulation PRESENT Toxic Vacuolation PRESENT Platelet Estimate SLIGHTLY DECREASED Large Platelets PRESENT Plt Morphology Comment NORMAL RBC Morphology NOTED Basophilic Stippling 1+ (0-2) Macrocytosis 1+ (5-14) O2 Saturation 97.0 ABG pH at Pt Temp 7.26 L ABG pCO2 at Pt Temp 67 H* ABG pO2 at Pt Temp 99 ABG HCO3 31 H ABG Base Excess (Actual) 2.5 VBG pH 7.32 7.40 VBG pCO2 53 53 VBG pO2 76 37 VBG HCO3 28 H 33 H VBG O2 Saturation 94.0 59.0 VBG Base Excess 1.1 7.5 Sodium 143 Potassium 3.0 L Chloride 105 Carbon Dioxide 29 Anion Gap 12 BUN 101 H Creatinine Cancelled Estim Creat Clear Calc Estimated GFR Random Glucose Calcium Phosphorus Magnesium Total Bilirubin Direct Bilirubin AST ALT Alkaline Phosphatase Total Protein Albumin Complement C3 Complement C4 12/07/22 12/07/22 12/07/22 04:50 04:50 04:50 WBC RBC Hgb Hct MCV MCH MCHC RDW Plt Count MPV Immature Gran % (Auto) Neut % (Auto) Lymph % (Auto) [place] % (Auto) Eos % (Auto) Baso % (Auto) Lymph # (Auto) [place] # (Auto) Eos # (Auto) Baso # (Auto) Abs Immat Gran (auto) Absolute Neuts (auto) Absolute Nucleated RBC Nucleated RBC % (auto) Neutrophils % (Manual) Band Neutrophils % Lymphocytes % (Manual) Monocytes % (Manual) Eosinophils % (Manual) Basophils % (Manual) Metamyelocytes % Promyelocytes % Abs Neuts (Manual) Lymphocytes # (Manual) Monocytes # (Manual) Eosinophils # (Manual) Basophils # (Manual) Metamyelocytes # Promyelocytes # Nucleated RBCs Smudge Cells Toxic Granulation Toxic Vacuolation Platelet Estimate Large Platelets Plt Morphology Comment RBC Morphology Basophilic Stippling Macrocytosis O2 Saturation ABG pH at Pt Temp ABG pCO2 at Pt Temp ABG pO2 at Pt Temp ABG HCO3 ABG Base Excess (Actual) VBG pH VBG pCO2 VBG pO2 VBG HCO3 VBG O2 Saturation VBG Base Excess Sodium Potassium Chloride Carbon Dioxide Anion Gap BUN Creatinine 1.11 Estim Creat Clear Calc Cancelled 64.3 Estimated GFR Cancelled 49 Random Glucose 111 Calcium 8.6 Phosphorus 3.5 Magnesium 2.3 Total Bilirubin 0.4 Direct Bilirubin AST 71 H ALT 34 H Alkaline Phosphatase 77 Total Protein 6.0 L Albumin 2.4 L Complement C3 Complement C4 Microbiology Microbiology Results: Microbiology 12/01/22 18:25 Blood - Venous Blood Culture - Final No growth after 5 days. 12/01/22 16:17 Blood - Venous Blood Culture - Final No growth after 5 days. 12/01/22 21:11 Urine clean catch - Urine barros top Urine Culture - Final Progress Note: A&P Assessment and plan (1) Acute systolic CHF (congestive heart failure), NYHA class 3: Status: Acute (2) Altered mental status: Status: Acute (3) Acute hypercapnic respiratory failure: Status: Acute (4) Metabolic acidosis: Status: Acute (5) Sepsis: Status: Acute (6) Hypokalemia: Status: Acute (7) Cellulitis of right leg: Status: Acute (8) New onset a-fib: Status: Acute (9) WANDY (acute kidney injury): Status: Acute (10) Acute hypokalemia: Status: Acute (11) Cellulitis: Status: Acute Plan doing very nicely give her a break now to eat and just replace electrolytes diurese and then between meals and through the night we will restore the BiPAP Quality Stroke Does the patient have a stroke diagnosis?: No VTE Prior VTE?: No VTE Risk Level:: Medical - moderate - high VTE Device Contraindication: Treatment Not Indicated VTE Drug Contraindication: N/A - Med Ordered
[2022-12-07 06:58] LABS: ABG Refer to POC result
[2022-12-07] MEDS: Digoxin 0.5 MG/2 ML AMPUL 0.25 MG IVPUSH (07:28)
[2022-12-07] MEDS: 0.9 % Sodium Chloride Flush 3 ML SYRINGE IVFLUSH ×3 (07:30→21:05)
--- NOTE | 2022-12-07 07:46 | HO.SKINPHOTO ---
Location: Left lower abdomen Category: Fungal rash Stage: Partial thickness Length: Width: Depth: cm Location: Category: Stage: Length: Width: Depth: cm Location: Category: Stage: Length: Width: Depth: cm Location: Category: Stage: Length: Width: Depth: cm Location: Category: Stage: Length: Width: Depth: cm Location: Category: Stage: Length: Width: Depth: cm
--- NOTE | 2022-12-07 07:52 | PC.NURSE ---
Assumed care at 0700, patient alert and oriented x3. Refused to be repositioned twice despite eudcation, otherwise compliant with care. Pleasant. Wants to eat and drink, but encouraged to stay NPO for Bipap. used Bipap all night, took off at 605 am per MD, to take PO meds.
[2022-12-07] MEDS: Albuterol/Iprat 2.5/0.5MG 3 ML AMPUL.NEB INHALE ×3 (08:45→19:40)
--- NOTE | 2022-12-07 08:52 | PM.PNGS ---
Subjective Subjective Date of Service: 12/07/22 Interval history: She was transferred to the ICU yesterday because of drowsiness with CO2 retention from hypoventilation She had been placed on BiPAP She is currently more alert Have been asked to follow-up for her right leg ulcer Physical Exam Vital Signs: Vital Signs: Last Vital Signs Temp 98.4 F 12/07/22 08:00 Pulse 88 12/07/22 08:48 Resp 22 H 12/07/22 08:48 BP 127/78 12/07/22 08:00 Pulse Ox 93 12/07/22 08:00 O2 Del Method Nasal Cannula 12/07/22 08:00 O2 Flow Rate 3 12/07/22 08:00 FiO2 30 12/07/22 04:00 BMI result Body Mass Index 60.5 Const: Other: Some shortness of breath Resp: Other: Some shortness of breath Cardio: Rhythm: abnormal rhythm GI: Other: Obese Palpation (GI): Soft to palpation, not firm and nontender Extrem: Other: Right leg edema of the lower leg, no better, cellulitis much improved, diffuse weeping, ulcer with eschar of the skin the on the lateral aspect lower leg, about 4 x 6 cm, starting to peel off; superficial ulcer on the medial aspect Objective Data Active Medications Acetaminophen (Acetaminophen 325 Mg Tablet) 650 mg PO Q6H PRN PRN Reason: Pain, Mild (Pain Scale 1-3) Last Admin: 12/06/22 09:01 Dose: 650 mg Documented By: DHRUV Albuterol Sulfate (Albuterol Sulfate (0.083%) 2.5 Mg/3 Ml Vial.Neb) 2.5 mg INHALE Q4H PRN PRN Reason: Wheezing Albuterol/Ipratropium (Albuterol/Iprat 2.5/0.5mg 3 Ml Ampul.Neb) 3 ml INHALE RQ6H WHILE AWAKE [facility] Last Admin: 12/07/22 08:45 Dose: 3 ml Documented By: JENNIFER Enoxaparin Sodium (Enoxaparin Sodium 120 Mg/0.8 Ml Syringe) 120 mg 1 mg/kg (120 mg) SUBCUT Q24H [facility] Last Admin: 12/06/22 13:21 Dose: 120 mg Documented By: JOYCELYN Fluconazole (Fluconazole 100 Mg Tablet) 100 mg PO DAILY [facility] Last Admin: 12/06/22 09:01 Dose: 100 mg Documented By: DHRUV Vancomycin HCl 750 mg/ Sodium (Chloride) 265 mls @ 265 mls/hr IV Q24H [facility] Last Infusion: 12/06/22 21:45 Dose: Infused Documented By: JACOB Melatonin (Melatonin 3 Mg Tablet) 6 mg PO BEDTIME PRN PRN Reason: Insomnia Nystatin (Nystatin Cream 15 Gm Tube) 1 appl TOPICAL BID [facility]; Protocol Last Admin: 12/07/22 01:23 Dose: Not Given Documented By: NANCY Non-Admin Reason: Previously Administered Ondansetron HCl (Ondansetron Hcl 4 Mg/2 Ml Vial) 4 mg IVPUSH Q8H PRN PRN Reason: Nausea and Vomiting Last Admin: 12/03/22 22:29 Dose: 4 mg Documented By: IVAN Pharmacy Consult (Consult Rx Vancomycin Dosing) 1 each MISCELLANE DAILY PRN PRN Reason: Consult order Sodium Chloride (0.9 % Sodium Chloride Flush 3 Ml Syringe) 3 ml IVFLUSH QSHIFT [facility] Last Admin: 12/07/22 07:30 Dose: 3 ml Documented By: JACEK Labs 12/07/22 04:50 12/07/22 04:50 Labs: Laboratory Results - last 24 hr 12/04/22 12/06/22 12/06/22 08:56 10:24 15:16 MCV MCH MCHC RDW Plt Count MPV Immature Gran % (Auto) Neut % (Auto) Lymph % (Auto) [place] % (Auto) Eos % (Auto) Baso % (Auto) Lymph # (Auto) [place] # (Auto) Eos # (Auto) Baso # (Auto) Abs Immat Gran (auto) Absolute Neuts (auto) Absolute Nucleated RBC Nucleated RBC % (auto) Neutrophils % (Manual) Band Neutrophils % Lymphocytes % (Manual) Monocytes % (Manual) Eosinophils % (Manual) Basophils % (Manual) Metamyelocytes % Promyelocytes % Abs Neuts (Manual) Lymphocytes # (Manual) Monocytes # (Manual) Eosinophils # (Manual) Basophils # (Manual) Metamyelocytes # Promyelocytes # Nucleated RBCs Smudge Cells Toxic Granulation Toxic Vacuolation Platelet Estimate Large Platelets Plt Morphology Comment RBC Morphology Basophilic Stippling Macrocytosis O2 Saturation 97.0 ABG pH at Pt Temp 7.26 L ABG pCO2 at Pt Temp 67 H* ABG pO2 at Pt Temp 99 ABG HCO3 31 H ABG Base Excess (Actual) 2.5 VBG pH 7.32 VBG pCO2 53 VBG pO2 76 VBG HCO3 28 H VBG O2 Saturation 94.0 VBG Base Excess 1.1 Anion Gap Estim Creat Clear Calc Estimated GFR Random Glucose Calcium Phosphorus Magnesium Total Bilirubin AST ALT Alkaline Phosphatase Total Protein Albumin Complement C3 161 Complement C4 37 12/07/22 12/07/22 12/07/22 04:50 04:50 04:50 MCV 95.1 MCH 30.7 MCHC 32.3 RDW 14.0 Plt Count 188 MPV 9.2 L Immature Gran % (Auto) Cancelled Neut % (Auto) Cancelled Lymph % (Auto) Cancelled [place] % (Auto) Cancelled Eos % (Auto) Cancelled Baso % (Auto) Cancelled Lymph # (Auto) Cancelled [place] # (Auto) Cancelled Eos # (Auto) Cancelled Baso # (Auto) Cancelled Abs Immat Gran (auto) Cancelled Absolute Neuts (auto) Cancelled Absolute Nucleated RBC 0.000 Nucleated RBC % (auto) 0.0 Neutrophils % (Manual) 80 H Band Neutrophils % 9 H Lymphocytes % (Manual) 4 L Monocytes % (Manual) 2 Eosinophils % (Manual) 1 Basophils % (Manual) 1 Metamyelocytes % 1 Promyelocytes % 2 Abs Neuts (Manual) 12.5 H Lymphocytes # (Manual) 0.6 L Monocytes # (Manual) 0.3 Eosinophils # (Manual) 0.1 Basophils # (Manual) 0.1 Metamyelocytes # 0.1 Promyelocytes # 0.3 Nucleated RBCs 1 H Smudge Cells PRESENT Toxic Granulation PRESENT Toxic Vacuolation PRESENT Platelet Estimate SLIGHTLY DECREASED Large Platelets PRESENT Plt Morphology Comment NORMAL RBC Morphology NOTED Basophilic Stippling 1+ (0-2) Macrocytosis 1+ (5-14) O2 Saturation ABG pH at Pt Temp ABG pCO2 at Pt Temp ABG pO2 at Pt Temp ABG HCO3 ABG Base Excess (Actual) VBG pH 7.40 VBG pCO2 53 VBG pO2 37 VBG HCO3 33 H VBG O2 Saturation 59.0 VBG Base Excess 7.5 Anion Gap 12 Estim Creat Clear Calc Cancelled 64.3 Estimated GFR Cancelled 49 Random Glucose 111 Calcium 8.6 Phosphorus 3.5 Magnesium 2.3 Total Bilirubin 0.4 AST 71 H ALT 34 H Alkaline Phosphatase 77 Total Protein 6.0 L Albumin 2.4 L Complement C3 Complement C4 Microbiology Microbiology Results: Microbiology 12/01/22 18:25 Blood Culture - Final Blood - Venous No growth after 5 days. 12/01/22 16:17 Blood Culture - Final Blood - Venous No growth after 5 days. Procedures Date of Service Date of Service: 12/07/22 Progress Note: A&P Assessment and plan (1) Cellulitis of right leg: Status: Acute Assessment and Plan: I have changed her dressings and there is note of an eschar that is starting to peel off as described above I tried to peel this off but she was complaining of pain show will allow this to slowly peel off on its own with dressing changes I have applied nonadherent dressings and wrapped the foot with thick ABD pads and Virgen roll as well as Mao bandage I have elevated the leg on a pillow Will follow for wound care for now Wound care service recommendations noted Time Spent With Patient Time: Total time managing care of this patient today ____ minutes. Quality Stroke Does the patient have a stroke diagnosis?: No VTE Prior VTE?: No VTE Risk Level:: Medical - moderate - high VTE Device Contraindication: Treatment Not Indicated VTE Drug Contraindication: N/A - Med Ordered
[2022-12-07] MEDS: Fluconazole 100 MG TABLET PO (09:05)
--- NOTE | 2022-12-07 10:55 | MHC.CM.PN ---
EMR reviewed. Pt has been transferred to ICU for hypercapnia, currently on BiPAP. DP remains STR on dc. [facility] and [facility] following.
[2022-12-07 11:13] LABS: MRSA Nasal PCR NEGATIVE (Negative); SA Nasal PCR NEGATIVE (Negative)
[2022-12-07] MEDS: Nystatin Cream 15 GM TUBE 1 APPL TOPICAL ×2 (12:42→21:04)
[2022-12-07] MEDS: Enoxaparin Sodium 120 MG/0.8 ML SYRINGE SUBCUT (12:43)
--- NOTE | 2022-12-07 14:50 | PC.RT ---
Rn tigered RT, pt c/o nausea, feels like vomiting. Bipap mask off at david time, pt josafat x 50 mins. O2 on, will retry again this afternoon.
[2022-12-07 17:54] LABS: Vancomycin Random 11.2 mcg/mL (15-20)
[2022-12-07] MEDS: vancomycin HCL 750 MG in 0.9 % Sodium Chloride 250 ML 265 MG IV (18:27)
[2022-12-07] MEDS: Melatonin 3 MG TABLET 6 MG PO (21:04)
[2022-12-08] VITALS (20 sets, daily range): BP systolic 91–158; BP diastolic 41–89; PULSE 78–98; RESP 14–23; TEMP 36.7–37.6; O2SAT 92–99; BMI 59.3
[2022-12-08 05:04] LABS: VBG Base Excess 12.2 mmol/L; VBG HCO3 36 mmol/L (22-26); VBG pCO2 44 mmHg; VBG pH 7.51 (7.32-7.43); VBG pO2 115 mmHg
[2022-12-08 05:07] LABS: Venous Blood Gas Refer to POC result
[2022-12-08 05:47] LABS: Hematocrit 28.4 % (37.0-47.0); Hemoglobin 9.3 g/dl (12.0-16.0); Mean Corpuscular HGB Conc 32.7 g/dl (31.0-35.0); Mean Corpuscular Hemoglobin 30.8 pg (27.0-33.0); Mean Platelet Volume 10.1 fL (9.4-12.3); Platelet Count 195 X10*3/uL (160-400); Red Blood Count 3.02 X10*6/uL (4.20-5.50); Red Cell Distribution Width 13.9 % (11.0-16.0); White Blood Count 13.5 X10*3/uL (4.8-10.8)
[2022-12-08 06:06] LABS: Alanine Aminotransferase 28 U/L (0-31); Albumin Level 2.3 g/dL (3.5-5.0); Alkaline Phosphatase 81 U/L (39-117); Anion Gap 14 (12-20); Aspartate Amino Transferase 60 U/L (5-31); Bilirubin Total 0.3 mg/dL (0.0-1.0); Blood Urea Nitrogen 81 mg/dL (9-16); Calcium 9.1 mg/dL (8.4-10.2); Carbon Dioxide 28 mmol/L (22-29); Chloride 107 mmol/L (96-108); Creatinine Clr Calc Pharmacy 97.7; Estimated Glomerular Filt Rate > 60; Glucose Random 120 mg/dL (60-115); Magnesium 2.1 mg/dL (1.6-2.6); Phosphorus 2.9 mg/dL (2.7-4.5); Potassium 2.7 mmol/L (3.3-5.1); Sodium 146 mmol/L (135-145); Total Protein 5.9 g/dL (6.5-8.0)
[2022-12-08 06:09] LABS: Band Neutrophils Percent 3 % (3-5); Eosinophils Absolute Manual 0.3 X10*3/uL (0.0-0.4); Eosinophils Percent Manual 2 % (0-4); Lymphocytes Absolute Manual 0.9 X10*3/uL (1.2-4.9); Lymphocytes Percent Manual 7 % (20-40); Metamyelocytes Absolute 0.4 X10*3/uL; Metamyelocytes Percent 3 %; Monocytes Absolute Manual 0.4 X10*3/uL (0.1-1.2); Monocytes Percent Manual 3 % (2-11); Myelocytes Absolute 0.1 X10*/uL; Myelocytes Percent 1 %; Neutrophils Absolute Manual 11.2 X10*3/uL (2.0-8.3); Neutrophils Percent Manual 80 % (45-73); Promyelocytes Absolute 0.1 X10*3/uL; Promyelocytes Percent 1 %
[2022-12-08 06:11] LABS: Basophilic Stippling 1+ (0-2) /OIF; Macrocytosis 1+ (5-14) /OIF; RBC Morphology NOTED
[2022-12-08 06:12] LABS: Platelet Estimate NORMAL (NORMAL)
[2022-12-08 06:13] LABS: Toxic Granulation PRESENT
[2022-12-08 06:14] LABS: Platelet Morphology Comment NORMAL
[2022-12-08] MEDS: Potassium Chloride Packet 20 MEQ PACKET 40 MEQ PO ×2 (06:57→07:59)
[2022-12-08] MEDS: Albumin Human 25 % 100 ML IV (06:58)
[2022-12-08] MEDS: Albuterol/Iprat 2.5/0.5MG 3 ML AMPUL.NEB INHALE ×3 (07:51→19:54)
[2022-12-08] MEDS: Fluconazole 100 MG TABLET PO (07:58)
[2022-12-08] MEDS: 0.9 % Sodium Chloride Flush 3 ML SYRINGE IVFLUSH ×3 (08:05→21:40)
[2022-12-08] MEDS: Nystatin Cream 15 GM TUBE 1 APPL TOPICAL (08:05)
--- NOTE | 2022-12-08 10:44 | PM.CCPN ---
Subjective Subjective Date of Service: 12/08/22 Interval History: 67-year-old morbidly obese female presents with acute on chronic hypercarbic respiratory failure requiring transfer to the ICU for BiPAP initiation also in atrial fibrillation for unknown amount of time also came in with the acute kidney insufficiency with a very significant azotemia but no evidence of uremia and precipitating issue was a right lower extremity cellulitis severe open wound being cared for by surgical and wound care debridement and topicals and dressing changes etc. probably has little longer standing then realized and obesity hypoventilation and evidence of aortic valvular sclerosis and measurably significant aortic valve area at least in the moderately severe to severe range at 0.82 sq cm but this might be Spore E a Slee low because of low-flow between the atrial fibrillation and what appears to be at least mild reduction of systolic reserve of the left ventricle but more importantly right ventricular prominence from probable chronic cor pulmonale this has created the anasarca and the azotemia etc. as predicted all got better including the kidney insufficiency her peripheral fluid reservoir and the hypercapnia with the use of BiPAP which she has been on most of the time for the last 2 days affecting her nice diuresis with very significant reduction of BUN creatinine and pCO2 and at this point can be on nocturnal BiPAP and then seek qualification for a home device as well and then some maintenance it possibly small dose digoxin for heart rate control maintenance diuretic etc. which needs to be established as well and I think this is going to help the healing of the right lower extremity wound MRSA screen is negative for Staph but she remains on vancomycin to treat this in I felt that the without a history of drug allergy possibly E Unasyn might be a better all encompassing antibiotic treatment for the wound at this point no longer acute and I think at least maintaining nocturnal BiPAP possibly from 20:00 until 0 600 a.m. each night would continue to improve this process but okay of the I think to transfer to intermediate care Critical Care Time (minutes): 45 Physical Exam Vital Signs: Vital Signs: Last Vital Signs Temp 99.1 F 12/08/22 09:00 Pulse 88 12/08/22 09:00 Resp 20 12/08/22 09:00 BP 107/54 L 12/08/22 09:00 Pulse Ox 92 12/08/22 09:00 O2 Del Method Nasal Cannula 12/08/22 09:00 O2 Flow Rate 3 12/08/22 09:00 FiO2 30 12/08/22 06:00 BMI result Body Mass Index 59.3 118/71 with oxygen saturation on nasal cannula at 93% and atrial fibrillation at rate in the low 80s currently no neck vein distension and has good bilateral carotid upstrokes although not well sustained again that could be her diminish systolic reserve and or that in combination with some significant aortic valvular stenosis and part of the plan should be potentially to repeat the echo and get the measurements for outflow tract and aortic valvular velocities redone on low-dose IV dobutamine to see whether not her gradient increases indicating significance of valvular stenosis or and if in fact with increased flow the remeasured calculated aortic valve area increases indicating that this was poor easily low and the valve is not critical lungs to auscultation are clear abdomen benign no organomegaly diminished anasarca Objective Data Labs 12/08/22 04:58 12/08/22 04:58 Labs: Laboratory Results - last 24 hr 12/06/22 12/07/22 12/08/22 Unknown 17:13 04:58 WBC 13.5 H RBC 3.02 L Hgb 9.3 L Hct 28.4 L MCV 94.0 MCH 30.8 MCHC 32.7 RDW 13.9 Plt Count 195 MPV 10.1 Immature Gran % (Auto) Cancelled Neut % (Auto) Cancelled Lymph % (Auto) Cancelled Spalding % (Auto) Cancelled Eos % (Auto) Cancelled Baso % (Auto) Cancelled Lymph # (Auto) Cancelled Spalding # (Auto) Cancelled Eos # (Auto) Cancelled Baso # (Auto) Cancelled Abs Immat Gran (auto) Cancelled Absolute Neuts (auto) Cancelled Absolute Nucleated RBC 0.000 Nucleated RBC % (auto) 0.0 Neutrophils % (Manual) 80 H Band Neutrophils % 3 Lymphocytes % (Manual) 7 L Monocytes % (Manual) 3 Eosinophils % (Manual) 2 Metamyelocytes % 3 Myelocytes % 1 Promyelocytes % 1 Abs Neuts (Manual) 11.2 H Lymphocytes # (Manual) 0.9 L Monocytes # (Manual) 0.4 Eosinophils # (Manual) 0.3 Metamyelocytes # 0.4 Myelocytes # 0.1 Promyelocytes # 0.1 Toxic Granulation PRESENT Platelet Estimate NORMAL Plt Morphology Comment NORMAL RBC Morphology NOTED Basophilic Stippling 1+ (0-2) Macrocytosis 1+ (5-14) VBG pH 7.51 H VBG pCO2 44 VBG pO2 115 VBG HCO3 36 H VBG O2 Saturation 99.0 VBG Base Excess 12.2 Sodium 146 H Potassium 2.7 L Chloride 107 Carbon Dioxide 28 Anion Gap 14 BUN 81 H Creatinine 0.86 Estim Creat Clear Calc 97.7 Estimated GFR > 60 Random Glucose 120 H Calcium 9.1 Phosphorus 2.9 Magnesium 2.1 Total Bilirubin 0.3 AST 60 H ALT 28 Alkaline Phosphatase 81 Total Protein 5.9 L Albumin 2.3 L Nasal Screen MRSA (PCR) NEGATIVE Nasal S. aureus Screen NEGATIVE Nasal MRSA/S.aureus Interp SEE NOTE Random Vancomycin 11.2 L Microbiology Microbiology Results: Microbiology 12/01/22 18:25 Blood - Venous Blood Culture - Final No growth after 5 days. 12/01/22 16:17 Blood - Venous Blood Culture - Final No growth after 5 days. 12/01/22 21:11 Urine clean catch - Urine barros top Urine Culture - Final Progress Note: A&P Assessment and plan (1) Acute systolic CHF (congestive heart failure), NYHA class 3: Status: Acute (2) Altered mental status: Status: Acute (3) Acute hypercapnic respiratory failure: Status: Acute (4) Metabolic acidosis: Status: Acute (5) Sepsis: Status: Acute (6) Hypokalemia: Status: Acute (7) Cellulitis of right leg: Status: Acute (8) New onset a-fib: Status: Acute (9) WANDY (acute kidney injury): Status: Acute (10) Acute hypokalemia: Status: Acute (11) Cellulitis: Status: Acute Plan so plan is to transfer to [facility] and possibly repeating the echocardiogram with anywhere from 2.5-5 micrograms/kilogram per minute of IV dobutamine and remeasure the numbers for the aortic valve and that would be with a limited echo therefore and continued use of nocturnal BiPAP at least from 20:00 to 06:00 and then maintenance digoxin and diuretic therapy and of course continued wound care and potentially switching vancomycin to a drug such as Unasyn which might give us better coverage for the skin wound Quality Stroke Does the patient have a stroke diagnosis?: No VTE Prior VTE?: No VTE Risk Level:: Medical - moderate - high VTE Device Contraindication: Treatment Not Indicated VTE Drug Contraindication: N/A - Med Ordered
[2022-12-08] MEDS: Digoxin 0.125 MG TABLET PO (12:49)
[2022-12-08] MEDS: Spironolactone 25 MG TABLET PO (12:50)
[2022-12-08 14:35] LABS: Anion Gap 11 (12-20); Blood Urea Nitrogen 67 mg/dL (9-16); Carbon Dioxide 29 mmol/L (22-29); Chloride 108 mmol/L (96-108); Creatinine Clr Calc Pharmacy 101.2; Estimated Glomerular Filt Rate > 60; Glucose Random 134 mg/dL (60-115); Potassium 3.2 mmol/L (3.3-5.1); Sodium 145 mmol/L (135-145)
--- NOTE | 2022-12-08 15:48 | PC.NURSE ---
Assumed care at 0700. Patient alert to easily arousable and oriented, follows commands, RAM, responds appropriately with somwhat limited responses. Refused nursing care, repositionining, and changing of RLE wound dressing multiple times today, despite encouragement and education. Had a difficult time coping with fluid restriction. Patient eucated and encouraged and did consent to repositioning and hygeine after some attempts, but still did not allow dressing to be changed. Was transfered to [facility] and report given to Catarina, who is following up about this. Patient also seemed to have some worsening of the Right under-breast area, open slit there. Patient treated with nystatin and interdry, and wound nurse made aware and re-consulted. Also right hip continues to weep and is edematous, and wound nurse also aware of this. Poor appetite, less than 10% of breakfast and lunch.
[2022-12-08] MEDS: vancomycin HCL 750 MG in 0.9 % Sodium Chloride 250 ML 265 MG IV (18:39)
[2022-12-08 18:43] LABS: Vancomycin Random 8.4 mcg/mL (15-20)
--- NOTE | 2022-12-08 19:04 | HE.PHANOTE ---
re graeme increasing dose to 1000mg q12h. new suspected auc of 524, trough of 16.2. will get a level after 2 doses since pt is obese and it is a big jump/more aggressive treatment strategy. Of note, scr from 12/06 to 12/07 went from 1.99 to 1.11. Based on those values alone, dose maybe should have been changed on 12/07 Campos
[2022-12-08] MEDS: vancomycin HCL 1,000 MG in 0.9 % Sodium Chloride 250 ML 270 MG IV (19:10)
[2022-12-08] MEDS: Melatonin 3 MG TABLET 6 MG PO (21:40)
[2022-12-08] MEDS: Apixaban 5 MG TABLET PO (21:40)
--- NOTE | 2022-12-08 23:50 | PC.RT ---
Pt started on Overnight sleep study. shortly after approx. 2245 pt placed back on 2LPM via NC due to pt desaturation into low 80's. Pt's sat's returned to 90's. sleep study continues.
[2022-12-09] VITALS (10 sets, daily range): BP systolic 102–195; BP diastolic 55–91; PULSE 73–89; RESP 16–20; TEMP 35.9–37.2; O2SAT 85–100; BMI 58.8
[2022-12-09 08:00] LABS: Creatinine Clr Calc Pharmacy 107.1; Estimated Glomerular Filt Rate > 60
[2022-12-09] MEDS: Digoxin 0.125 MG TABLET PO (09:11)
[2022-12-09] MEDS: Spironolactone 25 MG TABLET PO (09:11)
[2022-12-09] MEDS: 0.9 % Sodium Chloride Flush 3 ML SYRINGE IVFLUSH ×2 (09:11→16:55)
[2022-12-09] MEDS: vancomycin HCL 1,000 MG in 0.9 % Sodium Chloride 250 ML 270 MG IV ×2 (09:11→19:17)
[2022-12-09] MEDS: Apixaban 5 MG TABLET PO ×2 (09:11→20:30)
[2022-12-09] MEDS: Nystatin Cream 15 GM TUBE 1 APPL TOPICAL ×2 (09:12→20:30)
--- NOTE | 2022-12-09 10:55 | MHC.CM.PN ---
EMR REVIEWED, PT ICU STEPDOWN, WILL NEED CARDIO AND POSSIBLE D/C OVER W/E, [facility]LLOW[facility], PT PREFERS TO STAY IN [facility] [facility] PER PREVIOUS CM, SNF'S UPDATED VIA [facility] AND CM WILL CONT TO FOLLOW D/C NEEDS.
--- NOTE | 2022-12-09 11:16 | HO.PM.IMPN ---
Subjective Subjective Date of Service: 12/09/22 Interval History: sleepy Physical Exam Vital Signs: Vital Signs: Last Vital Signs Temp 98.8 F 12/09/22 11:12 Pulse 85 12/09/22 11:12 Resp 20 12/09/22 11:12 BP 115/64 12/09/22 11:12 Pulse Ox 85 L 12/09/22 11:16 O2 Del Method Room Air 12/09/22 11:16 O2 Flow Rate 2 12/09/22 11:12 FiO2 30 12/08/22 06:00 BMI result Body Mass Index 58.8 lethargic, oriented times 3, lungs clear Objective Data Active Medications Albuterol Sulfate (Albuterol Sulfate (0.083%) 2.5 Mg/3 Ml Vial.Neb) 2.5 mg INHALE Q4H PRN PRN Reason: Wheezing Albuterol/Ipratropium (Albuterol/Iprat 2.5/0.5mg 3 Ml Ampul.Neb) 3 ml INHALE RQ6H WHILE AWAKE [facility] Last Admin: 12/09/22 07:47 Dose: Not Given Documented By: ROB Non-Admin Reason: Patient Asleep Apixaban (Apixaban 5 Mg Tablet) 5 mg PO BID [facility] Last Admin: 12/09/22 09:11 Dose: 5 mg Documented By: LAVELL Digoxin (Digoxin 0.125 Mg Tablet) 0.125 mg PO DAILY [facility] Last Admin: 12/09/22 09:11 Dose: 0.125 mg Documented By: LAVELL Vancomycin HCl 1,000 mg/ (Sodium Chloride) 270 mls @ 270 mls/hr IV Q12H [facility] Last Infusion: 12/09/22 10:11 Dose: Infused Documented By: LAVELL Melatonin (Melatonin 3 Mg Tablet) 6 mg PO BEDTIME PRN PRN Reason: Insomnia Last Admin: 12/08/22 21:40 Dose: 6 mg Documented By: DAVID Nystatin (Nystatin Cream 15 Gm Tube) 1 appl TOPICAL BID [facility]; Protocol Last Admin: 12/09/22 09:12 Dose: 1 appl Documented By: LAVELL Ondansetron HCl (Ondansetron Hcl 4 Mg/2 Ml Vial) 4 mg IVPUSH Q8H PRN PRN Reason: Nausea and Vomiting Last Admin: 12/03/22 22:29 Dose: 4 mg Documented By: IVAN Pharmacy Consult (Consult Rx Vancomycin Dosing) 1 each MISCELLANE DAILY PRN PRN Reason: Consult order Sodium Chloride (0.9 % Sodium Chloride Flush 3 Ml Syringe) 3 ml IVFLUSH QSHIFT [facility] Last Admin: 12/09/22 09:11 Dose: 3 ml Documented By: LAVELL Spironolactone (Spironolactone 25 Mg Tablet) 25 mg PO DAILY [facility]; Protocol Last Admin: 12/09/22 09:11 Dose: 25 mg Documented By: LAVELL Labs 12/08/22 04:58 12/09/22 06:22 Labs: Laboratory Results - last 24 hr 12/08/22 12/08/22 12/09/22 14:06 18:18 06:22 Hold Purple Top SEE NOTE Anion Gap 11 L Estim Creat Clear Calc 101.2 107.1 Estimated GFR > 60 > 60 Random Glucose 134 H Calcium 9.0 Random Vancomycin 8.4 L Assessment and Plan (1) Metabolic acidosis: Status: Acute (2) Sepsis: Status: Acute (3) Hypokalemia: Status: Acute (4) Cellulitis of right leg: Status: Acute (5) WANDY (acute kidney injury): Status: Acute Plan 67F PMH who has not seen a PCP in 34 years who presented to the ED for evaluation of right lower leg swelling, pain, and redness for a couple weeks. was admitted to the hospital for treatment of right leg cellulitis, hypokalemia, and new onset AFib. course complicated by acute metabolic encephalopathy from acute hypercapneic resp failure and chf requiring icu transfer for bipap. now downgraded to medical floor Sepsis 2\2 Right leg cellulitis in state of chronic stasis dermatitis Continue IV Vancomycin started on 12/01/2022 Leg elevation Surgery following Analgesics for pain management Wound care acute metabolic encephalopathy due to acute hypoxic and hypercapneic respiraotry failure improved with bipap likely requires overnight Newly diagnosed AFib dig, apixaban chronic diastolic chf with mod-severe cardio follow up acute Hypokalemia replacement given Follow BMP WANDY w metabolic acidosis rsolved Obesity class III Weight loss encouraged DNR/DNI DVT Prophylaxis: apixaban reason for continued hospitalization:close onitoring of mental status Time Spent With Patient Time: Total time managing care of this patient today ____ minutes. Quality Stroke Does the patient have a stroke diagnosis?: No VTE Prior VTE?: No VTE Risk Level:: Medical - moderate - high VTE Device Contraindication: Treatment Not Indicated VTE Drug Contraindication: N/A - Med Ordered
--- NOTE | 2022-12-09 11:42 | MHC.CLN ---
F/U PT WITH INCREASED NUTRITION RISK R/T PRESSURE INJURY PT REPORTED POOR PO SUPPORT MERCHANDISER PO INTAKE 25% X 1 MEAL DIET RX: REGULAR-APPROPRIATE RECOMMEND ADDING ENSURE MAX BID TO PROMOTE WOUND HEALING SUPP TO PROVIDE 300KCALS, 60G PROTEIN MONITOR PO INTAKE AND SUPPLEMENT ACCEPTANCE
--- NOTE | 2022-12-09 14:33 | PM.PNGS ---
Subjective Subjective Date of Service: 12/09/22 Interval history: no new complaints was transferred out of ICU yesterday Physical Exam Vital Signs: Vital Signs: Last Vital Signs Temp 98.8 F 12/09/22 11:12 Pulse 85 12/09/22 11:12 Resp 20 12/09/22 11:12 BP 115/64 12/09/22 11:12 Pulse Ox 85 L 12/09/22 11:16 O2 Del Method Room Air 12/09/22 11:16 O2 Flow Rate 2 12/09/22 11:12 FiO2 30 12/08/22 06:00 BMI result Body Mass Index 58.8 Const: Other: mild shortness of breath Cardio: Rate: regular rate GI: Palpation (GI): Soft to palpation Extrem: Other: edema of right leg and foot much improved; eschar on anterolateral aspect has peeled off; ulcers looks clean, cellulitis much improved Objective Data Active Medications Albuterol Sulfate (Albuterol Sulfate (0.083%) 2.5 Mg/3 Ml Vial.Neb) 2.5 mg INHALE Q4H PRN PRN Reason: Wheezing Albuterol/Ipratropium (Albuterol/Iprat 2.5/0.5mg 3 Ml Ampul.Neb) 3 ml INHALE RQ6H WHILE AWAKE [facility] Last Admin: 12/09/22 07:47 Dose: Not Given Documented By: ROB Non-Admin Reason: Patient Asleep Apixaban (Apixaban 5 Mg Tablet) [address] [facility] Last Admin: 12/09/22 09:11 Dose: 5 mg Documented By: LAVELL Digoxin (Digoxin 0.125 Mg Tablet) 0.[address] [facility] Last Admin: 12/09/22 09:11 Dose: 0.125 mg Documented By: LAVELL Vancomycin HCl 1,000 mg/ (Sodium Chloride) 270 mls @ 270 mls/hr IV Q12H [facility] Last Infusion: 12/09/22 10:11 Dose: Infused Documented By: LAVELL Melatonin (Melatonin 3 Mg Tablet) 6 mg PO BEDTIME PRN PRN Reason: Insomnia Last Admin: 12/08/22 21:40 Dose: 6 mg Documented By: DAVID Nystatin (Nystatin Cream 15 Gm Tube) [address] [facility]; Protocol Last Admin: 12/09/22 09:12 Dose: 1 appl Documented By: LAVELL Ondansetron HCl (Ondansetron Hcl 4 Mg/2 Ml Vial) 4 mg IVPUSH Q8H PRN PRN Reason: Nausea and Vomiting Last Admin: 12/03/22 22:29 Dose: 4 mg Documented By: IVAN Pharmacy Consult (Consult Rx Vancomycin Dosing) 1 each MISCELLANE DAILY PRN PRN Reason: Consult order Sodium Chloride (0.9 % Sodium Chloride Flush 3 Ml Syringe) [address] [facility] Last Admin: 12/09/22 09:11 Dose: 3 ml Documented By: LAVELL Spironolactone (Spironolactone 25 Mg Tablet) [address] [facility]; Protocol Last Admin: 12/09/22 09:11 Dose: 25 mg Documented By: LAVELL Labs 12/08/22 04:58 12/09/22 06:22 Labs: Laboratory Results - last 24 hr 12/08/22 12/08/22 12/09/22 14:06 18:18 06:22 Hold Purple Top SEE NOTE Anion Gap 11 L Estim Creat Clear Calc 101.2 107.1 Estimated GFR > 60 > 60 Random Glucose 134 H Calcium 9.0 Random Vancomycin 8.4 L Procedures Date of Service Date of Service: 12/09/22 Progress Note: A&P Assessment and plan (1) Leg ulcer: Status: Acute Assessment and Plan: ulcers appear much better edema, cellulitis signifcantly improved dressings changed dw wound care nurse - Dakins solution dressings daily over the weekend leg elevated on 2 pillows Time Spent With Patient Time: Total time managing care of this patient today ____ minutes. Quality Stroke Does the patient have a stroke diagnosis?: No VTE Prior VTE?: No VTE Risk Level:: Medical - moderate - high VTE Device Contraindication: Treatment Not Indicated VTE Drug Contraindication: N/A - Med Ordered
--- NOTE | 2022-12-09 15:17 | HO.WOUND ---
Wound Consult: Follow up 67yr old female admitted to [facility] on?12/01/22 19:17 - See progress notes and H&P for detailed history. Bedside assessment of the right lower leg with Dr. Swenson. Right Leg 12/06/22 - Initial Assesment Right Lower Leg 12/09/22 - Todays - Overall improved Etiology: Cellulites with open wounds and chronic Venous Dermatitis Wound Bed: Overall improving -Various areas of wound beds appearance improving since last assessment (3 days ago) -large eschar removed organically with dressing removal revealing adherent yellow slough - various scattered areas of full thickness tissue loss with granulation buds observed through adherent yellow white slough, area of partial thickness tissue loss with red and pink moist wound bed Drainage / Odor: odor remains and yellow parrish drainage observed . Edges: ? irregular and unattached Diya wound: ? Red, warm / decreased edematous blanchable tissue Mild Induration throughout, No Fluctuance, Erythema, Warmth noted Pain: Pt reported significant pain at the time of dressing change but recovered quickly Goals of Treatment: ? Topical Dakins to provide antimicrobial treatment and moist wound healing. Right Outer Thigh Etiology: MASD (Moisture Associated Skin Damage) secondary to overloaded weeping skin Wound Bed: Significant improvement of red tissue - current significantly smaller area of red pink tissue - right outer thigh is with macerated tissue secondary to positioning and trapping moisture against pts skin - recommend triad to provide barrier to moisture and dry flow pad to tuck under and wick moisture away. Drainage / Odor: Scant serous drainage Edges: ?Decreasingin size and irregular Diya wound: Intact No Induration, No Fluctuance Pain: No pain reported Goals of Treatment: Triad and Dry Eloise pad (Disposable) under pts thigh Bilateral Axilla, Bilateral Breast and Abdominal Skin Folds Etiology: MASD - Intertrigo (Moisture Associated Skin Damage) Wound Bed: Mirrored pink blanchable tissue with partial thickness tissue loss base of breast folds and scattered areas of tissue loss at Left abdominal skin fold edge. Drainage / Odor: Scant serosang drainage Edges: ? Mirrored and attached Diya wound: Intact No Induration, No Fluctuance Pain: No pain reported Goals of Treatment: Add Triad to base of fold and Moisture Management with Interdry. Follow up in 3-5 days if patient remains inpatient. Recommendations: 1. Turn and Reposition every 2 hours and as needed for patient comfort consider use of wedges available in the storeroom. 2. Off Load all bony prominences with use of pillows, wedges and heel boots. 3. Monitor for incontinence and moisture control - Barrier Cream to be used. 4. Provide adequate and supplemental nutrition - Nutrition consult placed. 5. Order low air loss mattress. 6. Right Lower Leg - Elevate lower leg off of surface of bed - Cleanse with Saline, pat dry. Apply Dakin's moist gauze to wound bed, cover with dry ABD pads, gauze wrap. Change daily. 7. Bilateral Axilla, Breast and Abdominal Skin Folds - Cleanse with soap and water per routine bathing and PRN, dry well. Apply thin layer of triad to open wounds at base of fold. Apply Interdry to affected areas as follows: Lay a single layer of fabric in the skin fold, Gently smooth the rest of the fabric over the skin, keeping it flat. Leave at least 2 inches of the fabric exposed outside the skin fold. Secure the fabric with the skin fold, Each piece of InterDry may be used up to 5 days, depending on fabric soiling, odor, amount of moisture. Replace InterDry if it becomes soiled with blood, urine or stool. 8. Gluteal Fold / Buttocks - Cleanse with soap and water per routine bathing and if incontinence episodes. Apply Barrier cream to protect from moisture and friction. Reapply twice daily and PRN. 9. Right Upper Thigh - Cleanse with routine bathing, Apply thin layer of Triad to macerated tissue. Tuck disposable dry eloise pad under pts thigh to aid in wicking moisture away from patients skin. Re-consult wound care Nurse for wound deterioration or wound changes.
[2022-12-09 19:30] LABS: Vancomycin Random 15.4 mcg/mL (15-20)
--- NOTE | 2022-12-09 19:42 | HE.PHANOTE ---
VANCO DOSE ADJUSTMENT BASED ON SCR AND TROUGH DOSE CONTINUED AT 1000 Q12H. NEXT TROUGH 12/11 @ 0500
[2022-12-09] MEDS: Albuterol/Iprat 2.5/0.5MG 3 ML AMPUL.NEB INHALE (19:43)
[2022-12-10] VITALS (8 sets, daily range): BP systolic 117–148; BP diastolic 58–76; PULSE 68–95; RESP 17–20; TEMP 36.1–37; O2SAT 92–98; BMI 59.5
[2022-12-10] MEDS: 0.9 % Sodium Chloride Flush 3 ML SYRINGE IVFLUSH ×3 (00:41→15:29)
[2022-12-10] MEDS: Melatonin 3 MG TABLET 6 MG PO ×2 (00:50→22:08)
[2022-12-10] MEDS: vancomycin HCL 1,000 MG in 0.9 % Sodium Chloride 250 ML 270 MG IV ×2 (07:31→20:36)
[2022-12-10] MEDS: Spironolactone 25 MG TABLET PO (07:39)
[2022-12-10] MEDS: Apixaban 5 MG TABLET PO ×2 (07:40→22:08)
[2022-12-10] MEDS: Albuterol/Iprat 2.5/0.5MG 3 ML AMPUL.NEB INHALE (07:40)
[2022-12-10] MEDS: Digoxin 0.125 MG TABLET PO (07:40)
[2022-12-10 08:11] LABS: Hematocrit 30.7 % (37.0-47.0); Hemoglobin 9.7 g/dl (12.0-16.0); Mean Corpuscular HGB Conc 31.6 g/dl (31.0-35.0); Mean Corpuscular Hemoglobin 30.7 pg (27.0-33.0); Mean Corpuscular Volume 97.2 fL (80.0-98.0); Mean Platelet Volume 9.8 fL (9.4-12.3); Platelet Count 236 X10*3/uL (160-400); Red Blood Count 3.16 X10*6/uL (4.20-5.50); White Blood Count 12.5 X10*3/uL (4.8-10.8)
[2022-12-10] MEDS: Nystatin Cream 15 GM TUBE 1 APPL TOPICAL ×2 (08:22→22:09)
[2022-12-10 08:23] LABS: Anion Gap 13 (12-20); Blood Urea Nitrogen 41 mg/dL (9-16); Carbon Dioxide 30 mmol/L (22-29); Chloride 107 mmol/L (96-108); Creatinine Clr Calc Pharmacy 107.1; Estimated Glomerular Filt Rate > 60; Glucose Fasting 111 mg/dL (60-99); Potassium 3.4 mmol/L (3.3-5.1); Sodium 147 mmol/L (135-145)
--- NOTE | 2022-12-10 10:39 | HO.PM.IMPN ---
Subjective Subjective Date of Service: 12/10/22 Interval History: weakness Physical Exam Vital Signs: Vital Signs: Last Vital Signs Temp 97.5 F 12/10/22 07:25 Pulse 69 12/10/22 07:43 Resp 20 12/10/22 07:43 BP 136/76 12/10/22 07:25 Pulse Ox 97 12/10/22 07:25 O2 Del Method Nasal Cannula 12/10/22 07:25 O2 Flow Rate 2 12/10/22 07:25 FiO2 98 12/10/22 00:13 BMI result Body Mass Index 58.8 Const: Other: mild shortness of breath Cardio: Rate: regular rate GI: Palpation (GI): Soft to palpation Extrem: Other: edema of right leg and foot much improved; eschar on anterolateral aspect has peeled off; ulcers looks clean, cellulitis much improved Objective Data Active Medications Apixaban (Apixaban 5 Mg Tablet) 5 mg PO BID COUNTS INCLUDE 234 BEDS AT THE [facility] Last Admin: 12/10/22 07:40 Dose: 5 mg Documented By: AUNDREA Digoxin (Digoxin 0.125 Mg Tablet) 0.125 mg PO DAILY COUNTS INCLUDE 234 BEDS AT THE [facility] Last Admin: 12/10/22 07:40 Dose: 0.125 mg Documented By: AUNDREA Vancomycin HCl 1,000 mg/ (Sodium Chloride) 270 mls @ 270 mls/hr IV Q12H COUNTS INCLUDE 234 BEDS AT THE [facility] Last Admin: 12/10/22 07:31 Dose: 270 mls/hr Documented By: AUNDREA Melatonin (Melatonin 3 Mg Tablet) 6 mg PO BEDTIME PRN PRN Reason: Insomnia Last Admin: 12/10/22 00:50 Dose: 6 mg Documented By: ROBERT Nystatin (Nystatin Cream 15 Gm Tube) 1 appl TOPICAL BID COUNTS INCLUDE 234 BEDS AT THE [facility]; Protocol Last Admin: 12/10/22 08:22 Dose: 1 appl Documented By: AUNDREA Ondansetron HCl (Ondansetron Hcl 4 Mg/2 Ml Vial) 4 mg IVPUSH Q8H PRN PRN Reason: Nausea and Vomiting Last Admin: 12/03/22 22:29 Dose: 4 mg Documented By: IVAN Pharmacy Consult (Consult Rx Vancomycin Dosing) 1 each MISCELLANE DAILY PRN PRN Reason: Consult order Sodium Chloride (0.9 % Sodium Chloride Flush 3 Ml Syringe) 3 ml IVFLUSH QSHIFT COUNTS INCLUDE 234 BEDS AT THE [facility] Last Admin: 12/10/22 07:32 Dose: 3 ml Documented By: AUNDREA Sodium Hypochlorite (Sodium Hypochlorite 0.125% 473 Ml Solution) 1 appl TOPICAL DAILY [facility] Last Admin: 12/10/22 08:23 Dose: 1 appl Documented By: AUNDREA Spironolactone (Spironolactone 25 Mg Tablet) 25 mg PO DAILY [facility]; Protocol Last Admin: 12/10/22 07:39 Dose: 25 mg Documented By: AUNDREA Labs 12/10/22 08:00 12/10/22 08:00 Labs: Laboratory Results - last 24 hr 12/09/22 12/10/22 16:49 08:00 MCV 97.2 MCH 30.7 MCHC 31.6 RDW 14.0 Plt Count 236 MPV 9.8 Absolute Nucleated RBC 0.000 Nucleated RBC % (auto) 0.0 Anion Gap 13 Estim Creat Clear Calc 107.1 Estimated GFR > 60 Fasting Glucose 111 H Calcium 9.0 Random Vancomycin 15.4 Assessment and Plan (1) Metabolic acidosis: Status: Acute (2) Sepsis: Status: Acute (3) Hypokalemia: Status: Acute (4) Cellulitis of right leg: Status: Acute (5) WANDY (acute kidney injury): Status: Acute Plan 67F PMH who has not seen a PCP in 34 years who presented to the ED for evaluation of right lower leg swelling, pain, and redness for a couple weeks. was admitted to the hospital for treatment of right leg cellulitis, hypokalemia, and new onset AFib. course complicated by acute metabolic encephalopathy from acute hypercapneic resp failure and chf requiring icu transfer for bipap. now downgraded to medical floor Sepsis 2\2 Right leg cellulitis in state of chronic stasis dermatitis Continue IV Vancomycin started on 12/01/2022 Leg elevation Surgery following Analgesics for pain management Wound care acute metabolic encephalopathy due to acute hypoxic and hypercapneic respiraotry failure improved with bipap likely requires overnight Newly diagnosed AFib dig, apixaban chronic diastolic chf with mod-severe cardio follow up acute Hypokalemia replacement given Follow BMP WANDY w metabolic acidosis resolved Obesity class III Weight loss encouraged DNR/DNI DVT Prophylaxis: apixaban reason for continued hospitalization:close monitoring of mental status, safe dispo Time Spent With Patient Time: Total time managing care of this patient today ____ minutes. Quality Stroke Does the patient have a stroke diagnosis?: No VTE Prior VTE?: No VTE Risk Level:: Medical - moderate - high VTE Device Contraindication: Treatment Not Indicated VTE Drug Contraindication: N/A - Med Ordered
[2022-12-10 20:42] LABS: Glucose, Whole Blood 161 mg/dL (60-115)
[2022-12-11 00:05] VITALS: PULSE 90; RESP 22; O2SAT 97
[2022-12-11 02:55] VITALS: BP 153/70; PULSE 84; RESP 22; TEMP 36.1; O2SAT 100
[2022-12-11 06:00] VITALS: BMI 60.0
[2022-12-11 06:25] LABS: Hematocrit 31.9 % (37.0-47.0); Mean Corpuscular HGB Conc 31.3 g/dl (31.0-35.0); Mean Corpuscular Hemoglobin 31.3 pg (27.0-33.0); Mean Corpuscular Volume 99.7 fL (80.0-98.0); Mean Platelet Volume 10.1 fL (9.4-12.3); Platelet Count 257 X10*3/uL (160-400); Red Cell Distribution Width 14.1 % (11.0-16.0); White Blood Count 11.5 X10*3/uL (4.8-10.8)
[2022-12-11 06:55] LABS: Anion Gap 11 (12-20); Blood Urea Nitrogen 31 mg/dL (9-16); Calcium 8.9 mg/dL (8.4-10.2); Carbon Dioxide 30 mmol/L (22-29); Chloride 108 mmol/L (96-108); Creatinine Clr Calc Pharmacy 98.3; Estimated Glomerular Filt Rate > 60; Glucose Fasting 112 mg/dL (60-99); Potassium 3.9 mmol/L (3.3-5.1); Sodium 145 mmol/L (135-145)
[2022-12-11 06:57] LABS: Vancomycin Random 19.2 mcg/mL (15-20)
--- NOTE | 2022-12-11 07:05 | HE.PHANOTE ---
RE: POLO Patients level came back this AM at 19.2, level was drawn 1 our late. Trough could have been higher, Rx insight suggested a trough of 15.3. Patients level is coming back significantly higher. Renal function also jumped. Will decrease dose to 750 mg Q12H. Next draw is tomorrow 12/12 @0500
[2022-12-11] MEDS: Nystatin Cream 15 GM TUBE 1 APPL TOPICAL ×2 (07:26→20:23)
[2022-12-11] MEDS: Spironolactone 25 MG TABLET PO (07:26)
[2022-12-11] MEDS: Apixaban 5 MG TABLET PO ×2 (07:26→20:22)
[2022-12-11] MEDS: 0.9 % Sodium Chloride Flush 3 ML SYRINGE IVFLUSH ×4 (07:26→20:23)
[2022-12-11] MEDS: Digoxin 0.125 MG TABLET PO (07:27)
[2022-12-11] MEDS: vancomycin HCL 750 MG in 0.9 % Sodium Chloride 250 ML 265 MG IV ×2 (07:31→20:22)
[2022-12-11 08:00] VITALS: BP 102/57; PULSE 80; RESP 16; TEMP 36.3; O2SAT 99
[2022-12-11] MEDS: ondansetron HCL 4 MG/2 ML VIAL IVPUSH (09:06)
--- NOTE | 2022-12-11 09:55 | P.PNIM_ITS ---
Subjective Subjective Date of Service: 12/11/22 Interval History: weakness Physical Exam 2 Vital Signs: Vital Signs: Last Vital Signs Temp 97.4 F 12/11/22 08:00 Pulse 80 12/11/22 08:00 Resp 16 12/11/22 08:00 BP 102/57 L 12/11/22 08:00 Pulse Ox 99 12/11/22 08:00 O2 Del Method Nasal Cannula 12/11/22 08:00 O2 Flow Rate 2 12/11/22 08:00 FiO2 30 12/11/22 02:55 BMI result Body Mass Index 59.5 Const: Other: mild shortness of breath Cardio: Rate: regular rate GI: Palpation (GI): Soft to palpation Extrem: Other: edema of right leg and foot much improved; eschar on anterolateral aspect has peeled off; ulcers looks clean, cellulitis much improved Objective Data Active Medications Apixaban (Apixaban 5 Mg Tablet) 5 mg PO BID [facility] Last Admin: 12/11/22 07:26 Dose: 5 mg Documented By: AUNDREA Digoxin (Digoxin 0.125 Mg Tablet) 0.125 mg PO DAILY [facility] Last Admin: 12/11/22 07:27 Dose: 0.125 mg Documented By: AUNDREA Vancomycin HCl 750 mg/ Sodium (Chloride) 265 mls @ 265 mls/hr IV Q12H [facility] Last Infusion: 12/11/22 08:35 Dose: Infused Documented By: AUNDREA Melatonin (Melatonin 3 Mg Tablet) 6 mg PO BEDTIME PRN PRN Reason: Insomnia Last Admin: 12/10/22 22:08 Dose: 6 mg Documented By: PHILLIP Nystatin (Nystatin Cream 15 Gm Tube) 1 appl TOPICAL BID [facility]; Protocol Last Admin: 12/11/22 07:26 Dose: 1 appl Documented By: AUNDREA Ondansetron HCl (Ondansetron Hcl 4 Mg/2 Ml Vial) 4 mg IVPUSH Q8H PRN PRN Reason: Nausea and Vomiting Last Admin: 12/11/22 09:06 Dose: 4 mg Documented By: AUNDREA Pharmacy Consult (Consult Rx Vancomycin Dosing) 1 each MISCELLANE DAILY PRN PRN Reason: Consult order Sodium Chloride (0.9 % Sodium Chloride Flush 3 Ml Syringe) 3 ml IVFLUSH QSHIFT [facility] Last Admin: 12/11/22 07:26 Dose: 3 ml Documented By: AUNDREA Sodium Hypochlorite (Sodium Hypochlorite 0.125% 473 Ml Solution) 1 appl TOPICAL DAILY [facility] Last Admin: 12/10/22 12:17 Dose: Not Given Documented By: AUNDREA Non-Admin Reason: pt refused dsg changed Spironolactone (Spironolactone 25 Mg Tablet) 25 mg PO DAILY [facility]; Protocol Last Admin: 12/11/22 07:26 Dose: 25 mg Documented By: AUNDREA Labs 12/11/22 06:00 12/11/22 06:00 Labs: Laboratory Results - last 24 hr 12/10/22 12/11/22 20:37 06:00 MCV 99.7 H MCH 31.3 MCHC 31.3 RDW 14.1 Plt Count 257 MPV 10.1 Absolute Nucleated RBC 0.000 Nucleated RBC % (auto) 0.0 Anion Gap 11 L Estim Creat Clear Calc 98.3 Estimated GFR > 60 POC Glucose 161 H Fasting Glucose 112 H Calcium 8.9 Random Vancomycin 19.2 Assessment and Plan (1) Metabolic acidosis: Status: Acute (2) Sepsis: Status: Acute (3) Hypokalemia: Status: Acute (4) Cellulitis of right leg: Status: Acute (5) WANDY (acute kidney injury): Status: Acute Plan 67F [facility] who has not seen a PCP in 34 years who presented to the ED for evaluation of right lower leg swelling, pain, and redness for a couple weeks. was admitted to the hospital for treatment of right leg cellulitis, hypokalemia, and new onset AFib. course complicated by acute metabolic encephalopathy from acute hypercapneic resp failure and chf requiring icu transfer for bipap. now downgraded to medical floor Sepsis 2\2 Right leg cellulitis in state of chronic stasis dermatitis Continue IV Vancomycin started on 12/01/2022 Leg elevation Surgery following Analgesics for pain management Wound care acute metabolic encephalopathy due to acute hypoxic and hypercapneic respiraotry failure improved with bipap likely requires overnight Newly diagnosed AFib dig, apixaban chronic diastolic chf with mod-severe cardio follow up outpatient iv lasix 40mg once acute Hypokalemia replacement given Follow BMP WANDY w metabolic acidosis resolved Obesity class III Weight loss encouraged DNR/DNI DVT Prophylaxis: apixaban reason for continued hospitalization:close monitoring of mental status, safe dispo Time Spent With Patient Time: Total time managing care of this patient today ____ minutes. Quality Stroke Does the patient have a stroke diagnosis?: No VTE Prior VTE?: No VTE Risk Level:: Medical - moderate - high VTE Device Contraindication: Treatment Not Indicated VTE Drug Contraindication: N/A - Med Ordered
[2022-12-11] MEDS: Furosemide 40 MG/4 ML VIAL IVPUSH (10:47)
[2022-12-11 12:00] VITALS: BP 120/67; PULSE 80; RESP 18; TEMP 36.2; O2SAT 99
[2022-12-11 16:00] VITALS: BP 111/54; PULSE 82; RESP 16; TEMP 36.3; O2SAT 99
[2022-12-11 19:31] VITALS: BP 104/67; PULSE 91; RESP 18; TEMP 36.7; O2SAT 98
[2022-12-12] VITALS: BP 115/54; PULSE 75; RESP 18; TEMP 36.1; O2SAT 99
[2022-12-12 00:07] VITALS: PULSE 90; RESP 20; O2SAT 95
[2022-12-12 03:18] VITALS: BP 110/57; PULSE 67; RESP 18; TEMP 36.6; O2SAT 94
[2022-12-12 05:01] LABS: Hematocrit 32.7 % (37.0-47.0); Mean Corpuscular HGB Conc 30.6 g/dl (31.0-35.0); Mean Corpuscular Hemoglobin 30.5 pg (27.0-33.0); Mean Corpuscular Volume 99.7 fL (80.0-98.0); Mean Platelet Volume 10.8 fL (9.4-12.3); Platelet Count 156 X10*3/uL (160-400); Red Blood Count 3.28 X10*6/uL (4.20-5.50); Red Cell Distribution Width 13.9 % (11.0-16.0); White Blood Count 9.5 X10*3/uL (4.8-10.8)
[2022-12-12 05:17] LABS: Anion Gap 16 (12-20); Blood Urea Nitrogen 27 mg/dL (9-16); Carbon Dioxide 28 mmol/L (22-29); Chloride 104 mmol/L (96-108); Creatinine Clr Calc Pharmacy 103.3; Estimated Glomerular Filt Rate > 60; Glucose Fasting 97 mg/dL (60-99); Potassium 3.8 mmol/L (3.3-5.1); Sodium 144 mmol/L (135-145)
[2022-12-12 05:19] LABS: Vancomycin Random 18.3 mcg/mL (15-20)
[2022-12-12 06:00] VITALS: BMI 60.1
--- NOTE | 2022-12-12 06:16 | HE.PHANOTE ---
RE VANCO DOSING TROUGH TODAY SLIGHTLY LOWER AT 18.3 AFTER DOSE REDUCTION. PT IS AVERAGING SLIGHTLY HIGHER THAN INSIGHT IS ESTIMATING. APPEARS SHE MAY LEVEL OUT ABOUT 15.3 INSTEAD OF THE 13.4 THAT INSIGHT BELIEVES. WILL RECHECK A LEVEL AFTER 3 MORE DOSES 12/13 @1700.
[2022-12-12] MEDS: vancomycin HCL 750 MG in 0.9 % Sodium Chloride 250 ML 265 MG IV (06:32)
[2022-12-12] MEDS: Digoxin 0.125 MG TABLET PO (07:48)
[2022-12-12] MEDS: Apixaban 5 MG TABLET PO (07:48)
[2022-12-12] MEDS: Spironolactone 25 MG TABLET PO (07:48)
[2022-12-12] MEDS: 0.9 % Sodium Chloride Flush 3 ML SYRINGE IVFLUSH (07:48)
[2022-12-12] MEDS: Nystatin Cream 15 GM TUBE 1 APPL TOPICAL (07:51)
[2022-12-12 07:54] VITALS: BP 122/53; PULSE 89; RESP 20; TEMP 36.6; O2SAT 97
--- NOTE | 2022-12-12 10:37 | P.DS_ITS ---
DS: Providers Provider Date of Service: 12/12/22 Date of admission: 12/01/22 19:17 Primary care physician: Dennis Chavira MD Consults: 12/01/22 20:02 Consult to Orthopedics Routine Consulting Provider: [facility] Reason for consultation: infected bran cyst 12/01/22 20:03 Consult to General Surgery Routine Consulting Provider: [facility] General Surgeons Reason for consultation: lower extremity wounds 12/01/22 20:05 Consult to Cardiology Routine Consulting Provider: [facility] [place] [facility] Reason for consultation: new onset afib Has provider been notified: Yes 12/02/22 14:42 Consult to Nephrology Routine Consulting Provider: Rafa Arrieta Reason for consultation: WANDY w acidemia 12/08/22 14:53 Consult to Wound Care Routine Reason for consultation: R under breast looks worse and open, right thigh is weeping and macerated DS: Diagnosis Discharge Diagnosis (1) Metabolic acidosis: Status: Acute (2) Sepsis: Status: Acute (3) Hypokalemia: Status: Acute (4) Cellulitis of right leg: Status: Acute (5) WANDY (acute kidney injury): Status: Acute DS: Summary Hospital Course Hospital Course: from initial hpi: 67-year-old female with no reported significant PMH who has not seen a PCP in 34 years who presents to the ED for evaluation of right lower leg swelling, pain, and redness for the past couple weeks. Patient states symptoms began when she noticed redness and swelling of her lower right leg. Redness eventually spread to foot and up her thigh to her buttocks and she began developing fluid filled blisters and sores on her lower leg. This started a few days ago with a couple of ?bubbles and then her leg ?blew up? with multiple weeping sores. Patient also been experiencing nausea and vomiting x3 days with 1 episode of vomiting per day. Notes decreased p.o. intake during this time, occasional subjective fever and chills. Patient denies any trauma to the area or any known cuts or lacerations. Patient currently experiencing 10/10 pain in the back of her calf near her Achilles that wraps around to the front. Also complains of chronic SOB with exertion. Denies history of smoking. Patient denies chest pain/pressure, palpitations. No abdominal pain the patient sates she is often ?burpy? and ?gassy?. Reports redness and itching in her left groin. In the ED patient was afebrile with pulse of 89 and tachypneic at 22, satting at 96% on RA. Labs were significant for WBC 23.3, potassium 2.8, BUN 60 with creatinine 2.71 (baseline unknown), bilirubin 0.6, AST 46, alk-phos 148, initial troponin 24.5, BNP mildly elevated to 115. Stable H&H. A1c 5.2. Lactic acid WNL at 1.5. CXR limited without convincing change compared to 12/25/2013. Venous duplex ultrasound of right lower extremity found no evidence of deep vein thrombosis with the caveats that the calf veins were not well visualized. Did show a 3.5 cm complicated Bran cyst in the popliteal fossa with some degree of wall thickening and heterogeneous debris, recommend short-term follow-up ultrasound. EKG demonstrated atrial fibrillation let evidence of significant ST elevations or depressions. Pt was treated with vancomycin and Zosyn, IVF, ondansetron, nystatin, and potassium chloride. Pt will be admitted to the hospital for treatment right leg cellulitis, hypokalemia, and new onset AFib. hospital course: Patient was admitted for sepsis due to right lower extremity cellulitis in chronic stasis dermatitis. She should IV vancomycin, seen by surgery for local care and will continue 7 more days of doxycycline on discharge. She should continue wound care as outpatient also noted to have acute hypokalemia which was replaced and new onset atrial fibrillation for which she has been treated with digoxin and apixaban. Course was then complicated by acute metabolic encephalopathy due to acute hypoxic and hypercapnic respiratory failure requiring ICU transfer and BiPAP. With mild lb patient's hypercapnia resolved and her mental status returned to baseline. She was evaluated for overnight BiPAP and currently is only qualify for oxygen. Patient was also treated for acute on chronic diastolic CHF with moderate to severe aortic stenosis. She is started on Lasix and should follow up with Cardiology as outpatient. Patient also presented with acute kidney injury with metabolic acidosis which has resolved. For morbid obesity weight loss is strongly recommended. Patient is now much improved but with significant debility will be [facility]. Time Spent with Patient Time attestation: Total time managing care of this patient today ____ minutes. Discharge coordination time: Greater than 30 minutes Quality: Safe Use of Opioids Does Pt have an Active Cancer Diagnosis on the Problem List?: No Quality: Stroke Does the patient have a stroke diagnosis?: No Physical Exam Vital Signs: Vital Signs: Last Vital Signs Temp 97.9 F 12/12/22 07:54 Pulse 89 12/12/22 07:54 Resp 20 12/12/22 07:54 BP 122/53 L 12/12/22 07:54 Pulse Ox 97 12/12/22 07:54 O2 Del Method Nasal Cannula 12/12/22 07:54 O2 Flow Rate 2 12/12/22 07:54 FiO2 30 12/11/22 02:55 BMI result Body Mass Index 60.1 Const: Other: mild shortness of breath Cardio: Rate: regular rate GI: Palpation (GI): Soft to palpation Extrem: Other: edema of right leg and foot much improved; eschar on anterolateral aspect has peeled off; ulcers looks clean, cellulitis much improved DS: Data Data Completed and Pending Labs on day of discharge: Laboratory Results - last 24 hr 12/12/22 04:52 WBC 9.5 RBC 3.28 L Hgb 10.0 L Hct 32.7 L MCV 99.7 H MCH 30.5 MCHC 30.6 L RDW 13.9 Plt Count 156 L D MPV 10.8 Absolute Nucleated RBC 0.000 Nucleated RBC % (auto) 0.0 Sodium 144 Potassium 3.8 Chloride 104 Carbon Dioxide 28 Anion Gap 16 BUN 27 H Creatinine 0.82 Estim Creat Clear Calc 103.3 Estimated GFR > 60 Fasting Glucose 97 Calcium 9.0 Random Vancomycin 18.3 Discharge Plan Discharge Anticipated Discharge Date/Time: 12/12/22 10:31 Patient Disposition: Xfer [facility] Discharge Diagnosis: cellulitis, ohs, as Referrals: Dennis Chavira MD [Primary Care Provider] - 1 Week Discharge Medications: New Eliquis 5 mg Tablet 5 mg PO BID Qty: 0 0RF spironolactone 25 mg Tablet 25 mg PO DAILY Qty: 0 0RF Protocol: Hold for SBP< HOLD for SBP < : 90 digoxin 125 mcg (0.125 mg) Tablet 0.125 mg PO DAILY Qty: 0 0RF Dakin's Solution 0.125 % Solution 1 appl topical DAILY Qty: 0 0RF doxycycline hyclate 100 mg capsule 100 mg PO BID Qty: 14 0RF furosemide 40 mg tablet 40 mg PO DAILY Qty: 30 0RF Discontinued ibuprofen 200 mg Tablet 400 mg PO Q6H PRN (Reason: Pain) Discharge Orders: Discharge Order (Routine); Ordered 12/12/22 Ordered By: Pritesh Khan Diet: Advance to usual diet Activity on Discharge: As tolerated Stand Alone Forms: Patient Portal Discharge page Care Plan Goals: recovery Health Concerns: rle cellultis, chf, obesity, as Plan of Treatment: meds as above, rehab, o2 supplement, weight loss, follow up with cardiology Assessment: see above
[2022-12-12 11:08] VITALS: BP 138/65; PULSE 82; RESP 24; TEMP 37.2; O2SAT 94
[2022-12-12 12:09] VITALS: RESP 18
[2022-12-12] MEDS: Morphine Sulfate 2 MG/ML CARTRIDGE IVPUSH (12:09)
[2022-12-12] MEDS: Sodium Hypochlorite 0.125% 473 ML SOLUTION 1 APPL TOPICAL (12:10)
--- NOTE | 2022-12-12 13:05 | HO.WOUND ---
Wound Consult: Follow up 67yr old female admitted to [facility] on?12/01/22 19:17 - See progress notes and H&P for detailed history. Direct care request assessment prior to Pt D/C to facility this afternoon. Right Leg 12/06/22 - Initial Assessment Todays assessment continues to improve despite pt refusal for dressing changes over the last two days. Right Leg 12/09/22 Right Leg 12/12/22 Etiology: Cellulites with open wounds and chronic Venous Dermatitis Wound Bed: Continued improvment -Various areas of wound bed appearance improving since last assessment (3 days ago) - various scattered areas of full thickness tissue loss with granulation buds observed through loosly adherent yellow white slough, area of partial thickness tissue loss with red and pink moist wound bed continues to improve Drainage / Odor: odor remains and yellow parrish drainage observed . however pt refused dressing pattern changer the weekend - based on wound bed improvment suspect odor is from lack of dressing change and not wound bed Edges: ? irregular Diya wound: ? decreased edematous blanchable tissue No Induration, No Fluctuance, No Erythema, and No Warmth noted Pain: Pt reported significant pain at the time of dressing change but recovered quickly - she was premedicated prior to dressing change Goals of Treatment: ? Topical Dakins to provide antimicrobial treatment and moist wound healing. Bilateral Axilla, Bilateral Breast and Abdominal Skin Folds Etiology: MASD - Intertrigo (Moisture Associated Skin Damage) Wound Bed: Improved tissue - mostly resolved with very little open wound beds - continue with barrier and moisture management strategies. Edges: ? Mirrored and attached Diya wound: Intact No Induration, No Fluctuance Pain: No pain reported Goals of Treatment: Add Triad to base of fold and Moisture Management with Interdry. Patient set for D/C this afternoon to Rehab Facility. Recommendations: 1. Turn and Reposition every 2 hours and as needed for patient comfort consider use of wedges available in the storeroom. 2. Off Load all bony prominences with use of pillows, wedges and heel boots. 3. Monitor for incontinence and moisture control - Barrier Cream to be used. 4. Provide adequate and supplemental nutrition - Nutrition consult placed. 5. Order low air loss mattress. 6. Right Lower Leg - Elevate lower leg off of surface of bed - Cleanse with Saline, pat dry. Apply Triad to wound edges. Apply Dakin's moist gauze to wound bed, cover with dry ABD pads, gauze wrap. Change daily. 7. Bilateral Axilla, Breast and Abdominal Skin Folds - Cleanse with soap and water per routine bathing and PRN, dry well. Apply thin layer of triad to open wounds at base of fold. Apply Interdry to affected areas as follows: Lay a single layer of fabric in the skin fold, Gently smooth the rest of the fabric over the skin, keeping it flat. Leave at least 2 inches of the fabric exposed outside the skin fold. Secure the fabric with the skin fold, Each piece of InterDry may be used up to 5 days, depending on fabric soiling, odor, amount of moisture. Replace InterDry if it becomes soiled with blood, urine or stool. 8. Gluteal Fold / Buttocks - Cleanse with soap and water per routine bathing and if incontinence episodes. Apply Barrier cream to protect from moisture and friction. Reapply twice daily and PRN. 9. Right Upper Thigh - Cleanse with routine bathing, Apply thin layer of Triad to macerated tissue. Tuck disposable dry eloise pad under pts thigh to aid in wicking moisture away from patients skin. Re-consult wound care Nurse for wound deterioration or wound changes.
--- NOTE | 2022-12-12 13:17 | P.PNIM_ITS ---
Subjective Subjective Date of Service: 12/12/22 Interval History: weakness Physical Exam 2 Vital Signs: Vital Signs: Last Vital Signs Temp 98.9 F 12/12/22 11:08 Pulse 82 12/12/22 11:08 Resp 18 12/12/22 12:09 BP 138/65 12/12/22 11:08 Pulse Ox 94 12/12/22 11:08 O2 Del Method Nasal Cannula 12/12/22 11:08 O2 Flow Rate 1 12/12/22 11:08 FiO2 30 12/11/22 02:55 BMI result Body Mass Index 60.1 Const: Other: mild shortness of breath Cardio: Rate: regular rate GI: Palpation (GI): Soft to palpation Extrem: Other: edema of right leg and foot much improved; eschar on anterolateral aspect has peeled off; ulcers looks clean, cellulitis much improved Objective Data Active Medications Apixaban (Apixaban 5 Mg Tablet) 5 mg PO BID [facility] Last Admin: 12/12/22 07:48 Dose: 5 mg Documented By: ERNESTO Digoxin (Digoxin 0.125 Mg Tablet) 0.125 mg PO DAILY [facility] Last Admin: 12/12/22 07:48 Dose: 0.125 mg Documented By: ERNESTO Vancomycin HCl 750 mg/ Sodium (Chloride) 265 mls @ 265 mls/hr IV Q12H [facility] Last Infusion: 12/12/22 07:50 Dose: Infused Documented By: ERNESTO Melatonin (Melatonin 3 Mg Tablet) 6 mg PO BEDTIME PRN PRN Reason: Insomnia Last Admin: 12/10/22 22:08 Dose: 6 mg Documented By: PHILLIP Nystatin (Nystatin Cream 15 Gm Tube) 1 appl TOPICAL BID [facility]; Protocol Last Admin: 12/12/22 07:51 Dose: 1 appl Documented By: ERNESTO Ondansetron HCl (Ondansetron Hcl 4 Mg/2 Ml Vial) 4 mg IVPUSH Q8H PRN PRN Reason: Nausea and Vomiting Last Admin: 12/11/22 09:06 Dose: 4 mg Documented By: PHANLYM Sodium Chloride (0.9 % Sodium Chloride Flush 3 Ml Syringe) 3 ml IVFLUSH QSHIFT [facility] Last Admin: 12/12/22 07:48 Dose: 3 ml Documented By: ERNESTO Sodium Hypochlorite (Sodium Hypochlorite 0.125% 473 Ml Solution) 1 appl TOPICAL DAILY [facility] Last Admin: 12/12/22 12:10 Dose: 1 appl Documented By: ERNESTO Spironolactone (Spironolactone 25 Mg Tablet) 25 mg PO DAILY [facility]; Protocol Last Admin: 12/12/22 07:48 Dose: 25 mg Documented By: ERNESTO Labs 12/12/22 04:52 12/12/22 04:52 Labs: Laboratory Results - last 24 hr 12/12/22 04:52 MCV 99.7 H MCH 30.5 MCHC 30.6 L RDW 13.9 Plt Count 156 L D MPV 10.8 Absolute Nucleated RBC 0.000 Nucleated RBC % (auto) 0.0 Anion Gap 16 Estim Creat Clear Calc 103.3 Estimated GFR > 60 Fasting Glucose 97 Calcium 9.0 Random Vancomycin 18.3 Assessment and Plan (1) Metabolic acidosis: Status: Acute (2) Sepsis: Status: Acute (3) Hypokalemia: Status: Acute (4) Cellulitis of right leg: Status: Acute (5) WANDY (acute kidney injury): Status: Acute Plan 67F PMH who has not seen a PCP in 34 years who presented to the ED for evaluation of right lower leg swelling, pain, and redness for a couple weeks. was admitted to the hospital for treatment of right leg cellulitis, hypokalemia, and new onset AFib. course complicated by acute metabolic encephalopathy from acute hypercapneic resp failure and chf requiring icu transfer for bipap. now downgraded to medical floor Sepsis 2\2 Right leg cellulitis in state of chronic stasis dermatitis Continue IV Vancomycin started on 12/01/2022 Leg elevation Surgery following Analgesics for pain management Wound care acute metabolic encephalopathy due to acute hypoxic and hypercapneic respiraotry failure improved with bipap likely requires overnight Newly diagnosed AFib dig, apixaban chronic diastolic chf with mod-severe cardio follow up outpatient lasix 40 acute Hypokalemia replacement given Follow BMP WANDY w metabolic acidosis resolved Obesity class III Weight loss encouraged DNR/DNI DVT Prophylaxis: apixaban reason for continued hospitalization:close monitoring of mental status, safe dispo Time Spent With Patient Time: Total time managing care of this patient today ____ minutes. Quality Stroke Does the patient have a stroke diagnosis?: No VTE Prior VTE?: No VTE Risk Level:: Medical - moderate - high VTE Device Contraindication: Treatment Not Indicated VTE Drug Contraindication: N/A - Med Ordered
--- NOTE | 2022-12-12 14:39 | MHC.CLN ---
F/U PO INTAKE 50-100% DIET RX: REGULAR-APPROPRIATE PT RECEIVING ENSURE MAX BID TO PROMOTE WOUND HEALING SUPP PROVIDES 300KCALS, 60G PROTEIN MONITOR PO INTAKE AND SUPPLEMENT ACCEPTANCE
--- NOTE | 2022-12-12 14:40 | MHC.CM.PN ---
Addendum entered by Marlyn Turner RN 12/12/22 14:50: FAMILY AT BEDSIDE AND PROVIDED W/SNF NAME AND ADDRESS. Original Note: PT MEDICALLY CLEARED FOR D/C TO [facility] FOR BLS TRANSPORT AT 5PM.
== END 2022-12-12 17:38 | disposition skilled nursing facility (03) | DRG 871 ==
LOC: HO.ED 19:59 → HO.EDOVER 20:19 → HO.S3 12-02 11:01 → HO.ICU 12-06 12:16 → HO.IMC 12-08 11:38
PROVIDERS: Internal Medicine Cardiovascular Disease; Nurse Practitioner Family; Physician Assistant; Student in an Organized Health Care Education/Training Program; Admitting Provider Student in an Organized Health Care Education/Training Program; Emergency Provider Emergency Medicine; PCP Internal Medicine Medical Oncology; Visit Provider Internal Medicine
DX: A41.9 Sepsis, unspecified organism (principal); G93.41 Metabolic encephalopathy; J96.02 Acute respiratory failure with hypercapnia; J96.01 Acute respiratory failure with hypoxia; I50.23 Acute on chronic systolic (congestive) heart failure; L03.115 Cellulitis of right lower limb; N17.9 Acute kidney failure, unspecified; Z68.44 Body mass index [BMI] 60.0-69.9, adult; L03.116 Cellulitis of left lower limb; E87.20 Acidosis, unspecified; I87.331 Chronic venous hypertension (idiopathic) with ulcer and inflammation of right lower extremity; L97.819 Non-pressure chronic ulcer of other part of right lower leg with unspecified severity; I87.322 Chronic venous hypertension (idiopathic) with inflammation of left lower extremity; Z66 Do not resuscitate; I35.0 Nonrheumatic aortic (valve) stenosis; I27.81 Cor pulmonale (chronic); E66.01 Morbid (severe) obesity due to excess calories; E87.6 Hypokalemia; I48.91 Unspecified atrial fibrillation; M71.21 Synovial cyst of popliteal space [Baker], right knee; Z20.822 Contact with and (suspected) exposure to COVID-19
CPT/HCPCS: 36415; 36600; 70450; 71045; 76775; 80048; 80053; 80076; 80202; 81001; 82550; 82565; 82570; 82803; 82947; 83036; 83605; 83735; 83880; 84100; 84156; 84300; 84484; 85007; 85025; 85027; 85610; 85652; 86140; 86160; 87040; 87086; 87502; 87635; 87640; 87641; 92950; 93005; 93306; 93971; 94640; 94660; 94799; 97162; 97530; 99285; C1758; J1160; J1650; J1940; J2270; J2405; J2543; J3370; P9047; Q9957

== ENCOUNTER 2022-12-01 19:17 | Outpatient (BNV) | payer MEDICARE, BC, SELFPAY | END 2022-12-02 07:00 | PROVIDERS: Admitting Provider Student in an Organized Health Care Education/Training Program; Emergency Provider Emergency Medicine; PCP Internal Medicine Medical Oncology; Visit Provider Internal Medicine | DX: I35.0 Nonrheumatic aortic (valve) stenosis (principal) | CPT/HCPCS: 93306 ==

== ENCOUNTER → 2022-12-01 19:17 | Outpatient (BNV) | payer MEDICARE, SELFPAY | PROVIDERS: Admitting Provider Student in an Organized Health Care Education/Training Program; Emergency Provider Emergency Medicine; PCP Internal Medicine Medical Oncology; Visit Provider Internal Medicine | DX: I48.91 Unspecified atrial fibrillation (principal); L03.90 Cellulitis, unspecified; E87.6 Hypokalemia | CPT/HCPCS: 99223 ==

== ENCOUNTER → 2022-12-01 19:17 | Outpatient (BNV) | payer MEDICARE, SELFPAY | PROVIDERS: Admitting Provider Student in an Organized Health Care Education/Training Program; Emergency Provider Emergency Medicine; PCP Internal Medicine Medical Oncology; Visit Provider Surgery | DX: L97.909 Non-pressure chronic ulcer of unspecified part of unspecified lower leg with unspecified severity (principal) | CPT/HCPCS: 97597; 99222; 99232 ==

== ENCOUNTER → 2022-12-01 19:17 | Outpatient (BNV) | payer MEDICARE, BC, SELFPAY | PROVIDERS: Admitting Provider Student in an Organized Health Care Education/Training Program; Emergency Provider Emergency Medicine; PCP Internal Medicine Medical Oncology; Visit Provider Student in an Organized Health Care Education/Training Program | DX: E87.20 Acidosis, unspecified (principal); A41.9 Sepsis, unspecified organism; N17.9 Acute kidney failure, unspecified; E87.6 Hypokalemia; L03.115 Cellulitis of right lower limb | CPT/HCPCS: 99223; 99232; 99233; 99239; 99499 ==

== ENCOUNTER → 2022-12-01 19:17 | Outpatient (BNV) | payer MEDICARE, SELFPAY | PROVIDERS: Admitting Provider Student in an Organized Health Care Education/Training Program; Emergency Provider Emergency Medicine; PCP Internal Medicine Medical Oncology; Visit Provider Internal Medicine Cardiovascular Disease | DX: I50.21 Acute systolic (congestive) heart failure (principal); R41.82 Altered mental status, unspecified; J96.02 Acute respiratory failure with hypercapnia; E87.20 Acidosis, unspecified; A41.9 Sepsis, unspecified organism; E87.6 Hypokalemia; L03.115 Cellulitis of right lower limb; I48.91 Unspecified atrial fibrillation; N17.9 Acute kidney failure, unspecified | CPT/HCPCS: 99291 ==

== ENCOUNTER 2023-01-25 10:42 | Outpatient (AMB) | payer MEDICARE, BC, SELFPAY ==
--- NOTE | 2023-01-25 10:43 | A.OFFVIS_ITS ---
Intake Vital Signs 01/25/23 10:44 Height 5 ft 5 in Weight 339 lb 8.19 oz BMI 56.5 BP 136/84 Blood Pressure Location Lt brachial Position Sitting Pulse 83 Intake Visit Reasons[place] [facility] [place] larisa/Dr. Cait mcdonald afib/ Intake Note: [facility] [place] Docent Coordinator Required: No Accompanied by: Daughter Allergies No Known Allergies Allergy (Verified 01/25/23 10:47) Medication List - Last Reconciled 01/25/23 by Mitchell Greco MD apixaban (Eliquis) 5 mg PO BID digoxin 0.125 mg PO DAILY doxycycline hyclate 100 mg PO BID furosemide 40 mg PO DAILY sodium hypochlorite 0.125% (Dakin's Solution) 1 appl topical DAILY spironolactone 25 mg See Protocol PO DAILY HPI HPI Comments History of Present Illness Details Karma returns for follow-up after recent hospitalization. Patient has not seen a doctor for more than 30 years. She was admitted for right lower extremity swelling redness with weeping extra. Treated for cellulitis. From cardiac standpoint, she had atrial fibrillation and she also had a new diagnosis of aortic stenosis on the echocardiogram. She does not have much activity at baseline and walks with a walker. She is also chronically short of breath, but she is also morbidly obese. No clear-cut angina or palpitations. [facility] Medical History (Updated 01/25/23 @ 10:59 by Mitchell Greco MD) Leg ulcer Surgical History (Updated 01/25/23 @ 10:48 by Racheal Hay) No pertinent past surgical history Family History (Updated 01/25/23 @ 10:48 by Racheal Hay) Mother No problems noted. Father No problems noted. Social History (Updated 01/25/23 @ 10:48 by Racheal Hay) Household Members: Family Housing: House Do you presently have visiting nurse or other home services: No Alcohol intake: former Patient Tobacco Use Status: Never used Tobacco service: No Review of Systems Const Denies weakness ENT Denies dizziness Card Denies chest pain, Denies chest pain with activity, Denies syncope, Denies rapid heart rate, Denies pedal edema, Denies edema, Denies leg edema, Denies lightheadedness, Denies palpitations, Denies dyspnea, Denies dyspnea on exertion and Denies orthopnea Resp Denies cough, Denies dyspnea and Denies dyspnea on exertion GI Denies hematochezia and Denies change in stool character Musc Denies abnormal gait, Denies muscle cramps, Denies muscle weakness, Denies numbness, Denies radiating pain into limb and Denies tingling Neuro Denies abnormal gait, Denies dizziness, Denies syncope, Denies numbness, Denies tingling and Denies weakness Endo Denies palpitations Physical Exam Vital Signs: Last Vital Signs Pulse 83 01/25/23 10:44 BP 136/84 01/25/23 10:44 BMI result Body Mass Index 56.5 Const General: comfortable and no acute distress Orientation/consciousness: patient oriented x3 HEENT Other: Unremarkable Head: Yes normal to inspection Neck Neck: Yes normal visual inspection Chest Chest palpation & inspection: normal inspection of the chest Resp Auscultation: clear to auscultation bilaterally Cardio Palpation: normal PMI Heart sounds: S1 normal heart sound present, S2 normal heart sound present, no gallops, Murmur heart sound present systolic III/ and no rubs GI Palpation (GI): Soft to palpation Back/Spine/Pelvis Other: unremarkable Skin General skin exam: no rashes or lesions noted Neuro General: patient oriented x3 Extrem Other: Chronic changes General: Yes normal to inspection Psych Mental Status: mental status grossly normal Assessment & Plan Assessment & Plan (1) New onset a-fib: Code(s): I48.91 - Unspecified atrial fibrillation Plan: In the EKG from time of hospitalization, atrial fibrillation rate of 77/Min. She is only on digoxin. We can check a Holter for adequacy of rate control. Otherwise, continue anticoagulation. (2) Non-rheumatic aortic stenosis: Code(s): I35.0 - Nonrheumatic aortic (valve) stenosis Plan: In the echocardiogram, thought to have moderate to severe aortic stenosis. Paradoxical low flow/low gradient. She does have chronic shortness of breath but I suspect most of it is from her obesity and deconditioning than aortic stenosis. However, probably multifactorial. Possibly TAVR candidate in the future, but she would be high risk due to obesity. We discussed about this today. Plan Discussed with daughter who came for appointment. Orders: Orders Digoxin Today I48.19 - Other persistent atrial fibrillation ECG 3 day holter monitor Today I48.91 - Unspecified atrial fibrillation Coding Level of Care Code Est Pt Level 4 (25423) Diagnoses New onset a-fib I48.91 Non-rheumatic aortic stenosis I35.0
[2023-01-25 10:44] VITALS: BP 136/84; PULSE 83; BMI 56.5
== END 2023-01-25 11:11 | disposition home or self-care (01) ==
PROVIDERS: PCP Internal Medicine Medical Oncology; Visit Provider Internal Medicine
DX: I48.91 Unspecified atrial fibrillation (principal); I35.0 Nonrheumatic aortic (valve) stenosis
CPT/HCPCS: 99214

== ENCOUNTER 2023-01-25 10:42 | Outpatient (REF) | payer BC, MEDICARE, SELFPAY ==
[2023-01-25 12:07] LABS: MANUAL DIFF FLAG NO
[2023-01-25 12:40] LABS: Basophils Percent Auto 0.5 % (0-2); Eosinophils Absolute Auto 0.1 X10*3/uL (0.0-0.4); Eosinophils Percent Auto 1.5 % (0-4); Imm Gran Abs Auto 0.04 X10*3/uL (0.00-0.03); Imm Gran Pct Auto 0.5 % (0.0-0.4); Lymphocytes Absolute Auto 1.1 X10*3/uL (1.2-4.9); Lymphocytes Percent Auto 13.8 % (20-40); Mean Corpuscular HGB Conc 32.4 g/dl (31.0-35.0); Mean Corpuscular Hemoglobin 31.7 pg (27.0-33.0); Mean Corpuscular Volume 97.9 fL (80.0-98.0); Mean Platelet Volume 9.8 fL (9.4-12.3); Monocytes Absolute Auto 0.4 X10*3/uL (0.1-1.2); Monocytes Percent Auto 5.2 % (2-11); Neutrophils Absolute Auto 6.3 x10*3/uL (2.0-8.3); Neutrophils Percent Auto 78.5 % (45-73); Platelet Count 255 X10*3/uL (160-400); Red Blood Count 3.78 X10*6/uL (4.20-5.50); Red Cell Distribution Width 13.9 % (11.0-16.0); White Blood Count 8.1 X10*3/uL (4.8-10.8)
[2023-01-25 13:05] LABS: Digoxin 0.7 ng/mL (0.8-2.0)
[2023-01-25 13:07] LABS: Alanine Aminotransferase 7 U/L (0-31); Albumin Level 3.5 g/dL (3.5-5.0); Alkaline Phosphatase 69 U/L (39-117); Anion Gap 14 (12-20); Aspartate Amino Transferase 15 U/L (5-31); Bilirubin Total 0.5 mg/dL (0.0-1.0); Blood Urea Nitrogen 14 mg/dL (9-16); Calcium 8.7 mg/dL (8.4-10.2); Carbon Dioxide 27 mmol/L (22-29); Chloride 105 mmol/L (96-108); Cholesterol 201 mg/dL (<200); Estimated Glomerular Filt Rate > 60; Glucose Fasting 102 mg/dL (60-99); HDL Cholesterol 43 mg/dL (>40); LDL Cholesterol Calculated 121 mg/dL (<100); Potassium 4.2 mmol/L (3.3-5.1); Sodium 142 mmol/L (135-145); Total Protein 7.4 g/dL (6.5-8.0); Triglycerides 185 mg/dL (<150)
== END 2023-01-25 10:43 | disposition home or self-care (01) ==
LOC: HO.LAB 10:42
PROVIDERS: Absent Provider Internal Medicine Medical Oncology; PCP Internal Medicine Medical Oncology; Visit Provider Internal Medicine
DX: I48.0 Paroxysmal atrial fibrillation (principal); Q25.3 Supravalvular aortic stenosis; E66.01 Morbid (severe) obesity due to excess calories; I35.0 Nonrheumatic aortic (valve) stenosis; Z68.43 Body mass index [BMI] 50.0-59.9, adult; Z79.899 Other long term (current) drug therapy
CPT/HCPCS: 36415; 80053; 80061; 80162; 85025

== ENCOUNTER → 2023-05-09 10:44 | Outpatient (REF) | payer MEDICARE, SELFPAY ==
--- NOTE | 2023-05-09 10:49 | CA_ITS ---
Transthoracic Echocardiogram Patient (Last, First, Middle): Karma Yee J Gender: Female Date of : 1955 Age: 67 Procedure Date: 05/09/2023 Procedure Type: Transthoracic Echocardiogram Location: OP Height: 162. cm Weight: 136.08 kg BSA: 2.32 m2 Heart Rate: 84 bpm BP: 145 / 90 mmHg Security Tester: DAVID Referring MD: Mitchell Greco MD Symptoms: I35.0 - Nonrheumatic aortic (valve) stenosis Study Quality: Technically Difficult w/Contrast ECG Rhythm: Atrial Fibrillation Conclusions: - The left ventricular systolic function is normal. The calculated ejection fraction is 55% by biplane method. - There is mild to moderate aortic valve stenosis. - There is mild dilatation of the ascending aorta measuring 4.20 cm. Findings Procedure Information Contrast agent, definity, is being given per protocol without apparent complications. Left Ventricle Normal left ventricular cavity size. There is mildly increased left ventricular wall thickness. The left ventricular systolic function is normal. The calculated ejection fraction is 55% by biplane method. There is no evidence of regional wall motion abnormalities. Diastolic function is indeterminate on the basis of available data. Right Ventricle Normal right ventricular cavity size. There is mildly decreased right ventricular systolic function. Atria The left atrium is moderately dilated. The right atrium is mildly dilated. Aortic Valve There is mild calcification of the aortic valve. There is mild to moderate aortic valve stenosis. The peak aortic velocity is 2.53 m/s with a calculated peak gradient of 26 mmHg. The mean gradient is 16 mmHg. The aortic valve area is 1.56 cm2. There is no aortic valve regurgitation. Dimensionless index 0.38. Stroke volume index 39 m/m2. Mitral Valve There is mild mitral annular calcification. There is trace mitral valve regurgitation. There is no mitral valve stenosis. Pulmonic Valve The pulmonic valve is likely normal. Tricuspid Valve Normal tricuspid valve structure. There is trace tricuspid valve regurgitation. There is no evidence of pulmonary hypertension. Great Vessels There is mild dilatation of the ascending aorta measuring 4.20 cm. Venous The inferior vena cava is dilated and collapses less than 50% with inspiration. Pericardium/Pleural There is no evidence of pericardial effusion. Prior Study Comparison Changes noted compared to prior study dated: 12/02/2022. Aortic stenosis appears less severe. Measurements 2D Linear Measurements IVSd: 1.14 0.6-0.9/0.6-1.0 cm LVIDd: 5.38 3.9-5.3/4.2-5.9 cm LVIDd Index: 2.32 2.4-3.2/2.2-3.1 cm/m2 LVIDs: 3.22 2.0-3.6 cm LVPWd: 1.24 0.7-1.1 cm LV Mass: 324.03 67-162/88-224 g LV Mass Index: 139.67 43-95/49-115 g/m2 LVOT Diam: 2.30 3.0+(-)1.3 cm 2D Systolic Function EF 4C: 47.30 >55% EF 2C: 60.70 >55% EF BiP: 55.00 >55% Mitral Valve MV Pk E: 1.11 MV Decel Time: 172.00 E'Lateral: 11.90 E'Medial: 7.40 E/E' Med: 15.00 E/E' Lat: 9.30 PHT: 50.00 MVA PHT: 4.40 Decel Portage: 6.44 Aortic Valve AoV Pk Pee: 2.53 AoV Mn Pee: 1.88 AoV VTI: 0.58 AoV Pk Grad: 26.00 Aov Mn Grad: 16.00 MEDINA Cont.VTI: 1.56 LVOT LVOT Pk Pee: 0.98 LVOT Mn Pee: 0.75 LVOT VTI: 0.22 LVOT Pk Grad: 4.00 LVOT Mn Grad: 3.00 LVOT Diam: 2.30 LVOT Area: 4.15 Diastolic Function MV Pk E: 1.11 E'Medial: 7.40 E/E' Med: 15.00 E' Laterial: 11.90 E/E' Lat: 9.30 Right Ventricle TAPSE (mm): 14.70 TVS' Pee: 10.00 Tricuspid Valve TR Pk Pee: 2.31 TR Pk Grad: 21.00 RA Press: 15.00 RVSP: 36.00 Great Vessels Aorta Sinus of Valsalva: 2.90 2.0-3.5 cm Ao Asc: 4.20 2.1-3.4 cm Pulmonary Valve PV Pk Pee: 0.95 Peak PV Grad: 4.00 Updated in Other Vendor System with Status of Final Mitchell Greco MD electronically signed on 05/09/2023 4:15:28 PM with status of Final
== END ==
LOC: HO.CARD 10:44
PROVIDERS: PCP Internal Medicine Medical Oncology; Visit Provider Internal Medicine
DX: I35.0 Nonrheumatic aortic (valve) stenosis (principal)
CPT/HCPCS: 93242; 93306; Q9957

== ENCOUNTER → 2023-05-09 10:49 | Outpatient (BNV) | payer MEDICARE, SELFPAY | PROVIDERS: PCP Internal Medicine Medical Oncology; Visit Provider Internal Medicine | DX: I35.0 Nonrheumatic aortic (valve) stenosis (principal) | CPT/HCPCS: 93306 ==

== ENCOUNTER → 2023-06-06 10:37 | Outpatient (REF) | payer MEDICARE, SELFPAY ==
--- NOTE | 2023-06-06 10:39 | HM_ITS ---
Conclusion: 1. Patient was monitored for total period of 3 days although only 6 hours of data was analyzable 2. Baseline was atrial fibrillation with average heart of 68 beats per minute with good rate control 3. During that time. Frequent PVCs noted with total burden of 3% 4. No significant pauses noted 5. No patient reported events MTDD
== END ==
LOC: HO.CARD 10:37
PROVIDERS: Visit Provider Internal Medicine
DX: I48.91 Unspecified atrial fibrillation (principal)
CPT/HCPCS: 93242

== ENCOUNTER → 2023-06-06 10:39 | Outpatient (BNV) | payer MEDICARE, SELFPAY | PROVIDERS: Visit Provider Internal Medicine Cardiovascular Disease | DX: I48.91 Unspecified atrial fibrillation (principal); I49.3 Ventricular premature depolarization | CPT/HCPCS: 93244 ==

== ENCOUNTER 2023-07-04 13:38 | Outpatient (AMB) | payer MEDICARE, SELFPAY ==
[2023-07-04 13:55] VITALS: BP 130/68; PULSE 97; BMI 54.3
--- NOTE | 2023-07-04 13:55 | A.OFFVIS_ITS ---
Vital Signs 07/04/23 13:55 Height 5 ft 5 in Weight 326 lb 4.546 oz BMI 54.3 BP 130/68 Blood Pressure Location Lt brachial Position Sitting Pulse 97 Pulse Source Pulse Oximeter Intake Visit Reasons: f/up testing Allergies No Known Allergies Allergy (Verified 01/25/23 10:47) Medication List - Last Reconciled 07/04/23 by Harleen Fink NP apixaban (Eliquis) 5 mg PO BID digoxin 0.125 mg PO DAILY furosemide 40 mg PO DAILY sodium hypochlorite 0.125% (Dakin's Solution) 1 appl topical DAILY HPI Comments Details: 67-year-old female presents today to review results. She had a holter done. She reports she has been feeling overall okay. No chest pains. She reports she has felt short of breath for about 7-10 years which she reports is likely related to her weight. She reports she is only taking lasx as needed and stopped the spiron lactone due to urinating too much. She has a history of cellutitis and atrial fibrillation with aortic stenosis. [facility] Medical History (Updated 07/05/23 @ 08:12 by Harleen Fink NP) Shortness of breath Leg ulcer Surgical History No pertinent past surgical history Family History Mother No problems noted. Father No problems noted. Social History Household Members: Family Housing: House Do you presently have visiting nurse or other home services: No Alcohol intake: former Patient Tobacco Use Status: Never used Tobacco service: No Review of Systems Const Denies weakness ENT Denies dizziness Card Denies chest pain, Denies chest pain with activity, Denies syncope, Denies rapid heart rate, Denies pedal edema, Denies edema, Denies leg edema, Denies lightheadedness, Denies palpitations, Denies dyspnea, Denies dyspnea on exertion and Denies orthopnea Resp Denies cough, Denies dyspnea and Denies dyspnea on exertion GI Denies hematochezia and Denies change in stool character Musc Denies abnormal gait, Denies muscle cramps, Denies muscle weakness, Denies numbness, Denies radiating pain into limb and Denies tingling Neuro Denies abnormal gait, Denies dizziness, Denies syncope, Denies numbness, Denies tingling and Denies weakness Endo Denies palpitations Physical Exam Vital Signs: Last Vital Signs Pulse 97 07/04/23 13:55 BP 130/68 07/04/23 13:55 BMI result Body Mass Index 54.3 Const General: healthy appearing and no acute distress Orientation/consciousness: patient oriented x3 HEENT Head: Yes normal to inspection Eyes General: appearance normal, both eyes and all related structures Neck Neck: Yes normal visual inspection Chest Chest palpation & inspection: normal inspection of the chest Resp Effort & Inspection: normal respiratory effort Auscultation: clear to auscultation bilaterally Cardio Jugular venous distension: no JVD Palpation: normal PMI Rate: regular rate Rhythm: regular rhythm Heart sounds: S1 normal heart sound present, S2 normal heart sound present, no click, no gallops, no murmurs and no rubs GI Inspection: Yes normal to inspection Palpation (GI): Soft to palpation Skin General skin exam: no rashes or lesions noted Neuro General: patient oriented x3 Extrem General: Yes normal to inspection Psych Appearance: grossly normal Assessment & Plan Assessment & Plan (1) New onset a-fib: Code(s): I48.91 - Unspecified atrial fibrillation Category: Medical Plan: Holer showed atrial fibrillation with controlled rates. patient denies any palpations. (2) Non-rheumatic aortic stenosis: Code(s): I35.0 - Nonrheumatic aortic (valve) stenosis Category: Medical Plan: Moderate to severe seen on echo. Dr. Greco discussed TAVR in the past with her. (3) Shortness of breath: Code(s): R06.02 - Shortness of breath Category: Medical Plan: She is using Lasix as needed for swelling in her legs. Will do lexiscan to furher evaluate the shortness fo breath. Added labs Orders: Orders CA lexiscan stress w maris 07/04/23 Harleen Fink NP I48.91 - Unspecified atrial fibrillation Basic Metabolic Panel Today Harleen Fink NP R06.02 - Shortness of breath B Type Natriuretic Peptide Today Harleen Fink NP R06.02 - Shortness of breath NM cardiolite stress test 07/04/23 Harleen Fink NP I48.91 - Unspecified atrial fibrillation Medications: Changed From sodium hypochlorite 0.125% (Dakin's Solution) 1 appl topical DAILY 0 mL 0RF To sodium hypochlorite 0.125% (Dakin's Solution) 1 appl topical DAILY Pritesh Khan MD Coding Level of Care Code Est Pt Level 3 (11624) Diagnoses New onset a-fib I48.91 Non-rheumatic aortic stenosis I35.0 Shortness of breath R06.02
== END 2023-07-04 14:51 | disposition home or self-care (01) ==
PROVIDERS: PCP Internal Medicine Medical Oncology; Visit Provider Nurse Practitioner
DX: I48.91 Unspecified atrial fibrillation (principal); I35.0 Nonrheumatic aortic (valve) stenosis; R06.02 Shortness of breath
CPT/HCPCS: 99213

== ENCOUNTER → 2023-07-04 13:38 | Outpatient (BNVA) | payer MEDICARE, SELFPAY | PROVIDERS: PCP Internal Medicine Medical Oncology; Visit Provider Nurse Practitioner | DX: I48.91 Unspecified atrial fibrillation (principal); I35.0 Nonrheumatic aortic (valve) stenosis; R06.02 Shortness of breath | CPT/HCPCS: 99212 ==

== ENCOUNTER → 2023-08-30 07:43 | Outpatient (REF) | payer MEDICARE, SELFPAY ==
--- NOTE | ~2023-08-30 | NM_ITS ---
Myocardial perfusion study Indication: Atrial fibrillation to evaluate for myocardial ischemia Technique: The patient was brought in for a Lexiscan perfusion study on 08/30/2023. Patient performed low-level exercise and was injected 0.4 mg of Lexiscan intravenously. Within a minute of injection, 45 mCi of sestamibi was given intravenously. Images were obtained using the SPECT gamma camera interlaced with the gating device. Images were obtained in supine position. Resting perfusion study was performed on 09/05/2023. Patient was administered 45 mCi of sestamibi intravenously at rest. Images were then obtained in supine position. Images obtained with and without CT attenuation. Total DLP 212 mGy-cm. Images were processed with the software and compared side to side in short axis, horizontal long axis and vertical long axis views. Findings: Both rest and stress performed with arms down position leading to attenuation artifact The stress perfusion study showed non attenuated images show mildly to moderately reduced uptake in the lateral wall of the LV myocardium. Remainder of the LV myocardium is normally perfused. Attenuation corrected images show mildly reduced uptake in the apex and distal lateral wall of the LV myocardium.. The gated study shows normal LV systolic function with calculated LVEF of 52%. LV cavity is normal in size. The gated study shows normal systolic wall thickening and contraction of segments. Resting study shows non attenuated images show mildly to moderately reduced uptake in the lateral wall of the LV myocardium. Attenuation corrected images show moderately reduced uptake in the apex, septum and distal lateral wall of the LV myocardium.. Gating at rest reveals O systolic wall motion with ejection fraction at 47%. The findings are consistent with no clear reversible defect suggestive of ischemia, likely normal myocardial perfusion. OR/OR cardiolite stress test Impression: 1. Myocardial perfusion imaging study shows likely normal myocardial perfusion 2. Gated LVEF is 52% 3. Transient ischemic dilatation not present EKG is nondiagnostic for ischemia
--- NOTE | 2023-08-30 07:46 | CA_ITS ---
Acquisition Time: 2023-08-30 07:44:48 Total Exercise Time: 00:02:00 Test Indications: SOB, AFIB Medications: SEE h Protocol: LEXISCAN Max HR: 112 BPM 74% of Pred: 151 BPM Max BP: 160/092 mmHG Max Work Load: 1.0 METS Pharmacoligical stress test with Lexiscan injection while sitting with mild to moderate SOB, 9/10 chest squeezing, with isolated PVCs, with normotensive response to injection, with nondiagnoisitic EKGs. Aminophylline 75mg IVP given to reverse Lexiscan. Chest discomfort and SOB resolved. Nuclear images pending. Test reviewed with Dr. Fraga Referred By: Harleen Fink Overread By: Harleen Fink
== END ==
LOC: HO.CARD 07:43
PROVIDERS: PCP Internal Medicine Medical Oncology; Visit Provider Nurse Practitioner
DX: I48.91 Unspecified atrial fibrillation (principal)
CPT/HCPCS: 78452; 93017; A9500; J0280; J2785

== ENCOUNTER → 2023-08-30 07:46 | Outpatient (BNV) | payer MEDICARE, SELFPAY | PROVIDERS: PCP Internal Medicine Medical Oncology; Visit Provider Nurse Practitioner | DX: I48.91 Unspecified atrial fibrillation (principal) | CPT/HCPCS: 78452; 93016; 93018 ==

== ENCOUNTER 2024-09-10 11:36 | Inpatient (IN) | payer MEDICARE, SELFPAY ==
--- OUTSIDE RECORDS SUMMARY | 2023-11-17 09:18 | XMS_ITS ---
Author Organization Dennis Chavira III, MD Address [address] [place] [address] [place] [address] Care Team Providers Care Edger Runner Name Role Phone Dennis Chavira Primary Care Provider REASON FOR VISIT Letter Request Social History Sex Assigned At : Social History Observation Description Sex Assigned At Female Encounters Encounter Location Date Provider Diagnosis Dennis Chavira III, MD [address] [place] [address] [place] [address] 11/17/2023 Dennis Chavira Plan Of Treatment No Information Progress Notes * Karma YEEDOB:1955 ( 68 yo F)Acc No.[id number]:11/17/2023 Patient: Karma PALM :1955 A ge:68 Y S ex:Female Address:[address] [facility] [place], [address] * true * Date: Generated for Sulyi ng/Fajonog/eTransmitting on: 0 09/10/2024 02:25 PM EDT
--- NOTE | ~2024-09-10 | FL_ITS ---
EXAMINATION: XR FLUOROSCOPY WITH IMAGES CLINICAL INFORMATION: Left retrograde cystoscopy with stent placement. COMPARISON: Correlation made with CT abdomen and pelvis 09/10/2024. TECHNIQUE: Fluoroscopy provided to: Dr. Waters Fluoroscopy time: 10.0 seconds Dose: 6.9 mGy Images: 4 FINDINGS: 4 fluoroscopic spot images obtained during left ureteroscopy and stent placement. Please refer to the full operative report for details. FL/FL guidance in OR IMPRESSION: Fluoroscopic guidance. Electronically signed by: Elias Fink MD 09/13/2024 11:03 AM EDT
--- NOTE | ~2024-09-10 | US_ITS ---
CLINICAL HISTORY: Left adnexal cyst US PELVIS TRANSABDOMINAL WITH DOPPLER Comparison: CT/SR - CT ABDOMEN PELVIS WITHOUT IV CONTRAST - 09/10/24 13:36 EDT Findings: Transabdominal scanning performed with Doppler. Anteverted uterus measures 9.2 cm in length. Normal myometrium. Endometrium measures 1.8 cm. The right ovary is not well-visualized. Left ovary 3.9 x 4.0 x 4.0 cm. There is a 2.8 x 3.9 x 3.1 cm simple cyst. Normal color Doppler with arterial/venous spectral tracing of the left ovary. No free fluid. IMPRESSION: 1. 3.9 cm simple cyst in the left ovary. No torsion. 2. Nonvisualization of the right ovary. 3. Abnormally thickened endometrium for age. Recommend clinical correlation. Endometrial hyperplasia, carcinoma, inflammation or tamoxifen associated changes are included in the differential. This document has been electronically signed by: Ramona Ballesteros DO on 09/12/2024 18:34:00
--- NOTE | ~2024-09-10 | XR_ITS ---
CLINICAL HISTORY: New O2 requirement 1 view chest x-ray. Comparison: CR/SR - XR CHEST 1 VIEW - 09/10/24 12:48 EDT Findings: Normal lung volumes. Lungs are clear. No pneumothorax or pleural effusion. Stable mild cardiomegaly. No passive venous congestion. No midline shift or tracheal deviation. No acute fracture. Impression: 1. No acute cardiopulmonary disease. This document has been electronically signed by: Nicanor Weinstein MD on 09/15/2024 11:10:33
--- NOTE | ~2024-09-10 | CT_ITS ---
EXAMINATION: CT ABDOMEN PELVIS WITHOUT IV CONTRAST HISTORY: renal failure, elevated lipase COMPARISON: Correlation is made with a renal ultrasound dated 12/02/2022. TECHNIQUE: CT scan of the abdomen and pelvis was performed without contrast using standard departmental protocol. Coronal and sagittal reformatted images were generated and reviewed. Oral contrast material was not administered per department protocol. This CT exam was performed with one or more of the following dose reduction techniques: automated exposure control, adjustment of the mA and/or kV according to patient size, use of iterative reconstruction technique. DLP: 1161 mGy-cm FINDINGS: LOWER CHEST: The visualized lung bases are clear. There is no pleural effusion. CARDIOVASCULATURE: The heart is normal in size. There is no pericardial effusion. LIVER: The liver is normal in size and contour. The liver has an unremarkable unenhanced appearance. GALLBLADDER / BILE DUCTS: The gallbladder is unremarkable. There is no intra or extrahepatic biliary ductal dilatation. SPLEEN: The spleen is normal in size and has an unremarkable unenhanced appearance. PANCREAS: The pancreas is atrophic. No peripancreatic inflammatory changes are seen suggest acute pancreatitis. ADRENAL GLANDS: Unremarkable. KIDNEYS/RETROPERITONEUM: No right renal calculi are identified. There are innumerable left renal calculi measuring up to 12 mm in size. In addition, there is an 8 mm calculus at the left UPJ. There is mild hydronephrosis. LYMPH NODES: No retroperitoneal lymphadenopathy is identified in the abdomen or pelvis. VASCULATURE: The abdominal aorta demonstrates atherosclerotic calcification, but is normal in caliber. MESENTERY/PERITONEUM: No free fluid. No masses. There is no free intraperitoneal gas. STOMACH: The stomach is unremarkable. SMALL BOWEL: The small bowel is normal in caliber. COLON: The colon is unremarkable. APPENDIX: The appendix is not seen, however no inflammatory changes are seen adjacent to the cecum. URINARY BLADDER/PELVIC ORGANS: The urinary bladder is collapsed, limiting evaluation. The uterus and right ovary have an unremarkable unenhanced appearance. There is a 4.6 x 3.2 cm left adnexal cystic structure. BONES / SOFT TISSUES: There is a fat-containing umbilical hernia. There is severe degenerative disc disease of the spine. CT/CT abdomen pelvis wo IV con IMPRESSION: 1. Left nephrolithiasis as described. 8 mm left UPJ calculus causing mild hydronephrosis. 2. Diffuse pancreatic atrophy. No peripancreatic inflammatory changes are seen to suggest acute pancreatitis. 3. 4.6 x 3.2 cm left adnexal cystic structure. Correlation with pelvic ultrasound is recommended. Electronically signed by: Dennis Gardner MD 09/10/2024 02:18 PM EDT
--- NOTE | ~2024-09-10 | XR_ITS ---
EXAMINATION: XR CHEST CLINICAL INFORMATION: dyspnea on exertion COMPARISON: December 01, 2022 TECHNIQUE: Frontal view of the chest was obtained. FINDINGS: There is enlargement of the cardiac silhouette. Lungs are clear and unchanged. XR/XR chest 1V IMPRESSION: Stable chest x-ray with cardiac enlargement. Electronically signed by: Rickie Cline MD 09/10/2024 12:50 PM EDT
--- NOTE | 2024-09-10 11:44 | ED_ITS ---
[facility] - General Adult General Chief complaint: Chest Pain Stated complaint: Lymphedema. weight loss, vomiting Time Seen by Provider: 09/10/24 12:40 History of Present Illness ED Provider: Sarah WHITE narrative: The patient is a 69-year-old woman who lives at home with her . She has a history of atrial fibrillation, obesity, aortic stenosis, and congestive heart failure. The patient has not been seen by a doctor in the last 2 years. She has had no recent blood testing at this institution or any other institution. She comes to the emergency room today after 1st going to her primary care doctor's office. She says she has been feeling unwell for about a week. She has had upper abdominal discomfort associated with nausea and retching but no actual vomiting. She has felt somewhat weaker than usual. She says that she gets very short of breath with exertion and can not walk more than 20 or 30 ft without feeling very short of breath. She says that she sleeps in a recliner because she finds lying down to difficult. She says that she has had very little to eat or drink in the last week because she feels nauseated. She has been taking a lot of ibuprofen chronically because of pains in her legs. She has very chronically swollen legs. She says that the swelling of her legs is actually less than it has been recently. She denies fever, sweats, chills. She denies cough or sputum. She has some epigastric pain but denies chest pain. She denies pleuritic pain. She denies any black stools. She has not had a bowel movement for several days. She says she has had very little to eat recently because of the nausea she has been experiencing. She says the only medications she takes are apixaban and digoxin. The patient says that she has been making urine and last urinated this morning. She denies dysuria, frequency, or urgency. Related Data Home Medications ?Medication ?Instructions ?Recorded ?Confirmed apixaban 5 mg tablet (Eliquis) 5 mg PO BID 09/10/24 ibuprofen 200 mg tablet 200 mg PO Q6H PRN Pain 09/1009/10/24 Previous Rx's ?Medication ?Instructions ?Recorded digoxin 125 mcg (0.125 mg) tablet 0.125 mg PO DAILY #0 tabs 10/30/23 Allergies Allergy/AdvReac Type Severity Reaction Status Date / Time No Known Allergies Allergy Verified 09/10/24 11:48 Review of Systems 2 Review of Systems: Yes all other systems are reviewed and are negative [facility] Past Medical History Medical History Shortness of breath Leg ulcer Surgical History No pertinent past surgical history Family History Family History Mother No problems noted. Father No problems noted. Social History Social History Household Members: Family Housing: House Do you presently have visiting nurse or other home services: No Alcohol intake: former Patient Tobacco Use Status: Never used Tobacco Smoked in Last 30 Days: No Use of substances other than those prescribed or required for medical reasons: No Advance Directives: No Advance Directives Information Provided: Yes Do you have a plan to hurt others: No Plan service: No Physical Exam ED Vital Signs: Vital Signs - 24 hr 09/10/24 11:46 09/10/24 14:00 Temperature 98 F 97.7 F Pulse Rate 79 74 Respiratory Rate 20 16 Blood Pressure 114/62 118/70 Pulse Oximetry 98 97 Oxygen Delivery Method Room Air Room Air BMI result Body Mass Index 51.5 Const Other: The patient is a morbidly obese woman who was awake and alert. She appears very chronically ill. She seems quite short of breath with minimal movements. HENMT Other: The cheeks were somewhat flushed. Mucous membranes are not obviously dry. Eyes General: appearance normal, both eyes and all related structures Neck Other: Moving her neck easily. No obvious JVD. Resp Effort & Inspection: normal respiratory effort Auscultation: clear to auscultation bilaterally Cardio Other: The patient has an irregular rate and rhythm. No murmur heard. GI Other: The patient has a large abdomen. No significant tenderness. Skin Other: The patient has severe edema both lower extremities with chronic venous stasis changes. There is weeping. Neuro Other: The patient is awake and alert with a normal mental status. Cranial nerves 2-12 are intact. She is able to walk. She is able to move all of her extremities. She does not seem to have any focal neurological deficit. Extrem Other: The patient has severe edema both lower extremities with a chronic venous stasis changes and weeping of the lower extremities. Course Course Course Narrative: This is an RME performed by Genie Bruce CNP: Additional HPI, ROS, PE not included below will be deferred to primary provider. Patient is a 69-year-old female who presents emergency department coming from Dr. Pelaez office. She has not been seen by him since February of 2023, has been finally brought her in today as he has been unable to care for her at home any longer. She has had a 48 lb weight loss since February of last year, endorsing abdominal pain nausea and vomiting, poor oral intake over the past few months, taking a lot of NSAID for pain. Has significant edema to the bilateral lower extremities with ulcerations. Significant dyspnea with minimal exertion. History of heart failure. Plan: Serum labs, ECG, CXR Medications Administered Generic Name Dose Route Start Last Admin Trade Name Freq PRN Reason Stop Dose Admin Sodium Bicarbonate 150 meq/ 1,000 mls @ 100 mls/hr 09/10/24 15:00 09/10/24 14:59 Dextrose IV 09/11/24 10:59 100 mls/hr .Q10H STEFAN Administration Discontinued Medications Generic Name Dose Route Start Last Admin Trade Name Freq PRN Reason Stop Dose Admin Ceftriaxone Sodium 2 gm 09/10/24 17:24 09/10/24 18:03 Ceftriaxone Sodium 2 Gm Vial IVPUSH 09/10/24 17:25 2 gm ONCE ONE Administration Lactated Ringer's 1,000 mls @ 999 mls/hr 09/10/24 13:15 09/10/24 15:04 Lr IV 09/10/24 14:15 Infused .Q1H1M STEFAN Infusion Pantoprazole Sodium 40 mg 09/10/24 16:35 09/10/24 17:07 Pantoprazole Sodium 40 Mg/10 Ml Vial IVPUSH 40 mg DAILY@0630 [facility] Administration Medical Decision Making Medical Decision Making [facility] Narrative: The patient is a 69-year-old woman who has not been feeling well for about a week. Her symptoms are very vague. She has had upper abdominal discomfort and nausea and retching. She has had decreased oral intake. She looks as if she is quite chronically ill. She does not seem to be very compliant with medical follow up. She has missed several appointments at her PCP's office in the last year and a half. She has not been seen by any doctor for a year and a half and has not had any blood testing done since January of 2024. The patient has labs today show that she is in renal failure. This is a new issue for her. The acuity of the renal failure is not clear but presumably it is probably relatively acute over the last week when she has been symptomatic and feeling unwell. She describes having used ibuprofen a great deal for a long period of time because of chronic pain in her lower legs. She seems to have severe chronic lower extremity edema and chronic venous stasis problems. My initial impression was that her presentation was related to her renal failure primarily. She was not febrile or tachycardic and I did not think that sepsis or an infectious process was a significant component of her presentation. As part of her workup she has a mildly elevated white count. This was her only SIRS criteria and I do not have a significant suspicion for an infection. As part of her workup she had a CT of her abdomen and pelvis that showed a left- sided ureteral stone but this does not seem to have any symptoms. She was given IV fluids, initially a L of lactated Ringer's. Unfortunately her right arm IV infiltrated. She was also started on a bicarb drip. Nephrology was consulted. The patient ultimately had an urge to void but she did not wish to get out of the bed so a straight cath urine was obtained. This suggests the possibility of an infection. She has greater than 50 white cells and 2+ leukocyte esterase. These results were available at 17:15. However she has no urinary symptoms. Although there is a lack of urinary symptoms to corroborate a UTI I think covering her with the antibiotics would be prudent. Therefore I ordered ceftriaxone but will obtain blood cultures and a lactate prior to the antibiotics. Her lactate came back at 1.3. The patient is creatinine is elevated. I believe this is secondary to overuse of nonsteroidal anti-inflammatories. I do not believe this is a consequence of any infectious process. Additionally, with regard to the finding of a left ureteral stone, the patient does not seem to have any pain associated with a syndrome of ureteral colic or pyelonephritis. I believe that the question of management of the stone can be pursued when her metabolic issues are improved and I believe the hospitalist will be consulting Urology. Lab Data 09/10/24 11:52 09/10/24 11:52 Labs: Lab Results 09/10/24 09/10/24 09/10/24 Range/Units 11:52 13:30 13:36 WBC 12.3 H (4.8-10.8) X10*3/uL RBC 4.64 D (4.20-5.50) X10*6/uL Hgb 14.4 (12.0-16.0) g/dl Hct 41.9 (37.0-47.0) % MCV 90.3 (80.0-98.0) fL MCH 31.0 (27.0-33.0) pg MCHC 34.4 (31.0-35.0) g/dl RDW 14.9 (11.0-16.0) % Plt Count 325 D (160-400) X10*3/uL MPV 10.1 (9.4-12.3) fL Immature Gran % (Auto) 0.4 (0.0-0.4) % Neut % (Auto) 89.0 H (45-73) % Lymph % (Auto) 6.2 L (20-40) % [place] % (Auto) 4.0 (2-11) % Eos % (Auto) 0.2 (0-4) % Baso % (Auto) 0.2 (0-2) % Lymph # (Auto) 0.8 L (1.2-4.9) X10*3/uL [place] # (Auto) 0.5 (0.1-1.2) X10*3/uL Eos # (Auto) 0.0 (0.0-0.4) X10*3/uL Baso # (Auto) 0.0 (0.0-0.2) X10*3/uL Abs Immat Gran (auto) 0.05 H (0.00-0.03) X10*3/uL Absolute Neuts (auto) 10.9 H (2.0-8.3) x10*3/uL Absolute Nucleated RBC 0.000 (0.0-0.012) X10*3/uL Nucleated RBC % (auto) 0.0 (0.0-0.2) /100WBC PT 13.3 H (10.9-12.4) SEC INR 1.2 H (0.9-1.1) VBG pH 7.16 L* (7.32-7.43) VBG pCO2 28 mmHg VBG pO2 52 mmHg VBG HCO3 10 L (22-26) mmol/L VBG O2 Saturation 79.0 % VBG Base Excess -16.4 mmol/L Sodium 129 L (135-145) mmol/L Potassium 4.3 (3.3-5.1) mmol/L Chloride 104 (96-108) mmol/L Carbon Dioxide 12 L (22-29) mmol/L Anion Gap 17 (12-20) BUN 102 H (9-16) mg/dL Creatinine 3.40 H (0.5-1.4) mg/dL Estim Creat Clear Calc 21.2 Estimated GFR 13 Random Glucose 111 (60-115) mg/dL Calcium 9.0 (8.4-10.2) mg/dL Magnesium 2.7 H (1.6-2.6) mg/dL Total Bilirubin 0.2 (0.0-1.0) mg/dL AST 22 (5-31) U/L ALT 8 (0-31) U/L Alkaline Phosphatase 109 (39-117) U/L Troponin I High Sens 36.2 H D 32.7 H (<3.5-17.0) ng/L B-Natriuretic Peptide 40 (<100) pg/mL Total Protein 8.7 H (6.5-8.0) g/dL Albumin 4.0 (3.5-5.0) g/dL Lipase 474 H (8-78) U/L Beta-Hydroxybutyrate 0.60 H (0.02-0.27) mmol/L Digoxin 1.0 (0.8-2.0) ng/mL Ethyl Alcohol < 10 mg/dL Influenza Type A (PCR) NEGATIVE (Negative) Influenza Type B (PCR) NEGATIVE (Negative) RSV RNA Qual (PCR) NEGATIVE (Negative) SARS-CoV-2 RNA (RT-PCR) NEGATIVE (Negative) Independent Interpretation I performed an independent interpretation of an: EKG Interpretation: EKG at 11:58 shows atrial fibrillation at 79 beats per minute. No definite acute ischemic changes. Critical Care Time Critical Care Time Critical Care Time: Yes Total Critical Care Time: 35 Attestation: The patient was critically ill with a high probability of imminent or life- threatening deterioration. ?I spent greater than 30 minutes of discontinuous time evaluating the patient, delivering critical care at the bedside, discussing evaluating data with consultants. ?Critical care time does not include time spent performing separately billable procedures or teaching. ?Time spent performing critical care with 35 minutes. Discharge Plan Discharge Clinical Impression: Acute renal failure, Metabolic acidosis, Bilateral edema of lower extremity, Chronic venous stasis dermatitis, Calculus of proximal left ureter Patient Disposition: Admitted As Inpatient
--- NOTE | 2024-09-10 11:45 | ECG_ITS ---
Test Reason : dyspnea Blood Pressure : */* mmHG Vent. Rate : 79 BPM Atrial Rate : * BPM P-R Int : * ms QRS Dur : 96 ms QT Int : 346 ms P-R-T Axes : * -38 64 degrees QTcB Int : 396 ms Atrial fibrillation Left axis deviation Nonspecific ST abnormality Abnormal ECG When compared with ECG of 01-Dec-2022 15:57, QT has shortened Referred By: Racheal Bruce Electronically Signed By: NATHALIE ALICIA MD
[2024-09-10 11:46] VITALS: BP 114/62; PULSE 79; RESP 20; TEMP 36.6; O2SAT 98; BMI 51.5
[2024-09-10 12:12] LABS: MANUAL DIFF FLAG NO
[2024-09-10 12:13] LABS: Hematocrit 41.9 % (37.0-47.0); Hemoglobin 14.4 g/dl (12.0-16.0); Imm Gran Abs Auto 0.05 X10*3/uL (0.00-0.03); Imm Gran Pct Auto 0.4 % (0.0-0.4); Lymphocytes Absolute Auto 0.8 X10*3/uL (1.2-4.9); Mean Corpuscular HGB Conc 34.4 g/dl (31.0-35.0); Mean Corpuscular Hemoglobin 31.0 pg (27.0-33.0); Mean Corpuscular Volume 90.3 fL (80.0-98.0); NRBC Abs Auto 0.000 X10*3/uL (0.0-0.012); NRBC Pct Auto 0.0 /100WBC (0.0-0.2); Platelet Count 325 X10*3/uL (160-400); Red Blood Count 4.64 X10*6/uL (4.20-5.50); White Blood Count 12.3 X10*3/uL (4.8-10.8)
[2024-09-10 12:21] LABS: INTERNATIONAL NORM RATIO 1.2 (0.9-1.1); Prothrombin Time 13.3 SEC (10.9-12.4)
[2024-09-10 12:32] LABS: B Type Natriuretic Peptide 40 pg/mL (<100)
[2024-09-10 12:33] LABS: Alanine Aminotransferase 8 U/L (0-31); Albumin Level 4.0 g/dL (3.5-5.0); Alkaline Phosphatase 109 U/L (39-117); Anion Gap 17 (12-20); Aspartate Amino Transferase 22 U/L (5-31); Blood Urea Nitrogen 102 mg/dL (9-16); Calcium 9.0 mg/dL (8.4-10.2); Carbon Dioxide 12 mmol/L (22-29); Chloride 104 mmol/L (96-108); Creatinine Clr Calc Pharmacy 21.2; Estimated Glomerular Filt Rate 13; Magnesium 2.7 mg/dL (1.6-2.6); Potassium 4.3 mmol/L (3.3-5.1); Sodium 129 mmol/L (135-145); Total Protein 8.7 g/dL (6.5-8.0)
--- NOTE | 2024-09-10 12:43 | PC.NURSE ---
Lab contacted for add on troponin, running test now. Pt not in room yet, awaiting arrival.
[2024-09-10 12:49] LABS: Resp Syncy Virus RNA Qual PCR NEGATIVE (Negative); SARS COV2 PCR INHOUSE NEGATIVE (Negative)
[2024-09-10 12:51] LABS: Lipase 474 U/L (8-78)
[2024-09-10 13:13] LABS: Troponin-I High Sensitivity 36.2 ng/L (<3.5-17.0)
[2024-09-10] MEDS: Lactated Ringers 1,000 ML 999 ML IV (13:32)
[2024-09-10 13:44] LABS: VBG HCO3 10 mmol/L (22-26); VBG O2 % Saturation 79.0 %
[2024-09-10 13:45] LABS: Venous Blood Gas Refer to POC result
[2024-09-10 13:50] LABS: Digoxin 1.0 ng/mL (0.8-2.0)
--- NOTE | 2024-09-10 13:56 | PC.NURSE ---
Pharmacy contacted for sodium bicarb mixture, awaiting arrival.
[2024-09-10 13:58] LABS: Troponin-I High Sensitivity 32.7 ng/L (<3.5-17.0)
[2024-09-10 14:00] VITALS: BP 118/70; PULSE 74; RESP 16; TEMP 36.5; O2SAT 97
--- OUTSIDE RECORDS SUMMARY | 2024-09-10 14:25 | XMS_ITS | Clinical Summary ---
Author Organization [facility] Facility Address [address] [address] Care Team Providers Care Engineer Process Name Role Phone Dennis Chavira MD Primary Care Provider [phone] Social History Tobacco Use Types Packs/Day Years Used Date Smoking Tobacco: Never Assessed Comments Unknown Sex and Gender Information Value Date Recorded Sex Assigned at Not on file Legal Sex Female 9:00 AM EDT Gender Identity Not on file Sexual Orientation Not on file Plan of Treatment Health Maintenance Due Date Last Done Comments Breast Cancer Screening 1955 Colorectal Cancer Screening: Annual FOBT 08/03/2003 Colorectal Cancer Screening: Colonoscopy 08/03/2003 Colorectal Cancer Screening: Sigmoidoscopy 08/03/2003 Pneumococcal Vaccine: 50+ Ye ars (1 of 1 - PCV) 2004 Influenza Vaccine (#1) 2024 Hepatitis B Vaccine Aged Out No longe r eligible based on patient's age to complete this topic Insurance Medicare [facility] Medicare [facility] Care Teams Engineer Process Relationship Specialty Start Date End Date Dennis Chavira MD [address] [place] [address] [id number] [place], [place] PCP - General Medical Oncology 12/05/22
--- OUTSIDE RECORDS SUMMARY | 2024-09-10 14:25 | XMS_ITS ---
Author Organization [facility] Care Team Providers Care Neck Pinner Name Role Phone Dre Cai Unavailable Unavailable Allergies and adverse reactions No Known Allergies Care Team Name Role Address Phone Organization Dates Dre Cai [address] [facility] [address], [address], [facility] (Office): : : [facility] 12/12/2022 - 01/04/2023 Immunizations Immunization Status Vaccine Details Vaccine Code CodeSystem Date Notes Pneumovax Dose 1 cancelled pneumococcal polysaccharide vaccine, 23 valent 33 CVX created date: 12/19/2022 consent date: 12/19/2022 they don't work TB 2 Step Mantoux Skin Test completed tuberculin skin test; purified protein derivative solution, intradermal lotNumber: [id number] expiry: 11/13/2023 Mfg: par pharmaceutical Given 0.1 ml Right Forearm intradermally Step 2 of Multi-step with next step required 96 CVX created date: 12/19/2022 consent date: 12/19/2022 administere d date: 12/19/2022 TB 2 Step Mantoux Skin Test completed tuberculin skin test; purified protein derivative solution, intradermal lotNumber: [id number] expiry: 11/13/2023 Mfg: par pharmaceutical Given 0.1 ml Left Forearm intradermally Step 1 of Multi-step with next step required 96 CVX created date: 12/13/2022 consent date: 12/13/2022 administere d date: 12/13/2022 COVID-19 Vaccine Dose 1 completed unknown vaccine or immune globulin Mfg: mod 999 CVX created date: 12/19/2022 administere d date: 06/04/2020 COVID-19 Vaccine Dose 2 completed unknown vaccine or immune globulin Mfg: mod 999 CVX created date: 12/19/2022 administere d date: 07/02/2020 COVID-19 Vaccine Additional Dose/Booster cancelled unknown vaccine or immune globulin 999 CVX created date: 12/19/2022 consent date: 12/19/2022 They don't work COVID-19 Vaccine Additional Dose/Booster completed unknown vaccine or immune globulin Mfg: mod 999 CVX created date: 12/19/2022 administere d date: 02/15/2021 Influenza Fluzone High Dose 0.7ML dose (CVX 197) cancelled Influenza, high-dose, split virus, quadrivalent, injectable, preservative free 197 CVX created date: 12/19/2022 consent date: 12/19/2022 I never get the flu shot Mental Status Section Date Assessment Total Score Description 01/04/2023 BIMS 14 cognitively int act CAM 0 No delirium ind icated PHQ-9 01 minimal depress ion 12/15/2022 BIMS 14 cognitively int act CAM 0 No delirium ind icated PHQ-9 08 mild depression Problems Problem # Description Date of onset Resolved Date Code CodeSystem Concern Status 1 ACUTE KIDNEY FAILURE, UNSPECIFIED 12/13/[address] active 2 ACUTE METABOLIC ACIDOSIS 12/13/[address] active 3 ACUTE ON CHRONIC DIASTOLIC (CONGESTIVE) HEART FAILURE 12/13/[address] active 4 ACUTE RESPIRATORY FAILURE WITH HYPERCAPNIA 12/13/[address] active 5 ACUTE RESPIRATORY FAILURE WITH HYPOXIA 12/13/[address] active 6 BODY MASS INDEX [BMI] 60.0-69.9, ADULT 12/13/[address] active 7 CELLULITIS OF RIGHT LOWER LIMB 12/13/[address] active 8 DIFFICULTY IN WALKING, NOT ELSEWHERE CLASSIFIED 12/13/[address] active 9 HYPOKALEMIA 12/13/[address] active 10 METABOLIC ENCEPHALOPATHY 12/13/[address] active 11 MORBID (SEVERE) OBESITY DUE TO EXCESS CALORIES 12/13/[address] active 12 MUSCLE WEAKNESS (GENERALIZED) 12/13/[address] active 13 NONRHEUMATIC AORTIC (VALVE) STENOSIS 12/13/[address] active 14 OTHER SPECIFIED SEPSIS 12/13/[address] active 15 PAROXYSMAL ATRIAL FIBRILLATION 12/13/[address] active 16 VENOUS INSUFFICIENCY (CHRONIC) (PERIPHERAL) 12/13/[address] active Reason for Referral No Reasons for Referral Entered Social History Social History Observation Description Start Date End Date Code Code System Current Smoking Status Tobacco smoking consumption unknown 185955428 SNOMED CT Sex Assigned At Female 1955 44168-5 [facility] Gender Identity Vital Signs Code Code System Vitals Name Values and Units Timing Information 75205-9 [facility] O2 % BldC Oximetry Value=93.0 Units= % 01/04/2023 8867-4 [facility] Heart rate Value=72.0 Units=/min 8462-4 [facility] Blood Pressure-Diastolic Value=72 Un its=mmHg 01/04/2023 8480-6 [facility] Blood Pressure-Systolic Eagjg=868 Un its=mmHg 01/04/2023 18422-7 [facility] Pain Level Value=0.0 01/04/2023 9279-1 [facility] Respiratory Rate Value=18.0 Units=/m in 01/01/2023 8310-5 [facility] Body Temperature Value=97.1 Units= F 12/28/2022 62274-0 [facility] Weight Pucpk=730.2 Units=Lbs 8302-2 [facility] Height Value=65.0 Units=Inches 12/13/2022
[2024-09-10] MEDS: Sodium Bicarbonate 8.4% 150 MEQ in Dextrose 5 % 850 ML 100 MEQ IV (14:59)
--- NOTE | 2024-09-10 15:14 | PM.IMHP ---
History of Present Illness Date of Service: 09/10/24 Attending physician on admission: Pritesh Khan Chief Complaint: Chest pain Pt is a 69-year-old female with a PMH significant for persistent AFib on Eliquis,?HFpEF, aortic stenosis, and obesity class III who presents to the ED from PCP office with complaints of upper abdominal discomfort and wretching for the past week. Has experienced increasing left leg pain that she describes as feeling like a 1000 needles for the past 2-3 weeks for which she has been taking a lot of ibuprofen, more than normal. Has a long history of intermittent heavy ibuprofen use. One week ago developed epigastric and substernal chest pain with associated nausea and retching but no clear vomiting. Has been using Pepto-Bismol to good effect. Has not been eating or drinking much as she feels nauseous every time she even looks at food or drink. No diarrhea, and no recent bowel movement in past 3-4 days. Denies recent diuretic use. No reported bleeding. Denies hematemesis or coffee-ground emesis. No melena. Of note, pt complains of chronic lower extremity pain that is improved the past few days. However, pt refuses to have her legs touched or properly examined. Is noted to have a bandage covering ulceration on right lower extremity; pt refuses to have it removed or examined at this time. In the ED pt's vitals were stable. Labs were significant for leukocytosis 12.3, sodium 129, bicarb 12, BUN 102, creatinine 3.40 (previous 0.87 on 01/25/2023), lipase 474, troponins flat at 36.2 with repeat 32.7, and VBG pH 7.16, pCO2 28, and bicarb 10. Tested negative for COVID/flu/RSV. CXR showed stable chest x-ray with cardiac enlargement. CT?of abd/pelvis showed left nephrolithiasis with 8 mm left UPJ calculus causing mild hydronephrosis; diffuse pancreatic atrophy without evidence of acute pancreatitis; and 4.6 x 3.2 cm left adnexal cystic structure. EKG demonstrated atrial fibrillation with nonspecific ST abnormalities, similar to previous. Pt was treated in the ED with IVF and started on a bicarb drip. Pt is admitted to the hospital for treatment and further evaluation of WANDY in setting of hypovolemia from reduced p.o. intake. Review of Systems Review of Systems: Negative except for that which is stated in the [facility] Medical History Shortness of breath Leg ulcer Family History Mother No problems noted. Father No problems noted. Surgical History No pertinent past surgical history Social History Household Members: Family Housing: House Do you presently have visiting nurse or other home services: No Alcohol intake: former Patient Tobacco Use Status: Never used Tobacco Smoked in Last 30 Days: No Use of substances other than those prescribed or required for medical reasons: No Advance Directives: No Advance Directives Information Provided: Yes Do you have a plan to hurt others: No Plan service: No Meds Allergies Allergy/AdvReac Type Severity Reaction Status Date / Time No Known Allergies Allergy Verified 09/10/24 11:48 Active Medications: Current Medications Sodium Bicarbonate 150 meq/ (Dextrose) 1,000 mls @ 100 mls/hr IV .Q10H [facility] Last Admin: 09/10/24 14:59 Dose: 100 mls/hr Home Medications ?Medication ?Instructions ?Recorded ?Confirmed ?Last Taken ?Type apixaban 5 mg tablet (Eliquis) 5 mg PO DAILY 09/10/24 09/10/24 09/10/24 History ibuprofen 200 mg tablet 200 mg PO Q6H PRN Pain 09/10/24 09/10/24 Unknown History Physical Exam Vital Signs and Narrative: Vital Signs: Last Vital Signs Temp 97.7 F 09/10/24 14:00 Pulse 74 09/10/24 14:00 Resp 16 09/10/24 14:00 BP 118/70 09/10/24 14:00 Pulse Ox 97 09/10/24 14:00 O2 Del Method Room Air 09/10/24 14:00 BMI result Body Mass Index 51.5 General: AOx3, no acute distress Resp: CTA bilaterally CVS: S1, S2, RRR, +murmur GI: +BS, obese, epigastric tenderness Skin: Warm, dry Neuro: Cranial nerves II-XII grossly intact bilaterally. Motor grossly intact bilaterally Extremities: Bilateral lymphedema with chronic venous stasis changes bilaterally. Right lower extremity with ulceration covered by bandage that pt refuses to have removed. As pictured below Psych: Appropriate affect Results Labs 09/10/24 11:52 09/10/24 11:52 Labs: Laboratory Results - last 24 hr 09/10/24 09/10/24 09/10/24 11:52 13:30 13:36 MCV 90.3 MCH 31.0 MCHC 34.4 RDW 14.9 Plt Count 325 D MPV 10.1 Immature Gran % (Auto) 0.4 Neut % (Auto) 89.0 H Lymph % (Auto) 6.2 L [place] % (Auto) 4.0 Eos % (Auto) 0.2 Baso % (Auto) 0.2 Lymph # (Auto) 0.8 L [place] # (Auto) 0.5 Eos # (Auto) 0.0 Baso # (Auto) 0.0 Abs Immat Gran (auto) 0.05 H Absolute Neuts (auto) 10.9 H Absolute Nucleated RBC 0.000 Nucleated RBC % (auto) 0.0 PT 13.3 H INR 1.2 H VBG pH 7.16 L* VBG pCO2 28 VBG pO2 52 VBG HCO3 10 L VBG O2 Saturation 79.0 VBG Base Excess -16.4 Anion Gap 17 Estim Creat Clear Calc 21.2 Estimated GFR 13 Random Glucose 111 Calcium 9.0 Magnesium 2.7 H Total Bilirubin 0.2 AST 22 ALT 8 Alkaline Phosphatase 109 B-Natriuretic Peptide 40 Total Protein 8.7 H Albumin 4.0 Lipase 474 H Digoxin 1.0 Ethyl Alcohol < 10 Influenza Type A (PCR) NEGATIVE Influenza Type B (PCR) NEGATIVE RSV RNA Qual (PCR) NEGATIVE SARS-CoV-2 RNA (RT-PCR) NEGATIVE Imaging Radiologist's Impressions: Impressions Chest X-Ray 09/10/24 11:48 IMPRESSION: Stable chest x-ray with cardiac enlargement. Electronically signed by: Rickie Cline MD 09/10/2024 12:50 PM EDT Abdomen/Pelvis CT 09/10/24 13:36 IMPRESSION: 1. Left nephrolithiasis as described. 8 mm left UPJ calculus causing mild hydronephrosis. 2. Diffuse pancreatic atrophy. No peripancreatic inflammatory changes are seen to suggest acute pancreatitis. 3. 4.6 x 3.2 cm left adnexal cystic structure. Correlation with pelvic ultrasound is recommended. Electronically signed by: Dennis Gardner MD 09/10/2024 02:18 PM EDT RP Assessment and Plan (1) WANDY (acute kidney injury): Status: Acute Plan Pt is a 69-year-old female with a PMH significant for persistent AFib on Eliquis,?HFpEF, aortic stenosis, and obesity class III who presents to the ED from PCP office with complaints of upper abdominal discomfort and wretching for the past week. Pt is admitted to the hospital for treatment and further evaluation of WANDY in setting of hypovolemia from reduced p.o. intake. WANDY Creatinine 3.40, previous 0.87 VBG pH 7.61, bicarb 10 Likely secondary to hypovolemia from reduced p.o. intake x1 week Pt given IVF and started on bicarb drip in the ED Will treat with a total of 2L bicarb for now Nephrology consult Follow BMP Epigastric/chest pain Likely from chronic ibuprofen use: has been taking 1600mg daily for 2-3 weeks Epigastric pain x1 week with resulting reduced po intake No signs of active GI bleed Protonix IV bid Clear liquid diet for now, advance as tolerated Hold all NSAIDs Monitor H&H Hypopnatremia Sodium mildly low at 129 Likely in the setting of above Pt received IVF in the ED, currently on bicarb drip Follow sodium Elevated troponins Troponins flat at 36.2 and 32.7 Chest pain likely from ibuprofen use, EKG without ischemic changes Likely type 2 in the setting of increased demand Monitor on telemetry Elevated lipase Lipase 474 CT showing chronic pancreatitis without evidence of acute pancreatitis Pt asymptomatic Follow up outpatient with GI Question of UTI UA with moderate leukocyte esterase and >50 WBC No sepsis: Leukocytosis of 12.3 likely secondary to hemoconcentration; no other SIRS criteria Will treat with ceftriaxone, day 1 Follow urine culture Persistent AFib Has been noncompliant with Eliquis, taking 5 mg daily instead of b.i.d. Resume Eliquis 5 mg b.i.d. HFrEF Continue digoxin DNR/DNI Attending:?Dr. Khan DVT Prophylaxis: On Eliquis Pt will require a hospitalization of at least two nights for treatment of?WANDY setting of hypovolemia secondary to reduced p.o. intake from epigastric pain from chronic NSAID use. Pt will require hospital level care for administration of IVF, bicarb, close monitoring of labs, and specialist consultation with Nephrology. Quality Stroke Does the patient have a stroke diagnosis?: No VTE Prior VTE?: No VTE Risk Level:: Medical - moderate - high VTE Device Contraindication: Treatment Not Indicated VTE Drug Contraindication: N/A - Med Ordered
[2024-09-10 17:04] LABS: Appearance Urine Cloudy; Glucose Urine UA Negative (Negative); PH 6.0 (5.0-9.0); Specific Gravity - Urine 1.020 (1.005-1.025); UMIC TRIGGER UACC YES
--- NOTE | 2024-09-10 17:10 | PM.CNNEP ---
History of Present Illness Reason for Consult Consult date: 09/10/24 Chief Complaint Chief complaint: WANDY, hyponatremia History of Present Illness Narrative: 69-year-old lady with past medical history of atrial fibrillation, congestive heart failure on apixaban and digoxin, chronic lymphedema has not seen her primary care doctor for over 2 years but taking her medications regularly. She has also been taking ibuprofen for pain in both of her lower extremities almost daily for the past 2 years or so. Since past 1 week patient developed nausea, decreased appetite because of which she is not eating and drinking so went to see her PCP when she was found to be in renal failure so sent to ED. Denies any fever, denies vomiting, diarrhea, denies any dysuria or hematuria. She has chronic lower extremity swelling, but states the edema has improved in the past week or 2 significantly without any reasons Dad had renal cancer, no past history of renal stones. Review of Systems Constitutional: Reports body ache(s) and Denies chills Eyes: Denies blurry vision and Denies exophthalmos Reports Normal hearing present and Denies bleeding gums Cardiovascular: Reports Abdominal Distension, Denies chest pain and Denies chest pain at rest Respiratory: Denies chest congestion and Denies cough Gastrointestinal: Reports abdominal pain, Denies hematochezia and Denies change in bowel habits Genitourinary: Denies hematuria and Denies difficulty voiding Musculoskeletal: Reports back pain, Denies myalgias and Denies atrophy Reports Normal hearing present, Denies Neuro-related abnormal movements and Denies Abnormal speech present [facility] Past Medical History Medical History (Updated 09/10/24 @ 16:20 by Mau Smith MD) Shortness of breath Leg ulcer Family History Family History Mother No problems noted. Father No problems noted. Surgical History Surgical History No pertinent past surgical history Social History Social History Household Members: Family Housing: House Do you presently have visiting nurse or other home services: No Alcohol intake: former Patient Tobacco Use Status: Never used Tobacco Smoked in Last 30 Days: No Use of substances other than those prescribed or required for medical reasons: No Advance Directives: No Advance Directives Information Provided: Yes Do you have a plan to hurt others: No Plan service: No Meds Allergies Allergy/AdvReac Type Severity Reaction Status Date / Time No Known Allergies Allergy Verified 09/10/24 11:48 Active Medications: Current Medications Sodium Bicarbonate 150 meq/ (Dextrose) 1,000 mls @ 100 mls/hr IV .Q10H [facility] Stop: 09/11/24 10:59 Last Admin: 09/10/24 14:59 Dose: 100 mls/hr Pantoprazole Sodium (Pantoprazole Sodium 40 Mg/10 Ml Vial) 40 mg IVPUSH DAILY@0630 [facility] Last Admin: 09/10/24 17:07 Dose: 40 mg Home Medications ?Medication ?Instructions ?Recorded ?Confirmed ?Last Taken ?Type apixaban 5 mg tablet (Eliquis) 5 mg PO DAILY 09/10/24 09/10/24 09/10/24 History ibuprofen 200 mg tablet 200 mg PO Q6H PRN Pain 09/10/24 09/10/24 Unknown History Physical Exam Exam Exam: General: acute distress, ill appearing and tired appearing Nutritional Appearance: well nourished and overweight Eyes: appearance normal, both eyes and all related structures; Alignment and Position: alignment normal and position normal Neck: No lymphadenopathy, no thyromegaly Resp: bilateral air entry equal, occasional added sounds present Cardio: Normal S1-S2, chronic lower extremity swelling present, tenderness present, erythema present GI: soft, nontender, no guarding, no hepatosplenomegaly : bladder normal to inspection, bladder normal to palpation, no renal angle tenderness Skin: no rashes or lesions noted and elasticity normal, skin over the lower extremity tender, erythematous, at places using Neuro: oriented to person, oriented to place, oriented to time and moves all extremities Vital Signs: Last Vital Signs Temp 97.7 F 09/10/24 14:00 Pulse 74 09/10/24 14:00 Resp 16 09/10/24 14:00 BP 118/70 09/10/24 14:00 Pulse Ox 97 09/10/24 14:00 O2 Del Method Room Air 09/10/24 14:00 BMI result Body Mass Index 51.5 Neuro Cranial nerves: Yes Normal hearing present Speech: No Abnormal speech present Results Lab Results 09/10/24 11:52 09/10/24 11:52 Lab results: Chemistry 09/10/24 11:52 Sodium 129 L Potassium 4.3 Carbon Dioxide 12 L BUN 102 H Creatinine 3.40 H Calcium 9.0 Hematology 09/10/24 11:52 WBC 12.3 H Hgb 14.4 Plt Count 325 D Urinalysis 09/10/24 16:57 Urine Color Yellow Urine Appearance Cloudy Urine pH 6.0 Ur Specific [place] 1.020 Urine Protein 100 (2+) H Urine Glucose (UA) Negative Urine Ketones Trace Urine Blood Small (1+) H Urine Nitrite Negative Ur Leukocyte Esterase Moderate (2+) H Assessment and Plan (1) WANDY (acute kidney injury): Status: Acute (2) Calculus of proximal left ureter: Status: Acute (3) Metabolic acidosis: Status: Acute Plan Acute kidney injury: Secondary to NSAIDs use in the setting of volume depletion. Bedside echo showed collapsing IVC is with respiration, close to normal LV systolic function Unknown baseline creatinine as her last lab was in January 2023 when the creatinine was 0.87. It might have increased since then given her NSAIDs use. CT abdomen and pelvis shows small 0.8 mm left ureteric calculi leading to mild hydronephrosis. Although this may not be contributing to her WANDY she would need a urology follow-up. Should improve with IV fluids, continue sodium bicarbonate infusion at 100 cc/hour High anion gap metabolic acidosis: Bicarb down to 12, VBG showing a pH of 7.16 correlates to ABG of above 7.2 Secondary to a combination of renal failure and starvation ketoacidosis. Should improve with IV sodium bicarbonate infusion We will repeat BMP tonight to look for improvement in acidosis. If the acidosis worsens we will get an ABG to look for PH. Acute hyponatremia: Secondary to volume depletion Should correct with sodium bicarbonate infusion We will get urine electrolytes Total time managing care of this patient today: 40 minutes. Procedures Date of Service Date of Service: 09/10/24
--- NOTE | 2024-09-10 17:14 | PHA.MEDREC ---
Addendum entered by Luigi Mccain, [facility] 09/10/24 17:25: med rec reviewed Original Note: Pharmacy Consult ? Medication Reconciliation Pharmacy has completed the medication reconciliation. Spoke with pt and she confirmed her medications. Per pt; she takes Eliquis 5mg tabs only once daily stating she has only been taking it once daily never twice and she takes Ibuprofen 200mg tabs, stating she takes 8 tablets daily and it satisfies her pain for the day .
[2024-09-10 17:16] LABS: UACC Culture Trigger YES
[2024-09-10 21:25] VITALS: BP 110/53; PULSE 74; RESP 16; TEMP 36.3; O2SAT 97
[2024-09-10 21:44] VITALS: BMI 52.4
--- NOTE | 2024-09-10 22:20 | PC.NURSE ---
Patient arrived to S4 from the ED on a stretcher, she states she can stand and pivot but having lower extremity cramps from being in the stretcher and appears to be in pain so slid over to bed. Normally ambulatory and independent at home. Lives with and another family member. She appears unkempt and skin is odorous. Lower extremity wounds as seen in Hospitalist note, reddened, skin sloughing, scabbing, and wounds covered in bandaids. White absorbant chucks placed under legs on pillow. Patient has not seen anyone for wounds but states she has an appointment at [facility] and doesnt know with who. She would not let the MD assess what is under bandaids and her only rule is that we dont touch her legs. She has moisture and redness under panus, in groin, hanny area is reddened. A little moisture/redness under breasts, right > left. No wounds on buttocks/coccyx, c/d/i. She arrived with a soiled brief. Cleaned skin folds with bath cloths and applied purewick. She states no bm in over a week but also has not been eating in over a week d/t nausea and occasional bileous emesis. She currently dry heaves but resolves on own. She was able to keep some gingerale and elequis down. All safety needs addressed and admission process complete
[2024-09-10 23:29] VITALS: BP 118/51; PULSE 75; RESP 18; TEMP 36.1; O2SAT 98
[2024-09-11] MEDS: 0.9 % Sodium Chloride Flush 3 ML SYRINGE IVFLUSH ×2 (00:30→18:11)
[2024-09-11 03:24] VITALS: BP 101/56; PULSE 82; RESP 16; TEMP 36.2; O2SAT 97
[2024-09-11 07:01] LABS: Hematocrit 37.4 % (37.0-47.0); Hemoglobin 12.8 g/dl (12.0-16.0); Mean Corpuscular HGB Conc 34.2 g/dl (31.0-35.0); Mean Corpuscular Hemoglobin 31.1 pg (27.0-33.0); Mean Corpuscular Volume 90.8 fL (80.0-98.0); NRBC Abs Auto 0.000 X10*3/uL (0.0-0.012); NRBC Pct Auto 0.0 /100WBC (0.0-0.2); Platelet Count 250 X10*3/uL (160-400); Red Blood Count 4.12 X10*6/uL (4.20-5.50); White Blood Count 8.2 X10*3/uL (4.8-10.8)
[2024-09-11 07:12] LABS: Anion Gap 15 (12-20); Blood Urea Nitrogen 96 mg/dL (9-16); Calcium 8.5 mg/dL (8.4-10.2); Carbon Dioxide 18 mmol/L (22-29); Chloride 106 mmol/L (96-108); Creatinine Clr Calc Pharmacy 28.1; Estimated Glomerular Filt Rate 18; Potassium 4.3 mmol/L (3.3-5.1); Sodium 135 mmol/L (135-145)
[2024-09-11 08:00] VITALS: BP 95/57; PULSE 86; RESP 22; TEMP 36.2; O2SAT 93
[2024-09-11] MEDS: Sodium Bicarbonate 8.4% 150 MEQ in Dextrose 5 % 850 ML 100 MEQ IV (08:19)
[2024-09-11 11:46] VITALS: BP 99/54; PULSE 73; RESP 17; TEMP 36.4
--- NOTE | 2024-09-11 12:10 | P.PNNP_ITS ---
Subjective Subjective Date of Service: 09/11/24 Interval history: Here with nausea and poor appetite, following for WANDY. creatinine has decreased to 2.59 from 3.4 yesterday. Baseline creatinine ~0.7- 0.8. patient reports appetite is improving, was having a hard time with gagging while she ate but is getting a bit better. Physical Exam 2 Vital Signs: Vital Signs: Last Vital Signs Temp 97.5 F 09/11/24 11:46 Pulse 73 09/11/24 11:46 Resp 17 09/11/24 11:46 BP 99/54 L 09/11/24 11:46 Pulse Ox 93 09/11/24 08:00 O2 Del Method Room Air 09/11/24 08:00 BMI result Body Mass Index 52.4 Const: General: no acute distress, alert and awake Resp: Effort & Inspection: normal respiratory effort and able to speak in complete sentences Auscultation: clear to auscultation bilaterally Cardio: Rate: regular rate Rhythm: regular rhythm Heart sounds: S1 normal heart sound present and S2 normal heart sound present GI: Palpation (GI): Soft to palpation and nontender Skin: Other: chiquita, erythematous BLE. Extrem: General: Yes edema (BLE edema) Objective Data Labs 09/11/24 06:37 09/11/24 06:37 Labs: Laboratory Results - last 24 hr 09/10/24 09/10/24 09/10/24 11:52 13:30 13:36 WBC 12.3 H RBC 4.64 D Hgb 14.4 Hct 41.9 MCV 90.3 MCH 31.0 MCHC 34.4 RDW 14.9 Plt Count 325 D MPV 10.1 Immature Gran % (Auto) 0.4 Neut % (Auto) 89.0 H Lymph % (Auto) 6.2 L [place] % (Auto) 4.0 Eos % (Auto) 0.2 Baso % (Auto) 0.2 Lymph # (Auto) 0.8 L [place] # (Auto) 0.5 Eos # (Auto) 0.0 Baso # (Auto) 0.0 Abs Immat Gran (auto) 0.05 H Absolute Neuts (auto) 10.9 H Absolute Nucleated RBC 0.000 Nucleated RBC % (auto) 0.0 PT 13.3 H INR 1.2 H VBG pH 7.16 L* VBG pCO2 28 VBG pO2 52 VBG HCO3 10 L VBG O2 Saturation 79.0 VBG Base Excess -16.4 Sodium 129 L Potassium 4.3 Chloride 104 Carbon Dioxide 12 L Anion Gap 17 BUN 102 H Creatinine 3.40 H Estim Creat Clear Calc 21.2 Estimated GFR 13 Random Glucose 111 Lactic Acid Calcium 9.0 Magnesium 2.7 H Total Bilirubin 0.2 AST 22 ALT 8 Alkaline Phosphatase 109 Troponin I High Sens 36.2 H D 32.7 H B-Natriuretic Peptide 40 Total Protein 8.7 H Albumin 4.0 Lipase 474 H Beta-Hydroxybutyrate 0.60 H Urine Color Urine Appearance Urine pH Ur Specific Wiley Urine Protein Urine Glucose (UA) Urine Ketones Urine Blood Urine Nitrite Ur Leukocyte Esterase Urine RBC Urine WBC Ur Squamous Epith Cells Urine Bacteria Hyaline Casts Ur Random Sodium Ur Random Potassium Ur Random Chloride Digoxin 1.0 Ethyl Alcohol < 10 Influenza Type A (PCR) NEGATIVE Influenza Type B (PCR) NEGATIVE RSV RNA Qual (PCR) NEGATIVE SARS-CoV-2 RNA (RT-PCR) NEGATIVE 09/10/24 09/10/24 09/11/24 16:57 18:26 06:37 WBC 8.2 RBC 4.12 L Hgb 12.8 Hct 37.4 MCV 90.8 MCH 31.1 MCHC 34.2 RDW 14.7 Plt Count 250 MPV 9.7 Immature Gran % (Auto) Neut % (Auto) Lymph % (Auto) [place] % (Auto) Eos % (Auto) Baso % (Auto) Lymph # (Auto) [place] # (Auto) Eos # (Auto) Baso # (Auto) Abs Immat Gran (auto) Absolute Neuts (auto) Absolute Nucleated RBC 0.000 Nucleated RBC % (auto) 0.0 PT INR VBG pH VBG pCO2 VBG pO2 VBG HCO3 VBG O2 Saturation VBG Base Excess Sodium 135 Potassium 4.3 Chloride 106 Carbon Dioxide 18 L Anion Gap 15 BUN 96 H Creatinine 2.59 H Estim Creat Clear Calc 28.1 Estimated GFR 18 Random Glucose 94 Lactic Acid 1.3 Calcium 8.5 Magnesium Total Bilirubin AST ALT Alkaline Phosphatase Troponin I High Sens B-Natriuretic Peptide Total Protein Albumin Lipase Beta-Hydroxybutyrate Urine Color Yellow Urine Appearance Cloudy Urine pH 6.0 Ur Specific Wiley 1.020 Urine Protein 100 (2+) H Urine Glucose (UA) Negative Urine Ketones Trace Urine Blood Small (1+) H Urine Nitrite Negative Ur Leukocyte Esterase Moderate (2+) H Urine RBC 0-2 Urine WBC >50 H Ur Squamous Epith Cells 0-2 Urine Bacteria 3+ Hyaline Casts 3-5 Ur Random Sodium < 20.0 Ur Random Potassium 69.2 Ur Random Chloride < 20.0 Digoxin Ethyl Alcohol Influenza Type A (PCR) Influenza Type B (PCR) RSV RNA Qual (PCR) SARS-CoV-2 RNA (RT-PCR) Procedures Date of Service Date of Service: 09/11/24 Assessment & Plan Assessment and plan (1) WANDY (acute kidney injury): Status: Acute (2) Metabolic acidosis: Status: Acute Plan WANDY secondary to daily NSAID use in setting of dehydration unknown baseline creatinine creatinine is improving recommend continuing IVF hydration High anion gap metabolic acidosis likely secondary to WANDY and startvation ketosis- serum bicarb improved from 12 to 18 today May continue with LR fluids given improvement in bicarb today acute hyponatremia secondary to volume depletion has resolved. Recommend daily electrolyte and renal function studies recommend avoiding nephrotoxins continue supportive care Discussed with Dr Bedoya. Time Spent With Patient Time: Total time managing care of this patient today ____ minutes. Progress Note: Quality Stroke Does the patient have a stroke diagnosis?: No
--- NOTE | 2024-09-11 12:19 | MHC.CM.PN ---
IMM 09/11/24, EMR REVIEWED, PT WANDY/HYPONATREMIA, CM MET W/PT WHO REPORTS SHE W/ AND ADULT DTR LIVES W/THEM, PT IS INDEPENDENT W/ALL CARE, DENIES USE OF DME/SERVICES, PT'S GOAL IS TO RETURN HOME, HOWEVER HAS BEEN TO STR AT [facility] LAST ADMIT IN 2022. PT VERIFIES PCP IS DR. YSABEL SIMONS AND HCP IS DTR TEZ FISH, # ON FILE AND COPY REQUESTED.
[2024-09-11 14:45] LABS: Hematocrit 36.4 % (37.0-47.0); Hemoglobin 12.4 g/dl (12.0-16.0); Mean Corpuscular HGB Conc 34.1 g/dl (31.0-35.0); Mean Corpuscular Hemoglobin 30.6 pg (27.0-33.0); Mean Corpuscular Volume 89.9 fL (80.0-98.0); NRBC Abs Auto 0.000 X10*3/uL (0.0-0.012); NRBC Pct Auto 0.0 /100WBC (0.0-0.2); Platelet Count 251 X10*3/uL (160-400); Red Blood Count 4.05 X10*6/uL (4.20-5.50); White Blood Count 8.3 X10*3/uL (4.8-10.8)
[2024-09-11 15:24] VITALS: BP 112/62; PULSE 74; RESP 18; TEMP 35.8; O2SAT 95
[2024-09-11] MEDS: Lactated Ringers 1,000 ML 100 ML IVCONT (18:11)
--- NOTE | 2024-09-11 18:39 | HO.PM.IMPN ---
Subjective Subjective Date of Service: 09/11/24 Interval History: No acute events overnight Feeling better Was able to tolerate breakfast this morning, eating oatmeal and drinking tea Reports improvement in substernal/epigastric chest pain Legs still feel painful Review of Systems Review of Systems: Yes all other systems are reviewed and are negative Physical Exam Vital Signs: Vital Signs: Last Vital Signs Temp 96.4 F L 09/11/24 15:24 Pulse 74 09/11/24 15:24 Resp 18 09/11/24 15:24 BP 112/62 09/11/24 15:24 Pulse Ox 95 09/11/24 15:24 O2 Del Method Room Air 09/11/24 15:24 BMI result Body Mass Index 52.4 Objective Data Active Medications Acetaminophen (Acetaminophen 325 Mg Tablet) 650 mg PO Q6H PRN PRN Reason: Pain, Mild 1-3,fever,headache Last Admin: 09/11/24 08:46 Dose: 650 mg Documented By: KELLE Apixaban (Apixaban 5 Mg Tablet) 5 mg PO BID [facility] Last Admin: 09/11/24 08:45 Dose: 5 mg Documented By: KELLE Calcium Carbonate (Calcium Carbonate 750 Mg Tab.Chew) 750 mg PO Q4H PRN PRN Reason: Heartburn Ceftriaxone Sodium (Ceftriaxone Sodium 1 Gm Vial) 1 gm IVPUSH Q24H [facility] Last Admin: 09/11/24 18:11 Dose: 1 gm Documented By: KELLE Digoxin (Digoxin 0.125 Mg Tablet) 0.125 mg PO DAILY [facility]; Protocol Last Admin: 09/11/24 08:45 Dose: 0.125 mg Documented By: KELLE Lactated Ringer's (Lr) 1,000 mls @ 100 mls/hr IVCONT .Q10H STEFAN Stop: 09/11/24 23:29 Last Admin: 09/11/24 18:11 Dose: 100 mls/hr Documented By: KELLE Magnesium Hydroxide (Milk Of Magnesia 30 Ml Oral.Susp) 30 ml PO DAILY PRN PRN Reason: Constipation Melatonin (Melatonin 3 Mg Tablet) 6 mg PO BEDTIME PRN PRN Reason: Insomnia Ondansetron HCl (Ondansetron Hcl 4 Mg/2 Ml Vial) 4 mg IVPUSH Q8H PRN PRN Reason: Nausea and Vomiting Pantoprazole Sodium (Pantoprazole Sodium 40 Mg/10 Ml Vial) 40 mg IVPUSH BID@0630,1630 [facility] Last Admin: 09/11/24 18:11 Dose: 40 mg Documented By: KELLE Sodium Chloride (0.9 % Sodium Chloride Flush 3 Ml Syringe) 3 ml IVFLUSH QSHIFT [facility] Last Admin: 09/11/24 18:11 Dose: 3 ml Documented By: KELLE Tramadol HCl (Tramadol Hcl 50 Mg Tablet) 25 mg PO Q4H PRN PRN Reason: Pain, Moderate(Pain Scale 4-6) Last Admin: 09/11/24 18:15 Dose: 25 mg Documented By: KELLE Labs 09/11/24 14:33 09/11/24 06:37 Labs: Laboratory Results - last 24 hr 09/10/24 09/11/24 09/11/24 18:26 06:37 14:33 MCV 90.8 89.9 MCH 31.1 30.6 MCHC 34.2 34.1 RDW 14.7 14.6 Plt Count 250 251 MPV 9.7 9.7 Absolute Nucleated RBC 0.000 0.000 Nucleated RBC % (auto) 0.0 0.0 Anion Gap 15 Estim Creat Clear Calc 28.1 Estimated GFR 18 Random Glucose 94 Lactic Acid 1.3 Calcium 8.5 Microbiology Microbiology Results: Microbiology 09/10/24 Unknown Urine Culture - Preliminary Urine Catheterized - Straight Catheter Gram negative dinora Assessment and Plan (1) WANDY (acute kidney injury): Status: Acute Plan Pt is a 69-year-old female with a PMH significant for persistent AFib on Eliquis,?HFpEF, aortic stenosis, and obesity class III who presents to the ED from PCP office with complaints of upper abdominal discomfort and wretching for the past week. Pt is admitted to the hospital for treatment and further evaluation of WANDY in setting of hypovolemia from reduced p.o. intake. WANDY Slight improvement in creatinine 3.40-->2.59, previous 0.87 Initial VBG pH 7.61, bicarb 10; bicarb improved to 18 today Likely secondary to hypovolemia from reduced p.o. intake x1 week Pt given IVF bolus and 2L bicarb Will continue with mainteance IVF Nephrology following Follow BMP Hydronephrosis CT of abdomen and pelvis showed left nephrolithiasis with 8 mm left UPJ calculus causing mild hydronephrosis Urology consult Epigastric/chest pain Likely from chronic ibuprofen use: has been taking 1600mg daily for 2-3 weeks Epigastric pain x1 week with resulting reduced po intake No signs of active GI bleed Received Protonix; treat with omerprazole 40mg daily Tolerating full diet Hold all NSAIDs H&H stable Hypopnatremia, resolved Initial sodium mildly low at 129, now 135 Likely in the setting of above Resovled with IVF Follow sodium Elevated troponins Troponins flat at 36.2 and 32.7 Chest pain likely from ibuprofen use, EKG without ischemic changes Likely type 2 in the setting of increased demand Monitor on telemetry Elevated lipase Lipase 474 CT showing chronic pancreatitis without evidence of acute pancreatitis Pt asymptomatic Follow up outpatient with GI Question of UTI UA with moderate leukocyte esterase and >50 WBC No sepsis: Leukocytosis of 12.3 likely secondary to hemoconcentration; no other SIRS criteria Will treat with ceftriaxone, day 1 Follow urine culture Persistent AFib Has been noncompliant with Eliquis, taking 5 mg daily instead of b.i.d. Resume Eliquis 5 mg b.i.d. HFrEF Continue digoxin DNR/DNI Attending:?Dr. Khna DVT Prophylaxis: On Eliquis Pt will require a hospitalization of at least two nights for treatment of?WANDY setting of hypovolemia secondary to reduced p.o. intake from epigastric pain from chronic NSAID use. Pt will require hospital level care for administration of IVF, bicarb, close monitoring of labs, and specialist consultation with Nephrology. Quality Stroke Does the patient have a stroke diagnosis?: No VTE Prior VTE?: No VTE Risk Level:: Medical - moderate - high VTE Device Contraindication: Treatment Not Indicated VTE Drug Contraindication: N/A - Med Ordered
[2024-09-11 19:13] VITALS: BP 113/56; PULSE 65; RESP 20; TEMP 36.2; O2SAT 94
[2024-09-12] VITALS (7 sets, daily range): BP systolic 103–124; BP diastolic 53–70; PULSE 66–88; RESP 16–20; TEMP 36.1–36.7; O2SAT 91–96
[2024-09-12 06:08] LABS: Hematocrit 34.2 % (37.0-47.0); Hemoglobin 12.0 g/dl (12.0-16.0); Mean Corpuscular HGB Conc 35.1 g/dl (31.0-35.0); Mean Corpuscular Hemoglobin 31.3 pg (27.0-33.0); Mean Corpuscular Volume 89.1 fL (80.0-98.0); NRBC Abs Auto 0.000 X10*3/uL (0.0-0.012); NRBC Pct Auto 0.0 /100WBC (0.0-0.2); Platelet Count 250 X10*3/uL (160-400); Red Blood Count 3.84 X10*6/uL (4.20-5.50); White Blood Count 8.8 X10*3/uL (4.8-10.8)
[2024-09-12 06:25] LABS: Anion Gap 14 (12-20); Blood Urea Nitrogen 72 mg/dL (9-16); Calcium 8.6 mg/dL (8.4-10.2); Carbon Dioxide 22 mmol/L (22-29); Chloride 104 mmol/L (96-108); Creatinine Clr Calc Pharmacy 37.1; Estimated Glomerular Filt Rate 25; Potassium 4.2 mmol/L (3.3-5.1); Sodium 136 mmol/L (135-145)
[2024-09-12] MEDS: 0.9 % Sodium Chloride Flush 3 ML SYRINGE IVFLUSH ×2 (09:11→17:51)
[2024-09-12] MEDS: Milk of Magnesia 30 ML ORAL.SUSP PO (09:14)
--- NOTE | 2024-09-12 09:51 | PM.UROCN ---
History of Present Illness Consult details Consult date: 09/12/24 Narrative: CC: Left UPJ stone 69-year-old female Past medical history significant for AFib, aortic stenosis, heart failure, morbid obesity Admission via PCP and ear office for upper abdominal discomfort and increasing left leg pain Noted to have acute kidney injury Creatinine at admission 3.4 down to 1.9 with rehydration Imaging - There are innumerable left renal calculi measuring up to 12 mm in size. In addition, there is an 8 mm calculus at the left UPJ. There is mild hydronephrosis. Imaging reviewed. Stones unlikely to pass Recommendation cystoscopy with left stent placement Review of Systems Constitutional: Constitutional: Reports as per HPI and Reports no additional constitutional complaints Cardiovascular: Cardiovascular: Reports as per HPI and Reports no additional cardiovascular complaints Respiratory: Respiratory: Reports as per HPI and Reports no additional respiratory complaints Gastrointestinal: Gastrointestinal: Reports as per HPI and Reports no additional gastrointestinal complaints Genitourinary: Genitourinary: Reports as per HPI Musculoskeletal: Musculoskeletal: Reports no additional musculoskeletal complaints and Reports as per HPI Neurologic: Reports system reviewed and no additional complaints, except as documented and Reports as per HPI [facility] Past Medical History Medical History Shortness of breath Leg ulcer Family History Family History Mother No problems noted. Father No problems noted. Surgical History Surgical History No pertinent past surgical history Social History Social History Household Members: Spouse and Family Housing: House Do you presently have visiting nurse or other home services: No Alcohol intake: former Patient Tobacco Use Status: Never used Tobacco e-Cigarette/Vaping Use: Never Used Second Hand Smoke Exposure: No service: No Meds Allergies Allergy/AdvReac Type Severity Reaction Status Date / Time No Known Allergies Allergy Verified 09/10/24 11:48 Active Medications: Current Medications Acetaminophen (Acetaminophen 325 Mg Tablet) 650 mg PO Q6H PRN PRN Reason: Pain, Mild 1-3,fever,headache Last Admin: 09/11/24 08:46 Dose: 650 mg Apixaban (Apixaban 5 Mg Tablet) 5 mg PO BID STEFAN On Hold: 09/11/24 19:44 Last Admin: 09/11/24 08:45 Dose: 5 mg Calcium Carbonate (Calcium Carbonate 750 Mg Tab.Chew) 750 mg PO Q4H PRN PRN Reason: Heartburn Ceftriaxone Sodium (Ceftriaxone Sodium 1 Gm Vial) 1 gm IVPUSH Q24H [facility] Last Admin: 09/11/24 18:11 Dose: 1 gm Digoxin (Digoxin 0.125 Mg Tablet) 0.125 mg PO DAILY [facility]; Protocol Last Admin: 09/12/24 09:10 Dose: 0.125 mg Magnesium Hydroxide (Milk Of Magnesia 30 Ml Oral.Susp) 30 ml PO DAILY PRN PRN Reason: Constipation Last Admin: 09/12/24 09:14 Dose: 30 ml Melatonin (Melatonin 3 Mg Tablet) 6 mg PO BEDTIME PRN PRN Reason: Insomnia Omeprazole (Omeprazole 40 Mg Capsule.Dr) 40 mg PO DAILY@0630 [facility] Last Admin: 09/12/24 06:04 Dose: 40 mg Ondansetron HCl (Ondansetron Hcl 4 Mg/2 Ml Vial) 4 mg IVPUSH Q8H PRN PRN Reason: Nausea and Vomiting Sodium Chloride (0.9 % Sodium Chloride Flush 3 Ml Syringe) 3 ml IVFLUSH QSHIFT [facility] Last Admin: 09/12/24 09:11 Dose: 3 ml Tramadol HCl (Tramadol Hcl 50 Mg Tablet) 25 mg PO Q4H PRN PRN Reason: Pain, Moderate(Pain Scale 4-6) Last Admin: 09/12/24 06:07 Dose: 25 mg Home Medications ?Medication ?Instructions ?Recorded ?Confirmed ?Last Taken ?Type apixaban 5 mg tablet (Eliquis) 5 mg PO BID 09/10/24 09/10/24 09/10/24 History ibuprofen 200 mg tablet 200 mg PO Q6H PRN Pain 09/10/24 09/10/24 Unknown History Physical Exam Vital Signs: Vital Signs: Last Vital Signs Temp 98.1 F 09/12/24 07:27 Pulse 66 09/12/24 07:27 Resp 20 09/12/24 07:27 BP 107/59 L 09/12/24 07:27 Pulse Ox 93 09/12/24 07:27 O2 Del Method Room Air 09/12/24 07:27 BMI result Body Mass Index 52.4 Const: General: cooperative, healthy appearing, comfortable and no acute distress Orientation/consciousness: patient oriented x3 HEENT: Face and sinus: Yes normal facial exam Mouth: moist mucous membranes Neck: Neck: Yes normal visual inspection, Yes full ROM and Yes trachea midline Chest: Chest palpation & inspection: normal inspection of the chest Resp: Effort & Inspection: normal respiratory effort, able to speak in complete sentences and no respiratory distress GI: Inspection: Yes normal to inspection Back/Spine/Pelvis: Cervical Spine: normal cervical lordosis Thoracic/Lumbar Spine: thoracic and lumbar spine normal to inspection Skin: General skin exam: no rashes or lesions noted Neuro: General: patient oriented x3, tone normal and moves all extremities Extrem: General: Yes normal to inspection and Yes capillary refill normal Results Labs 09/12/24 05:49 09/12/24 05:49 Labs: Abnormal lab results 09/11/24 09/12/24 Range/Units 14:33 05:49 RBC 4.05 L 3.84 L (4.20-5.50) X10*6/uL Hct 36.4 L 34.2 L (37.0-47.0) % MCHC 35.1 H (31.0-35.0) g/dl BUN 72 H (9-16) mg/dL Creatinine 1.96 H (0.5-1.4) mg/dL Short CBC 09/11/24 09/12/24 Range/Units 14:33 05:49 WBC 8.3 8.8 (4.8-10.8) X10*3/uL Hgb 12.4 12.0 (12.0-16.0) g/dl Hct 36.4 L 34.2 L (37.0-47.0) % Plt Count 251 250 (160-400) X10*3/uL BMP 09/12/24 05:49 Sodium 136 Potassium 4.2 Chloride 104 Carbon Dioxide 22 BUN 72 H Creatinine 1.96 H Calcium 8.6 Urine 09/10/24 Range/Units 16:57 Urine Color Yellow Urine Appearance Cloudy Urine pH 6.0 (5.0-9.0) Ur Specific [place] 1.020 (1.005-1.025) Urine Protein 100 (2+) H (Neg-Trace) mg/dL Urine Glucose (UA) Negative (Negative) mg/dL All other labs normal. Assessment and Plan (1) Acute renal failure: Status: Acute (2) Calculus of proximal left ureter: Status: Acute Plan Risks, benefits and alternatives to therapy were discussed. These include but are not limited to infection, bleeding, damage to local organs and tissues, need for further interventions. Anesthetic risks regarding cardiac arrhythmia, blood clots, and potential mortality were discussed. The patient understands the typical recovery time and the outpatient nature of the procedure. After consideration of these risks the patient gives full informed consent and they wish to move ahead with the procedure. - cystoscopy, left stent placement Procedures Date of Service Date of Service: 09/12/24
--- NOTE | 2024-09-12 10:55 | P.PNNP_ITS ---
Subjective Subjective Date of Service: 09/12/24 Interval history: Here with nausea and poor appetite, following for WANDY. creatinine has decreased to 1.96 from 2.59 yesterday. Baseline creatinine ~0.7- 0.8 in 2022. patient reports appetite is improving, still having some gagging with eating so not eating well yet per pt. Physical Exam 2 Vital Signs: Vital Signs: Last Vital Signs Temp 97.1 F 09/12/24 11:32 Pulse 67 09/12/24 11:32 Resp 20 09/12/24 11:32 BP 103/55 L 09/12/24 11:32 Pulse Ox 91 L 09/12/24 11:32 O2 Del Method Room Air 09/12/24 11:32 BMI result Body Mass Index 52.4 Const: General: no acute distress, alert and awake Resp: Effort & Inspection: normal respiratory effort and able to speak in complete sentences Auscultation: clear to auscultation bilaterally Cardio: Rate: regular rate Rhythm: regular rhythm Heart sounds: S1 normal heart sound present and S2 normal heart sound present GI: Palpation (GI): Soft to palpation and nontender Skin: Other: chiquita, erythematous BLE. Extrem: General: Yes edema (BLE edema) Objective Data Labs 09/12/24 05:49 09/12/24 05:49 Labs: Laboratory Results - last 24 hr 09/11/24 09/12/24 14:33 05:49 WBC 8.3 8.8 RBC 4.05 L 3.84 L Hgb 12.4 12.0 Hct 36.4 L 34.2 L MCV 89.9 89.1 MCH 30.6 31.3 MCHC 34.1 35.1 H RDW 14.6 14.8 Plt Count 251 250 MPV 9.7 10.1 Absolute Nucleated RBC 0.000 0.000 Nucleated RBC % (auto) 0.0 0.0 Sodium 136 Potassium 4.2 Chloride 104 Carbon Dioxide 22 Anion Gap 14 BUN 72 H Creatinine 1.96 H Estim Creat Clear Calc 37.1 Estimated GFR 25 Random Glucose 97 Calcium 8.6 Microbiology Microbiology Results: Microbiology 09/10/24 Unknown Urine Catheterized - Straight Catheter Urine Culture - Final Escherichia coli 09/10/24 19:20 Blood - Venous Blood Culture - Preliminary No growth after 24 hours. 09/10/24 18:26 Blood - Venous Blood Culture - Preliminary No growth after 24 hours. Procedures Date of Service Date of Service: 09/12/24 Assessment & Plan Assessment and plan (1) WANDY (acute kidney injury): Status: Acute (2) Metabolic acidosis: Status: Acute Plan WANDY secondary to daily NSAID use in setting of dehydration unknown baseline creatinine (most recent available from 2022). creatinine is improving recommend continuing IVF hydration High anion gap metabolic acidosis likely secondary to WANDY and startvation ketosis- improving, serum bicarb normalizing. acute hyponatremia secondary to volume depletion has resolved. Recommend daily electrolyte and renal function studies recommend avoiding nephrotoxins continue supportive care Discussed with Dr Bedoya. Time Spent With Patient Time: Total time managing care of this patient today ____ minutes. Progress Note: Quality Stroke Does the patient have a stroke diagnosis?: No
[2024-09-12] MEDS: Lactated Ringers 1,000 ML 100 ML IVCONT (12:25)
[2024-09-12] MEDS: Sucralfate Oral Suspension 1 GM/10 ML ORAL.SUSP PO ×3 (12:50→20:51)
--- NOTE | 2024-09-12 13:00 | CA_ITS ---
Transthoracic Echocardiogram Amended Patient (Last, First, Middle): Karma Yee J Gender: Female Date of : 1955 Age: 69 Procedure Date: 09/12/2024 Procedure Type: Transthoracic [place] [facility] [place]: 162.56 cm Weight: 138.35 kg BSA: 2.34 m2 Heart Rate: bpm BP: 103 / 55 mmHg Roving Weight Gauger: TO Referring MD: Johnie [facility] [employer] Laborer: Riley Fraga MD Symptoms: needs cardiac Eval prior to stenting Study Quality: Fair/Contrast ECG Rhythm: Atrial Fibrillation Conclusions: - 1. Normal LV ejection fraction of 65-70% 2. Mildly dilated right ventricle with mildly reduced systolic function 3. Moderate biatrial enlargement 4. Moderate aortic stenosis 5. Upper limits of normal RV systolic pressure with mildly elevated right atrial pressures 6. Mildly dilated ascending aorta 7. No pericardial effusion Findings Procedure Information Contrast agent, definity, is being given per protocol without apparent complications. Left Ventricle Normal left ventricular size, thickness, and systolic function. The visually estimated ejection fraction is between 65-70%. Spectral Doppler is indicative of a restrictive filling pattern. Right Ventricle Mildly increased right ventricular cavity size. There is mildly decreased right ventricular systolic function. Atria The left atrium is moderately dilated. Interatrial shunt cannot be excluded. The right atrium is moderately dilated. Aortic Valve The aortic valve was not well visualized. There is moderate calcification of the aortic valve. There is moderate aortic valve stenosis. The peak aortic gradient is 36 mmHg.The mean gradient is 21 mmHg. The aortic valve area is 1.21 cm2. There is no aortic valve regurgitation. Mitral Valve There is mild anterior and posterior mitral leaflet thickening. There is mild mitral annular calcification. There is trace mitral valve regurgitation. There is no mitral valve stenosis. Pulmonic Valve The pulmonic valve is likely normal. There is trace pulmonic valve regurgitation. Tricuspid Valve The right ventricular systolic pressure is 36 mmHg. Mildly elevated right atrial pressure. There is no evidence of pulmonary hypertension. Great Vessels The pulmonary artery was not well visualized. There is mild dilatation of the ascending aorta measuring 4.10 cm. Small plaque is seen in the sino tubular ridge. Venous The inferior vena cava is mildly dilated and collapses less than 50% with inspiration. Pericardium/Pleural There is no evidence of pericardial effusion. Prior Study Comparison Changes noted compared to prior study dated: 05/09/2023. aortic stenosis moderate severe already Measurements 2D Linear Measurements IVSd: 1.06 0.6-0.9/0.6-1.0 cm LVIDd: 5.13 3.9-5.3/4.2-5.9 cm LVIDd Index: 2.19 2.4-3.2/2.2-3.1 cm/m2 LVIDs: 3.31 2.0-3.6 cm LVPWd: 1.05 0.7-1.1 cm LV Mass: 254.28 67-162/88-224 g LV Mass Index: 108.67 43-95/49-115 g/m2 LVOT Diam: 2.30 3.0+(-)1.3 cm 2D Volumes LA Vol: 50.40 2D Systolic Function EF 4C: 65.90 >55% EF 2C: 64.70 >55% EF BiP: 67.10 >55% Mitral Valve MV Pk E: 1.00 MV Decel Time: 263.00 E'Lateral: 9.21 E'Medial: 6.13 E/E' Med: 16.30 E/E' Lat: 10.90 PHT: 77.00 MVA PHT: 2.86 Decel Rogers: 3.83 Aortic Valve AoV Pk Pee: 2.99 AoV Mn Pee: 2.15 AoV VTI: 0.64 AoV Pk Grad: 36.00 Aov Mn Grad: 21.00 MEDINA Cont.VTI: 1.21 LVOT LVOT Pk Pee: 0.86 LVOT Mn Pee: 0.63 LVOT VTI: 0.19 LVOT Pk Grad: 3.00 LVOT Mn Grad: 2.00 LVOT Diam: 2.30 LVOT Area: 4.15 Diastolic Function MV Pk E: 1.00 E'Medial: 6.13 E/E' Med: 16.30 E' Laterial: 9.21 E/E' Lat: 10.90 Right Ventricle TAPSE (mm): 16.50 TVS' Pee: 11.10 Tricuspid Valve TR Pk Pee: 2.65 TR Pk Grad: 28.00 RA Press: 8.00 RVSP: 36.00 Great Vessels Aorta Sinus of Valsalva: 3.36 2.0-3.5 cm Ao Asc: 4.10 2.1-3.4 cm Updated in Other Vendor System with Status of Final Riley Fraga MD electronically signed on 09/12/2024 4:16:04 PM with status of Final
--- NOTE | 2024-09-12 16:56 | HO.PM.IMPN ---
Subjective Subjective Date of Service: 09/12/24 Interval History: Tolerated some diet this morning but nausea and retching returned Appears emotional, distressed, occasionally crying Feels overwhelmed with all her medical issues Has been seen by Urology who want NPO with stenting later in the afternoon Pt agreeable with plan Some improvement to epigastric tenderness Physical Exam Exam: Exam: General: AOx3, no acute distress Resp: CTA bilaterally CVS: S1, S2, RRR, +murmur GI: +BS, obese, NT Skin: Warm, dry Neuro: Cranial nerves II-XII grossly intact bilaterally. Motor grossly intact bilaterally Extremities: Bilateral lymphedema with chronic venous stasis changes bilaterally. Right lower extremity with ulceration covered in clean bandage. Psych: Emotional, tearful Vital Signs: Vital Signs: Last Vital Signs Temp 97.3 F 09/12/24 15:39 Pulse 66 09/12/24 15:39 Resp 18 09/12/24 15:39 BP 109/53 L 09/12/24 15:39 Pulse Ox 94 09/12/24 15:39 O2 Del Method Room Air 09/12/24 15:39 BMI result Body Mass Index 52.4 Objective Data Active Medications Acetaminophen (Acetaminophen 325 Mg Tablet) 650 mg PO Q6H PRN PRN Reason: Pain, Mild 1-3,fever,headache Last Admin: 09/11/24 08:46 Dose: 650 mg Documented By: KELLE Apixaban (Apixaban 5 Mg Tablet) 5 mg PO BID STEFAN On Hold: 09/11/24 19:44 Last Admin: 09/11/24 08:45 Dose: 5 mg Documented By: KELLE Calcium Carbonate (Calcium Carbonate 750 Mg Tab.Chew) 750 mg PO Q4H PRN PRN Reason: Heartburn Ceftriaxone Sodium (Ceftriaxone Sodium 1 Gm Vial) 1 gm IVPUSH Q24H [facility] Last Admin: 09/11/24 18:11 Dose: 1 gm Documented By: KELLE Digoxin (Digoxin 0.125 Mg Tablet) 0.125 mg PO DAILY [facility]; Protocol Last Admin: 09/12/24 09:10 Dose: 0.125 mg Documented By: PAUL Lactated Ringer's (Lr) 1,000 mls @ 100 mls/hr IVCONT .Q10H [facility] Last Admin: 09/12/24 12:25 Dose: 100 mls/hr Documented By: PAUL Magnesium Hydroxide (Milk Of Magnesia 30 Ml Oral.Susp) 30 ml PO DAILY PRN PRN Reason: Constipation Last Admin: 09/12/24 09:14 Dose: 30 ml Documented By: PAUL Melatonin (Melatonin 3 Mg Tablet) 6 mg PO BEDTIME PRN PRN Reason: Insomnia Omeprazole (Omeprazole 40 Mg Capsule.Dr) 40 mg PO DAILY@0630 [facility] Last Admin: 09/12/24 06:04 Dose: 40 mg Documented By: PAO Ondansetron HCl (Ondansetron Hcl 4 Mg/2 Ml Vial) 4 mg IVPUSH Q8H PRN PRN Reason: Nausea and Vomiting Sodium Chloride (0.9 % Sodium Chloride Flush 3 Ml Syringe) 3 ml IVFLUSH QSHIFT [facility] Last Admin: 09/12/24 09:11 Dose: 3 ml Documented By: PAUL Sucralfate (Sucralfate Oral Suspension 1 Gm/10 Ml Oral.Susp) 1 gm PO QIDACHS [facility] Last Admin: 09/12/24 12:50 Dose: 1 gm Documented By: PAUL Tramadol HCl (Tramadol Hcl 50 Mg Tablet) 25 mg PO Q4H PRN PRN Reason: Pain, Moderate(Pain Scale 4-6) Last Admin: 09/12/24 12:32 Dose: 25 mg Documented By: PAUL Labs 09/12/24 05:49 09/12/24 05:49 Labs: Laboratory Results - last 24 hr 09/12/24 05:49 MCV 89.1 MCH 31.3 MCHC 35.1 H RDW 14.8 Plt Count 250 MPV 10.1 Absolute Nucleated RBC 0.000 Nucleated RBC % (auto) 0.0 Anion Gap 14 Estim Creat Clear Calc 37.1 Estimated GFR 25 Random Glucose 97 Calcium 8.6 Microbiology Microbiology Results: Microbiology 09/10/24 Unknown Urine Culture - Final Urine Catheterized - Straight Catheter Escherichia coli 09/10/24 19:20 Blood Culture - Preliminary Blood - Venous No growth after 24 hours. 09/10/24 18:26 Blood Culture - Preliminary Blood - Venous No growth after 24 hours. Assessment and Plan (1) WANDY (acute kidney injury): Status: Acute Plan Pt is a 69-year-old female with a PMH significant for persistent AFib on Eliquis,?HFpEF, aortic stenosis, and obesity class III who presents to the ED from PCP office with complaints of upper abdominal discomfort and wretching for the past week. Pt is admitted to the hospital for treatment and further evaluation of WANDY in setting of hypovolemia from reduced p.o. intake. WANDY Continued improvement in creatinine 3.40-->2.59-->1.96; baseline 0.90 Likely secondary to hypovolemia from reduced p.o. intake x1 week Pt given IVF bolus and 2L bicarb Will continue with maintenance IVF Nephrology following Follow BMP Hydronephrosis CT of abdomen and pelvis showed left nephrolithiasis with 8 mm left UPJ calculus causing mild hydronephrosis Urology consulted, plan on stenting later today Epigastric/chest pain with retching Likely from chronic ibuprofen use: has been taking 1600mg daily for 2-3 weeks Also possibly from obstructing nephrolithiasis Epigastric pain x1 week with resulting reduced po intake No signs of active GI bleed Received Protonix; treat with omerprazole 40mg daily Tolerating full diet Hold all NSAIDs H&H stable Hypopnatremia, resolved Initial sodium mildly low at 129, now 135 Likely in the setting of above Resovled with IVF Follow sodium Elevated troponins Troponins flat at 36.2 and 32.7 Chest pain likely from ibuprofen use, EKG without ischemic changes Likely type 2 in the setting of increased demand Monitor on telemetry Elevated lipase Lipase 474 CT showing chronic pancreatitis without evidence of acute pancreatitis Pt asymptomatic Follow up outpatient with GI Acute UTI UA with moderate leukocyte esterase and >50 WBC No sepsis: Leukocytosis of 12.3 likely secondary to hemoconcentration; no other SIRS criteria Will treat with ceftriaxone, day 3 Urine culture growing pansensitive E coli Left adnexal mass CT showing 4.6 x 3.2 cm left adnexal cystic structure Woke up pelvic ultrasound for better visualization Follow up outpatient with [employer] Persistent AFib Has been noncompliant with Eliquis, taking 5 mg daily instead of b.i.d. Hold Eliquis for now, resume after stenting at 5 mg b.i.d. HFrEF Continue digoxin DNR/DNI, verified with pt DVT Prophylaxis: On Eliquis Pt requires continued hospitalization for treatment with IVF, monitoring of labs, and specialist consultation with Nephrology and urology. Quality Stroke Does the patient have a stroke diagnosis?: No VTE Prior VTE?: No VTE Risk Level:: Medical - moderate - high VTE Device Contraindication: Treatment Not Indicated VTE Drug Contraindication: N/A - Med Ordered
[2024-09-13] VITALS (19 sets, daily range): BP systolic 88–128; BP diastolic 24–64; PULSE 53–76; RESP 12–22; TEMP 35.9–36.5; O2SAT 92–100
[2024-09-13] MEDS: Lactated Ringers 1,000 ML 80 ML IVCONT ×3 (01:46→22:55)
--- NOTE | 2024-09-13 07:50 | PC.NURSE ---
Addendum entered by Sheila Will RN 09/13/24 16:23: patient returned from OR at 10:30 s/p cystoscopy, left stent placement Original Note: off unit to OR
[2024-09-13 08:26] LABS: Anion Gap 11 (12-20); Blood Urea Nitrogen 54 mg/dL (9-16); Calcium 9.0 mg/dL (8.4-10.2); Carbon Dioxide 26 mmol/L (22-29); Chloride 106 mmol/L (96-108); Creatinine Clr Calc Pharmacy 45.0; Estimated Glomerular Filt Rate 31; Potassium 3.6 mmol/L (3.3-5.1); Sodium 139 mmol/L (135-145)
--- NOTE | 2024-09-13 09:10 | MHC.SHP ---
Pre-Procedural Eval Section A - 24 Hr Update-Section A only Date of Service: 09/13/24 The patient is an INPATIENT: Yes Changes since office visit: No Cold of Flu in the past 2 weeks, No New Medical Problems, No Changes in Medication and No Patient answered all questions The patient has been examined within 24 hours of the surgical procedure. The History & Physical has been completed within 30 days and I have reviewed it.: Yes Section B - Complete if H&P > 30 days Chief Complaint: WANDY, hyponatremia Details of Present Illness: left UPJ stone Allergies: Allergies Allergy/AdvReac Type Severity Reaction Status Date / Time No Known Allergies Allergy Verified 09/10/24 11:48 Review of Systems Sugical H&P ROS: Negative: Constitution, Cardiovascular, Respiratory, Neurological, Psychiatric, Hem-Onc, Allergic/Immunologic, Gastrointestinal, Genitourinary, Musculoskeletal, Integumentary, Endocrine and Eyes/Ears/Nose/Throat Exam Surgical H&P Exam: Normal: HEENT, Normal: Heart, Normal: Lungs, Normal: Extremities, Normal: Abdomen, Normal: Skin and Normal: Neurological Plan Diagnosis/Plan: Unchanged (cystoscopy, left retrograde, stent placement) I have reviewed the history and physical and performed a pertinent physical examination on my patient. No changes have occurred unless specified. Time Spent With Patient Time: Total time managing care of this patient today ____ minutes.
--- NOTE | 2024-09-13 09:59 | P.OP_ITS ---
Operative Note Operative Note Date of Service: 09/13/24 Narrative: PreOperative Diagnosis: left UPJ stone Post Operative Diagnosis: Left UPJ stone with pyelonephritis Procedure: cysto, retrograde, renal pelvis aspiration, stent placed Surgeon: Dr Thomas Waters Anesthesia: sedation Indications for procedure: stone on CT Procedure: After informed consent was verified the patient was brought to the operating room and placed in a supine position. Anesthesia was administered per protocol. The patient was placed in modified dorsal lithotomy position and prepped and draped in a sterile fashion. A safety pause time-out was performed. Laterality of procedure and antibiotics were confirmed, appropriate imaging was available A 22 Icelandic cystoscope was introduced per urethra. No abnormality was noted of urethra or bladder. Both ureteric orifices were seen in a normal position. The bladder had chronic cystitis. The left ureter was cannulated with an open ended catheter and a retrograde examination was performed. obstructing stones with hydro seen at left UPJ. Wire advanced then open ended advanced over wire. Aspiration performed of purulent material sent for culture. A Sensor guidewire was placed under fluoroscopy and a good coil was seen within the renal pelvis. A 6Fr x 24cm double J stent was advanced over the wire and up to the level of the renal pelvis under fluoroscopic and direct visualization. The stent was seen with appropriate coil within the renal pelvis and in the bladder after deployment. The patient tolerated the procedure well and was transferred in a stable condition to the recovery area. Pathology: left renal pelvis aspiration Drains: stent as described
--- NOTE | 2024-09-13 11:31 | HO.PM.IMPN ---
Subjective Subjective Date of Service: 09/13/24 Interval History: seen and examined around 11:00 after returning from the OR after having left stent placed Patient sleepy but easily arousable, answering all questions appropriately Denies abdominal pain, fever Review of Systems Review of Systems: Yes all other systems are reviewed and are negative Constitutional Constitutional: Denies chills and Denies fever(s) Physical Exam Vital Signs: Vital Signs: Last Vital Signs Temp 97 F 09/13/24 10:21 Pulse 61 09/13/24 10:21 Resp 16 09/13/24 10:21 BP 109/61 09/13/24 10:21 Pulse Ox 100 09/13/24 10:21 O2 Del Method Simple Mask 09/13/24 10:21 O2 Flow Rate 8 09/13/24 10:21 BMI result Body Mass Index 52.4 Const: Other: Easily arousable to verbal stimuli General: cooperative, comfortable and no acute distress Nutritional Appearance: obese Orientation/consciousness: patient oriented x3 Resp: Effort & Inspection: normal respiratory effort, able to speak in complete sentences, no respiratory distress and no use of accessory muscles Auscultation: clear to auscultation bilaterally Cardio: Rate: regular rate GI: Inspection: No distended and Yes obesity Palpation (GI): Soft to palpation : Other: soriano Skin: Other: Chronic venous stasis skin changes b/l; did not allow for re-positioning of legs to assess wound of RLE Neuro: Other: grossly nonfocal General: patient oriented x3 Objective Data Active Medications Acetaminophen (Acetaminophen 325 Mg Tablet) 650 mg PO Q6H PRN PRN Reason: Pain, Mild 1-3,fever,headache Last Admin: 09/12/24 23:48 Dose: 650 mg Documented By: PAO Apixaban (Apixaban 5 Mg Tablet) 5 mg PO BID [facility] Last Admin: 09/11/24 08:45 Dose: 5 mg Documented By: KELLE Calcium Carbonate (Calcium Carbonate 750 Mg Tab.Chew) 750 mg PO Q4H PRN PRN Reason: Heartburn Ceftriaxone Sodium (Ceftriaxone Sodium 1 Gm Vial) 1 gm IVPUSH Q24H [facility] Last Admin: 09/12/24 17:43 Dose: 1 gm Documented By: PAUL Digoxin (Digoxin 0.125 Mg Tablet) 0.125 mg PO DAILY [facility]; Protocol Last Admin: 09/13/24 09:39 Dose: Not Given Documented By: PAUL Non-Admin Reason: in OR Lactated Ringer's (Lr) 1,000 mls @ 80 mls/hr IVCONT .[id number] [facility] Last Admin: 09/13/24 10:37 Dose: 80 mls/hr Documented By: PAUL Magnesium Hydroxide (Milk Of Magnesia 30 Ml Oral.Susp) 30 ml PO DAILY PRN PRN Reason: Constipation Last Admin: 09/12/24 09:14 Dose: 30 ml Documented By: PAUL Melatonin (Melatonin 3 Mg Tablet) 6 mg PO BEDTIME PRN PRN Reason: Insomnia Omeprazole (Omeprazole 40 Mg Capsule.Dr) 40 mg PO DAILY@0630 [facility] Last Admin: 09/13/24 04:32 Dose: Not Given Documented By: PAO Non-Admin Reason: NPO Ondansetron HCl (Ondansetron Hcl 4 Mg/2 Ml Vial) 4 mg IVPUSH Q8H PRN PRN Reason: Nausea and Vomiting Sodium Chloride (0.9 % Sodium Chloride Flush 3 Ml Syringe) 3 ml IVFLUSH QSHIFT [facility] Last Admin: 09/13/24 09:39 Dose: Not Given Documented By: PAUL Non-Admin Reason: in OR Sucralfate (Sucralfate Oral Suspension 1 Gm/10 Ml Oral.Susp) 1 gm PO QIDACHS [facility] Last Admin: 09/13/24 09:37 Dose: Not Given Documented By: PAUL Non-Admin Reason: in OR Tramadol HCl (Tramadol Hcl 50 Mg Tablet) 25 mg PO Q4H PRN PRN Reason: Pain, Moderate(Pain Scale 4-6) Last Admin: 09/12/24 21:42 Dose: 25 mg Documented By: PAO Labs 09/12/24 05:49 09/13/24 07:50 Labs: Laboratory Results - last 24 hr 09/13/24 07:50 Hold Purple Top SEE NOTE Anion Gap 11 L Estim Creat Clear Calc 45.0 Estimated GFR 31 Random Glucose 97 Calcium 9.0 Microbiology Microbiology Results: Microbiology 09/10/24 19:20 Blood Culture - Preliminary Blood - Venous No growth after 48 hours. 09/10/24 18:26 Blood Culture - Preliminary Blood - Venous No growth after 48 hours. Assessment and Plan (1) WANDY (acute kidney injury): Status: Acute (2) Calculus of proximal left ureter: Status: Acute Plan Pt is a 69-year-old female with a PMH significant for persistent AFib on Eliquis,?HFpEF, aortic stenosis, and obesity class III who presents to the ED from PCP office with complaints of upper abdominal discomfort and wretching for the past week. Pt is admitted to the hospital for treatment and further evaluation of WANDY in setting of hypovolemia from reduced p.o. intake. Acute pyelonephritis with hydronephrosis due to 8 mm left UPJ stone No sepsis Continue IV ceftriaxone, day 4 Urine culture growing pansensitive E coli seen by urology, s/p left ureteral stent placement 09/13 - repeat urine culture sent during procedure Blood cultures negative to date WANDY Likely secondary to hypovolemia, NSAIDs, acute infection improving with IVF, SCr down to 1.62 Nephrology following Follow BMP Epigastric/chest pain with retching Likely from chronic ibuprofen use: has been taking 1600mg daily for 2-3 weeks No signs of active GI bleed continue omerprazole 40mg daily Tolerating diet Hold all NSAIDs H&H stable Hyponatremia, resolved Resovled with IVF High anion gap metabolic acidosis Due to WANDY and starvation ketosis Resolved Elevated troponin Troponins flat at 36.2 and 32.7 Likely type 2 in the setting of increased demand Elevated lipase CT showing chronic pancreatitis without evidence of acute pancreatitis likely due to vomiting supportive care Left adnexal mass/thickened enometrium CT showing 4.6 x 3.2 cm left adnexal cystic structure. pevic US showing simple left ovarian cyst. Ultrasound did show abnormally thickened endometrium which we will need outpatient follow-up and possible endometrial biopsy Follow up outpatient with [facility] Persistent AFib intermittent pauses, less then 5 seconds; asymptomatic Has been noncompliant with Eliquis, taking 5 mg daily instead of b.i.d. Okay to resume Eliquis today as per urology echo with moderate HFrEF Continue digoxin DNR/DNI, verified with pt DVT Prophylaxis: Eliquis Pt requires continued hospitalization for treatment with IV antibotics Quality Stroke Does the patient have a stroke diagnosis?: No VTE Prior VTE?: No VTE Risk Level:: Medical - moderate - high VTE Device Contraindication: Treatment Not Indicated VTE Drug Contraindication: N/A - Med Ordered
--- NOTE | 2024-09-13 12:07 | P.CDIM_ITS ---
PROVIDER RESPONSE TEXT: To clarify, the appropriate diagnosis supported by the clinical indicators: Other (explain): patient refuses assessment unable to determine QUERY TEXT: PHYSICIAN'S DOCUMENTATION REQUEST Date of Query: 09/13/2024 11:53 AM EDT Patient Name: Karma Yee Admit Date: 09/10/2024 Dear Giulia GREENE, A review of the medical record indicates additional documentation may be needed. Please review below and update the documentation accordingly. Clinical Indicators: Progress note 09/12/24 - Extremities: Bilateral lymphedema with chronic venous stasis changes bilaterally. Right lower extremity with ulceration covered with clean bandage. Skin Integrity notes 09/10/24 - Unkept and skin is odorous. Lower extremity wounds. Reddened, skin sloughing, scabbing and wound covered in band aids. Based on the above, could you please provide further information regarding the ulcer noted for the right lower extremity? Venous stasis ulcer Please specify the location and laterality of the ulcer/wound Arterial (ischemic) ulcer Please specify the location and laterality of the ulcer/wound Pressure (decubitus) ulcer Please include the stage of the ulcer and specify the location and laterality of the ulcer/wound Traumatic wound Please specify the location and laterality of the ulcer/wound Non-healing surgical wound Please specify the location and laterality of the ulcer/wound Other (explain) Clinically unable to determine (explain) Thank you, Daya Rodriguez, CCS, CDIS Use of terms such as suspected, likely, concern for, or probable (associated with a specific diagnosis that is being evaluated, monitored, or treated as if it exists) are acceptable and can be coded in the inpatient setting, when documented at the time of discharge. Please use your independent medical judgment in providing your response. THIS QUERY IS PART OF THE PERMANENT MEDICAL RECORD
[2024-09-13] MEDS: Sucralfate Oral Suspension 1 GM/10 ML ORAL.SUSP PO ×3 (12:22→21:40)
--- NOTE | 2024-09-13 12:27 | P.PNNP_ITS ---
Subjective Subjective Date of Service: 09/13/24 Interval history: Here with nausea and poor appetite, following for WANDY. creatinine continues to decrease, 1.62 today. Baseline creatinine ~0.7-0.8 in 2022. Patient getting renal pelvis stent for hydro/renal stone. No other new events noted. Physical Exam 2 Vital Signs: Vital Signs: Last Vital Signs Temp 97 F 09/13/24 10:21 Pulse 61 09/13/24 10:21 Resp 16 09/13/24 10:21 BP 109/61 09/13/24 10:21 Pulse Ox 100 09/13/24 10:21 O2 Del Method Simple Mask 09/13/24 10:21 O2 Flow Rate 8 09/13/24 10:21 BMI result Body Mass Index 52.4 Const: General: no acute distress, alert and awake Resp: Effort & Inspection: normal respiratory effort and able to speak in complete sentences Auscultation: clear to auscultation bilaterally Cardio: Rate: regular rate Rhythm: regular rhythm Heart sounds: S1 normal heart sound present and S2 normal heart sound present GI: Palpation (GI): Soft to palpation and nontender Skin: Other: chiquita, erythematous BLE. Extrem: General: Yes edema (BLE edema) Objective Data Labs 09/12/24 05:49 09/13/24 07:50 Labs: Laboratory Results - last 24 hr 09/13/24 07:50 Hold Purple Top SEE NOTE Sodium 139 Potassium 3.6 Chloride 106 Carbon Dioxide 26 Anion Gap 11 L BUN 54 H Creatinine 1.62 H Estim Creat Clear Calc 45.0 Estimated GFR 31 Random Glucose 97 Calcium 9.0 Microbiology Microbiology Results: Microbiology 09/10/24 19:20 Blood - Venous Blood Culture - Preliminary No growth after 48 hours. 09/10/24 18:26 Blood - Venous Blood Culture - Preliminary No growth after 48 hours. 09/10/24 Unknown Urine Catheterized - Straight Catheter Urine Culture - Final Escherichia coli Procedures Date of Service Date of Service: 09/13/24 Assessment & Plan Assessment and plan (1) WANDY (acute kidney injury): Status: Acute (2) Metabolic acidosis: Status: Acute Plan WANDY secondary to daily NSAID use in setting of dehydration unknown baseline creatinine (most recent available from 2022). creatinine is improving recommend continuing IVF hydration, may switch to oral hydration once patient is better able to eat and drink adequately. recommend avoiding nephrotoxins. continue supportive care Will arrange for outpatient nephrology follow up upon discharge from hospital. Discussed with Dr Bedoya. Time Spent With Patient Time: Total time managing care of this patient today ____ minutes. Progress Note: Quality Stroke Does the patient have a stroke diagnosis?: No
--- NOTE | 2024-09-13 12:30 | PC.NURSE ---
Wounds to bilateral lower extremities not assessed due to refusal. Patient is aware of the importance of regular wound care and the potential risks of infection and delayed healing associated with noncompliance. Risk and benefits of wound care compliance were explained.
--- NOTE | 2024-09-13 14:34 | MHC.CM.PN ---
EMR reviewed and per MD rounds, pt is not medically cleared for discharge due to management of acute pyelonephritis with hydronephrosis, WANDY, urine cultures pending.
[2024-09-14] VITALS (9 sets, daily range): BP systolic 100–123; BP diastolic 52–70; PULSE 75–92; RESP 18–20; TEMP 36.3–37.2; O2SAT 91–98
[2024-09-14] MEDS: Sucralfate Oral Suspension 1 GM/10 ML ORAL.SUSP PO ×3 (06:27→19:45)
[2024-09-14 07:30] LABS: Anion Gap 11 (12-20); Blood Urea Nitrogen 41 mg/dL (9-16); Calcium 8.7 mg/dL (8.4-10.2); Carbon Dioxide 24 mmol/L (22-29); Chloride 109 mmol/L (96-108); Creatinine Clr Calc Pharmacy 47.6; Estimated Glomerular Filt Rate 34; Potassium 3.9 mmol/L (3.3-5.1); Sodium 140 mmol/L (135-145)
[2024-09-14] MEDS: 0.9 % Sodium Chloride Flush 3 ML SYRINGE IVFLUSH ×2 (08:35→15:18)
--- NOTE | 2024-09-14 10:00 | HO.POSTANES ---
Post Anesthesia Evaluation Post Anesthesia Evaluation Date of Service: 09/14/24 Vital Signs: Vital Signs Temp Pulse Resp BP Pulse Ox O2 Del Method 09/14/24 08:00 97.9 F 89 18 114/52 L 92 Room Air 09/14/24 04:00 97.3 F 92 20 113/53 L 91 L Room Air 09/14/24 00:00 97.3 F 75 20 117/52 L 91 L Room Air Anesthesia: TIVA Mental Status: Awake Pain Control: Satisfactory Nausea/Vomiting: None Hydration: Adequate Anesthesia-Related Issues: No Anes. Related Issues
[2024-09-14] MEDS: Lactated Ringers 1,000 ML 80 ML IVCONT ×2 (11:26→23:54)
[2024-09-14] MEDS: Lidocaine 4 % Patch ADH..PATCH 1 PATCH TRANSDERMA (15:15)
--- NOTE | 2024-09-14 15:20 | PC.NURSE ---
Tee removed at 15:15, DTV at 21:15 09/14/24.
--- NOTE | 2024-09-14 16:33 | HO.PM.IMPN ---
Subjective Subjective Date of Service: 09/14/24 Interval History: Complains of lower back pain Some more nausea and retching; able to tolerate less food today Chest pain much better Creatinine mildly improved to 1.53 Review of Systems Review of Systems: Yes all other systems are reviewed and are negative Physical Exam Exam: Exam: General: AOx3, no acute distress Resp: CTA bilaterally CVS: S1, S2, irregularly irregular rhythm, +murmur GI: +BS, obese, NT Back: NT; no CVA tenderness Skin: Warm, dry Neuro: Cranial nerves II-XII grossly intact bilaterally. Motor grossly intact bilaterally Extremities: Bilateral lymphedema with chronic venous stasis changes bilaterally. Psych: Slightly anxious Vital Signs: Vital Signs: Last Vital Signs Temp 98.9 F 09/14/24 15:49 Pulse 77 09/14/24 15:49 Resp 18 09/14/24 15:49 BP 123/57 L 09/14/24 15:49 Pulse Ox 92 09/14/24 15:49 O2 Del Method Room Air 09/14/24 15:49 O2 Flow Rate 8 09/13/24 10:21 BMI result Body Mass Index 52.4 Objective Data Active Medications Acetaminophen (Acetaminophen 325 Mg Tablet) 650 mg PO Q6H PRN PRN Reason: Pain, Mild 1-3,fever,headache Last Admin: 09/12/24 23:48 Dose: 650 mg Documented By: PAO Apixaban (Apixaban 5 Mg Tablet) 5 mg PO BID [facility] Last Admin: 09/14/24 08:32 Dose: 5 mg Documented By: CAROLYN Calcium Carbonate (Calcium Carbonate 750 Mg Tab.Chew) 750 mg PO Q4H PRN PRN Reason: Heartburn Ceftriaxone Sodium (Ceftriaxone Sodium 1 Gm Vial) 1 gm IVPUSH Q24H [facility] Last Admin: 09/13/24 17:41 Dose: 1 gm Documented By: PAUL Digoxin (Digoxin 0.125 Mg Tablet) 0.125 mg PO DAILY [facility]; Protocol Last Admin: 09/14/24 08:32 Dose: 0.125 mg Documented By: CAROLYN Lactated Ringer's (Lr) 1,000 mls @ 80 mls/hr IVCONT .[id number] [facility] Last Admin: 09/14/24 11:26 Dose: 80 mls/hr Documented By: CAROLYN Lidocaine (Lidocaine 4 % Patch Adh..Patch) 1 patch TRANSDERMA DAILY [facility]; Protocol Last Admin: 09/14/24 15:15 Dose: 1 patch Documented By: CAROLYN Magnesium Hydroxide (Milk Of Magnesia 30 Ml Oral.Susp) 30 ml PO DAILY PRN PRN Reason: Constipation Last Admin: 09/12/24 09:14 Dose: 30 ml Documented By: PAUL Melatonin (Melatonin 3 Mg Tablet) 6 mg PO BEDTIME PRN PRN Reason: Insomnia Omeprazole (Omeprazole 40 Mg Capsule.Dr) 40 mg PO DAILY@0630 [facility] Last Admin: 09/14/24 06:27 Dose: 40 mg Documented By: SHAZIA Ondansetron HCl (Ondansetron Hcl 4 Mg/2 Ml Vial) 4 mg IVPUSH Q8H PRN PRN Reason: Nausea and Vomiting Last Admin: 09/14/24 04:00 Dose: 4 mg Documented By: SHAZIA Sodium Chloride (0.9 % Sodium Chloride Flush 3 Ml Syringe) [facility] Last Admin: 09/14/24 15:18 Dose: 3 ml Documented By: CAROLYN Sucralfate (Sucralfate Oral Suspension 1 Gm/10 Ml Oral.Susp) 1 gm PO QIDACHS [facility] Last Admin: 09/14/24 11:31 Dose: 1 gm Documented By: CAROLYN Tramadol HCl (Tramadol Hcl 50 Mg Tablet) 25 mg PO Q4H PRN PRN Reason: Pain, Moderate(Pain Scale 4-6) Last Admin: 09/14/24 08:34 Dose: 25 mg Documented By: CAROLYN Labs 09/12/24 05:49 09/14/24 06:34 Labs: Laboratory Results - last 24 hr 09/14/24 09/14/24 06:34 07:01 Hold Purple Top SEE NOTE Anion Gap 11 L Estim Creat Clear Calc 47.6 Estimated GFR 34 Random Glucose 101 Calcium 8.7 Microbiology Microbiology Results: Microbiology 09/13/24 09:42 Urine Culture - Preliminary Urine Catheterized - Straight Catheter Culture in progress. Assessment and Plan (1) WANDY (acute kidney injury): Status: Acute Plan Pt is a 69-year-old female with a PMH significant for persistent AFib on Eliquis,?HFpEF, aortic stenosis, and obesity class III who presents to the ED from PCP office with complaints of upper abdominal discomfort and wretching for the past week. Pt is admitted to the hospital for treatment and further evaluation of WANDY in setting of hypovolemia from reduced p.o. intake. WANDY Continued improvement in creatinine 3.40-->2.59-->1.96; baseline 0.90 Likely secondary to hypovolemia from reduced p.o. intake x1 week Pt given IVF bolus and 2L bicarb Will continue with maintenance IVF Nephrology following Follow BMP Acute pyelonephritis with hydronephrosis due to 8 mm left UPJ stone UA with moderate leukocyte esterase and >50 WBC No sepsis: Leukocytosis of 12.3 likely secondary to hemoconcentration; no other SIRS criteria Will treat with ceftriaxone, day 5 Initial urine culture growing pansensitive E coli Seen by urology, s/p left ureteral stent placement 09/13 - repeat urine culture sent during procedure Blood cultures negative to date Epigastric/chest pain with retching Likely from chronic ibuprofen use: has been taking 1600mg daily for 2-3 weeks Also possibly from obstructing nephrolithiasis Epigastric pain x1 week with resulting reduced po intake No signs of active GI bleed Received Protonix; treat with omerprazole 40mg daily Tolerating full diet Hold all NSAIDs H&H stable High anion gap metabolic acidosis Due to WANDY and starvation ketosis Resolved Hypopnatremia, resolved Initial sodium mildly low at 129, now 135 Likely in the setting of above Resovled with IVF Follow sodium Elevated troponins Troponins flat at 36.2 and 32.7 Chest pain likely from ibuprofen use, EKG without ischemic changes Likely type 2 in the setting of increased demand Monitor on telemetry Elevated lipase Lipase 474 CT showing chronic pancreatitis without evidence of acute pancreatitis Pt asymptomatic Follow up outpatient with GI Left adnexal mass/thickened enometrium CT showing 4.6 x 3.2 cm left adnexal cystic structure. pevic US showing simple left ovarian cyst. Ultrasound did show abnormally thickened endometrium which we will need outpatient follow-up and possible endometrial biopsy Follow up outpatient with [employer] Persistent AFib Has been noncompliant with Eliquis, taking 5 mg daily instead of b.i.d. Hold Eliquis for now, resume after stenting at 5 mg b.i.d. HFrEF Continue digoxin DNR/DNI, verified with pt DVT Prophylaxis: On Eliquis Pt requires continued hospitalization for treatment with IVF, monitoring of labs, and safe disposition. Pt seen by PT and will require STR. Quality Stroke Does the patient have a stroke diagnosis?: No VTE Prior VTE?: No VTE Risk Level:: Medical - moderate - high VTE Device Contraindication: Treatment Not Indicated VTE Drug Contraindication: N/A - Med Ordered
--- NOTE | 2024-09-14 23:31 | PC.NURSE ---
Patient at beginning of shift was on room air oxygen, was in the low to mid 80s. 6L oxymask placed o2 niall to high 90s. Patient placed on continuous o2 sensor. Inspiratory wheeze auscultated and patient reports feeling asymptomatic. MD notified, duoneb orders placed. Patient now on 2L oxymask with o2 sustaining in low to mid 90s. Patient remains asymptomatic.
[2024-09-15] VITALS (9 sets, daily range): BP systolic 106–118; BP diastolic 53–58; PULSE 33–72; RESP 16–20; TEMP 36.3–37; O2SAT 84–98
--- NOTE | 2024-09-15 07:41 | P.CNGI_ITS ---
History of Present Illness Data of Consult Service Date: 09/15/24 Requesting physician: Johnie Arango Primary Care Provider: Dennis Chavira MD HPI Reason for consult: N/V This is a 69-year-old female with medical history of aortic stenosis, atrial fibrillation on Eliquis, who was admitted to the hospital on 09/10 for left- sided nephrolithiasis with hydronephrosis. Patient is status post left renal ureteral stent placement 09/13. Gastroenterology has been consulted for persistent nausea and vomiting. Patient seen at bedside and reports that most of her symptoms are chronic. Even at home, she is nauseous most of the days but is able to tolerate the diet. She attributes the anorexia mostly to the hospital food. However, on further probing does admit to epigastric pain which gets worse with eating. Last dose of Eliquis was 09/14 evening. Review of Systems 2 Review of Systems: Yes all other systems are reviewed and are negative PMFSH Past Medical History Medical History (Updated 09/15/24 @ 10:28 by Darleen Tran MD) Heart failure Aortic stenosis Afib Shortness of breath Leg ulcer Family History Family History Mother No problems noted. Father No problems noted. Surgical History Surgical History No pertinent past surgical history Social History Social History Household Members: Spouse and Family Housing: House Do you presently have visiting nurse or other home services: No Alcohol intake: former Patient Tobacco Use Status: Never used Tobacco e-Cigarette/Vaping Use: Never Used Second Hand Smoke Exposure: No service: No Meds Allergies Allergy/AdvReac Type Severity Reaction Status Date / Time No Known Allergies Allergy Verified 09/10/24 11:48 Active Medications: Current Medications Acetaminophen (Acetaminophen 325 Mg Tablet) 650 mg PO Q6H PRN PRN Reason: Pain, Mild 1-3,fever,headache Last Admin: 09/12/24 23:48 Dose: 650 mg Albuterol/Ipratropium (Albuterol/Iprat 2.5/0.5mg 3 Ml Ampul.Neb) 3 ml INHALE RQ4H WHILE AWAKE PRN PRN Reason: Shortness of Breath Apixaban (Apixaban 5 Mg Tablet) 5 mg PO BID [facility] Last Admin: 09/14/24 19:45 Dose: 5 mg Calcium Carbonate (Calcium Carbonate 750 Mg Tab.Chew) 750 mg PO Q4H PRN PRN Reason: Heartburn Ceftriaxone Sodium (Ceftriaxone Sodium 1 Gm Vial) 1 gm IVPUSH Q24H [facility] Last Admin: 09/14/24 18:16 Dose: 1 gm Digoxin (Digoxin 0.125 Mg Tablet) 0.125 mg PO DAILY [facility]; Protocol Last Admin: 09/14/24 08:32 Dose: 0.125 mg Lactated Ringer's (Lr) 1,000 mls @ 80 mls/hr IVCONT .[id number] [facility] Last Admin: 09/14/24 23:54 Dose: 80 mls/hr Lidocaine (Lidocaine 4 % Patch Adh..Patch) 1 patch TRANSDERMA DAILY [facility]; Protocol Last Admin: 09/14/24 15:15 Dose: 1 patch Magnesium Hydroxide (Milk Of Magnesia 30 Ml Oral.Susp) 30 ml PO DAILY PRN PRN Reason: Constipation Last Admin: 09/12/24 09:14 Dose: 30 ml Melatonin (Melatonin 3 Mg Tablet) 6 mg PO BEDTIME PRN PRN Reason: Insomnia Omeprazole (Omeprazole 40 Mg Capsule.Dr) 40 mg PO DAILY@0630 [facility] Last Admin: 09/15/24 05:54 Dose: 40 mg Ondansetron HCl (Ondansetron Hcl 4 Mg/2 Ml Vial) 4 mg IVPUSH Q8H PRN PRN Reason: Nausea and Vomiting Last Admin: 09/14/24 04:00 Dose: 4 mg Sodium Chloride (0.9 % Sodium Chloride Flush 3 Ml Syringe) 3 ml IVFLUSH QSHIFT [facility] Last Admin: 09/14/24 23:54 Dose: Not Given Sucralfate (Sucralfate Oral Suspension 1 Gm/10 Ml Oral.Susp) 1 gm PO QIDACHS [facility] Last Admin: 09/14/24 19:45 Dose: 1 gm Tramadol HCl (Tramadol Hcl 50 Mg Tablet) 25 mg PO Q4H PRN PRN Reason: Pain, Moderate(Pain Scale 4-6) Last Admin: 09/15/24 00:06 Dose: 25 mg Home Medications ?Medication ?Instructions ?Recorded ?Confirmed ?Last Taken ?Type apixaban 5 mg tablet (Eliquis) 5 mg PO BID 09/10/2409/10/24 History ibuprofen 200 mg tablet 200 mg PO Q6H PRN Pain 09/1009/10/24 Unknown History Physical Exam 2 Exam: Exam: Elderly female, no acute distress Nonicteric Abdomen soft, tender in epigastrium with mild guarding, no rebound tenderness No respiratory distress Diffuse lower extremity edema with erythema and venous stasis changes Vital Signs: Vital Signs: Last Vital Signs Temp 97.9 F 09/15/24 03:16 Pulse 58 09/15/24 03:16 Resp 18 09/15/24 03:16 BP 118/57 L 09/15/24 03:16 Pulse Ox 98 09/15/24 03:16 O2 Del Method Oxymask 09/15/24 03:16 O2 Flow Rate 1 09/15/24 03:16 BMI result Body Mass Index 52.4 Results Labs 09/12/24 05:49 09/15/24 09:47 Microbiology Microbiology Results: Microbiology 09/13/24 09:42 Urine Catheterized - Straight Catheter Urine Culture - Preliminary Culture in progress. 09/10/24 19:20 Blood - Venous Blood Culture - Preliminary No growth after 48 hours. 09/10/24 18:26 Blood - Venous Blood Culture - Preliminary No growth after 48 hours. 09/10/24 Unknown Urine Catheterized - Straight Catheter Urine Culture - Final Escherichia coli Assessment and Plan (1) Anorexia: Status: Acute (2) Nausea & vomiting: Status: Acute (3) Non-rheumatic aortic stenosis: Status: Acute Plan Patient with persistent nausea and vomiting with loss of appetite. This morning at bedside, was not able to complete her food tray. Differentials include PUD, gastritis, duodenitis. Low suspicion for gastric outlet obstruction based on CT scan findings. Plan: -diet as tolerated -hold anticoagulation. EGD set up tentatively for 09/17 after 2 day hold -switch PPI to IV -known moderate - was able to tolerate anesthesia for renal stent Thank you for allowing me to participate in her care. Please do not hesitate to reach out for any questions or concerns. Procedures Date of Service Date of Service: 09/15/24
--- NOTE | 2024-09-15 08:58 | HO.PM.IMPN ---
Subjective Subjective Date of Service: 09/15/24 Interval History: Reports feeling better overall; was able to eat most of her breakfast No nausea or retching Epigastric pain improved Occasional nonproductive cough, but denies SOB HR dropping into 30s-40s and desatting into low 80s during sleep Continues to refuse care for her legs Not compliant with pt positioning Has been out of bed to commode Physical Exam Exam: Exam: General: AOx3, no acute distress Resp: CTA bilaterally CVS: S1, S2, irregularly irregular rhythm, +murmur GI: +BS, obese, NT Back: NT; no CVA tenderness Skin: Warm, dry Neuro: Cranial nerves II-XII grossly intact bilaterally. Motor grossly intact bilaterally Extremities: Bilateral lymphedema with chronic venous stasis changes bilaterally. Small open lesions bilaterally covered with bandages; some dried blood on both legs. Poor hygiene on legs and feet Psych: Slightly anxious Vital Signs: Vital Signs: Last Vital Signs Temp 97.4 F 09/15/24 08:00 Pulse 58 09/15/24 08:00 Resp 20 09/15/24 08:00 BP 113/58 L 09/15/24 08:00 Pulse Ox 98 09/15/24 08:00 O2 Del Method Oxymask 09/15/24 08:00 O2 Flow Rate 1 09/15/24 08:00 BMI result Body Mass Index 52.4 Objective Data Active Medications Acetaminophen (Acetaminophen 325 Mg Tablet) 650 mg PO Q6H PRN PRN Reason: Pain, Mild 1-3,fever,headache Last Admin: 09/12/24 23:48 Dose: 650 mg Documented By: PAO Albuterol/Ipratropium (Albuterol/Iprat 2.5/0.5mg 3 Ml Ampul.Neb) 3 ml INHALE RQ4H WHILE AWAKE PRN PRN Reason: Shortness of Breath Apixaban (Apixaban 5 Mg Tablet) 5 mg PO BID [facility] On Hold: 09/15/24 07:46 Last Admin: 09/14/24 19:45 Dose: 5 mg Documented By: VLADISLAV Calcium Carbonate (Calcium Carbonate 750 Mg Tab.Chew) 750 mg PO Q4H PRN PRN Reason: Heartburn Ceftriaxone Sodium (Ceftriaxone Sodium 1 Gm Vial) 1 gm IVPUSH Q24H [facility] Last Admin: 09/14/24 18:16 Dose: 1 gm Documented By: CAROLYN Digoxin (Digoxin 0.125 Mg Tablet) 0.125 mg PO DAILY [facility]; Protocol Last Admin: 09/15/24 07:43 Dose: Not Given Documented By: CAROLYN Non-Admin Reason: Decreased Heart Rate Comments: HR 36 Lactated Ringer's (Lr) 1,000 mls @ 80 mls/hr IVCONT .[id number] [facility] Last Admin: 09/14/24 23:54 Dose: 80 mls/hr Documented By: TERESA Lidocaine (Lidocaine 4 % Patch Adh..Patch) 1 patch TRANSDERMA DAILY [facility]; Protocol Last Admin: 09/14/24 15:15 Dose: 1 patch Documented By: CAROLYN Magnesium Hydroxide (Milk Of Magnesia 30 Ml Oral.Susp) 30 ml PO DAILY PRN PRN Reason: Constipation Last Admin: 09/12/24 09:14 Dose: 30 ml Documented By: PAUL Melatonin (Melatonin 3 Mg Tablet) 6 mg PO BEDTIME PRN PRN Reason: Insomnia Omeprazole (Omeprazole 40 Mg Capsule.Dr) 40 mg PO DAILY@0630 [facility] Last Admin: 09/15/24 05:54 Dose: 40 mg Documented By: TERESA Ondansetron HCl (Ondansetron Hcl 4 Mg/2 Ml Vial) 4 mg IVPUSH Q8H PRN PRN Reason: Nausea and Vomiting Last Admin: 09/14/24 04:00 Dose: 4 mg Documented By: SHAZIA Sodium Chloride (0.9 % Sodium Chloride Flush 3 Ml Syringe) [facility] Last Admin: 09/14/24 23:54 Dose: Not Given Documented By: TERESA Non-Admin Reason: IV Running Sucralfate (Sucralfate Oral Suspension 1 Gm/10 Ml Oral.Susp) 1 gm PO QIDACHS [facility] Last Admin: 09/14/24 19:45 Dose: 1 gm Documented By: VLADISLAV Tramadol HCl (Tramadol Hcl 50 Mg Tablet) 25 mg PO Q4H PRN PRN Reason: Pain, Moderate(Pain Scale 4-6) Last Admin: 09/15/24 00:06 Dose: 25 mg Documented By: TERESA Labs 09/12/24 05:49 09/15/24 09:47 Microbiology Microbiology Results: Microbiology 09/13/24 09:42 Urine Culture - Preliminary Urine Catheterized - Straight Catheter Gram negative dinora Assessment and Plan (1) WANDY (acute kidney injury): Status: Acute (2) Calculus of proximal left ureter: Status: Acute Plan Pt is a 69-year-old female with a PMH significant for persistent AFib on Eliquis,?HFpEF, aortic stenosis, and obesity class III who presents to the ED from PCP office with complaints of upper abdominal discomfort and wretching for the past week. Pt is admitted to the hospital for treatment and further evaluation of WANDY in setting of hypovolemia from reduced p.o. intake. WANDY Continued improvement in creatinine, now 1.46; baseline 0.90 Likely secondary to hypovolemia from reduced p.o. intake x1 week Pt given IVF bolus and 2L bicarb Will continue with gentle maintenance IVF; will stop once pt drinking more Nephrology following Follow BMP Acute pyelonephritis with hydronephrosis due to 8 mm left UPJ stone UA with moderate leukocyte esterase and >50 WBC No sepsis: Leukocytosis of 12.3 likely secondary to hemoconcentration; no other SIRS criteria Will treat with ceftriaxone, day 6 Initial urine culture growing pansensitive E coli Seen by urology, s/p left ureteral stent placement 09/13 - repeat urine culture sent during procedure Blood cultures negative to date Epigastric/chest pain with retching Likely from chronic ibuprofen use: has been taking 1600mg daily for 2-3 weeks Also possibly from obstructing nephrolithiasis Better today No signs of active GI bleed Received Protonix; treat with omerprazole 40mg daily Tolerating full diet GI consult, plan on EGD on Monday Hold all NSAIDs H&H stable High anion gap metabolic acidosis Due to WANDY and starvation ketosis Resolved Hypopnatremia, resolved Initial sodium mildly low at 129, now 135 Likely in the setting of above Resovled with IVF Follow sodium Elevated troponins Troponins flat at 36.2 and 32.7 Chest pain likely from ibuprofen use, EKG without ischemic changes Likely type 2 in the setting of increased demand Monitor on telemetry Elevated lipase Lipase 474 CT showing chronic pancreatitis without evidence of acute pancreatitis Pt asymptomatic Follow up outpatient with GI Question of CALDERON Pt noted to be desatting into low 80s and HR in 30-40s while sleeping Currently requiring Oxymask 2L at night Will get inpatient sleep study Left adnexal mass/thickened enometrium CT showing 4.6 x 3.2 cm left adnexal cystic structure. pevic US showing simple left ovarian cyst. Ultrasound did show abnormally thickened endometrium which we will need outpatient follow-up and possible endometrial biopsy Follow up outpatient with [employer]GE[employer]/GENERAL DERMATOLOGIST Persistent AFib Has been noncompliant with Eliquis, taking 5 mg daily instead of b.i.d. Hold Eliquis for now, resume after EGD at 5 mg b.i.d. HFrEF Continue digoxin DNR/DNI, verified with pt DVT Prophylaxis: On Eliquis Pt requires continued hospitalization for treatment with IVF, monitoring of labs, and safe disposition. Pt seen by PT and will require STR. Quality Stroke Does the patient have a stroke diagnosis?: No VTE Prior VTE?: No VTE Risk Level:: Medical - moderate - high VTE Device Contraindication: Treatment Not Indicated VTE Drug Contraindication: N/A - Med Ordered
[2024-09-15] MEDS: Lidocaine 4 % Patch ADH..PATCH 1 PATCH TRANSDERMA ×2 (09:15→22:48)
[2024-09-15] MEDS: Sucralfate Oral Suspension 1 GM/10 ML ORAL.SUSP PO ×3 (09:15→21:02)
[2024-09-15] MEDS: 0.9 % Sodium Chloride Flush 3 ML SYRINGE IVFLUSH ×3 (09:16→21:03)
[2024-09-15 10:23] LABS: Anion Gap 11 (12-20); Blood Urea Nitrogen 32 mg/dL (9-16); Calcium 9.0 mg/dL (8.4-10.2); Carbon Dioxide 24 mmol/L (22-29); Chloride 110 mmol/L (96-108); Creatinine Clr Calc Pharmacy 49.9; Estimated Glomerular Filt Rate 35; Potassium 3.8 mmol/L (3.3-5.1); Sodium 141 mmol/L (135-145)
[2024-09-15] MEDS: Lactated Ringers 1,000 ML 80 ML IVCONT (11:59)
[2024-09-16] VITALS (7 sets, daily range): BP systolic 109–128; BP diastolic 51–68; PULSE 46–124; RESP 16–20; TEMP 36.1–36.6; O2SAT 1–99
[2024-09-16] MEDS: Lidocaine 4 % Patch ADH..PATCH 1 PATCH TRANSDERMA (09:11)
[2024-09-16] MEDS: Sucralfate Oral Suspension 1 GM/10 ML ORAL.SUSP PO ×4 (09:11→20:13)
[2024-09-16] MEDS: 0.9 % Sodium Chloride Flush 3 ML SYRINGE IVFLUSH ×3 (09:12→20:14)
--- NOTE | 2024-09-16 09:35 | PM.CNCAR ---
History of Present Illness History of Present Illness Date of Service: 09/16/24 Chief complaint: WANDY, hyponatremia Narrative: This is a cardiology consultation regarding atrial fibrillation. We had seen her in hospital in consultation in 2022. At that time, she was diagnosed with atrial fibrillation of unknown duration. We had mentioned that she had not seen a doctor for 30+ years around that time. Since that consultation, she has not returned for follow-up. At the current time, it seems that she has been admitted with WANDY, pyelonephritis, hydronephrosis and other medical issues. From the cardiac standpoint, she is in atrial fibrillation. She had an echocardiogram and that showed aortic stenosis, previously known. It seems that she has got minimal activity at baseline. She does not do anything beyond walking inside the house. She states she does get short of breath with activity. No clear anginal-type chest pains. Otherwise, seems to be mainly resting in bed at this time. Review of Systems Review of Systems: Yes all other systems are reviewed and are negative Constitutional: Constitutional: Reports as per HPI and Reports no additional constitutional complaints Eyes: Eyes: Reports as per HPI and Denies no additional eye complaints ENT: Denies system reviewed and no additional complaints, except as documented and Reports as per HPI Cardiovascular: Cardiovascular: Reports as per HPI, Reports no additional cardiovascular complaints, Denies acrocyanosis, Denies cool extremities, Denies chest pain, Denies leg edema, Denies lightheadedness, Denies palpitations and Denies dyspnea Respiratory: Respiratory: Reports as per HPI, Denies no additional respiratory complaints and Denies dyspnea Gastrointestinal: Gastrointestinal: Reports as per HPI and Denies no additional gastrointestinal complaints Genitourinary: Genitourinary: Reports as per HPI Musculoskeletal: Musculoskeletal: Reports no additional musculoskeletal complaints and Reports as per HPI Integumentary/Breasts: Skin/Breast: Reports system reviewed and no additional complaints, except as docu Neurologic: Reports system reviewed and no additional complaints, except as documented and Reports as per HPI Psychiatric: Psychiatric: Reports no additional psychiatric complaints and Reports as per HPI Endocrine: Endocrine: Reports no additional endocrine complaints, Reports as per HPI and Denies palpitations Hematologic/Lymphatic: Hematologic/Lymphatic: Reports no additional hematologic/lymphatic complaints and Reports as per HPI Allergic/Immunologic: Allergic/Immunologic: Reports no additional allergic/immunologic complaints and Reports as per HPI [facility] Past Medical History Medical History (Updated 09/16/24 @ 09:47 by Mitchell Greco MD) Heart failure Aortic stenosis Afib Shortness of breath Leg ulcer Family History Family History Mother No problems noted. Father No problems noted. Surgical History Surgical History No pertinent past surgical history Social History Social History Household Members: Spouse and Family Housing: House Do you presently have visiting nurse or other home services: No Alcohol intake: former Patient Tobacco Use Status: Never used Tobacco e-Cigarette/Vaping Use: Never Used Second Hand Smoke Exposure: No service: No Meds Allergies Allergy/AdvReac Type Severity Reaction Status Date / Time No Known Allergies Allergy Verified 09/10/24 11:48 Active Medications: Current Medications Acetaminophen (Acetaminophen 325 Mg Tablet) 650 mg PO Q6H PRN PRN Reason: Pain, Mild 1-3,fever,headache Last Admin: 09/12/24 23:48 Dose: 650 mg Albuterol/Ipratropium (Albuterol/Iprat 2.5/0.5mg 3 Ml Ampul.Neb) 3 ml INHALE RQ4H WHILE AWAKE PRN PRN Reason: Shortness of Breath Apixaban (Apixaban 5 Mg Tablet) 5 mg PO BID STEFAN On Hold: 09/15/24 07:46 Last Admin: 09/14/24 19:45 Dose: 5 mg Calcium Carbonate (Calcium Carbonate 750 Mg Tab.Chew) 750 mg PO Q4H PRN PRN Reason: Heartburn Ceftriaxone Sodium (Ceftriaxone Sodium 1 Gm Vial) 1 gm IVPUSH Q24H STEFAN Last Admin: 09/15/24 18:18 Dose: 1 gm Digoxin (Digoxin 0.125 Mg Tablet) 0.125 mg PO DAILY STEFAN; Protocol Last Admin: 09/16/24 09:11 Dose: 0.125 mg Lidocaine (Lidocaine 4 % Patch Adh..Patch) 1 patch TRANSDERMA DAILY STEFAN; Protocol Last Admin: 09/16/24 09:11 Dose: 1 patch Magnesium Hydroxide (Milk Of Magnesia 30 Ml Oral.Susp) 30 ml PO DAILY PRN PRN Reason: Constipation Last Admin: 09/12/24 09:14 Dose: 30 ml Melatonin (Melatonin 3 Mg Tablet) 6 mg PO BEDTIME PRN PRN Reason: Insomnia Omeprazole (Omeprazole 40 Mg Capsule.Dr) 40 mg PO DAILY@0630 COUNTS INCLUDE 234 BEDS AT THE [facility] Last Admin: 09/16/24 06:05 Dose: 40 mg Ondansetron HCl (Ondansetron Hcl 4 Mg/2 Ml Vial) 4 mg IVPUSH Q8H PRN PRN Reason: Nausea and Vomiting Last Admin: 09/14/24 04:00 Dose: 4 mg Sodium Chloride (0.9 % Sodium Chloride Flush 3 Ml Syringe) 3 ml IVFLUSH QSHIFT COUNTS INCLUDE 234 BEDS AT THE [facility] Last Admin: 09/16/24 09:12 Dose: 3 ml Sucralfate (Sucralfate Oral Suspension 1 Gm/10 Ml Oral.Susp) 1 gm PO QIDACHS COUNTS INCLUDE 234 BEDS AT THE [facility] Last Admin: 09/16/24 09:11 Dose: 1 gm Tramadol HCl (Tramadol Hcl 50 Mg Tablet) 25 mg PO Q4H PRN PRN Reason: Pain, Moderate(Pain Scale 4-6) Last Admin: 09/16/24 06:09 Dose: 25 mg Home Medications ?Medication ?Instructions ?Recorded ?Confirmed ?Last Taken ?Type apixaban 5 mg tablet (Eliquis) 5 mg PO BID 09/10/24 09/10/24 09/10/24 History ibuprofen 200 mg tablet 200 mg PO Q6H PRN Pain 09/10/24 09/10/24 Unknown History Physical Exam Vital Signs: Vital Signs: Last Vital Signs Temp 97.0 F 09/16/24 07:45 Pulse 73 09/16/24 07:45 Resp 17 09/16/24 07:45 BP 128/68 09/16/24 07:45 Pulse Ox 98 09/16/24 07:45 O2 Del Method Nasal Cannula 09/16/24 07:45 O2 Flow Rate 1 09/16/24 07:45 BMI result Body Mass Index 52.4 Const: General: comfortable and no acute distress Orientation/consciousness: patient oriented x3 HEENT: Other: Unremarkable Head: Yes normal to inspection Neck: Neck: Yes normal visual inspection Chest: Chest palpation & inspection: normal inspection of the chest Resp: Auscultation: clear to auscultation bilaterally Cardio: Palpation: normal PMI Heart sounds: S1 normal heart sound present, S2 normal heart sound present, no gallops, Murmur heart sound present systolic III/ and at the right sternal border and no rubs GI: Palpation (GI): Soft to palpation Back/Spine/Pelvis: Other: unremarkable Skin: General skin exam: no rashes or lesions noted Neuro: General: patient oriented x3 Extrem: Other: swelling, chronic changes Psych: Mental Status: mental status grossly normal Objective Labs and Meds 09/12/24 05:49 09/15/24 09:47 Lab results: Laboratory Results - last 24 hr 09/15/24 09:47 Hold Purple Top SEE NOTE Sodium 141 Potassium 3.8 Chloride 110 H Carbon Dioxide 24 Anion Gap 11 L BUN 32 H Creatinine 1.46 H Estim Creat Clear Calc 49.9 Estimated GFR 35 Random Glucose 103 Calcium 9.0 ECG Interpretation: EKG with underlying atrial fibrillation at a rate of 79/Min; leftward axis; nonspecific ST-T changes. Assessment and Plan (1) Persistent atrial fibrillation: Status: Acute For rate control, she is only on digoxin. Suspect this may be due to low blood pressure issues. Digoxin level was 1, but not clear if it is peak as opposed to trough dose, as the level was drawn in the afternoon. She is not a candidate for rhythm control. If blood pressure allows, probably just use beta-blockers rather. Otherwise, continue anticoagulation. (2) Non-rheumatic aortic stenosis: Status: Acute Echocardiogram with preserved LVEF of 65-70%. Moderate aortic stenosis. If she is willing to come to clinic, can do follow-up echocardiogram but not clear if she will. (3) Elevated troponin: Status: Acute Low-grade troponin leak. Previously, myocardial perfusion imaging study showed normal perfusion. Procedures Date of Service Date of Service: 09/16/24
--- NOTE | 2024-09-16 09:53 | HO.SKINPHOTO ---
Location: Category: Stage: Length: Width: Depth: cm Location: Category: Stage: Length: Width: Depth: cm Location: Category: Stage: Length: Width: Depth: cm Location: Category: Stage: Length: Width: Depth: cm Location: Category: Stage: Length: Width: Depth: cm Location: Category: Stage: Length: Width: Depth: cm
--- NOTE | 2024-09-16 10:46 | MHC.CM.PN ---
Per ROUNDS discussion, Patient is not yet medically cleared for dc (Endoscopy tomorrow, sleep study tonight); Patient is in agreement with PT's recommendation for STR and her first choice is [facility]. CM will continue to follow.
--- NOTE | 2024-09-16 11:08 | P.PNNP_ITS ---
Subjective Subjective Date of Service: 09/16/24 Interval history: Following for WANDY. creatinine continues to decrease, 1.46 today. Baseline creatinine ~0.7-0.8 in 2022. Patient getting renal pelvis stent for hydro/renal stone. No other new events noted. Physical Exam 2 Vital Signs: Vital Signs: Last Vital Signs Temp 97.0 F 09/16/24 07:45 Pulse 73 09/16/24 07:45 Resp 17 09/16/24 07:45 BP 128/68 09/16/24 07:45 Pulse Ox 98 09/16/24 07:45 O2 Del Method Nasal Cannula 09/16/24 07:45 O2 Flow Rate 1 09/16/24 07:45 BMI result Body Mass Index 52.4 Const: General: no acute distress, alert and awake Resp: Effort & Inspection: normal respiratory effort and able to speak in complete sentences Auscultation: clear to auscultation bilaterally Cardio: Rate: regular rate Rhythm: regular rhythm Heart sounds: S1 normal heart sound present and S2 normal heart sound present GI: Palpation (GI): Soft to palpation and nontender Skin: Other: chiquita, erythematous BLE. Extrem: General: Yes edema (BLE edema) Objective Data Labs 09/12/24 05:49 09/15/24 09:47 Microbiology Microbiology Results: Microbiology 09/13/24 09:42 Urine Catheterized - Straight Catheter Urine Culture - Final Proteus mirabilis 09/10/24 19:20 Blood - Venous Blood Culture - Final No growth after 5 days. 09/10/24 18:26 Blood - Venous Blood Culture - Final No growth after 5 days. 09/10/24 Unknown Urine Catheterized - Straight Catheter Urine Culture - Final Escherichia coli Procedures Date of Service Date of Service: 09/16/24 Assessment & Plan Assessment and plan (1) WANDY (acute kidney injury): Status: Acute (2) Metabolic acidosis: Status: Acute Plan WANDY secondary to daily NSAID use in setting of dehydration- improving. unknown baseline creatinine (most recent available from 2022). creatinine is improving recommend continuing IVF hydration, may switch to oral hydration once patient is better able to eat and drink adequately. recommend avoiding nephrotoxins. continue supportive care Will arrange for outpatient nephrology follow up upon discharge from hospital. Discussed with Dr Fofana. Time Spent With Patient Time: Total time managing care of this patient today ____ minutes. Progress Note: Quality Stroke Does the patient have a stroke diagnosis?: No
--- NOTE | 2024-09-16 18:40 | HO.WOUND ---
Wound Consult: Initial 69yr old? female admitted to [facility] on 09/10/24 - See progress notes and H&P for detailed history.? Wound consult placed for Bilateral Lower Legs.? Patient agreeable to assessment and photo documentation.? Bilateral Lower Legs Etiology: ??Venous Dermatitis Wounds and Lymphedema Wound Bed: Scattered open partial thickness tissue loss, some areas with adherent scabs and moist pink tissue Drainage / Odor: scant serosang noted on bed linen Edges: ? irregular Diya wound: ?Red thickened tissue - lymphedema No Induration, Fluctuance or Warmth noted Pain: painful to touch to left leg Goals of Treatment: ? Moist wound healing with xeroform and lower leg elevation and out pt follow up Recommendations: 1. Turn and Reposition every 2 hours and as needed for patient comfort.? Use pillows or wedges to support off loading positions. 2. Off Load all bony prominences with use of pillows and heel boots if needed.? Apply Preventative foams where needed. ? 3. Monitor for incontinence and moisture control, use barrier creams when needed for prevention and treatment. 4. Provide adequate and supplemental nutrition.? 5. Order low air loss mattress. 6. When applicable maintain blood glucose levels per Providers order. Bilateral Lower Leg - Elevate lower Legs be sure to float heels off of bed surface. Cleanse with [facility], pat dry. Cover open wound beds with xeroform, ABD pad and elastic netting. Change daily. Recommend outpt wound clinic follow up. Re-consult wound care Nurse for wound deterioration or wound changes.
--- NOTE | 2024-09-16 20:12 | HO.PM.IMPN ---
Subjective Subjective Date of Service: 09/16/24 Interval History: Overall feels better N/V and retching improved No significant abd pain Occasional globus sensation Allowed nursing to apply lotion to legs today Review of Systems Review of Systems: Yes all other systems are reviewed and are negative Physical Exam Exam: Exam: General: AOx3, no acute distress Resp: CTA bilaterally CVS: S1, S2, irregularly irregular rhythm, +murmur GI: +BS, obese, NT Back: NT; no CVA tenderness Skin: Warm, dry Neuro: Cranial nerves II-XII grossly intact bilaterally. Motor grossly intact bilaterally Extremities: Bilateral lymphedema with chronic venous stasis changes bilaterally. Small open lesions bilaterally, now scabbed over Psych: Appropriate affect Vital Signs: Vital Signs: Last Vital Signs Temp 97.9 F 09/16/24 19:45 Pulse 46 L 09/16/24 19:45 Resp 16 09/16/24 19:45 BP 123/51 L 09/16/24 19:45 Pulse Ox 97 09/16/24 19:45 O2 Del Method Nasal Cannula 09/16/24 19:45 O2 Flow Rate 1 09/16/24 19:45 BMI result Body Mass Index 52.4 Objective Data Active Medications Acetaminophen (Acetaminophen 325 Mg Tablet) 650 mg PO Q6H PRN PRN Reason: Pain, Mild 1-3,fever,headache Last Admin: 09/12/24 23:48 Dose: 650 mg Documented By: PAO Albuterol/Ipratropium (Albuterol/Iprat 2.5/0.5mg 3 Ml Ampul.Neb) 3 ml INHALE RQ4H WHILE AWAKE PRN PRN Reason: Shortness of Breath Apixaban (Apixaban 5 Mg Tablet) 5 mg PO BID STEFAN On Hold: 09/15/24 07:46 Last Admin: 09/14/24 19:45 Dose: 5 mg Documented By: VLADISLAV Calcium Carbonate (Calcium Carbonate 750 Mg Tab.Chew) 750 mg PO Q4H PRN PRN Reason: Heartburn Ceftriaxone Sodium (Ceftriaxone Sodium 1 Gm Vial) 1 gm IVPUSH Q24H STEFAN Last Admin: 09/16/24 17:13 Dose: 1 gm Documented By: BIRDIE Digoxin (Digoxin 0.125 Mg Tablet) 0.125 mg PO DAILY STEFAN; Protocol Last Admin: 09/16/24 09:11 Dose: 0.125 mg Documented By: BIRDIE Lidocaine (Lidocaine 4 % Patch Adh..Patch) 1 patch TRANSDERMA DAILY [facility]; Protocol Last Admin: 09/16/24 09:11 Dose: 1 patch Documented By: BIRDIE Magnesium Hydroxide (Milk Of Magnesia 30 Ml Oral.Susp) 30 ml PO DAILY PRN PRN Reason: Constipation Last Admin: 09/12/24 09:14 Dose: 30 ml Documented By: PAUL Melatonin (Melatonin 3 Mg Tablet) 6 mg PO BEDTIME PRN PRN Reason: Insomnia Omeprazole (Omeprazole 40 Mg Capsule.Dr) 40 mg PO DAILY@0630 [facility] Last Admin: 09/16/24 06:05 Dose: 40 mg Documented By: PAO Ondansetron HCl (Ondansetron Hcl 4 Mg/2 Ml Vial) 4 mg IVPUSH Q8H PRN PRN Reason: Nausea and Vomiting Last Admin: 09/14/24 04:00 Dose: 4 mg Documented By: SHAZIA Sodium Chloride (0.9 % Sodium Chloride Flush 3 Ml Syringe) [facility] Last Admin: 09/16/24 17:13 Dose: 3 ml Documented By: BIRDIE Sucralfate (Sucralfate Oral Suspension 1 Gm/10 Ml Oral.Susp) 1 gm PO QIDACHS [facility] Last Admin: 09/16/24 17:13 Dose: 1 gm Documented By: BIRDIE Tramadol HCl (Tramadol Hcl 50 Mg Tablet) 25 mg PO Q4H PRN PRN Reason: Pain, Moderate(Pain Scale 4-6) Last Admin: 09/16/24 06:09 Dose: 25 mg Documented By: PAO Labs 09/12/24 05:49 09/15/24 09:47 Microbiology Microbiology Results: Microbiology 09/13/24 09:42 Urine Culture - Final Urine Catheterized - Straight Catheter Proteus mirabilis 09/10/24 19:20 Blood Culture - Final Blood - Venous No growth after 5 days. 09/10/24 18:26 Blood Culture - Final Blood - Venous No growth after 5 days. Assessment and Plan (1) WNADY (acute kidney injury): Status: Acute Plan Pt is a 69-year-old female with a PMH significant for persistent AFib on Eliquis,?HFpEF, aortic stenosis, and obesity class III who presents to the ED from PCP office with complaints of upper abdominal discomfort and wretching for the past week. Pt is admitted to the hospital for treatment and further evaluation of WANDY in setting of hypovolemia from reduced p.o. intake. WANDY Continued though slow, improvement in creatinine, now 1.46; baseline unknown Likely secondary to hypovolemia from reduced p.o. intake x1 week complicated by obstructive stone Pt given IVF bolus and 2L bicarb, then gentle maintenance fluids Nephrology following, will require follow up in office Follow BMP Acute pyelonephritis with hydronephrosis due to 8 mm left UPJ stone UA with moderate leukocyte esterase and >50 WBC No sepsis: Leukocytosis of 12.3 likely secondary to hemoconcentration; no other SIRS criteria Will treat with ceftriaxone, day Initial urine culture growing pansensitive E coli Seen by urology, s/p left ureteral stent placement 09/13 - repeat urine culture sent during procedure Blood cultures negative to date Epigastric/chest pain with retching Likely from chronic ibuprofen use: has been taking 1600mg daily for 2-3 weeks Also possibly from obstructing nephrolithiasis Better today No signs of active GI bleed Received Protonix; treat with omerprazole 40mg daily Tolerating full diet GI consult, plan on EGD on Monday Hold all NSAIDs H&H stable High anion gap metabolic acidosis Due to WANDY and starvation ketosis Resolved Hypopnatremia, resolved Initial sodium mildly low at 129, now 135 Likely in the setting of above Resovled with IVF Follow sodium Elevated troponins Troponins flat at 36.2 and 32.7 Chest pain likely from ibuprofen use, EKG without ischemic changes Likely type 2 in the setting of increased demand Monitor on telemetry Elevated lipase Lipase 474 CT showing chronic pancreatitis without evidence of acute pancreatitis Pt asymptomatic Follow up outpatient with GI Question of CALDERON Pt noted to be desatting into low 80s and HR in 30-40s while sleeping Currently requiring Oxymask 2L at night Will get inpatient sleep study Left adnexal mass/thickened enometrium CT showing 4.6 x 3.2 cm left adnexal cystic structure. pevic US showing simple left ovarian cyst. Ultrasound did show abnormally thickened endometrium which we will need outpatient follow-up and possible endometrial biopsy Follow up outpatient with [facility] Persistent AFib Has been noncompliant with Eliquis, taking 5 mg daily instead of b.i.d. Hold Eliquis for now, resume after EGD at 5 mg b.i.d. Cardiology consulted, recommend metoprolol if bp allows, but pt's BP has been soft Will continue digoxin for now HFrEF Continue digoxin DNR/DNI, verified with pt DVT Prophylaxis: On Eliquis Pt requires continued hospitalization for EGD tomorrow and placement to STR. Quality Stroke Does the patient have a stroke diagnosis?: No VTE Prior VTE?: No VTE Risk Level:: Medical - moderate - high VTE Device Contraindication: Treatment Not Indicated VTE Drug Contraindication: N/A - Med Ordered
[2024-09-17] VITALS (11 sets, daily range): BP systolic 105–142; BP diastolic 49–70; PULSE 46–95; RESP 16–20; TEMP 36.2–37.2; O2SAT 93–99
[2024-09-17 07:09] LABS: Anion Gap 9 (12-20); Blood Urea Nitrogen 25 mg/dL (9-16); Calcium 8.4 mg/dL (8.4-10.2); Carbon Dioxide 26 mmol/L (22-29); Chloride 112 mmol/L (96-108); Creatinine Clr Calc Pharmacy 61.8; Estimated Glomerular Filt Rate 45; Potassium 3.8 mmol/L (3.3-5.1); Sodium 143 mmol/L (135-145)
[2024-09-17] MEDS: Lidocaine 4 % Patch ADH..PATCH 1 PATCH TRANSDERMA (08:02)
[2024-09-17] MEDS: 0.9 % Sodium Chloride Flush 3 ML SYRINGE IVFLUSH ×3 (08:03→19:42)
--- NOTE | 2024-09-17 11:20 | PC.NURSE ---
Pt off the unit at 1120 for and EGD.
[2024-09-17] MEDS: Lactated Ringers 500 ML 20 ML IVCONT (12:03)
--- NOTE | 2024-09-17 12:46 | MHC.SHP ---
Pre-Procedural Eval Section A - 24 Hr Update-Section A only Date of Service: 09/17/24 The patient is an INPATIENT: Yes The patient has been examined within 24 hours of the surgical procedure. The History & Physical has been completed within 30 days and I have reviewed it.: Yes Section B - Complete if H&P > 30 days Chief Complaint: WANDY, hyponatremia Allergies: Allergies Allergy/AdvReac Type Severity Reaction Status Date / Time No Known Allergies Allergy Verified 09/10/24 11:48 Plan Diagnosis/Plan: Unchanged I have reviewed the history and physical and performed a pertinent physical examination on my patient. No changes have occurred unless specified. Time Spent With Patient Time: Total time managing care of this patient today ____ minutes.
--- NOTE | 2024-09-17 12:53 | P.CONAN_ITS ---
HPI - Anesthesia Eval Consult details Narrative: [facility] Active Problems Active Problems: All Active Problems (Updated 09/16/24 @ 09:47 by Mitchell Greco MD) Elevated troponin (Acute) Persistent atrial fibrillation (Acute) Nausea & vomiting (Acute) Anorexia (Acute) Calculus of proximal left ureter (Acute) Chronic venous stasis dermatitis (Acute) Bilateral edema of lower extremity (Acute) Metabolic acidosis (Acute) Acute renal failure (Acute) Non-rheumatic aortic stenosis (Acute) Acute systolic CHF (congestive heart failure), NYHA class 3 (Acute) Altered mental status (Acute) Acute hypercapnic respiratory failure (Acute) Metabolic acidosis (Acute) Sepsis (Acute) Hypokalemia (Acute) Cellulitis of right leg (Acute) New onset a-fib (Acute) WANDY (acute kidney injury) (Acute) Acute hypokalemia (Acute) Cellulitis (Acute) Shortness of breath (Acute) Leg ulcer (Acute) Past Medical History Medical History (Updated 09/16/24 @ 09:47 by Mitchell Greco MD) Heart failure Aortic stenosis Afib Shortness of breath Leg ulcer Family History Family History Mother No problems noted. Father No problems noted. Family history of problems with anesthesia: No Surgical History Surgical History (Updated 09/17/24 @ 11:53 by Celine Hatfield RN) History of dental surgery No pertinent past surgical history History of Problems with Anesthesia: No Social History Social History Household Members: Spouse and Family Housing: House Do you presently have visiting nurse or other home services: No Alcohol intake: former Patient Tobacco Use Status: Never used Tobacco e-Cigarette/Vaping Use: Never Used Second Hand Smoke Exposure: No service: No Meds Allergies Allergy/AdvReac Type Severity Reaction Status Date / Time No Known Allergies Allergy Verified 09/10/24 11:48 Active Medications: Current Medications Acetaminophen (Acetaminophen 325 Mg Tablet) 650 mg PO Q6H PRN PRN Reason: Pain, Mild 1-3,fever,headache Last Admin: 09/12/24 23:48 Dose: 650 mg Albuterol/Ipratropium (Albuterol/Iprat 2.5/0.5mg 3 Ml Ampul.Neb) 3 ml INHALE RQ4H WHILE AWAKE PRN PRN Reason: Shortness of Breath Apixaban (Apixaban 5 Mg Tablet) 5 mg PO BID [facility] On Hold: 09/15/24 07:46 Last Admin: 09/14/24 19:45 Dose: 5 mg Calcium Carbonate (Calcium Carbonate 750 Mg Tab.Chew) 750 mg PO Q4H PRN PRN Reason: Heartburn Ceftriaxone Sodium (Ceftriaxone Sodium 1 Gm Vial) 1 gm IVPUSH Q24H [facility] Last Admin: 09/16/24 17:13 Dose: 1 gm Digoxin (Digoxin 0.125 Mg Tablet) 0.125 mg PO DAILY [facility]; Protocol Last Admin: 09/17/24 08:02 Dose: 0.125 mg Lactated Ringer's (Lr) 500 mls @ 20 mls/hr IVCONT .Q24H [facility] Last Admin: 09/17/24 12:03 Dose: 20 mls/hr Lidocaine (Lidocaine 4 % Patch Adh..Patch) 1 patch TRANSDERMA DAILY [facility]; Protocol Last Admin: 09/17/24 08:02 Dose: 1 patch Magnesium Hydroxide (Milk Of Magnesia 30 Ml Oral.Susp) 30 ml PO DAILY PRN PRN Reason: Constipation Last Admin: 09/12/24 09:14 Dose: 30 ml Melatonin (Melatonin 3 Mg Tablet) 6 mg PO BEDTIME PRN PRN Reason: Insomnia Omeprazole (Omeprazole 40 Mg Capsule.Dr) 40 mg PO DAILY@0630 [facility] Last Admin: 09/17/24 05:14 Dose: Not Given Ondansetron HCl (Ondansetron Hcl 4 Mg/2 Ml Vial) 4 mg IVPUSH Q8H PRN PRN Reason: Nausea and Vomiting Last Admin: 09/14/24 04:00 Dose: 4 mg Sodium Chloride (0.9 % Sodium Chloride Flush 3 Ml Syringe) 3 ml IVFLUSH QSHIFT [facility] Last Admin: 09/17/24 08:03 Dose: 3 ml Sucralfate (Sucralfate Oral Suspension 1 Gm/10 Ml Oral.Susp) 1 gm PO QIDACHS [facility] Last Admin: 09/17/24 08:00 Dose: Not Given Tramadol HCl (Tramadol Hcl 50 Mg Tablet) 25 mg PO Q4H PRN PRN Reason: Pain, Moderate(Pain Scale 4-6) Last Admin: 09/16/24 20:13 Dose: 25 mg Home Medications ?Medication ?Instructions ?Recorded ?Confirmed ?Last Taken ?Type apixaban 5 mg tablet (Eliquis) 5 mg PO BID 09/10/2409/10/24 History ibuprofen 200 mg tablet 200 mg PO Q6H PRN Pain 09/1009/10/24 Unknown History Exam Height,Weight and Vital Signs: Height 5 ft 4 in Weight 138.6 kg Last Vital Signs Temp 97.6 F 09/17/24 11:54 Pulse 46 L 09/17/24 11:54 Resp 17 09/17/24 11:54 BP 142/61 H 09/17/24 11:54 Pulse Ox 99 09/17/24 11:54 O2 Del Method Nasal Cannula 09/17/24 11:54 O2 Flow Rate 1 09/17/24 11:54 Pertinent Lab Results Pertinent Lab Results: Laboratory Tests 09/10/24 09/10/24 09/10/24 11:52 13:30 13:36 WBC 12.3 H RBC 4.64 D Hgb 14.4 Hct 41.9 MCV 90.3 MCH 31.0 MCHC 34.4 RDW 14.9 Plt Count 325 D MPV 10.1 Immature Gran % (Auto) 0.4 Neut % (Auto) 89.0 H Lymph % (Auto) 6.2 L [place] % (Auto) 4.0 Eos % (Auto) 0.2 Baso % (Auto) 0.2 Lymph # (Auto) 0.8 L [place] # (Auto) 0.5 Eos # (Auto) 0.0 Baso # (Auto) 0.0 Abs Immat Gran (auto) 0.05 H Absolute Neuts (auto) 10.9 H Absolute Nucleated RBC 0.000 Nucleated RBC % (auto) 0.0 Hold Purple Top PT 13.3 H INR 1.2 H VBG pH 7.16 L* VBG pCO2 28 VBG pO2 52 VBG HCO3 10 L VBG O2 Saturation 79.0 VBG Base Excess -16.4 Sodium 129 L Potassium 4.3 Chloride 104 Carbon Dioxide 12 L Anion Gap 17 BUN 102 H Creatinine 3.40 H Estim Creat Clear Calc 21.2 Estimated GFR 13 Random Glucose 111 Lactic Acid Calcium 9.0 Magnesium 2.7 H Total Bilirubin 0.2 AST 22 ALT 8 Alkaline Phosphatase 109 Troponin I High Sens 36.2 H D 32.7 H B-Natriuretic Peptide 40 Total Protein 8.7 H Albumin 4.0 Lipase 474 H Beta-Hydroxybutyrate 0.60 H Urine Color Urine Appearance Urine pH Ur Specific [place] Urine Protein Urine Glucose (UA) Urine Ketones Urine Blood Urine Nitrite Ur Leukocyte Esterase Urine RBC Urine WBC Ur Squamous Epith Cells Urine Bacteria Hyaline Casts Ur Random Sodium Ur Random Potassium Ur Random Chloride Digoxin 1.0 Ethyl Alcohol < 10 Influenza Type A (PCR) NEGATIVE Influenza Type B (PCR) NEGATIVE RSV RNA Qual (PCR) NEGATIVE SARS-CoV-2 RNA (RT-PCR) NEGATIVE 09/10/24 09/10/24 09/11/24 16:57 18:26 06:37 WBC 8.2 RBC 4.12 L Hgb 12.8 Hct 37.4 MCV 90.8 MCH 31.1 MCHC 34.2 RDW 14.7 Plt Count 250 MPV 9.7 Immature Gran % (Auto) Neut % (Auto) Lymph % (Auto) [place] % (Auto) Eos % (Auto) Baso % (Auto) Lymph # (Auto) [place] # (Auto) Eos # (Auto) Baso # (Auto) Abs Immat Gran (auto) Absolute Neuts (auto) Absolute Nucleated RBC 0.000 Nucleated RBC % (auto) 0.0 Hold Purple Top PT INR VBG pH VBG pCO2 VBG pO2 VBG HCO3 VBG O2 Saturation VBG Base Excess Sodium 135 Potassium 4.3 Chloride 106 Carbon Dioxide 18 L Anion Gap 15 BUN 96 H Creatinine 2.59 H Estim Creat Clear Calc 28.1 Estimated GFR 18 Random Glucose 94 Lactic Acid 1.3 Calcium 8.5 Magnesium Total Bilirubin AST ALT Alkaline Phosphatase Troponin I High Sens B-Natriuretic Peptide Total Protein Albumin Lipase Beta-Hydroxybutyrate Urine Color Yellow Urine Appearance Cloudy Urine pH 6.0 Ur Specific [place] 1.020 Urine Protein 100 (2+) H Urine Glucose (UA) Negative Urine Ketones Trace Urine Blood Small (1+) H Urine Nitrite Negative Ur Leukocyte Esterase Moderate (2+) H Urine RBC 0-2 Urine WBC >50 H Ur Squamous Epith Cells 0-2 Urine Bacteria 3+ Hyaline Casts 3-5 Ur Random Sodium < 20.0 Ur Random Potassium 69.2 Ur Random Chloride < 20.0 Digoxin Ethyl Alcohol Influenza Type A (PCR) Influenza Type B (PCR) RSV RNA Qual (PCR) SARS-CoV-2 RNA (RT-PCR) 09/11/24 09/12/24 09/13/24 14:33 05:49 07:50 WBC 8.3 8.8 RBC 4.05 L 3.84 L Hgb 12.4 12.0 Hct 36.4 L 34.2 L MCV 89.9 89.1 MCH 30.6 31.3 MCHC 34.1 35.1 H RDW 14.6 14.8 Plt Count 251 250 MPV 9.7 10.1 Immature Gran % (Auto) Neut % (Auto) Lymph % (Auto) [place] % (Auto) Eos % (Auto) Baso % (Auto) Lymph # (Auto) [place] # (Auto) Eos # (Auto) Baso # (Auto) Abs Immat Gran (auto) Absolute Neuts (auto) Absolute Nucleated RBC 0.000 0.000 Nucleated RBC % (auto) 0.0 0.0 Hold Purple Top SEE NOTE PT INR VBG pH VBG pCO2 VBG pO2 VBG HCO3 VBG O2 Saturation VBG Base Excess Sodium 136 139 Potassium 4.2 3.6 Chloride 104 106 Carbon Dioxide 22 26 Anion Gap 14 11 L BUN 72 H 54 H Creatinine 1.96 H 1.62 H Estim Creat Clear Calc 37.1 45.0 Estimated GFR 25 31 Random Glucose 97 97 Lactic Acid Calcium 8.6 9.0 Magnesium Total Bilirubin AST ALT Alkaline Phosphatase Troponin I High Sens B-Natriuretic Peptide Total Protein Albumin Lipase Beta-Hydroxybutyrate Urine Color Urine Appearance Urine pH Ur Specific [place] Urine Protein Urine Glucose (UA) Urine Ketones Urine Blood Urine Nitrite Ur Leukocyte Esterase Urine RBC Urine WBC Ur Squamous Epith Cells Urine Bacteria Hyaline Casts Ur Random Sodium Ur Random Potassium Ur Random Chloride Digoxin Ethyl Alcohol Influenza Type A (PCR) Influenza Type B (PCR) RSV RNA Qual (PCR) SARS-CoV-2 RNA (RT-PCR) 09/14/24 09/14/24 09/15/24 06:34 07:01 09:47 WBC RBC Hgb Hct MCV MCH MCHC RDW Plt Count MPV Immature Gran % (Auto) Neut % (Auto) Lymph % (Auto) [place] % (Auto) Eos % (Auto) Baso % (Auto) Lymph # (Auto) [place] # (Auto) Eos # (Auto) Baso # (Auto) Abs Immat Gran (auto) Absolute Neuts (auto) Absolute Nucleated RBC Nucleated RBC % (auto) Hold Purple Top SEE NOTE SEE NOTE PT INR VBG pH VBG pCO2 VBG pO2 VBG HCO3 VBG O2 Saturation VBG Base Excess Sodium 140 141 Potassium 3.9 3.8 Chloride 109 H 110 H Carbon Dioxide 24 24 Anion Gap 11 L 11 L BUN 41 H 32 H Creatinine 1.53 H 1.46 H Estim Creat Clear Calc 47.6 49.9 Estimated GFR 34 35 Random Glucose 101 103 Lactic Acid Calcium 8.7 9.0 Magnesium Total Bilirubin AST ALT Alkaline Phosphatase Troponin I High Sens B-Natriuretic Peptide Total Protein Albumin Lipase Beta-Hydroxybutyrate Urine Color Urine Appearance Urine pH Ur Specific [place] Urine Protein Urine Glucose (UA) Urine Ketones Urine Blood Urine Nitrite Ur Leukocyte Esterase Urine RBC Urine WBC Ur Squamous Epith Cells Urine Bacteria Hyaline Casts Ur Random Sodium Ur Random Potassium Ur Random Chloride Digoxin Ethyl Alcohol Influenza Type A (PCR) Influenza Type B (PCR) RSV RNA Qual (PCR) SARS-CoV-2 RNA (RT-PCR) 09/17/24 06:13 WBC RBC Hgb Hct MCV MCH MCHC RDW Plt Count MPV Immature Gran % (Auto) Neut % (Auto) Lymph % (Auto) [place] % (Auto) Eos % (Auto) Baso % (Auto) Lymph # (Auto) [place] # (Auto) Eos # (Auto) Baso # (Auto) Abs Immat Gran (auto) Absolute Neuts (auto) Absolute Nucleated RBC Nucleated RBC % (auto) Hold Purple Top PT INR VBG pH VBG pCO2 VBG pO2 VBG HCO3 VBG O2 Saturation VBG Base Excess Sodium 143 Potassium 3.8 Chloride 112 H Carbon Dioxide 26 Anion Gap 9 L BUN 25 H Creatinine 1.18 Estim Creat Clear Calc 61.8 Estimated GFR 45 Random Glucose 92 Lactic Acid Calcium 8.4 D Magnesium Total Bilirubin AST ALT Alkaline Phosphatase Troponin I High Sens B-Natriuretic Peptide Total Protein Albumin Lipase Beta-Hydroxybutyrate Urine Color Urine Appearance Urine pH Ur Specific [place] Urine Protein Urine Glucose (UA) Urine Ketones Urine Blood Urine Nitrite Ur Leukocyte Esterase Urine RBC Urine WBC Ur Squamous Epith Cells Urine Bacteria Hyaline Casts Ur Random Sodium Ur Random Potassium Ur Random Chloride Digoxin Ethyl Alcohol Influenza Type A (PCR) Influenza Type B (PCR) RSV RNA Qual (PCR) SARS-CoV-2 RNA (RT-PCR) Airway Mallampati Class: III TM Dist: <=3cm Neck ROM: Full Denture: Upper Loose/Missing/Broken Teeth: Yes and Lower Heart: ok Lungs: ok Assessment and Plan Final Anesthetic Review Family History of Problems with Anesthesia: No History of Problems with Anesthesia: No NPO: Yes ASA Class: IV Final Preanesthetic Review: No Changes in Pt Med Stat, Meds/Allgs Chart Reviewed, Consent Obtained/Reviewed and Anes Risks/Benef Reviewed Patient Risk: High Procedure Risk: Intermediate Anesthetic Plan Anesthetic Plan: Agree w/ Assess. and Plan and TIVA (pt wishes to keep DNR status in force during this procedure.) Disposition: Standard PACU
--- NOTE | 2024-09-17 12:56 | P.OP_ITS ---
Operative Note Operative Note Date of Service: 09/17/24 Narrative: Procedure: Esophagogastroduodenoscopy Endoscopist: Darleen Tran MD Indication: Epigastric pain, N,V Anesthesia Provider: Dr Louis Rodriguez Anesthesia Type: MAC ?? EGD Procedure:?? The procedure, indications, preparation and potential complications were reviewed with the patient, who indicated understanding and gave written informed consent to proceed. A physical exam was performed. The endoscope was introduced through the mouth, and advanced to the second part of duodenum. The mucosa was carefully examined on slow withdrawal of the endoscope. The patient tolerated the procedure well. There were no immediate complications.? ? EGD Findings:? * Esophagus:? Normal mucosa noted in the entire esophagus. The Z line was at 43 cm. * Stomach:? Severe gastritis with numerous (6-8) small clean based gastric ulcers in the antrum and one large 10 mm white based ulcer pre pylorus at 12:00. Cold forceps biopsies were taken from the edge of this large ulcer as well as antrum and body of the stomach for histology. * Duodenum:? Normal mucosa was noted in the whole of the examined duodenum. EGD Impressions:? * Normal esophagus * Severe gastritis (biopsy) * Antral ulcers (biopsy) * Normal duodenum Recommendations:?? * Follow biopsy results. Our office will call or send a letter with results within 7-10 days. * Continue pantoprazole 40 mg once daily x 8 weeks and then 20 mg once daily * Add famotidine 20 mg at night time x 2 14 days. * Add liquid carafate 10 ml QID x 14 days. * Avoid NSAIDs * Check fasting gastrin level * Resume anticoagulation today. * If H pylori +, patient will be prescribed eradication therapy followed by test of cure. Above has been reviewed with the patient.
--- NOTE | 2024-09-17 12:57 | PC.NURSE ---
anesthesia made aware of hr down to 36 x2 while in preop at rest.
[2024-09-17] MEDS: Sucralfate Oral Suspension 1 GM/10 ML ORAL.SUSP PO ×2 (17:00→19:41)
--- NOTE | 2024-09-17 18:08 | HO.PM.IMPN ---
Subjective Subjective Date of Service: 09/17/24 Interval History: Doing better Had EGD this afternoon Improvement in abdominal pain as well as nausea and retching Denies SOB No chest pain Review of Systems Review of Systems: Yes all other systems are reviewed and are negative Physical Exam Exam: Exam: General: AOx3, no acute distress Resp: CTA bilaterally CVS: S1, S2, irregularly irregular rhythm, +murmur GI: +BS, obese, NT Skin: Warm, dry Neuro: Cranial nerves II-XII grossly intact bilaterally. Motor grossly intact bilaterally Extremities: Bilateral lymphedema with chronic venous stasis changes bilaterally. Small open lesions bilaterally, now scabbed over Psych: Appropriate affect Vital Signs: Vital Signs: Last Vital Signs Temp 97.3 F 09/17/24 15:07 Pulse 59 09/17/24 15:07 Resp 18 09/17/24 15:07 BP 134/59 L 09/17/24 15:07 Pulse Ox 93 09/17/24 15:07 O2 Del Method Room Air 09/17/24 15:07 O2 Flow Rate 1 09/17/24 11:54 BMI result Body Mass Index 52.4 Objective Data Active Medications Acetaminophen (Acetaminophen 325 Mg Tablet) 650 mg PO Q6H PRN PRN Reason: Pain, Mild 1-3,fever,headache Last Admin: 09/12/24 23:48 Dose: 650 mg Documented By: PAO Albuterol/Ipratropium (Albuterol/Iprat 2.5/0.5mg 3 Ml Ampul.Neb) 3 ml INHALE RQ4H WHILE AWAKE PRN PRN Reason: Shortness of Breath Apixaban (Apixaban 5 Mg Tablet) 5 mg PO BID [facility] Last Admin: 09/14/24 19:45 Dose: 5 mg Documented By: VLADISLAV Calcium Carbonate (Calcium Carbonate 750 Mg Tab.Chew) 750 mg PO Q4H PRN PRN Reason: Heartburn Ceftriaxone Sodium (Ceftriaxone Sodium 1 Gm Vial) 1 gm IVPUSH Q24H [facility] Last Admin: 09/17/24 17:00 Dose: 1 gm Documented By: BIRDIE Digoxin (Digoxin 0.125 Mg Tablet) 0.125 mg PO DAILY [facility]; Protocol Last Admin: 09/17/24 08:02 Dose: 0.125 mg Documented By: BIRDIE Lidocaine (Lidocaine 4 % Patch Adh..Patch) 1 patch TRANSDERMA DAILY [facility]; Protocol Last Admin: 09/17/24 08:02 Dose: 1 patch Documented By: BIRDIE Magnesium Hydroxide (Milk Of Magnesia 30 Ml Oral.Susp) 30 ml PO DAILY PRN PRN Reason: Constipation Last Admin: 09/12/24 09:14 Dose: 30 ml Documented By: PAUL Melatonin (Melatonin 3 Mg Tablet) 6 mg PO BEDTIME PRN PRN Reason: Insomnia Naloxone HCl (Naloxone Hcl 0.4 Mg/Ml Vial) 0.04 mg IVPUSH Q5M PRN PRN Reason: Excessive sedation or RR < 8 Naloxone HCl (Naloxone Hcl 0.4 Mg/Ml Vial) 0.04 mg IVPUSH Q5M PRN PRN Reason: Excessive sedation or RR < 8 Omeprazole (Omeprazole 40 Mg Capsule.Dr) 40 mg PO DAILY@0630 [facility] Last Admin: 09/17/24 05:14 Dose: Not Given Documented By: KYLER Non-Admin Reason: Patient Refused Ondansetron HCl (Ondansetron Hcl 4 Mg/2 Ml Vial) 4 mg IVPUSH Q8H PRN PRN Reason: Nausea and Vomiting Last Admin: 09/14/24 04:00 Dose: 4 mg Documented By: SHAZIA Sodium Chloride (0.9 % Sodium Chloride Flush 3 Ml Syringe) 3 ml IVFLUSH QSHIFT [facility] Last Admin: 09/17/24 17:00 Dose: 3 ml Documented By: BIRDIE Sucralfate (Sucralfate Oral Suspension 1 Gm/10 Ml Oral.Susp) 1 gm PO QIDACHS [facility] Last Admin: 09/17/24 17:00 Dose: 1 gm Documented By: BIRDIE Tramadol HCl (Tramadol Hcl 50 Mg Tablet) 25 mg PO Q4H PRN PRN Reason: Pain, Moderate(Pain Scale 4-6) Last Admin: 09/16/24 20:13 Dose: 25 mg Documented By: KYLER Labs 09/12/24 05:49 09/17/24 06:13 Labs: Laboratory Results - last 24 hr 09/17/24 06:13 Anion Gap 9 L Estim Creat Clear Calc 61.8 Estimated GFR 45 Random Glucose 92 Calcium 8.4 D Assessment and Plan (1) WANDY (acute kidney injury): Status: Acute (2) Gastritis: Status: Acute Plan Pt is a 69-year-old female with a PMH significant for persistent AFib on Eliquis,?HFpEF, aortic stenosis, and obesity class III who presents to the ED from PCP office with complaints of upper abdominal discomfort and wretching for the past week. Pt is admitted to the hospital for treatment and further evaluation of WANDY in setting of hypovolemia from reduced p.o. intake. WANDY Continued though slow, improvement in creatinine, now 1.18; baseline unknown Likely secondary to hypovolemia from reduced p.o. intake x1 week complicated by obstructive stone Pt given IVF bolus and 2L bicarb, then gentle maintenance fluids Nephrology following, will require follow up in office Follow BMP Acute pyelonephritis with hydronephrosis due to 8 mm left UPJ stone UA with moderate leukocyte esterase and >50 WBC No sepsis: Leukocytosis of 12.3 likely secondary to hemoconcentration; no other SIRS criteria Will treat with ceftriaxone, day 7 Initial urine culture growing pansensitive E coli Seen by urology, s/p left ureteral stent placement 09/13 - repeat urine culture showing pansensitive Proteus mirabilis Blood cultures negative to date Severe gastritis Epigastric/chest pain with retching Likely from chronic ibuprofen use: has been taking 1600mg daily for 2-3 weeks No signs of active GI bleed Received Protonix; treat with omerprazole 40mg daily Tolerating full diet GI consulted with EGD performed on 09/17 which found severe gastritis with numerous gastric ulcers GI recommendations: Continue pantoprazole 40 mg once daily x 8 weeks and then 20 mg once daily Add famotidine 20 mg at night time x 14 days. Add liquid carafate 10 ml QID x 14 days. Avoid NSAIDs Check fasting gastrin level H&H stable High anion gap metabolic acidosis Due to WANDY and starvation ketosis Resolved Hypopnatremia, resolved Initial sodium mildly low at 129, now 135 Likely in the setting of above Resovled with IVF Follow sodium Elevated troponins Troponins flat at 36.2 and 32.7 Chest pain likely from ibuprofen use, EKG without ischemic changes Likely type 2 in the setting of increased demand Monitor on telemetry Elevated lipase Lipase 474 CT showing chronic pancreatitis without evidence of acute pancreatitis Pt asymptomatic Follow up outpatient with GI Question of CALDERON Pt noted to be desatting into low 80s and HR in 30-40s while sleeping Currently requiring Oxymask 2L at night Follow up for outpatient sleep study Left adnexal mass/thickened enometrium CT showing 4.6 x 3.2 cm left adnexal cystic structure. pevic US showing simple left ovarian cyst. Ultrasound did show abnormally thickened endometrium which we will need outpatient follow-up and possible endometrial biopsy Follow up outpatient with [facility] Persistent AFib Has been noncompliant with Eliquis, taking 5 mg daily instead of b.i.d. Resume Eliquis Cardiology consulted, recommended switching to metoprolol if bp allows, but pt's BP has been soft Will continue digoxin for now HFrEF Continue digoxin DNR/DNI, verified with pt DVT Prophylaxis: On Eliquis Pt requires continued hospitalization for fasting labs in the morning; will plan on discharging to [facility] Stroke Does the patient have a stroke diagnosis?: No VTE Prior VTE?: No VTE Risk Level:: Medical - moderate - high VTE Device Contraindication: Treatment Not Indicated VTE Drug Contraindication: N/A - Med Ordered
[2024-09-18 03:14] VITALS: BP 142/80; PULSE 67; RESP 18; TEMP 37.1; O2SAT 95
[2024-09-18 06:59] LABS: Anion Gap 10 (12-20); Blood Urea Nitrogen 22 mg/dL (9-16); Calcium 8.4 mg/dL (8.4-10.2); Carbon Dioxide 29 mmol/L (22-29); Chloride 110 mmol/L (96-108); Creatinine Clr Calc Pharmacy 59.8; Estimated Glomerular Filt Rate 44; Potassium 4.1 mmol/L (3.3-5.1); Sodium 145 mmol/L (135-145)
[2024-09-18 07:42] VITALS: BP 124/59; PULSE 64; RESP 20; TEMP 37.1; O2SAT 100
[2024-09-18 08:14] LABS: Magnesium 1.8 mg/dL (1.6-2.6)
--- NOTE | 2024-09-18 08:44 | HO.POSTANES ---
Post Anesthesia Evaluation Post Anesthesia Evaluation Date of Service: 09/18/24 Vital Signs: Vital Signs Temp Pulse Resp BP Pulse Ox O2 Del Method O2 Flow Rate 09/18/24 07:42 98.8 F 64 20 124/59 L 100 Nasal Cannula 2 09/18/24 03:14 98.7 F 67 18 142/80 H 95 Nasal Cannula 2 09/17/24 23:19 99 F 62 18 116/57 L 96 Nasal Cannula 2 Anesthesia: Monitored Mental Status: Awake Pain Control: Satisfactory Nausea/Vomiting: None Hydration: Adequate Anesthesia-Related Issues: No Anes. Related Issues
[2024-09-18] MEDS: 0.9 % Sodium Chloride Flush 3 ML SYRINGE IVFLUSH (09:28)
[2024-09-18] MEDS: Sucralfate Oral Suspension 1 GM/10 ML ORAL.SUSP PO ×2 (09:28→13:15)
[2024-09-18 11:18] VITALS: BP 125/60; PULSE 70; RESP 20; TEMP 36.7; O2SAT 96
--- NOTE | 2024-09-18 11:33 | MHC.CM.PN ---
IMM 09/18/24 DELIVERED TO BEDSIDE, [facility] MEDIC[facility]AR[facility].
--- NOTE | 2024-09-18 11:41 | P.DS_ITS ---
DS: Providers Provider Date of Service: 09/18/24 Date of admission: 09/10/24 15:15 Date of discharge: 09/18/24 Primary care physician: Dennis Chavira MD Consults: 09/10/24 18:48 Consult to Nephrology Routine Consulting Provider: [facility] Reason for consultation: WANDY w/bicarb 10 Has provider been notified: Yes 09/10/24 18:51 Consult to Wound Care Routine Reason for consultation: Right lower extremity ulceration; chronic venous stasis dermatitis 09/11/24 13:17 Consult to Urology Routine Consulting Provider: [facility] Reason for consultation: Hydroneprhosis and obstructing stone 09/14/24 16:34 Consult to Gastroenterology Routine Consulting Provider: Darleen Tran Reason for consultation: Persistent nausea and retching limiting oral intake 09/15/24 19:18 Consult to Cardiology Routine Consulting Provider: [facility] Reason for consultation: 3+ long pauses while sleeping; hx of Afib; no director of counseling DS: Diagnosis Discharge Diagnosis (1) WANDY (acute kidney injury): Status: Acute (2) Gastritis: Status: Acute (3) Persistent atrial fibrillation: Status: Acute (4) Gastric ulcer: Status: Acute (5) Calculus of proximal left ureter: Status: Acute (6) Metabolic acidosis: Status: Acute (7) Pyelonephritis: Status: Acute (8) Hyponatremia: Status: Acute (9) Nocturnal hypoxemia: Status: Acute (10) Thickened endometrium: Status: Acute (11) Chronic pancreatitis: Status: Acute (12) Morbid obesity: Status: Acute DS: Summary Hospital Course Hospital Course: From the history and physical by the admitting hospitalist, JC Magana, 09/10/24: Pt is a 69-year-old female with a PMH significant for persistent AFib on Eliquis,?HFpEF, aortic stenosis, and obesity class III who presents to the ED from PCP office with complaints of upper abdominal discomfort and wretching for the past week. Has experienced increasing left leg pain that she describes as feeling like a 1000 needles for the past 2-3 weeks for which she has been taking a lot of ibuprofen, more than normal. Has a long history of intermittent heavy ibuprofen use. One week ago developed epigastric and substernal chest pain with associated nausea and retching but no clear vomiting. Has been using Pepto-Bismol to good effect. Has not been eating or drinking much as she feels nauseous every time she even looks at food or drink. No diarrhea, and no recent bowel movement in past 3-4 days. Denies recent diuretic use. No reported bleeding. Denies hematemesis or coffee-ground emesis. No melena. Of note, pt complains of chronic lower extremity pain that is improved the past few days. However, pt refuses to have her legs touched or properly examined. Is noted to have a bandage covering ulceration on right lower extremity; pt refuses to have it removed or examined at this time. In the ED pt's vitals were stable. Labs were significant for leukocytosis 12.3, sodium 129, bicarb 12, BUN 102, creatinine 3.40 (previous 0.87 on 01/25/2023), lipase 474, troponins flat at 36.2 with repeat 32.7, and VBG pH 7.16, pCO2 28, and bicarb 10. Tested negative for COVID/flu/RSV. CXR showed stable chest x-ray with cardiac enlargement. CT?of abd/pelvis showed left nephrolithiasis with 8 mm left UPJ calculus causing mild hydronephrosis; diffuse pancreatic atrophy without evidence of acute pancreatitis; and 4.6 x 3.2 cm left adnexal cystic structure. EKG demonstrated atrial fibrillation with nonspecific ST abnormalities, similar to previous. Pt was treated in the ED with IVF and started on a bicarb drip. Pt is admitted to the hospital for treatment and further evaluation of WANDY in setting of hypovolemia from reduced p.o. intake. 69-year-old female with a PMH significant for persistent AFib on Eliquis,?HFpEF, aortic stenosis, and obesity class III who presents to the ED from PCP office with complaints of upper abdominal discomfort and wretching for 1 week; admitted to the hospital for treatment and further evaluation of WANDY in setting of hypovolemia from reduced p.o. intake. Hospital course by problem: WANDY; hyponatremia; metabolic acidosis [acute] - likely due to hypovolemia and hydronephrosis; hyponatremia and acidsosi resolved and SCr improved with IV fluid resuscitation to SCr around 1.2; baseline unknown; instructed to avoid NSAIDs; will follow up with [facility] in 2 weeks acute pyelonephritis with hydronephrosis due to 8mm left UPJ stone - not septic; treated with ceftriaxone x7d and discharged on cefuroxime x3d; successive urine cultures grew pansensitive E. coli and then nitrofurantoin- resistant Proteus mirabilis. Seen by Urology; underwent left ureteral stent placement 09/13/24. Blood cultures negative. To follow up with [facility] in 4 wk. gastritis/gastric ulcers - likely due to ibuprofen use; treated with PPI. GI consulted; EGD 09/17/24 showed severe gastritis with multiple gastric ulcers; biopsies taken. Recommended PPI, famotidine at hs x14d and liquid Carafate x14d; fasting gastrin level sent and pending at time of transfer to rehabilitation; to follow up with [facility] in 2 wks. elevated lipase - CT showing chronic pancreatitis without evidence of acute pancreatitis; to follow up with [facility] as outpatient nocturnal hypoxemia/bradycardia - suspicion of CALDERON: should have outpatient sleep study left adnexal mass/thickened endometrium - CT showed 4.6 x 3.2 cm left adnexal cystic structure; pelvc US showed simple left ovarian cyst but did show abnormally thickened endometrium and will need to be seen by [facility] within 4 wk for biopsy persistent atrial fibrillation - was taking Eliquis incorrectly [5 mg daily instead of bid]; counseled. Cardiology consulted. Changed digoxin to metoprolol succinate. TTE 09/12/24: 1. Normal LV ejection fraction of 65-70% 2. Mildly dilated right ventricle with mildly reduced systolic function 3. Moderate biatrial enlargement 4. Moderate aortic stenosis 5. Upper limits of normal RV systolic pressure with mildly elevated right atrial pressures 6. Mildly dilated ascending aorta 7. No pericardial effusion To follow up with [facility] Cardiology as outpatient in 2 weeks. She was discharged to [facility] for short-term rehabilitation. Time Attestation Discharge Coordination Time (in mins): 45 Quality: Safe Use of Opioids Does Pt have an Active Cancer Diagnosis on the Problem List?: No Quality: Stroke Does the patient have a stroke diagnosis?: No Physical Exam Vital Signs: Vital Signs: Last Vital Signs Temp 98.0 F 09/18/24 11:18 Pulse 70 09/18/24 11:18 Resp 20 09/18/24 11:18 BP 125/60 09/18/24 11:18 Pulse Ox 96 09/18/24 11:18 O2 Del Method Room Air 09/18/24 11:18 O2 Flow Rate 2 09/18/24 07:42 BMI result Body Mass Index 52.4 Gen: in no acute distress HEENT: sclera anicteric, moist mucus membranes Neck: supple Lungs: clear to auscultation bilaterally Heart: irregular, systolic murmur at base Abd: soft, non-tender, non-distended Ext: no edema Skin: warm/well-perfused Neuro: alert and oriented x3, no focal findings Psych: appropriate affect DS: Data Data Completed and Pending Completed studies during hospitalization [Text1]: Laboratory Results WBC 8.8 X10*3/uL (4.8-10.8) 09/12/24 05:49 RBC 3.84 X10*6/uL (4.20-5.50) L 09/12/24 05:49 Hgb 12.0 g/dl (12.0-16.0) 09/12/24 05:49 Hct 34.2 % (37.0-47.0) L 09/12/24 05:49 MCV 89.1 fL (80.0-98.0) 09/12/24 05:49 MCH 31.3 pg (27.0-33.0) 09/12/24 05:49 MCHC 35.1 g/dl (31.0-35.0) H 09/12/24 05:49 RDW 14.8 % (11.0-16.0) 09/12/24 05:49 Plt Count 250 X10*3/uL (160-400) 09/12/24 05:49 MPV 10.1 fL (9.4-12.3) 09/12/24 05:49 Immature Gran % (Auto) 0.4 % (0.0-0.4) 09/10/24 11:52 Neut % (Auto) 89.0 % (45-73) H 09/10/24 11:52 Lymph % (Auto) 6.2 % (20-40) L 09/10/24 11:52 [place] % (Auto) 4.0 % (2-11) 09/10/24 11:52 Eos % (Auto) 0.2 % (0-4) 09/10/24 11:52 Baso % (Auto) 0.2 % (0-2) 09/10/24 11:52 Lymph # (Auto) 0.8 X10*3/uL (1.2-4.9) L 09/10/24 11:52 [place] # (Auto) 0.5 X10*3/uL (0.1-1.2) 09/10/24 11:52 Eos # (Auto) 0.0 X10*3/uL (0.0-0.4) 09/10/24 11:52 Baso # (Auto) 0.0 X10*3/uL (0.0-0.2) 09/10/24 11:52 Abs Immat Gran (auto) 0.05 X10*3/uL (0.00-0.03) H 09/10/24 11:52 Absolute Neuts (auto) 10.9 x10*3/uL (2.0-8.3) H 09/10/24 11:52 Absolute Nucleated RBC 0.000 X10*3/uL (0.0-0.012) 09/12/24 05:49 Nucleated RBC % (auto) 0.0 /100WBC (0.0-0.2) 09/12/24 05:49 Hold Purple Top SEE NOTE 09/18/24 06:12 PT 13.3 SEC (10.9-12.4) H 09/10/24 11:52 INR 1.2 (0.9-1.1) H 09/10/24 11:52 VBG pH 7.16 (7.32-7.43) L* 09/10/24 13:36 VBG pCO2 28 mmHg 09/10/24 13:36 VBG pO2 52 mmHg 09/10/24 13:36 VBG HCO3 10 mmol/L (22-26) L 09/10/24 13:36 VBG O2 Saturation 79.0 % 09/10/24 13:36 VBG Base Excess -16.4 mmol/L 09/10/24 13:36 Sodium 145 mmol/L (135-145) 09/18/24 06:13 Potassium 4.1 mmol/L (3.3-5.1) 09/18/24 06:13 Chloride 110 mmol/L (96-108) H 09/18/24 06:13 Carbon Dioxide 29 mmol/L (22-29) 09/18/24 06:13 Anion Gap 10 (12-20) L 09/18/24 06:13 BUN 22 mg/dL (9-16) H 09/18/24 06:13 Creatinine 1.22 mg/dL (0.5-1.4) 09/18/24 06:13 Estim Creat Clear Calc 59.8 09/18/24 06:13 Estimated GFR 44 09/18/24 06:13 Random Glucose 91 mg/dL (60-115) 09/18/24 06:13 Lactic Acid 1.3 mmol/L (0.5-2.0) 09/10/24 18:26 Calcium 8.4 mg/dL (8.4-10.2) 09/18/24 06:13 Magnesium 1.8 mg/dL (1.6-2.6) 09/18/24 06:13 Total Bilirubin 0.2 mg/dL (0.0-1.0) 09/10/24 11:52 AST 22 U/L (5-31) 09/10/24 11:52 ALT 8 U/L (0-31) 09/10/24 11:52 Alkaline Phosphatase 109 U/L (39-117) 09/10/24 11:52 Troponin I High Sens 32.7 ng/L (<3.5-17.0) H 09/10/24 13:30 B-Natriuretic Peptide 40 pg/mL (<100) 09/10/24 11:52 Total Protein 8.7 g/dL (6.5-8.0) H 09/10/24 11:52 Albumin 4.0 g/dL (3.5-5.0) 09/10/24 11:52 Lipase 474 U/L (8-78) H 09/10/24 11:52 Beta-Hydroxybutyrate 0.60 mmol/L (0.02-0.27) H 09/10/24 13:30 Urine Color Yellow 09/10/24 16:57 Urine Appearance Cloudy 09/10/24 16:57 Urine pH 6.0 (5.0-9.0) 09/10/24 16:57 Ur Specific [place] 1.020 (1.005-1.025) 09/10/24 16:57 Urine Protein 100 (2+) mg/dL (Neg-Trace) H 09/10/24 16:57 Urine Glucose (UA) Negative mg/dL (Negative) 09/10/24 16:57 Urine Ketones Trace mg/dL (Negative) 09/10/24 16:57 Urine Blood Small (1+) (Negative) H 09/10/24 16:57 Urine Nitrite Negative (Negative) 09/10/24 16:57 Ur Leukocyte Esterase Moderate (2+) (Negative) H 09/10/24 16:57 Urine RBC 0-2 /HPF (0-2) 09/10/24 16:57 Urine WBC >50 /HPF (0-5) H 09/10/24 16:57 Ur Squamous Epith Cells 0-2 /HPF (0-2) 09/10/24 16:57 Urine Bacteria 3+ (None Seen) 09/10/24 16:57 Hyaline Casts 3-5 /LPF (0-2) 09/10/24 16:57 Ur Random Sodium < 20.0 mmol/L 09/10/24 16:57 Ur Random Potassium 69.2 mmol/L 09/10/24 16:57 Ur Random Chloride < 20.0 mmol/L 09/10/24 16:57 Digoxin 1.0 ng/mL (0.8-2.0) 09/10/24 13:30 Ethyl Alcohol < 10 mg/dL 09/10/24 11:52 Influenza Type A (PCR) NEGATIVE (Negative) 09/10/24 11:52 Influenza Type B (PCR) NEGATIVE (Negative) 09/10/24 11:52 RSV RNA Qual (PCR) NEGATIVE (Negative) 09/10/24 11:52 SARS-CoV-2 RNA (RT-PCR) NEGATIVE (Negative) 09/10/24 11:52 Impressions Abdomen/Pelvis CT 09/10/24 13:36 IMPRESSION: 1. Left nephrolithiasis as described. 8 mm left UPJ calculus causing mild hydronephrosis. 2. Diffuse pancreatic atrophy. No peripancreatic inflammatory changes are seen to suggest acute pancreatitis. 3. 4.6 x 3.2 cm left adnexal cystic structure. Correlation with pelvic ultrasound is recommended. Electronically signed by: Dennis Gardner MD 09/10/2024 02:18 PM EDT RP Guidance Fluoroscopy 09/13/24 09:30 IMPRESSION: Fluoroscopic guidance. Electronically signed by: Elias Fink MD 09/13/2024 11:03 AM EDT RP Pending studies at discharge: Pending at discharge 09/17/24 13:26 Surgical [PTH] Routine 09/18/24: fasting gastrin level Discharge Plan Discharge Anticipated Discharge Date/Time: 09/18/24 11:19 Patient Disposition: Xfer SNF Discharge Diagnosis: acute kidney injury, metabolic acidosis, and hyponatremia acute pyelonephritis with obstructing ureteral stone gastritis/gastric ulcers chronic pancreatitis nocturnal hypoxemia thickened endometrium persistent atrial fibrillation Referrals: [facility] [Outside] - 1 Week Referral Note: SHORT TERM REHAB Thomas Waters MD [Physician, Urology] - 4 Weeks Dennis Chavira MD [Primary Care Provider, Internal Medicine] - 1 Week Marlyn Azevedo DNP, EPIC PRELUDE ANALYST- [Nurse Practitioner, Nephrology] - 2 Weeks Mitchell Greco MD [Physician, Cardiology] - 2 Weeks Lokesh Pineda MD [Physician, DIALYSIS TECHNICIAN] - 4 Weeks Darleen Tran MD [Physician, Gastroenterology] - 2 Weeks Discharge Medications: New sucralfate 100 mg/mL Suspension 1 g PO QIDACHS Qty: 600 0RF omeprazole 40 mg Capsule,Delayed Release(Dr/Ec) 40 mg PO DAILY@0630 Qty: 30 0RF famotidine 20 mg Tablet 20 mg PO BEDTIME Qty: 14 0RF cefuroxime axetil 500 mg tablet 500 mg PO BID Qty: 6 0RF metoprolol succinate 25 mg tablet extended release 24 hr 12.5 mg PO BID Qty: 30 0RF Continued Eliquis 5 mg tablet 5 mg PO BID Discontinued digoxin 125 mcg (0.125 mg) Tablet 0.125 mg PO DAILY Qty: 0 0RF ibuprofen 200 mg Tablet 200 mg PO Q6H PRN (Reason: Pain) Discharge Orders: Discharge Order (Routine); Ordered 09/18/24 Ordered By: Mary Brunson Diet: Advance to usual diet Activity on Discharge: As tolerated Stand Alone Forms: Patient Portal Discharge page Print Language: Tanzanian Care Plan Goals: recovery from acute illness Health Concerns: acute kidney injury, metabolic acidosis, and hyponatremia acute pyelonephritis with obstructing ureteral stone gastritis/gastric ulcers chronic pancreatitis nocturnal hypoxemia thickened endometrium persistent atrial fibrillation Plan of Treatment: to [facility] for short-term rehabilitation WANDY resolved; follow up with [facility] in 2 weeks take cefuroxime 500 mg twice daily for 3 days; follow up with [facility] Urology in 4 weeks take omeprazole 40 mg once daily; take sucralfate 10 mL 4x a day for 14 days plus famotidine 20 mg at bedtime for 14 days; follow up with [facility] Gastroenterology in 2 weeks outpatient sleep study; see your primary care doctor for order follow up with [facility] Gynecology in 4 weeks for endometrial biopsy continue apixaban; change digoxin to metoprolol succinate 12.5mg 2x a day; follow up with [facility] Cardiology in 2-4 weeks AVOID ibuprofen Please follow up with your primary care doctor within 1 week of discharge from rehabilitation. Return to the hospital if you experience recurrent or worsening symptoms. Assessment: See Discharge Summary.
== END 2024-09-18 15:43 | disposition skilled nursing facility (03) | DRG 660 ==
LOC: HO.ED 16:21 → HO.EDOVER 17:04 → HO.IMC 19:06
PROVIDERS: Internal Medicine; Nurse Practitioner Family; Physician Assistant Medical; Urology; Admitting Provider Student in an Organized Health Care Education/Training Program; Emergency Provider Emergency Medicine; PCP Internal Medicine Medical Oncology; Visit Provider Family Medicine
PROC: 0DJ08ZZ Inspection of Upper Intestinal Tract, Via Natural or Artificial Opening Endoscopic (ICD-10-PCS; CPT 43235; principal; 2024-09-17 12:50)
DX: N17.9 Acute kidney failure, unspecified (principal); E87.1 Hypo-osmolality and hyponatremia; I48.19 Other persistent atrial fibrillation; Z68.43 Body mass index [BMI] 50.0-59.9, adult; I50.32 Chronic diastolic (congestive) heart failure; K86.1 Other chronic pancreatitis; E87.20 Acidosis, unspecified; L97.819 Non-pressure chronic ulcer of other part of right lower leg with unspecified severity; N13.6 Pyonephrosis; T39.315A Adverse effect of propionic acid derivatives, initial encounter; Z66 Do not resuscitate; B96.20 Unspecified Escherichia coli [E. coli] as the cause of diseases classified elsewhere; I49.5 Sick sinus syndrome; I87.2 Venous insufficiency (chronic) (peripheral); E86.0 Dehydration; N83.292 Other ovarian cyst, left side; I35.0 Nonrheumatic aortic (valve) stenosis; G47.33 Obstructive sleep apnea (adult) (pediatric); T45.516A Underdosing of anticoagulants, initial encounter; E66.813 Obesity, class 3; K25.9 Gastric ulcer, unspecified as acute or chronic, without hemorrhage or perforation; Z71.3 Dietary counseling and surveillance; E86.1 Hypovolemia; Z20.822 Contact with and (suspected) exposure to COVID-19; Z79.899 Other long term (current) drug therapy
CPT/HCPCS: 36415; 71045; 74176; 76830; 76856; 80048; 80053; 80162; 80307; 81001; 81003; 82010; 82436; 82803; 82941; 83605; 83690; 83735; 83880; 84133; 84300; 84484; 85025; 85027; 85610; 87040; 87086; 87088; 87186; 87637; 88305; 88342; 93005; 93306; 97110; 97116; 97162; 99285; C1758; C1769; C2617; J0696; J1171; J2003; J2250; J2270; J2405; J2470; J2598; J2704; J3010; J7120; Q9957; Q9967

== ENCOUNTER → 2024-09-10 11:45 | Outpatient (BNV) | payer MEDICARE, SELFPAY | PROVIDERS: Admitting Provider Student in an Organized Health Care Education/Training Program; Emergency Provider Emergency Medicine; PCP Internal Medicine Medical Oncology; Visit Provider Internal Medicine Cardiovascular Disease | DX: I48.91 Unspecified atrial fibrillation (principal) | CPT/HCPCS: 93010 ==

== ENCOUNTER → 2024-09-10 11:45 | Outpatient (BNV) | payer MEDICARE, SELFPAY | PROVIDERS: Emergency Provider Emergency Medicine; PCP Internal Medicine Medical Oncology; Visit Provider Radiology Diagnostic Radiology | DX: N13.2 Hydronephrosis with renal and ureteral calculous obstruction (principal) | CPT/HCPCS: 74176 ==

== ENCOUNTER 2024-09-10 15:15 | Outpatient (BNV) | payer MEDICARE, SELFPAY | END 2024-09-12 13:00 | PROVIDERS: Admitting Provider Student in an Organized Health Care Education/Training Program; Emergency Provider Emergency Medicine; PCP Internal Medicine Medical Oncology; Visit Provider Internal Medicine Cardiovascular Disease | DX: I35.0 Nonrheumatic aortic (valve) stenosis (principal); I51.7 Cardiomegaly | CPT/HCPCS: 93306 ==

== ENCOUNTER 2024-09-10 15:15 | Outpatient (BNV) | payer MEDICARE, SELFPAY | END 2024-09-12 18:00 | PROVIDERS: Admitting Provider Student in an Organized Health Care Education/Training Program; Emergency Provider Emergency Medicine; PCP Internal Medicine Medical Oncology; Visit Provider Radiology Diagnostic Radiology | DX: N83.292 Other ovarian cyst, left side (principal) | CPT/HCPCS: 76856 ==

== ENCOUNTER → 2024-09-10 15:15 | Outpatient (BNV) | payer MEDICARE, SELFPAY | PROVIDERS: Admitting Provider Student in an Organized Health Care Education/Training Program; Emergency Provider Emergency Medicine; PCP Internal Medicine Medical Oncology; Visit Provider Urology | DX: N17.9 Acute kidney failure, unspecified (principal); N20.1 Calculus of ureter | CPT/HCPCS: 99223 ==

== ENCOUNTER → 2024-09-10 15:15 | Outpatient (BNV) | payer MEDICARE, SELFPAY | PROVIDERS: Admitting Provider Student in an Organized Health Care Education/Training Program; Emergency Provider Emergency Medicine; PCP Internal Medicine Medical Oncology; Visit Provider Internal Medicine | DX: I48.19 Other persistent atrial fibrillation (principal); I35.0 Nonrheumatic aortic (valve) stenosis; R79.89 Other specified abnormal findings of blood chemistry | CPT/HCPCS: 99223 ==

== ENCOUNTER → 2024-09-10 15:15 | Outpatient (BNV) | payer MEDICARE, SELFPAY | PROVIDERS: Admitting Provider Student in an Organized Health Care Education/Training Program; Emergency Provider Emergency Medicine; PCP Internal Medicine Medical Oncology; Visit Provider Internal Medicine Critical Care Medicine | DX: N17.9 Acute kidney failure, unspecified (principal); N20.1 Calculus of ureter; E87.20 Acidosis, unspecified | CPT/HCPCS: 99232 ==

== ENCOUNTER → 2024-09-10 15:15 | Outpatient (BNV) | payer MEDICARE, SELFPAY | PROVIDERS: Admitting Provider Student in an Organized Health Care Education/Training Program; Emergency Provider Emergency Medicine; PCP Internal Medicine Medical Oncology; Visit Provider Nurse Practitioner Family | DX: N17.9 Acute kidney failure, unspecified (principal); E87.20 Acidosis, unspecified | CPT/HCPCS: 99231; 99232 ==

== ENCOUNTER → 2024-09-10 15:15 | Outpatient (BNV) | payer MEDICARE, SELFPAY | PROVIDERS: Admitting Provider Student in an Organized Health Care Education/Training Program; Emergency Provider Emergency Medicine; PCP Internal Medicine Medical Oncology; Visit Provider Internal Medicine | DX: R63.0 Anorexia (principal); R11.2 Nausea with vomiting, unspecified; I35.0 Nonrheumatic aortic (valve) stenosis | CPT/HCPCS: 99222 ==

== ENCOUNTER → 2024-09-10 15:15 | Outpatient (BNV) | payer MEDICARE, SELFPAY | PROVIDERS: Admitting Provider Student in an Organized Health Care Education/Training Program; Emergency Provider Emergency Medicine; PCP Internal Medicine Medical Oncology; Visit Provider Student in an Organized Health Care Education/Training Program | DX: I48.91 Unspecified atrial fibrillation (principal); N17.9 Acute kidney failure, unspecified; N20.1 Calculus of ureter | CPT/HCPCS: 99223; 99232; 99233 ==

== ENCOUNTER 2024-09-25 11:22 | Outpatient (AMB) | payer MEDICARE, SELFPAY ==
--- OUTSIDE RECORDS SUMMARY | 2023-11-17 09:18 | XMS_ITS ---
Author Organization Dennis Chavira III, MD Address [address] [place] [address] [place] [address] Care Team Providers Care Fire Protection Fabricator Name Role Phone Dennis Chavira Primary Care Provider [phone] REASON FOR VISIT Letter Request Social History Sex Assigned At : Social History Observation Description Sex Assigned At Female Encounters Encounter Location Date Provider Diagnosis Dennis Chavira III, MD [address] [place] [address] [place] [address] 11/17/2023 Dennis Chavira Plan Of Treatment No Information Progress Notes * DEISIESTRADA KarmaDOB:1955 ( 68 yo F)Acc No.[id number]:11/17/2023 Patient: Karma PALM :1955 A ge:68 Y S ex:Female Address:[address] [facility] [place], [address] * true * Date: Generated for Sulyi ng/Fajonog/eTransmitting on: 0 09/25/2024 12:19 PM EDT
--- NOTE | 2024-09-25 11:23 | A.OFFVIS_ITS ---
Intake Visit Reasons: Discuss Surgical procedure Intake Note: PATIENT PRESENTS: DISCUSS SURGICAL PROCEDURE UROLOGY MEDICATIONS: NONE BLOOD THINNERS: NONE Airport Operations Specialist Required: No Accompanied by: Self / Same As Patient Allergies No Known Allergies Allergy (Verified 09/25/24 11:25) HPI Comments Details: Karma is a pleasant female. She is a patient of Dr. Chavira. She is seen for the following urologic conditions - pyelonephritis with nephrolithiasis Telemedicine Evaluation 15 min Consultation Doximity Polina Video Has indwelling stent Recommend cystoscopy, stent removal, left retrograde with ureteroscopy and laser lithotripsy Does not report prior stone Is recovering from pyelonephritis Culture positive Proteus and E coli Nephrolithiasis Initial presentation through emergency room Intervention - stent placement Imaging - CT innumerable left renal calculi measuring up to 12 mm in size. In addition, there is an 8 mm calculus at the left UPJ [facility] Medical History (Updated 09/25/24 @ 12:20 by Thomas Waters MD) Heart failure Aortic stenosis Afib Shortness of breath Leg ulcer Surgical History (Updated 09/17/24 @ 11:53 by Celine Hatfield RN) History of dental surgery No pertinent past surgical history Family History Mother No problems noted. Father No problems noted. Social History Household Members: Spouse and Family Housing: House Do you presently have visiting nurse or other home services: No Alcohol intake: former Patient Tobacco Use Status: Never used Tobacco e-Cigarette/Vaping Use: Never Used Second Hand Smoke Exposure: No service: No Review of Systems Const All systems reviewed & are unremarkable except as noted in HPI and below Reports no additional complaints Resp Reports no additional complaints GI Reports no additional complaints Reports as per HPI Musc Reports no additional complaints Physical Exam Telemedicine evaluation Appropriate responses Regular breathing rate and rhythm HEENT Head: Yes normal to inspection Ears: hearing grossly normal bilaterally Eyes General: appearance normal, both eyes and all related structures Neck Neck: Yes normal visual inspection Chest Chest palpation & inspection: normal inspection of the chest Resp Effort & Inspection: normal respiratory effort and able to speak in complete sentences Telehealth Telehealth Telehealth Platform: Living Independently Group Location of provider rendering services: practice address Location of patient: address on file Patient Identification confirmed using: Name, : Yes Telehealth method: video Patient verbally consented to treatment: Yes Patient verbally consented to billing insurance company: Yes Patient informed of any privacy concerns related to visit: Yes Minutes spent on Phone/Video with Pt.: 15 Assessment & Plan Assessment & Plan (1) Nephrolithiasis: Code(s): N20.0 - Calculus of kidney Category: Medical (2) Pyelonephritis: Code(s): N12 - Tubulo-interstitial nephritis, not specified as acute or chronic Category: Medical Plan Ureteroscopy We discussed the nature of the decision and reasonable alternatives for pe rforming ureteroscopy. Options such as medical therapy were discussed. Interventions include chemical dissolution, ESWL, ureteroscopy with laser lithotripsy and stent placement, PCNL. The relative uncertainties and benefits related to each alternate procedure were adequately discussed. General surgical risks including, but not limited to - pain, bleeding, infection, myocardial infarction, pulmonary embolus, deep vein thrombosis and cerebrovascular accident which may result in further hospitalization were discussed. Full disclosure of the procedure as well as all major risks, benefits and c omplications were discussed including but not limited to damage to the urethra, bladder and kidney infection, damage to the ureter, stent migration or malposition, scarring to the renal pelvis, remnant stone fragments, subsequent stone passage with need for secondary procedures. The overall secondary procedure rate is approximately 10-15%. The overall clearance rate is approximately 90-95%. Success of the procedure in the short-term does not necessarily guarantee that long-term success will be maintained. Suitable follow up will need to be maintained. The patient showed understanding of discussion and wishes to proceed with - cystoscopy, left stent removal, retrograde, ureteroscopy, possible lithotripsy/stone basketing and stent on the left side Patient Instructions: This note is constructed using voice recognition software. While every effort has been made to ensure accuracy appeals officer errors may have been included. Imaging studies, laboratory and physical exam results were discussed and reviewed in detail. No major barriers to patient understanding were identified. An opportunity to ask questions regarding the treatment plan was provided. All questions were answered. The patient expressed understanding and agreement with the above treatment plan. The patient is aware they should contact our office by phone for worsening of their current condition or the appearance of new urologic symptoms. Compliance is encouraged with any medications and followup testing that is ordered. It is a privilege to participate in the urologic care of your patient. If you have any questions or concerns regarding treatment for the above conditions, or other urologic issues, please do not hesitate to contact me. The office telephone contact is [phone]. Sincerely, Dr Thomas Waters MD, AN [facility] - Urology Compassionate Specialist Care for the Genitourinary System Coding Level of Care Code Tele Est Pt Level 4 (96028) Diagnoses Nephrolithiasis N20.0 Pyelonephritis N12
--- OUTSIDE RECORDS SUMMARY | 2024-09-25 12:19 | XMS_ITS | Clinical Summary ---
Author Organization [facility] Facility Address [address] [address] Care Team Providers Care Ludlow Machine Operator Name Role Phone Dennis Chavira MD Primary Care Provider [phone] Social History Tobacco Use Types Packs/Day Years [...] age to complete this topic Insurance Medicare [facility] Medicare [facility] Care Teams Ludlow Machine Operator Relationship Specialty Start Date End Date Dennis Chavira MD [address] [place] [address] [id number] [place], [place] PCP - General Medical Oncology 12/05/22
== END 2024-09-25 13:35 | disposition home or self-care (01) ==
LOC: HO.HUSH 11:22
PROVIDERS: PCP Internal Medicine Medical Oncology; Visit Provider Urology
DX: N20.0 Calculus of kidney (principal); N12 Tubulo-interstitial nephritis, not specified as acute or chronic
CPT/HCPCS: 99214

== ENCOUNTER 2024-10-30 12:23 | Outpatient (RCR) | payer MEDICARE, SELFPAY | END 2024-10-30 16:24 | disposition home or self-care (01) | LOC: HO.WCC 12:23 | PROVIDERS: PCP Internal Medicine Medical Oncology; Visit Provider Surgery Surgical Oncology | DX: I89.0 Lymphedema, not elsewhere classified (principal); E66.01 Morbid (severe) obesity due to excess calories; L30.9 Dermatitis, unspecified; I73.9 Peripheral vascular disease, unspecified; I48.20 Chronic atrial fibrillation, unspecified; I87.2 Venous insufficiency (chronic) (peripheral); Z79.01 Long term (current) use of anticoagulants | CPT/HCPCS: 99214 ==

== ENCOUNTER 2024-11-11 12:16 | Day surgery (SDC) | payer MEDICARE, SELFPAY ==
--- OUTSIDE RECORDS SUMMARY | 2023-11-17 09:18 | XMS_ITS ---
Author Organization Dennis Chavira III, MD Address [address] [place] [address] [address] [place] [address] Care Team Providers Care Airport Skilled Maintenance Supervisor Name Role Phone Dennis Chavira Primary Care Provider REASON FOR VISIT Letter Request Social History Sex Assigned At : Social History Observation Description Sex Assigned At Female Encounters Encounter Location Date Provider Diagnosis Dennis Chavira III, MD [address] [place] [address] [place] [address] 11/17/2023 Dennis Chavira Plan Of Treatment Next Appt Details Provider Name:Dennis Chavira, 11/13/2024 11:15:00 AM, [address] [place] [address] [place], [address], Progress Notes * Karma YEEDOB:1955 ( 68 yo F)Acc No.[id number]:11/17/2023 Patient: Karma PALM :1955 A ge:68 Y S ex:Female Address:[address] [facility] [place] [phone] * true * Date: Generated for Sulyi emiliano/Frieda/eTransmitting on: 0 10/28/2024 09:02 PM EDT
--- OUTSIDE RECORDS SUMMARY | 2024-09-10 06:45 | XMS_ITS ---
Author Organization Dennis Chavira III, MD Address [address] [address] Care Team Providers Care Tank Calibrator Name Role Phone Dennis Chavira Primary Care Provider Allergies Allergen (clinical drug ingredient) Drug/Non Drug [...] Problem Status W/U Status Risk Notes Problem [id number] Acute dehydration (E86.0) Active confirmed She was extremely weak and has lost a great deal weight and cannot keep down food and fluids. She has been successfully transferred to the emergency room for urgent treatment. Problem 063509546 Lymphedema (I89.0) Active confirmed She has severe [...] Date Provider Diagnosis Dennis Chavira III, MD [address] [place] [address] [place] [address] 09/10/2024 Dennis Chavira Acute dehydration E8 6.0 [...] I48.0) Her heart rate is controlled today. Mercerizing Range Feeder has given her digoxin which is causing [...] Up: 2 Weeks, Reason: ov Provider Name:Dennis Chavira, 11/13/2024 11:15:00 AM, [address] [place] [address] J[address], [place], [address], Progress Notes * Karma YEEDOB:1955 ( 69 yo F)Acc No.[id number]:09/10/2024 Progress Notes Patient: Karma PALM Provider: Lalo Chavira MD :1955 A ge:69 Y S ex:Female Date:09/10/2024 Address:[address] [place] [address] [facility] Subjective: * Chief Complaints: * W eaknessShortness [...] taken directly to the emergency room at [facility] for her lipase was over 400 [...] n onsmoker S he was born in [place], [place]. She retired last July. From the [employer]. She was to her in 1974. They have 1 daughter, Clarissa. She doess not smoke tobacco or drink alcohol. She has no zoroastrianism objection to blood transfusion. * Medications: T [...] Examination: G eneral Examination: GENERAL APPEARANCE: p christine, well nourished, well developed, in no acute [...] otes :Her heart rate is controlled today. Mercerizing Range Feeder has given her digoxin which is causing [...] 0 09/10/2024 Generated for Girma cummings/Frieda/Susy on: 0 10/28/2024 09:03 PM EDT History and Physical Notes * [...]
--- OUTSIDE RECORDS SUMMARY | 2024-09-26 06:46 | XMS_ITS ---
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) Referral Organization Dennis Chavira III, MD Referring Provider First Name Dennis Referring Provider Last Name Cait Referring Provider Speciality Internal M edicine Referred Provider Philippe Childers Referred Provider Specialty Gynecology ( Osteopaths only) General Notes Radha Van 09/26/2024 10:58:17 AM > Referral faxed with last progress note, CT Abd and pelvis no contrast and US pelvis doppler., Jagdish Roberto 10/11/2024 11:44:12 AM >As per patient [facility] COAL GETTER does not perform the procedure for the diagnostic problem., Radha Van 10/11/2024 01:08:43 PM > referral has been changed and updated to [facility] COAL GETTER, referral and attachments faxed Referral Priority Routine REASON FOR VISIT COAL GETTER Referral Social History Sex Assigned At : Social History Observation Description Sex Assigned At Female Encounters Encounter Location Date Provider Diagnosis Dennis Chavira III, MD [address] [place] [address] [place] [address] 09/26/2024 Dennis Chavira Plan Of Treatment Referrals Referral Date Details 09/26/2024 09/26/2024, Evaluate and Treat Abnormal Thickened Endrometrium, [facility] Next Appt Details Provider Name:Dennis Chavira, 11/13/2024 11:15:00 AM, [address] [place] [address] [address], [place], [address], Progress Notes * Karma YEEDOB:1955 ( 69 yo F)Acc No.[id number]:09/26/2024 Patient: Karma PALM :1955 A ge:69 Y S ex:Female Address:[address] [place] [address] [place], [address] Subjective: * Chief Complaints: * G YN Referral * Medical History: * Surgical History: * Hospitalization/Major Diagno stic Procedure: * Medications: Objective: * Vitals: * Physical Examination: Assessment: Plan: * Treatment: * Procedure Codes: * true * Date: Generated for Printi ng/Frieda/eTransmitting on: 0 10/28/2024 09:02 PM EDT Consultation Request Notes Referral Date Referring Provider Referred Provider Not chance 09/26/2024 [facility] Evaluate and Treat Abnormal Thickened Endrometrium
--- OUTSIDE RECORDS SUMMARY | 2024-10-17 07:25 | XMS_ITS ---
Author Organization Dennis Chavira III, MD Address [address] [place] [address] [address] [place] [address] Care Team Providers Care Fur Storage Clerk Name Role Phone Dennis Chavira Primary Care Provider REASON FOR VISIT Verbal Orders Social History Sex Assigned At : Social History Observation Description Sex Assigned At Female Encounters Encounter Location Date Provider Diagnosis Dnenis Chavira III, MD [address] [place] [address] [place] [address] 10/17/2024 Dennis Chavira Plan Of Treatment Next Appt Details Provider Name:Dennis Chavira, 11/13/2024 11:15:00 AM, [address] [place] [address] [place], [address], Progress Notes * Karma YEEDOB:1955 ( 69 yo F)Acc No.[id number]:10/17/2024 Patient: Karma PALM :1955 A ge:69 Y S ex:Female [address] [facility] [place], [address] * true * Date: Generated for Sulyi emiliano/Fajerri/eTransmitting on: 0 10/28/2024 09:02 PM EDT
--- OUTSIDE RECORDS SUMMARY | 2024-10-18 07:00 | XMS_ITS ---
Author Organization Dennis Chavira III, MD Address [address] [place] [address] Care Team Providers Care Customs Manager Name Role Phone Dennis Chavira Primary Care Provider [phone] Allergies Allergen (clinical drug ingredient) Drug/Non Drug [...] Provider Speciality Internal M edicine Referred Organization [facility] patricia Referred Provider [facility], Wound Care Center Referred Address [address] [place] [phone], Referred Provider Specialty Unknown General Notes DRadha 10/21/2024 10:45:13 AM > Faxed referral, progress note and valerie.Carlota Amber 10/22/2024 10:48:41 AM > Called [facility] and left message regarding referral. [...] Date Provider Diagnosis Dennis Chavira III, MD [address] [place] [address] [place] [address] 10/18/2024 Dennis Chavira Morbid (severe) obes ity [...] acidosis (ICD-10 - E87.21) Upon admission to hosptal. She was septic and acidotic and hypokalemic. [...] lymphedema on right leg, Wound Care Center [facility], [address] [place] [address], [place], [place], [phone], Next Appt Details Follow Up: 4 Weeks, Reason: OV Provider Name:Dennis Chavira, 11/13/2024 11:15:00 AM, [address] [place] [address] [address], [place], [address], Progress Notes * Karma YEEDOB:1955 ( 69 yo F)Acc No.[id number]:10/18/2024 Patient: Karma PALM Provider: Lalo Chavira MD :1955 A ge:69 Y S ex:Female Date:10/18/2024 Address:[address] [place], [place] [id number] Subjective: * Chief Complaints: * C ellulitis [...] stabilized. She was then transferred to the [facility] in [facility] from which she was discharged yesterday. She [...] n onsmoker S he was born in [place], [place]. She retired last July. From the [employer]. She was to her in 1974. They have 1 daughter, Clarissa. She doess not smoke tobacco or drink alcohol. She has no jehovah's witness objection to blood transfusion. * Medications: T [...] 2. L ymphedema Referral To:Wound Care Center [facility] Unknown Reason:Urgent Appointment Request Evaluate and Treat [...] MD Date: 0 10/18/2024 Generated for Girma cummings/Frieda/Ceeitting on: 0 10/28/2024 09:03 PM EDT History [...] Referral Date Referring Provider Referred Provider Not es 10/18/2024 Dennis Chavira [facility], Wound Care Center Urgent Appointment Request Evaluate and Treat Massive lymphedema on right leg
--- OUTSIDE RECORDS SUMMARY | 2024-10-28 21:02 | XMS_ITS | Clinical Summary ---
Author Organization [facility] Facility Address [address] [address] Care Team Providers Care Platform Software Engineer Name Role Phone Dennis Chavira MD Primary Care Provider [phone] Social History Tobacco Use Types Packs/Day Years [...] age to complete this topic Insurance Medicare [facility] Medicare [facility] Care Teams Platform Software Engineer Relationship Specialty Start Date End Date Dennis Chavira MD [address] [place] [address] [id number] [place], [place] PCP - General Medical Oncology 12/05/22
--- OUTSIDE RECORDS SUMMARY | 2024-10-28 21:04 | XMS_ITS | Patient Health Record ---
Author Organization Dennis Chavira III, MD Address [address] [place] [address] Care Team Providers Care Therapist Rrt Name Role Phone Dennis Chavira Primary Care Provider [phone] Allergies Allergen (clinical drug ingredient) Drug/Non Drug Allergy documented on EMR Reaction Allergy Type Onset Date Status No Known Drug Allergy Unknown Drug Allergy Active Results Component Value Reference Range Notes Complete Blood Count Auto Di ff Reviewed date:09/11/2024 05:44:45 AM Interpretation: Performing Lab:[facility], [address] [place] [phone] Notes/Report: White Blood Count 12.3 4.8-10.8 X10*3/uL Red Blood Count 4.64 4.20-5.50 X10*6/uL Hemoglobin 14.4 12.0-16.0 g/dl Hematocrit 41.9 37.0-47.0 % Mean Corpuscular Volume 90.3 80.0-98.0 fL Mean Corpuscular Hemoglobin 31.0 27.0-33.0 pg Mean Corpuscular HGB Conc 34.4 31.0-35.0 g/dl Red Cell Distribution Width 14.9 11.0-16.0 % Platelet Count 325 160-400 X10*3/uL Mean Platelet Volume 10.1 9.4-12.3 fL Neutrophils Percent Auto 89.0 45-73 % Imm Gran Pct Auto 0.4 0.0-0.4 % Lymphocytes Percent Auto 6.2 20-40 % Monocytes Percent Auto 4.0 2-11 % Eosinophils Percent Auto 0.2 0-4 % Basophils Percent Auto 0.2 0-2 % NRBC Pct Auto 0.0 0.0-0.2 /100WBC Neutrophils Absolute Auto 10.9 2.0-8.3 x10*3/uL Imm Gran Abs Auto 0.05 0.00-0.03 X10*3/uL Lymphocytes Absolute Auto 0.8 1.2-4.9 X10*3/uL Monocytes Absolute Auto 0.5 0.1-1.2 X10*3/uL Eosinophils Absolute Auto 0.0 0.0-0.4 X10*3/uL Basophils Absolute Auto 0.0 0.0-0.2 X10*3/uL NRBC Abs Auto 0.000 0.0-0.012 X10*3/uL Prothrombin Time INR Reviewed date:09/11/2024 05:44:45 AM Interpretation: Performing Lab:[address] [address] Notes/Report: Prothrombin Time 13.3 10.9-12.4 SEC INTERNATIONAL NORM RATIO 1.2 0.9-1.1 INTERNATIONAL NORMALIZED RATIO (INR) REFERENCE RANGES Reference Range For patients not on anticoagulant therapy: 0.9 - 1.1 INR ranges for oral anticoagulant therapy: For prevention and treatment of venous thrombosis and pulmonary embolism: 2.0 - 3.0 For acute myocardial infarction with aspirin therapy: 2.0 - 3.0 For acute myocardial infarction without aspirin therapy: 3.0 - 4.0 For patients with mechanical prosthetic heart valves: 2.5 - 3.5 Comprehensive Met. Panel Reviewed date:09/11/2024 05:44:45 AM Interpretation: Performing Lab:[address] [address] Notes/Report: Sodium 129 135-145 mmol/L Potassium 4.3 3.3-5.1 mmol/L Chloride 104 96-108 mmol/L Carbon Dioxide 12 22-29 mmol/L Anion Gap 17 12-20 Blood Urea Nitrogen 102 9-16 mg/dL Creatinine 3.40 0.5-1.4 mg/dL Creatinine Clr Calc Pharmacy 21.2 Provided height and weight: 162.56 cm, 136.078 kg. eGFR (calculated from the MDRD study equation) and eCrCl (calculated from the Cockcroft-Gault equation) are based on different parameters and may not yield comparable results. If eCrCl result is absurd, please check patient's height/weight. Estimated Glomerular Filt Rate 13 Chronic Kidney Disease: Estimated GFR < 60 mL/min/1.73m2 Severe Kidney Disease: Estimated GFR < 15 mL/min/1.73m2 Glucose Random 111 60-115 mg/dL Calcium 9.0 8.4-10.2 mg/dL Bilirubin Total 0.2 0.0-1.0 mg/dL Aspartate Amino Transferase 22 5-31 U/L Alanine Aminotransferase 8 0-31 U/L Total Protein 8.7 6.5-8.0 g/dL Albumin Level 4.0 3.5-5.0 g/dL Alkaline Phosphatase 109 39-117 U/L Lactic Acid Reviewed date:09/11/2024 05:44:45 AM Interpretation: Performing Lab:[facility], [address] [place] [phone] Notes/Report: Lactic Acid 1.3 0.5-2.0 mmol/L Magnesium Reviewed date:09/11/2024 05:44:45 AM Interpretation: Performing Lab:[facility], [address] [place] [phone] Notes/Report: Magnesium 2.7 1.6-2.6 mg/dL Troponin-I High Sensitivity Reviewed date:09/11/2024 05:44:45 AM Interpretation: Performing Lab:[facility], [address] [place] [phone] Notes/Report: Troponin-I High Sensitivity 36.2 <3.5-17.0 ng/L The Lisa high sensitivity Troponin-I results should be used in conjunction with other diagnostic information such as ECG, clinical observations and information, and patient symptoms to aid in the diagnosis of OH. B Type Natriuretic Peptide Reviewed date:09/11/2024 05:44:45 AM Interpretation: Performing Lab:[address] [address] Notes/Report: B Type Natriuretic Peptide 40 <100 pg/mL Lipase Reviewed date:09/11/2024 05:44:45 AM Interpretation: Performing Lab:[address] [address] Notes/Report: Lipase 474 8-78 U/L Electrolytes Urine Reviewed date:09/11/2024 05:44:45 AM Interpretation: Performing Lab:[address] [address] Notes/Report: Chloride Urine Random < 20.0 Sodium Urine Random < 20.0 Potassium Urine Random 69.2 Digoxin Reviewed date:09/11/2024 05:44:45 AM Interpretation: Performing Lab:[address] [address] Notes/Report: Digoxin 1.0 0.8-2.0 ng/mL Assay modified to minimize interference from aldosterone antagonists (e.g. spironolactone and canrenone). Ethanol Reviewed date:09/11/2024 05:44:45 AM Interpretation: Performing Lab:[address] [address] Notes/Report: Ethanol < 10 Serum/plasma ethanol results are to be used for medical/treatment purposes only. Urine Culture Reviewed date:09/12/2024 08:13:27 PM Interpretation: Performing Lab:[address] [address] Notes/Report: O:ESCCOL Escherichia coli Urine Culture Quant Urine Culture > 100,000 cfu/mL Ampicillin 4 Cefazolin (Urine) <=1 Cefepime <=0.12 Ceftriaxone <=0.25 Ciprofloxacin <=0.06 Gentamicin <=1 Nitrofurantoin <=16 Trimethoprim/Sulfametho xazole <=20 SARS-CoV2/FLU/RSV Reviewed date:09/11/2024 05:44:45 AM Interpretation: Performing Lab:[address] [address] Notes/Report: Influenza A PCR NEGATIVE Negative Influenza B PCR NEGATIVE Negative Resp Syncy Virus RNA Qual PCR NEGATIVE Negative SARS COV2 PCR INHOUSE NEGATIVE Negative All test results must be correlated with clinical findings. Negative results do not preclude SARS-CoV2, influenza A virus, influenza B virus and/or RSV infection and should not be used as the sole basis for treatment or other patient management decisions. Negative results must be combined with clinical observations, patient history, and epidemiological information. This test has not been evaluated for monitoring treatment of infection. This test has been authorized by the FDA under an Emergency Use Authorization (EUA) for use by authorized laboratories. Testing performed on the batterii GeneXpert utilizing real-time RT-PCR. All SARS CoV2 and positive influenza A/B results are reported to [facility]. Blood Culture (First) Reviewed date:09/16/2024 04:12:37 PM Interpretation: Performing Lab:[address] [address] Notes/Report: Blood Culture (First) No growth after 5 days. Blood Culture (Second) Reviewed date:09/16/2024 04:12:37 PM Interpretation: Performing Lab:[facility], [address] [place] [phone] Notes/Report: Blood Culture (Second) No growth after 5 days. UA ClnCatch+Micro w/rflx Cul t Reviewed date:09/11/2024 05:44:45 AM Interpretation: Performing Lab:[address] [address] Notes/Report: Urine, Catheterized Color Urine Yellow Appearance Urine Cloudy PH 6.0 5.0-9.0 Glucose Urine UA Negative Negative mg/dL Urine Blood Small (1+) Negative Specific [place] - Urine 1.020 1.005-1.025 Urine Protein 100 (2+) Neg-Trace mg/dL Urine Ketones Trace Negative mg/dL Nitrite Urine Negative Negative Leukocyte Esterase Urine Moderate (2+) Negative RBC Urine 0-2 0-2 /HPF WBC Urine >50 0-5 /HPF Squamous Epithelial Cell Urine 0-2 0-2 /HPF Bacteria Urine 3+ None Seen Hyaline Casts Urine 3-5 0-2 /LPF Venous Blood Gases - POC Reviewed date:09/11/2024 05:44:45 AM Interpretation: Performing Lab:[address] [address] Notes/Report: VBG pH 7.16 7.32-7.43 METER #: [id number] additional_comment: Cb n-ev ctrbb kort VBG pCO2 28 METER #: [id number] additional_comment: Cb n-ev ctrbb kort VBG pO2 52 METER #: [id number] additional_comment: Cb n-ev ctrbb kort VBG Base Excess -16.4 METER #: [id number] additional_comment: Cb n-ev ctrbb kort VBG HCO3 10 22-26 mmol/L METER #: [id number] additional_comment: Cb n-ev ctrbb kort VBG O2 % Saturation 79.0 METER #: [id number] additional_comment: Cb n-ev ctrbb kort Beta-Hydroxybutyrate Reviewed date:09/11/2024 05:44:45 AM Interpretation: Performing Lab:[facility], [address] [place] [phone] Notes/Report: Beta-Hydroxybutyrate 0.60 0.02-0.27 mmol/L CT abdomen pelvis wo con Reviewed date:09/11/2024 05:44:45 AM Interpretation: Performing Lab: Notes/Report: [address] [place] [address] CT Scan Report Signed Patient: Karma Yee MR#: [id number] 0 : 1955 Acct:[id number] Age/Sex: 69 / F ADM Date: 09/10/24 Loc: HO.ED Attending Dr: Ordering Physician: Mau Smith MD Date of Service: 09/10/24 Procedure(s): CT abdomen pelvis wo IV con Accession Number(s): [id number] cc: Dennis Chavira MD; Mau Smith MD Report Number: [id number]: Total DLP = 1161.00 mGy-cm EXAMINATION: CT ABDOMEN PELVIS WITHOUT IV CONTRAST HISTORY: renal failure, elevated lipase COMPARISON: Correlation is made with a renal ultrasound dated 12/02/2022. TECHNIQUE: CT scan of the abdomen and pelvis was performed without contrast using standard departmental protocol. Coronal and sagittal reformatted images were generated and reviewed. Oral contrast material was not administered per department protocol. This CT exam was performed with one or more of the following dose reduction techniques: automated exposure control, adjustment of the mA and/or kV according to patient size, use of iterative reconstruction technique. DLP: 1161 mGy-cm FINDINGS: LOWER CHEST: The visualized lung bases are clear. There is no pleural effusion. CARDIOVASCULATURE: The heart is normal in size. There is no pericardial effusion. LIVER: The liver is normal in size and contour. The liver has an unremarkable unenhanced appearance. GALLBLADDER / BILE DUCTS: The gallbladder is unremarkable. There is no intra or extrahepatic biliary ductal dilatation. SPLEEN: The spleen is normal in size and has an unremarkable unenhanced appearance. PANCREAS: The pancreas is atrophic. No peripancreatic inflammatory changes are seen suggest acute pancreatitis. ADRENAL GLANDS: Unremarkable. KIDNEYS/RETROPERITONEUM: No right renal calculi are identified. There are innumerable left renal calculi measuring up to 12 mm in size. In addition, there is an 8 mm calculus at the left UPJ. There is mild hydronephrosis. LYMPH NODES: No retroperitoneal lymphadenopathy is identified in the abdomen or pelvis. VASCULATURE: The abdominal aorta demonstrates atherosclerotic calcification, but is normal in caliber. MESENTERY/PERITONEUM: No free fluid. No masses. There is no free intraperitoneal gas. STOMACH: The stomach is unremarkable. SMALL BOWEL: The small bowel is normal in caliber. COLON: The colon is unremarkable. APPENDIX: The appendix is not seen, however no inflammatory changes are seen adjacent to the cecum. URINARY BLADDER/PELVIC ORGANS: The urinary bladder is collapsed, limiting evaluation. The uterus and right ovary have an unremarkable unenhanced appearance. There is a 4.6 x 3.2 cm left adnexal cystic structure. BONES / SOFT TISSUES: There is a fat-containing umbilical hernia. There is severe degenerative disc disease of the spine. CT/CT abdomen pelvis wo IV con IMPRESSION: 1. Left nephrolithiasis as described. 8 mm left UPJ calculus causing mild hydronephrosis. 2. Diffuse pancreatic atrophy. No peripancreatic inflammatory changes are seen to suggest acute pancreatitis. 3. 4.6 x 3.2 cm left adnexal cystic structure. Correlation with pelvic ultrasound is recommended. Electronically signed by: Dennis Gardner MD 09/10/2024 02:18 PM EDT Dictated By: Dennis Gardner MD Signed By: <Electronically signed by Dennis Gardner MD in OV> 09/10/24 1418 DD/ 1336 TD/TT: 09/10/24 1410 [facility]: [address] [address] [address] Scan Report Signed Patient: Karma Yee MR#: [id number] 0 : 1955 Acct:[id number] Age/Sex: 69 / F ADM Date: 09/10/24 Loc: HO.ED Attending Dr: Ordering Physician: Mau Smith MD Date of Service: 09/10/24 Procedure(s): CT abd omen pelvis wo IV con Accession Number(s): [id number] cc: Dennis Chavira MD; Mau Smith MD Report Number: [id number]: Total DLP = 1161.00 mGy-cm EXAMINATION: CT ABDO MEN PELVIS WITHOUT IV CONTRAST HISTORY: renal failu re, elevated lipase COMPARISON: Correlat ion is made with a renal ultrasound dated 12/02/2022. TECHNIQUE: CT scan o f the abdomen and pelvis was performed without contrast using stand zehra departmental protocol. Coronal and sagittal reformatted images w ere generated and reviewed. Oral contrast material was not administered per department protocol. This CT exam was per formed with one or more of the following dose reduction techniques : automated exposure control, adjustment of the mA and/or kV according to patient size, use of iterative reconstruction technique. DLP: 1161 mGy-cm FINDINGS: LOWER CHEST: The visualized lung bases are clear. There is no pleural effusion. CARDIOVASCULATURE: T he heart is normal in size. There is no pericardial effusion. LIVER: The liver is normal in size and contour. The liver has an unremarkable unenhan rehana appearance. GALLBLADDER / BILE D UCTS: The gallbladder is unremarkable. There is no intra or extrahepati c biliary ductal dilatation. SPLEEN: The spleen i s normal in size and has an unremarkable unenhanced appearance. PANCREAS: The pancre as is atrophic. No peripancreatic inflammatory changes are seen sug gest acute pancreatitis. ADRENAL GLANDS: Unremarkable. KIDNEYS/RETROPERITON EUM: No right renal calculi are identified. There are innumerable left renal calculi measuring up to 12 mm in size. In addition, there is a n 8 mm calculus at the left UPJ. There is mild hydronephrosis. LYMPH NODES: No retroperitoneal lymphadenopathy is identified in the abdomen or pelvis. VASCULATURE: The abd ominal aorta demonstrates atherosclerotic calcification, but i s normal in caliber. MESENTERY/PERITONEUM : No free fluid. No masses. There is no free intraperitoneal gas. STOMACH: The stomach is unremarkable. SMALL BOWEL: The sma ll bowel is normal in caliber. COLON: The colon is unremarkable. APPENDIX: The append ix is not seen, however no inflammatory changes are seen adjacent to the cecum. URINARY BLADDER/PELV IC ORGANS: The urinary bladder is collapsed, limiting evaluation. The uterus and right ovary have an unremarkable unenhanced appearanc e. There is a 4.6 x 3.2 cm left adnexal cystic structure. BONES / SOFT TISSUES : There is a fat-containing umbilical hernia. There is severe degenerative disc disease of the spine. _ C T/CT abdomen pelvis wo IV con IMPRESSION: 1. Left nephrolithia sis as described. 8 mm left UPJ calculus causing mild hydronephrosis. 2. Diffuse pancreati c atrophy. No peripancreatic inflammatory changes are seen to suggest acute pancreatitis. 3. 4.6 x 3.2 cm left adnexal cystic structure. Correlation with pelvic ultrasound is recommended. Electronically marcio d by: Dennis Gardner MD 09/10/2024 02:18 PM EDT RP Dictated By: Dennis Gardner MD Signed By: <Electron ically signed by Dennis Gardner MD in OV> 09/10/24 1418 DD/ 1336 TD/TT: 09/10/24 1410 [place] [facility]: XR chest 1V Reviewed date:09/11/2024 05:44:45 AM Interpretation: Performing Lab: Notes/Report: [address] [address] XRay Report Signed Patient: Karma Yee MR#: [id number] 0 : 1955 Acct:[id number] Age/Sex: 69 / F ADM Date: 09/10/24 Loc: HO.ED Attending Dr: Ordering Physician: Racheal Bruce CNP Date of Service: 09/10/24 Procedure(s): XR chest 1V Accession Number(s): [id number] cc: Racheal Bruce CNP; Dennis Chavira MD EXAMINATION: XR CHEST CLINICAL INFORMATION: dyspnea on exertion COMPARISON: December 01, 2022 TECHNIQUE: Frontal view of the chest was obtained. FINDINGS: There is enlargement of the cardiac silhouette. Lungs are clear and unchanged. XR/XR chest 1V IMPRESSION: Stable chest x-ray with cardiac enlargement. Electronically signed by: Rickie Cline MD 09/10/2024 12:50 PM EDT RP Dictated By: Rickie Cline MD Signed By: <Electronically signed by Rickie Cline MD in OV> 09/10/24 1250 DD/ 1148 TD/TT: 09/10/24 1247 [place] [facility]: [place] [address] XRay Report Signed Patient: Karma Yee MR#: [id number] 0 : 1955 Acct:[id number] Age/Sex: 69 / F ADM Date: 09/10/24 Loc: .ED Attending Dr: Ordering Physician: Racheal Bruce CNP Date of Service: 09/10/24 Procedure(s): XR chest 1V Accession Number(s): [id number] cc: Racheal Bruce CNP; Dennis Chavira MD EXAMINATION: XR CHEST CLINICAL INFORMATION: dyspnea on exertion COMPARISON: December 01, 2022 TECHNIQUE: Frontal view of the chest was obtained. FINDINGS: There is enlargement of the cardiac silhouette. Lungs are clear and unchanged. X R/XR chest 1V IMPRESSION: Stable chest x-ray w ith cardiac enlargement. Electronically marcio d by: Rickie Cline MD 09/10/2024 12:50 PM EDT RP Dictated By: Rickie Cline MD Signed By: <Electronically signed by Rickie Cline MD in OV> 09/10/24 1250 DD/ 1148 TD/TT: 09/10/24 1247 [place]: Troponin-I High Sensitivity Reviewed date:09/11/2024 05:44:45 AM Interpretation: Performing Lab:[facility], [address] [place] [phone] Notes/Report: Troponin-I High Sensitivity 32.7 <3.5-17.0 ng/L The Lisa high sensitivity Troponin-I results should be used in conjunction with other diagnostic information such as ECG, clinical observations and information, and patient symptoms to aid in the diagnosis of OH. Complete Blood Count no Diff Reviewed date:09/11/2024 09:17:23 AM Interpretation: Performing Lab:[facility], [address] [place] [phone] Notes/Report: White Blood Count 8.2 4.8-10.8 X10*3/uL Red Blood Count 4.12 4.20-5.50 X10*6/uL Hemoglobin 12.8 12.0-16.0 g/dl Hematocrit 37.4 37.0-47.0 % Mean Corpuscular Volume 90.8 80.0-98.0 fL Mean Corpuscular Hemoglobin 31.1 27.0-33.0 pg Mean Corpuscular HGB Conc 34.2 31.0-35.0 g/dl Red Cell Distribution Width 14.7 11.0-16.0 % Platelet Count 250 160-400 X10*3/uL Mean Platelet Volume 9.7 9.4-12.3 fL NRBC Pct Auto 0.0 0.0-0.2 /100WBC NRBC Abs Auto 0.000 0.0-0.012 X10*3/uL Basic Metabolic Panel Reviewed date:09/11/2024 09:17:23 AM Interpretation: Performing Lab:[facility], [address] [place] [phone] Notes/Report: Sodium 135 135-145 mmol/L Potassium 4.3 3.3-5.1 mmol/L Chloride 106 96-108 mmol/L Carbon Dioxide 18 22-29 mmol/L Anion Gap 15 12-20 Blood Urea Nitrogen 96 9-16 mg/dL Creatinine 2.59 0.5-1.4 mg/dL Creatinine Clr Calc Pharmacy 28.1 Provided height and weight: 162.56 cm, 138.6 kg. eGFR (calculated from the MDRD study equation) and eCrCl (calculated from the Cockcroft-Gault equation) are based on different parameters and may not yield comparable results. If eCrCl result is absurd, please check patient's height/weight. Estimated Glomerular Filt Rate 18 Chronic Kidney Disease: Estimated GFR < 60 mL/min/1.73m2 Severe Kidney Disease: Estimated GFR < 15 mL/min/1.73m2 Glucose Random 94 60-115 mg/dL Calcium 8.5 8.4-10.2 mg/dL Complete Blood Count no Diff Reviewed date:09/12/2024 08:13:27 PM Interpretation: Performing Lab:[facility], [address] [place] [phone] Notes/Report: White Blood Count 8.3 4.8-10.8 X10*3/uL Red Blood Count 4.05 4.20-5.50 X10*6/uL Hemoglobin 12.4 12.0-16.0 g/dl Hematocrit 36.4 37.0-47.0 % Mean Corpuscular Volume 89.9 80.0-98.0 fL Mean Corpuscular Hemoglobin 30.6 27.0-33.0 pg Mean Corpuscular HGB Conc 34.1 31.0-35.0 g/dl Red Cell Distribution Width 14.6 11.0-16.0 % Platelet Count 251 160-400 X10*3/uL Mean Platelet Volume 9.7 9.4-12.3 fL NRBC Pct Auto 0.0 0.0-0.2 /100WBC NRBC Abs Auto 0.000 0.0-0.012 X10*3/uL Complete Blood Count no Diff Reviewed date:09/12/2024 08:13:27 PM Interpretation: Performing Lab:[facility], [address] [place] [phone] Notes/Report: White Blood Count 8.8 4.8-10.8 X10*3/uL Red Blood Count 3.84 4.20-5.50 X10*6/uL Hemoglobin 12.0 12.0-16.0 g/dl Hematocrit 34.2 37.0-47.0 % Mean Corpuscular Volume 89.1 80.0-98.0 fL Mean Corpuscular Hemoglobin 31.3 27.0-33.0 pg Mean Corpuscular HGB Conc 35.1 31.0-35.0 g/dl Red Cell Distribution Width 14.8 11.0-16.0 % Platelet Count 250 160-400 X10*3/uL Mean Platelet Volume 10.1 9.4-12.3 fL NRBC Pct Auto 0.0 0.0-0.2 /100WBC NRBC Abs Auto 0.000 0.0-0.012 X10*3/uL Basic Metabolic Panel Reviewed date:09/12/2024 08:13:27 PM Interpretation: Performing Lab:[facility], [address] [place] [phone] Notes/Report: Sodium 136 135-145 mmol/L Potassium 4.2 3.3-5.1 mmol/L Mild Hemolysis.Interpret result with caution Chloride 104 96-108 mmol/L Carbon Dioxide 22 22-29 mmol/L Anion Gap 14 12-20 Blood Urea Nitrogen 72 9-16 mg/dL Creatinine 1.96 0.5-1.4 mg/dL Creatinine Clr Calc Pharmacy 37.1 Provided height and weight: 162.56 cm, 138.6 kg. eGFR (calculated from the MDRD study equation) and eCrCl (calculated from the Cockcroft-Gault equation) are based on different parameters and may not yield comparable results. If eCrCl result is absurd, please check patient's height/weight. Estimated Glomerular Filt Rate 25 Chronic Kidney Disease: Estimated GFR < 60 mL/min/1.73m2 Severe Kidney Disease: Estimated GFR < 15 mL/min/1.73m2 Glucose Random 97 60-115 mg/dL Calcium 8.6 8.4-10.2 mg/dL US pelvic complete Reviewed date:10/15/2024 05:04:28 AM Interpretation: Performing Lab: Notes/Report: [address] [address] Ultrasound Report Signed Patient: Karma Yee MR#: [id number] 0 : 1955 Acct:[id number] Age/Sex: 69 / F ADM Date: 09/10/24 Loc: [facility] 469-[address]: Mary Brunson MD Ordering Physician: Johnie Arango Date of Service: 09/12/24 Procedure(s): US pelvic complete Accession Number(s): [id number] cc: Johnie Arango; Dennis Chavira MD CLINICAL HISTORY: Left adnexal cyst US PELVIS TRANSABDOMINAL WITH DOPPLER Comparison: CT/SR - CT ABDOMEN PELVIS WITHOUT IV CONTRAST - 09/10/24 13:36 EDT Findings: Transabdominal scanning performed with Doppler. Anteverted uterus measures 9.2 cm in length. Normal myometrium. Endometrium measures 1.8 cm. The right ovary is not well-visualized. Left ovary 3.9 x 4.0 x 4.0 cm. There is a 2.8 x 3.9 x 3.1 cm simple cyst. Normal color Doppler with arterial/venous spectral tracing of the left ovary. No free fluid. IMPRESSION: 1. 3.9 cm simple cyst in the left ovary. No torsion. 2. Nonvisualization of the right ovary. 3. Abnormally thickened endometrium for age. Recommend clinical correlation. Endometrial hyperplasia, carcinoma, inflammation or tamoxifen associated changes are included in the differential. This document has been electronically signed by: Ramona Ballesteros DO on 09/12/2024 18:34:00 Dictated By: Ramona Ballesteros MD Signed By: 09/25/24 1054 DD/ 33 TD/TT: 09/12/241833 [place] [facility]: [place] [address] Ultrasound Report Signed Patient: Karma Yee MR#: [id number] 0 : 1955 Acct:[id number] Age/Sex: 69 / F ADM Date: 09/10/24 Loc: .[facility] 469-[address]: Hannah Brunson MD Ordering Physician: Johnie Arango Date of Service: 09/12/24 Procedure(s): US pel hayder complete Accession Number(s): [id number] cc: Johnie Arango; Dennis Chavira MD CLINICAL HISTORY: Le ft adnexal cyst US PELVIS TRANSABDOM INAL WITH DOPPLER Comparison: CT/SR - CT ABDOMEN PELVIS WITHOUT IV CONTRAST - 09/10/24 13:36 EDT Findings: Transabdominal scann ing performed with Doppler. Anteverted uterus me asures 9.2 cm in length. Normal myometrium. Endometrium measures 1.8 cm. The right ovary is n ot well-visualized. Left ovary 3.9 x 4.0 x 4.0 cm. There is a 2.8 x 3.9 x 3.1 cm simple cyst. Normal color Doppler with arterial/venous spectral tracing of the left ovary. No free fluid. IMPRESSION: 1. 3.9 cm simple cys t in the left ovary. No torsion. 2. Nonvisualization of the right ovary. 3. Abnormally thicke beka endometrium for age. Recommend clinical correlation. Endomet rial hyperplasia, carcinoma, inflammation or tamoxifen associated changes a re included in the differential. This document has be en electronically signed by: Ramona Ballesteros DO on 09/12/2024 18:34:00 Dictated By: Darleen Ballesteros MD Signed By: 09/25/24 1054 DD/ 33 TD/TT: 09/12/241833 Hull Builder: US pelvic and transvaginal Reviewed date:09/12/2024 08:13:27 PM Interpretation: Performing Lab: Notes/Report: [place] [address] Ultrasound Report Signed Patient: Karma Yee MR#: [id number] 0 : 1955 Acct:[id number] Age/Sex: 69 / F ADM Date: 09/10/24 Loc: [facility] [address]: Johnie GREENE Ordering Physician: Johnie Arango Date of Service: 09/12/24 Procedure(s): US pelvic and transvaginal Accession Number(s): [id number] cc: Johnie Arango; Dennis Chavira MD CLINICAL HISTORY: Left adnexal cyst US PELVIS TRANSABDOMINAL WITH DOPPLER Comparison: CT/SR - CT ABDOMEN PELVIS WITHOUT IV CONTRAST - 09/10/24 13:36 EDT Findings: Transabdominal scanning performed with Doppler. Anteverted uterus measures 9.2 cm in length. Normal myometrium. Endometrium measures 1.8 cm. The right ovary is not well-visualized. Left ovary 3.9 x 4.0 x 4.0 cm. There is a 2.8 x 3.9 x 3.1 cm simple cyst. Normal color Doppler with arterial/venous spectral tracing of the left ovary. No free fluid. IMPRESSION: 1. 3.9 cm simple cyst in the left ovary. No torsion. 2. Nonvisualization of the right ovary. 3. Abnormally thickened endometrium for age. Recommend clinical correlation. Endometrial hyperplasia, carcinoma, inflammation or tamoxifen associated changes are included in the differential. This document has been electronically signed by: Ramona Ballesteros DO on 09/12/2024 18:34:00 Dictated By: Ramona Ballesteros MD Signed By: <Electronically signed by Ramona Ballesteros MD in OV> 09/12/241833 DD/ 33 TD/TT: 09/12/241833 Hull Builder: [place] [address] Ultrasound Report Signed Patient: Karma Yee MR#: [id number] 0 : 1955 Acct:[id number] Age/Sex: 69 / F ADM Date: 09/10/24 Loc: [facility] 469-[address]: Renita GREENE Ordering Physician: Johnie Arango Date of Service: 09/12/24 Procedure(s): US pel hayder and transvaginal Accession Number(s): [id number] cc: Johnie Arango; Dennis Chavira MD CLINICAL HISTORY: Le ft adnexal cyst US PELVIS TRANSABDOM INAL WITH DOPPLER Comparison: CT/SR - CT ABDOMEN PELVIS WITHOUT IV CONTRAST - 09/10/24 13:36 EDT Findings: Transabdominal scann ing performed with Doppler. Anteverted uterus me asures 9.2 cm in length. Normal myometrium. Endometrium measures 1.8 cm. The right ovary is n ot well-visualized. Left ovary 3.9 x 4.0 x 4.0 cm. There is a 2.8 x 3.9 x 3.1 cm simple cyst. Normal color Doppler with arterial/venous spectral tracing of the left ovary. No free fluid. IMPRESSION: 1. 3.9 cm simple cys t in the left ovary. No torsion. 2. Nonvisualization of the right ovary. 3. Abnormally thicke beka endometrium for age. Recommend clinical correlation. Endomet rial hyperplasia, carcinoma, inflammation or tamoxifen associated changes a re included in the differential. This document has be en electronically signed by: Ramona Ballesteros DO on 09/12/2024 18:34:00 Dictated By: Darleen Ballesteros MD Signed By: <Electron ically signed by Ramona Ballesteros MD in OV> 09/12/241833 DD/ 33 TD/TT: 09/12/241833 Hull Builder: Nicolette Lav - Possible Hematolo gy Reviewed date:09/13/2024 12:54:04 PM Interpretation: Performing Lab:[facility], [address] [place] [phone] Notes/Report: Hold Lav - Possible Hematology SEE NOTE Specimen will be held untested for 8 hours. Call Hematology if testing is desired. Basic Metabolic Panel Reviewed date:09/13/2024 12:54:04 PM Interpretation: Performing Lab:[facility], [address] [place] [phone] Notes/Report: Hardstick try 1, I couldn't find any more vein. Sanjeis [id number] Sodium 139 135-145 mmol/L Potassium 3.6 3.3-5.1 mmol/L Chloride 106 96-108 mmol/L Carbon Dioxide 26 22-29 mmol/L Anion Gap 11 12-20 Blood Urea Nitrogen 54 9-16 mg/dL Creatinine 1.62 0.5-1.4 mg/dL Creatinine Clr Calc Pharmacy 45.0 Provided height and weight: 162.56 cm, 138.6 kg. eGFR (calculated from the MDRD study equation) and eCrCl (calculated from the Cockcroft-Gault equation) are based on different parameters and may not yield comparable results. If eCrCl result is absurd, please check patient's height/weight. Estimated Glomerular Filt Rate 31 Chronic Kidney Disease: Estimated GFR < 60 mL/min/1.73m2 Severe Kidney Disease: Estimated GFR < 15 mL/min/1.73m2 Glucose Random 97 60-115 mg/dL Calcium 9.0 8.4-10.2 mg/dL Urine Culture Reviewed date:09/16/2024 04:12:37 PM Interpretation: Performing Lab:[facility], [address] [place] [phone] Notes/Report: O:PROMIR Proteus mirabilis Urine Culture Quant Urine Culture > 100,000 cfu/mL Ampicillin <=2 Cefazolin (Urine) 4 Cefepime <=0.12 Ceftriaxone <=0.25 Ciprofloxacin <=0.06 Gentamicin <=1 Nitrofurantoin 128 Trimethoprim/Sulfametho xazole <=20 FL guidance in OR Reviewed date:09/13/2024 12:54:04 PM Interpretation: Performing Lab: Notes/Report: [address] [address] Fluoroscopy Report Signed Patient: Karma Yee MR#: [id number] 0 : 1955 Acct:[id number] Age/Sex: 69 / F ADM Date: 09/10/24 Loc: [facility] 469-[address]: Giulia GREENE Ordering Physician: Thomas Waters MD Date of Service: 09/13/24 Procedure(s): FL guidance in OR Accession Number(s): [id number] cc: Thomas Waters MD; Dennis Chavira MD EXAMINATION: XR FLUOROSCOPY WITH IMAGES CLINICAL INFORMATION: Left retrograde cystoscopy with stent placement. COMPARISON: Correlation made with CT abdomen and pelvis 09/10/2024. TECHNIQUE: Fluoroscopy provided to: Dr. Waters Fluoroscopy time: 10.0 seconds Dose: 6.9 mGy Images: 4 FINDINGS: 4 fluoroscopic spot images obtained during left ureteroscopy and stent placement. Please refer to the full operative report for details. FL/FL guidance in OR IMPRESSION: Fluoroscopic guidance. Electronically signed by: Elias Fink MD 09/13/2024 11:03 AM EDT Dictated By: Elias Fink MD Signed By: <Electronically signed by Elias Fink MD in OV> 09/13/24 1103 DD/ 0930 TD/TT: 09/13/24 0948 Hull Builder: [address] [address] Fluoroscopy Report Signed Patient: Karma Yee MR#: [id number] 0 : 1955 Acct:[id number] Age/Sex: 69 / F ADM Date: 09/10/24 Loc: [facility] 469-[address]: Brigida GREENE Ordering Physician: Thomas Waters MD Date of Service: 09/13/24 Procedure(s): MARIAH jonas in OR Accession Number(s): [id number] cc: Thomas Waters MD; Dennis Chavira MD EXAMINATION: XR FLUOROSCOPY WITH IMAGES CLINICAL INFORMATION: Left retrograde cyst oscopy with stent placement. COMPARISON: Correlation made wit h CT abdomen and pelvis 09/10/2024. TECHNIQUE: Fluoroscopy provided to: Dr. Waters Fluoroscopy time: 10 .0 seconds Dose: 6.9 mGy Images: 4 FINDINGS: 4 fluoroscopic spot images obtained during left ureteroscopy and stent placement. Please re myles to the full operative report for details. F L/FL guidance in OR IMPRESSION: Fluoroscopic guidance. Electronically marcio d by: Elias Fink MD 09/13/2024 11:03 AM EDT Dictated By: Elias Orosco MD Signed By: <Cynthia youssef signed by Elias Fink MD in OV> 09/13/24 1103 DD/ 0930 TD/TT: 09/13/24 0948 Hull Builder: Hold Lav - Possible Hematolo gy Reviewed date:09/14/2024 07:10:27 PM Interpretation: Performing Lab:[facility], [address] [place] [phone] Notes/Report: Hold Lav - Possible Hematology SEE NOTE Specimen will be held untested for 8 hours. Call Hematology if testing is desired. Basic Metabolic Panel Reviewed date:09/14/2024 07:10:27 PM Interpretation: Performing Lab:[facility], [address] [place] [phone] Notes/Report: Sodium 140 135-145 mmol/L Potassium 3.9 3.3-5.1 mmol/L Chloride 109 96-108 mmol/L Carbon Dioxide 24 22-29 mmol/L Anion Gap 11 12-20 Blood Urea Nitrogen 41 9-16 mg/dL Creatinine 1.53 0.5-1.4 mg/dL Creatinine Clr Calc Pharmacy 47.6 Provided height and weight: 162.56 cm, 138.6 kg. eGFR (calculated from the MDRD study equation) and eCrCl (calculated from the Cockcroft-Gault equation) are based on different parameters and may not yield comparable results. If eCrCl result is absurd, please check patient's height/weight. Estimated Glomerular Filt Rate 34 Chronic Kidney Disease: Estimated GFR < 60 mL/min/1.73m2 Severe Kidney Disease: Estimated GFR < 15 mL/min/1.73m2 Glucose Random 101 60-115 mg/dL Calcium 8.7 8.4-10.2 mg/dL Hold Lav - Possible Hematolo gy Reviewed date:09/16/2024 04:12:37 PM Interpretation: Performing Lab:[facility], [address] [place] [phone] Notes/Report: Hold Lav - Possible Hematology SEE NOTE Specimen will be held untested for 8 hours. Call Hematology if testing is desired. Basic Metabolic Panel Reviewed date:09/16/2024 04:12:37 PM Interpretation: Performing Lab:[facility], [address] [place] [phone] Notes/Report: Sodium 141 135-145 mmol/L Potassium 3.8 3.3-5.1 mmol/L Chloride 110 96-108 mmol/L Carbon Dioxide 24 22-29 mmol/L Anion Gap 11 12-20 Blood Urea Nitrogen 32 9-16 mg/dL Creatinine 1.46 0.5-1.4 mg/dL Creatinine Clr Calc Pharmacy 49.9 Provided height and weight: 162.56 cm, 138.6 kg. eGFR (calculated from the MDRD study equation) and eCrCl (calculated from the Cockcroft-Gault equation) are based on different parameters and may not yield comparable results. If eCrCl result is absurd, please check patient's height/weight. Estimated Glomerular Filt Rate 35 Chronic Kidney Disease: Estimated GFR < 60 mL/min/1.73m2 Severe Kidney Disease: Estimated GFR < 15 mL/min/1.73m2 Glucose Random 103 60-115 mg/dL Calcium 9.0 8.4-10.2 mg/dL XR chest 1V Reviewed date:09/16/2024 04:12:37 PM Interpretation: Performing Lab: Notes/Report: [address] [address] XRay Report Signed Patient: Karma Yee MR#: [id number] 0 : 1955 Acct:[id number] Age/Sex: 69 / F ADM Date: 09/10/24 [facility]: Johnie GREENE Ordering Physician: Johnie Arango Date of Service: 09/15/24 Procedure(s): XR chest 1V Accession Number(s): [id number] cc: Johnie Arango; Dennis Chavira MD CLINICAL HISTORY: New O2 requirement 1 view chest x-ray. Comparison: CR/SR - XR CHEST 1 VIEW - 09/10/24 12:48 EDT Findings: Normal lung volumes. Lungs are clear. No pneumothorax or pleural effusion. Stable mild cardiomegaly. No passive venous congestion. No midline shift or tracheal deviation. No acute fracture. Impression: 1. No acute cardiopulmonary disease. This document has been electronically signed by: Nicanor Weinstein MD on 09/15/2024 11:10:33 Dictated By: Nicanor Weinstein MD Signed By: <Electronically signed by Nicanor Weinstein MD in OV> 09/15/24 1111 DD/ 1110 TD/TT: 09/15/24 1110 Hull Builder: [address] [address] XRay Report Signed Patient: Karma Yee MR#: [id number] 0 : 1955 Acct:[id number] Age/Sex: 69 / F ADM Date: 09/10/24 [facility]: Renita GREENE Ordering Physician: Johnie Arango Date of Service: 09/15/24 Procedure(s): XR chest 1V Accession Number(s): [id number] cc: Johnie Arango; Dennis Chavira MD CLINICAL HISTORY: Ne w O2 requirement 1 view chest x-ray. Comparison: CR/SR - XR CHEST 1 VIEW - 09/10/24 12:48 EDT Findings: Normal lung volumes. Lungs are clear. No pneumothorax or p leural effusion. Stable mild cardiome chanel. No passive venous congestion. No midline shift or tracheal deviation. No acute fracture. Impression: 1. No acute cardiopulmonary disease. This document has be en electronically signed by: Nicanor Weinstein MD on 09/15/2024 11:10:33 Dictated By: Nicanor Young MD Signed By: <Electron icallariella signed by Nicanor Weinstein MD in OV> 09/15/24 1111 DD/ 1110 TD/TT: 09/15/24 1110 Hull Builder: Basic Metabolic Panel Reviewed date:09/18/2024 12:43:11 PM Interpretation: Performing Lab:[facility], [address] [place] [phone] Notes/Report: Sodium 143 135-145 mmol/L Potassium 3.8 3.3-5.1 mmol/L Slight Hemolysis.Interpret result with caution. Chloride 112 96-108 mmol/L Carbon Dioxide 26 22-29 mmol/L Anion Gap 9 12-20 Blood Urea Nitrogen 25 9-16 mg/dL Creatinine 1.18 0.5-1.4 mg/dL Creatinine Clr Calc Pharmacy 61.8 Provided height and weight: 162.56 cm, 138.6 kg. eGFR (calculated from the MDRD study equation) and eCrCl (calculated from the Cockcroft-Gault equation) are based on different parameters and may not yield comparable results. If eCrCl result is absurd, please check patient's height/weight. Estimated Glomerular Filt Rate 45 Chronic Kidney Disease: Estimated GFR < 60 mL/min/1.73m2 Severe Kidney Disease: Estimated GFR < 15 mL/min/1.73m2 Glucose Random 92 60-115 mg/dL Calcium 8.4 8.4-10.2 mg/dL Pathology Reviewed date:09/22/2024 08:03:44 PM Interpretation: Performing Lab:[facility], [address] [place] [phone] Notes/Report: ------ Name: Karma Yee Age/Sex: 69/F : 1955 Unit#: [id number] Attend Dr: Mary Brunson MD Re09/10/24 Status : DIS IN Location: [facility] 469-1 Disch: 09/18/24 ------ SPEC : [id number] RECD : 09/17/24 STATUS: SOUJeremías RE NUM: [id number] MICHAEL: 09/17/24-1326 [facility] DR: Darleen Tran MD ENTERED: 09/17/24-13 47 SP TYPE: Surgical OTHR DR: Johnie Arango Robert MD ORDERED: HE Stain/9, Gross Micro L4/3, IHC/3, H. pylori/3 Diagnosis A. Gastric antrum, b iopsy: Gastric antral mucosa with reactive changes, ectatic vessels, and minimal chronic gastritis with rare neutrophils and possible erosion; negative for H. pylo ri, intestinal metaplasia and dysplasia. B. Stomach, edge of pyloric ulcer, biopsy: Gastric antral mucosa with marked reactive/regenerativ e and hyperplastic changes, ectatic vessels, and minimal chronic gastritis with rare neutrophils and possible erosion, consistent with tissue adjacent to ulcer; negative for H. pylori, intestinal metaplasia and dysplasia. C. Gastric body, bio psy: Gastric body mucosa with minimal chronic gastritis with rare neutrophils and poss ible erosion; negative for H. pylori, intestinal metaplasia and dysplasia. Clinical History Pre-Op Dx: Nausea, vomiting Post-Op Dx: Gastriti s, gastric ulcers Microscopic Description Microscopic sections reviewed. Immunostains for H. pylori on A, B and C are negative with appropriate control. Material Received A. Gastric antrum biopsies B. Edge of pyloric u lcer biopsies C. Gastric body biopsies Gross Description Received in 3 parts. A. Received in forma codi labeled ?gastric antrum biopsies? are 3 fragments of parrish-white soft tissue measuring 0.2 -0.4 cm in greatest dimension which are wrapped in lens paper and entirely submitted f or microscopic examination, 3 pieces in cassette A. B. Received in forma codi labeled ?edge of pyloric ulcer biopsies? are 2 fragments of pink white soft tissue measuring 0.3 and 0.4 cm in greatest dimension which are wrapped in lens paper and entirely submitted for microscopic examination, 2 pieces in cassette B. CONTINUED ON NEXT PAGE ------ Name: Karma Yee Age/Sex: 69/F : 1955 Unit#: [id number] Attend Dr: Mary Brunson MD Re09/10/24 Status : DIS IN Location: [facility] 469-1 Disch: 09/18/24 ------ SPEC : [id number] RECD : 09/17/24 STATUS: PARAS PRADO NUM: [id number] MICHAEL: 09/17/24-132 [facility] DR: Darleen Tran MD ENTERED: 09/17/24-13 47 SP TYPE: Surgical OTHR DR: Johnie Arango Robert MD ORDERED: HE Stain/9, Gross Micro L4/3, IHC/3, H. pylori/3 Gross Description (Continued) C. Received in forma codi labeled ?gastric body biopsies? are 4 fragments of parrish-white soft tissue measuring 0.2 -0.4 cm in greatest dimension which are wrapped in lens paper and entirely submitted f or microscopic examination, 4 pieces in cassette C. ([facility]) Special studies orde red and performed: Immunostain for H. pylori on A1, B1 and C1. IHC S/NG Disclaimer NOTE: Unless otherwi se stated, all tissue is formalin-fixed and paraffin-embedded. Some or all of the immunohistochemical tests reported herein may have been developed and their performance characteristics determined by [facility]. They have not been cleared or appr drake by the U.S. Food and Drug Administration (FDA). However, the FDA has determined that such clearance or approval is not necessary. This laboratory is certified under the Clinical Laboratory Improvement Amendments of 1988 (CLIA) as qualified to perform high comp lexity clinical laboratory testing. Copies To: Johnie Arango [address] [place] [address] [email or web address] Dennis Chavira MD [address] [place] [address] [address] [place] [address] Darleen Tran MD [facility] [address] [place] [id number] [email or web address] ------ Signed (signature on file) Jessica [place] 09/19/24 1004 ------ END OF REPORT Hold Lav - Possible Hematolo gy Reviewed date:09/18/2024 12:43:10 PM Interpretation: Performing Lab:[facility], [address] [place] [phone] Notes/Report: Hold Lav - Possible Hematology SEE NOTE Specimen will be held untested for 8 hours. Call Hematology if testing is desired. Basic Metabolic Panel Reviewed date:09/18/2024 12:43:11 PM Interpretation: Performing Lab:[facility], [address] [place] [phone] Notes/Report: Sodium 145 135-145 mmol/L Potassium 4.1 3.3-5.1 mmol/L Chloride 110 96-108 mmol/L Carbon Dioxide 29 22-29 mmol/L Anion Gap 10 12-20 Blood Urea Nitrogen 22 9-16 mg/dL Creatinine 1.22 0.5-1.4 mg/dL Creatinine Clr Calc Pharmacy 59.8 Provided height and weight: 162.56 cm, 138.6 kg. eGFR (calculated from the MDRD study equation) and eCrCl (calculated from the Cockcroft-Gault equation) are based on different parameters and may not yield comparable results. If eCrCl result is absurd, please check patient's height/weight. Estimated Glomerular Filt Rate 44 Chronic Kidney Disease: Estimated GFR < 60 mL/min/1.73m2 Severe Kidney Disease: Estimated GFR < 15 mL/min/1.73m2 Glucose Random 91 60-115 mg/dL Calcium 8.4 8.4-10.2 mg/dL Magnesium Reviewed date:09/18/2024 12:43:11 PM Interpretation: Performing Lab:[facility], [address] [place] [phone] Notes/Report: Magnesium 1.8 1.6-2.6 mg/dL Gastrin Reviewed date:09/22/2024 08:03:44 PM Interpretation: Performing Lab:[facility], [address] [place] [phone] Notes/Report: Gastrin 49 <=100 pg/mL Reference range applies to fasting specimens only. For additional information, please refer to https://education.[employer])/f aq/WPC106 (This link is being provided for informational/ educational purposes only.) THIS TEST WAS PERFORMED AT: [email or web address] ALEIDA SERRATO MD,PHD Reason For Referral Reason Evaluate and Treat Abnormal Thickened Endrometrium Diagnosis 1 Endometrial hyperpla scott, unspecified (N85.00) Referral Organization Dennis Chavira III, MD Referring Provider First Name Dennis Referring Provider Last Name Cait Referring Provider Speciality Internal M edicine Referred Provider [facility] [employer] Referred Provider Specialty Gynecology ( Osteopaths only) General Notes Radha Van 09/26/2024 10:58:17 AM > Referral faxed with last progress note, CT Abd and pelvis no contrast and US pelvis doppler., PJagdish 10/11/2024 11:44:12 AM >As per patient [facility] does not perform the procedure for the diagnostic problem., Radha Van 10/11/2024 01:08:43 PM > referral has been changed and updated to [facility], referral and attachments faxed Referral Priority Routine Reason Urgent Appointment R equest Evaluate and Treat Massive lymphedema on right leg Diagnosis 1 Cellulitis of right lower limb (L03.115) Diagnosis 2 Lymphedema (I89.0) Referral Organization Dennis Chavira III, MD Referring Provider First Name Dennis Referring Provider Last Name Cait Referring Provider Speciality Internal M edicine Referred Organization [facility] Referred Provider [facility] Referred Address [address] [place] [address],[place], [place],[id number] Referred Provider Specialty Unknown General Notes Radha Van 10/21/2024 10:45:13 AM > Faxed referral, progress note and demos.Carlota Amber 10/22/2024 10:48:41 AM > Called [facility] and left message regarding referral. Requested a call back Referral Priority Urgent Referral Appointment Date 10/30/2024 Medications Medication SIG (Take, Route, Frequency, Duration) Notes Start Date End Date Status Sucralfate 1 GM/10ML 10 mL 1 hour [...] 1 tablet Orally Once a day Active Potassium Chloride ER 20 MEQ Oral Active Metoprolol Succinate ER 25 MG Oral Active Metoprolol Succinate ER 25 MG 1 tablet Orally Once a day for 90 days 10/18/2024 Active Immunizations Vaccine Route Administration Date Status Comme nts COVID 19 Moderna Unknown 02/15/2021 Administered COVID 19 Moderna Unknown 07/02/2020 Administered COVID 19 Moderna Unknown 06/04/2020 Administered Social History Tobacco Use: Social History Observation Description Date Details (start date - stop date) Never Smoker NA - NA Sex Assigned At : Social History Observation Description Sex Assigned At Female Tobacco Use/Smoking Question Answer Notes Patient is a nonsmoker Alcohol Screen Question Answer Notes Did you have a drink containing alcohol in the p ast year? No Points 0 Interpretation Negative Problems Problem Type SNOMED Code ICD Code Onset Dates Problem Status W/U Status Risk Notes Problem Morbid obesity (disorder) (442357545) Morbid (severe) obesity due to excess calories (E66.01) Active confirmed She is now rehydrated and weighs 316 pounds with a body mass index of 52. This problem will be addressed. I will discuss bariatric surgery as well as injectable medication to suppress her appetite. We reviewed diet and nutrition today. Problem Hypokalemia (84580483) Hypokalemia (E87.6) Active confirmed She had significant vomiting prior to admission to the hospital. Potassium level was 2.8. This was corrected, but she stilll has epigastric distress and nausea, although she is not vomiting. A potassium levels pending. Problem Paroxysmal atrial fibrillation (392411968) Paroxysmal atrial fibrillation (I48.0) Active confirmed She is in a slo w controlled atrial fibrillation today. Her peripheral edema is mostly resolved. She is comfortable breathing room air. A repeat cardiology consultation has been requested for evaluation of congestive heart failure and aortic stenosis. Problem 146627928 Chronic diastolic (congestive) heart failure (I50.32) Active confirmed A BNP is not available. One was ordered today with comprehensive blood work. Her congestive heart failure is likely invaded by the aortic stenosis. It was described as chronic, diastolic in the hospital. She is anticoagulateed. It seems compensated today. She is taking digoxin. Problem Peripheral venous insufficiency (18650569) Venous insufficiency (chronic) (peripheral) (I87.2) Active confirmed She has significant skin breakdown. The right lower extremity. On admission to hospital. That is now resollved. There are mild changes of venous insufficiency. This will be observed. She will continue on diurettic therapy. Problem Acute hypoxemic respiratory failure (976544240) Acute respiratory failure with hypoxia (J96.01) Active confirmed She recover ed with use of BiPAP.She was breathing room air comfortably today and her ooxygen saturation was normal. Problem Acute hypercapnic respiratory failure (023527420) Acute respiratory failure with hypercapnia (J96.02) Active confirmed She rrecovered with use of BiPAP. Comprrehensive blood work is pending. Sharri oxygen satturation today was normal. Problem Cellulitis of right lower limb (605528044883080 04) Cellulitis of right lower limb (L03.115) Active confirmed The cellulitis has completely resolved. The open areas on the right leg have healed. There were no open wounds today. We haad a long discussion about how to prevent furthher skin breakdown. Problem Muscle weakness (78297128) Muscle weakness (generalized) (M62.81) Active confirmed This is due to deconditioning. She is now ambulatory. If she needs physical therapy going forward. This wiill be provided. Currently she is stable. She is able to conduct activities of daily living. Problem Acute renal failure syndrome (02241758) Acute kidney failure, unspecified (N17.9) Active confirmed Her kidney function had returned to normal when she was discharged from the hospital. Repeaat comprehensive blood work has been ordered to reevaluate her status. 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 Obserrvation will be continued for this is likely recurrent problem. Problem 847558234 Chronic anticoagulation (Z79.01) Active confirmed She is taking apixaban without bleeding. Problem Atresia and stenosis of aorta (501942281) Aortic stenosis (Q25.3) Active confirmed An echocardiogram done durinng her recent hospitalization in 2022 showed aortic stenoosis with a valve area of 0.82. I have requested a repeat consultation cardiology.She willl likelyy need repaiir this valve. Problem 823545081 Lymphedema (I89.0) Active confirmed She has severe edema of both legs with chronic changes of venous stasis. She reports that her legs have become much less swollen in recent weeks. This is likely from dehydration Problem Acute metabolic acidosis (E87.21) Active confirmed [facility] She was septic and acidotic and hypokalemic. This has been corrected. Comprehensive blood work is pending too reassess this problem. Problem [id number] Bran cyst, right (M71.21) Active confirmed This was a finding on ultrasound of the right lower extremity to rule out DVT. Itt is not infected. It is large but nonpainful. Treatmentt of this may be necessary in the future will be delayed until her acute cardiac problem is addressed. Problem 27524611 Acute dehydration (E86.0) Active confirmed She was extremely weak and has lost a great deal weight and cannot keep down food and fluids. She has been successfully transferred to the emergency room for urgent treatment. Vital Signs Heart Rate 90 /min 10/18/2024 Temperature 98.8 degrees Fahrenheit 10/18/2024 Respiratory Rate 18 /min 09/10/2024 Oximetry 94 % 10/18/2024 Blood pressure diastolic 79 mm Hg 10/18/2024 Height 65 in 10/18/2024 Blood pressure systolic 129 mm Hg 10/18/2024 Weight 316 lbs 10/18/2024 BMI 52.58 kg/m2 10/18/2024 Encounters Encounter Location Date Provider Diagnosis Dennis Chavira III, MD [address] [place] [address] [address] [place], [place] [address] 09/10/2024 Dennis Chavira Acute dehydration E8 6.0 ; Lymphedema I89.0 ; Paroxysmal atrial fibrillation I48.0 ; Morbid (severe) obesity due to excess calories E66.01 ; Chronic diastolic (congestive) heart failure I50.32 and Chronic anticoagulation Z79.01 Dennis Chavira III, MD [address] [place] [address] [place] [address] 10/18/2024 Dennis Chavira Morbid (severe) obes ity due to excess calories E66.01 ; Cellulitis of right lower limb L03.115 ; Paroxysmal atrial fibrillation I48.0 ; Acute kidney failure, unspecified N17.9 ; Acute metabolic acidosis E87.21 ; Venous insufficiency (chronic) (peripheral) I87.2 and Lymphedema I89.0 Dennis Chavira III, MD [address] [place] [address] [address] [place] [address] 11/17/2023 Dennis Chavira III, MD [address] [place] [address] [place] [address] 09/26/2024 Dennis Chavira III, MD [address] [place] [address] [place] [address] 10/17/2024 Dennis Chavira Assessments Encounter Date Diagnosis (ICD Code) Assessment Notes Treat ment Notes Treatment Clinical Notes 09/10/2024 Lymphedema (ICD-10 - I89.0) She has severe edema of both legs with chronic changes of venous stasis. She reports that her legs have become much less swollen in recent weeks. This is likely from dehydration 09/10/2024 Acute dehydration (ICD-10 - E86.0) She was extremely weak and has lost a great deal weight and cannot keep down food and fluids. She has been successfully transferred to the emergency room for urgent treatment. 10/18/2024 Morbid (severe) obesity due to excess [...] about how to prevent furthher skin breakdown. 09/10/2024 Paroxysmal atrial fibrillation (ICD-10 - I48.0) Her heart rate is controlled today. Corporate Services Manager has given her digoxin which is causing no side effects. Her peripheral edema is mostly resolved. She is comfortable breathing room air. A repeat cardiology consultation has been requested for evaluation of congestive heart failure and aortic stenosis. 10/18/2024 Paroxysmal atrial fibrillation (ICD-10 - I48.0) [...] inability to keep down food and fluids. 10/18/2024 Acute kidney failure , unspecified (ICD-10 - N17.9) Her kidney function had returned to normal when she was discharged from the hospital. Repeaat comprehensive blood work has been ordered to reevaluate her status. 09/10/2024 Chronic diastolic (congestive) heart failure (ICD-10 - I50.32) A BNP is not available. One was ordered today with comprehensive blood work. Her congestive heart failure is likely invaded by the aortic stenosis. It was described as chronic, diastolic in the hospital. She is anticoagulateed. It seems compensated today. She is taking digoxin. 10/18/2024 Acute metabolic acidosis (ICD-10 - E87.21) Upon admission to hosppital. She was septic and acidotic and hypokalemic. This has been corrected. Comprehensive blood work is pending too reassess this problem. 09/10/2024 Chronic anticoagulation (ICD-10 - Z79.01) She is taking apixaban without bleeding. 10/18/2024 Venous insufficiency (chronic) (peripheral) (ICD-10 - [...] is likely from dehydration Plan Of Treatment Pending Test Test Name Order Date PROFILE, FASTING (COMPREHENSIVE METABOLI C) 01/18/2023 CBC WITH AUTO DIFF 01/18/2023 Next Appt Details Provider Name:Dennis Chavira, 11/13/2024 11:15:00 AM, [address] [place] [address] [address] [place], [place], [address], Insurance Providers Payer Name Payer Address Payer Phone Subscriber Number Group Number Insured Name Patient Relationship to Insured Coverage Start Date Coverage End Date MEDICARE NGS [address] [place] [address] [id number] Karma Yee Self - patient is the insured [facility] [address] [place], [place] [id number] Karma Yee Self - patient is the insured Medical (General) History Medical History History ICD Code Cellulitis of right lower limb L03.115 Other specified sepsis A41.89 Paroxysmal atrial fibrillation I48.0 Acute kidney failure, unspecified N17.9 Hypokalemia E87.6 Acute respiratory failure with hypoxia J 96.01 Acute respiratory failure with hypercapn ia J96.02 Morbid (severe) obesity due to excess ca lories E66.01 Muscle weakness (generalized) M62.81 Venous insufficiency (chronic) (peripher al) I87.2 Nonrheumatic aortic valve stenosis I35.0 Right Bran's cyst Chronic anticoagulatiion Chronic diastolic congestive heart failu re Fungal dermatitis Surgical History Surgery Date(Month/Year) Debridement of ulceration, right lower e xtremity 11/2022
--- NOTE | 2024-11-07 11:56 | HO.ANESPROP2 ---
Documented by User: Bessie Butler NP 11/07/24 12:02 HPI - Anesthesia Eval Consult details Narrative: 69yo F for Cystoscopy, Ureteroroscopy, Retro, Laser,with stent REMOVAL s/p EGD (TIVA) and cysto stent (TIVA) 09/2024 during [place] [facility]10-09[place]18[place]; hyponatremia; metabolic acidosis [acute] - likely due to hypovolemia and hydronephrosis; hyponatremia and acidsosi resolved and SCr improved with IV fluid resuscitation to SCr around 1.2; baseline unknown; instructed to avoid NSAIDs; will follow up with [facility] [place] in 2 weeks acute pyelonephritis with hydronephrosis due to 8mm left UPJ stone - not septic; treated with ceftriaxone x7d and discharged on cefuroxime x3d; successive urine cultures grew pansensitive E. coli and then nitrofurantoin-resistant Proteus mirabilis. Seen by Urology; underwent left ureteral stent placement 09/13/24. Blood cultures negative. To follow up with [facility] [place] in 4 wk. gastritis/gastric ulcers - likely due to ibuprofen use; treated with PPI. GI consulted; EGD 09/17/24 showed severe gastritis with multiple gastric ulcers; biopsies taken. Recommended PPI, famotidine at hs x14d and liquid Carafate x14d; fasting gastrin level sent and pending at time of transfer to rehabilitation; to follow up with [facility] [place] in 2 wks. elevated lipase - CT showing chronic pancreatitis without evidence of acute pancreatitis; to follow up with [facility] [place] as outpatient nocturnal hypoxemia/bradycardia - suspicion of CALDERON: should have outpatient sleep study left adnexal mass/thickened endometrium - CT showed 4.6 x 3.2 cm left adnexal cystic structure; pelvc US showed simple left ovarian cyst but did show abnormally thickened endometrium and will need to be seen by [facility] [place]ne[place] within 4 wk for biopsy persistent atrial fibrillation - was taking Eliquis incorrectly [5 mg daily instead of bid]; counseled. Cardiology consulted. Changed digoxin to metoprolol succinate. TTE 09/12/24 (No cardiac f/u since discharge. Was unclear if patient willing to pursue outpatient f/u on discharge) PMFSH Active Problems Active Problems: All Active Problems Nephrolithiasis (Acute) Morbid obesity (Acute) Chronic pancreatitis (Acute) Thickened endometrium (Acute) Nocturnal hypoxemia (Acute) Hyponatremia (Acute) Pyelonephritis (Acute) Gastric ulcer (Acute) Acute systolic CHF (congestive heart failure), NYHA class 3 (Acute) Altered mental status (Acute) Acute hypercapnic respiratory failure (Acute) Sepsis (Acute) Hypokalemia (Acute) Cellulitis of right leg (Acute) New onset a-fib (Acute) Acute hypokalemia (Acute) Cellulitis (Acute) Shortness of breath (Acute) Leg ulcer (Acute) Past Medical History Medical History Gastritis Elevated troponin Persistent atrial fibrillation Calculus of proximal left ureter Chronic venous stasis dermatitis Bilateral edema of lower extremity Non-rheumatic aortic stenosis Heart failure Aortic stenosis Afib Shortness of breath Leg ulcer Family History Family History Mother No problems noted. Father No problems noted. Family history of problems with anesthesia: No Surgical History Surgical History History of esophagogastroduodenoscopy (EGD) (09/18/24) Hx of cystoscopy (09/13/24) History of dental surgery History of Problems with Anesthesia: No Social History Social History Household Members: Spouse and Family Housing: House Do you presently have visiting nurse or other home services: No Alcohol intake: former Patient Tobacco Use Status: Never used Tobacco e-Cigarette/Vaping Use: Never Used Second Hand Smoke Exposure: No Use of substances other than those prescribed or required for medical reasons: No Advance Directives: No Advance Directives Information Provided: Yes service: No Meds Allergies Allergy/AdvReac Type Severity Reaction Status Date / Time No Known Allergies Allergy Verified 09/25/24 11:25 Exam Pertinent Lab Results Pertinent Lab Results: Laboratory Tests 09/12/24 09/18/24 05:49 06:13 WBC 8.8 Hgb 12.0 Hct 34.2 L Plt Count 250 Sodium 145 Potassium 4.1 Chloride 110 H Carbon Dioxide 29 BUN 22 H Creatinine 1.22 Narrative Narrative: EKG 08/2024 Vent. Rate : 79 BPM Atrial Rate : * BPM P-R Int : * ms QRS Dur : 96 ms QT Int : 346 ms P-R-T Axes : * -38 64 degrees QTcB Int : 396 ms Atrial fibrillation Left axis deviation Nonspecific ST abnormality Abnormal ECG When compared with ECG of 01-Dec-2022 15:57, QT has shortened ECHO 08/2024 Conclusions: - 1. Normal LV ejection fraction of 65-70% 2. Mildly dilated right ventricle with mildly reduced systolic function 3. Moderate biatrial enlargement 4. Moderate aortic stenosis 5. Upper limits of normal RV systolic pressure with mildly elevated right atrial pressures 6. Mildly dilated ascending aorta 7. No pericardial effusion AoV Pk Grad: 36.00 Aov Mn Grad: 21.00 MEDINA Cont.VTI: 1.21 NM cardiolite stress test 2023 Impression: 1. Myocardial perfusion imaging study shows likely normal myocardial perfusion 2. Gated LVEF is 52% 3. Transient ischemic dilatation not present EKG is nondiagnostic for ischemia Assessment and Plan Assessment Anesthesia Assessment: Chart Reviewed Final Anesthetic Review Family History of Problems with Anesthesia: No History of Problems with Anesthesia: No Documented by User: Kit Thompson MD 11/11/24 14:39 [facility] Past Medical History Medical History Gastritis Elevated troponin Persistent atrial fibrillation Calculus of proximal left ureter Chronic venous stasis dermatitis Bilateral edema of lower extremity Non-rheumatic aortic stenosis Heart failure Aortic stenosis Afib Shortness of breath Leg ulcer Functional capacity: independent ambulation Family History Family History Mother No problems noted. Father No problems noted. Surgical History Surgical History History of esophagogastroduodenoscopy (EGD) (09/18/24) Hx of cystoscopy (09/13/24) History of dental surgery Social History Social History Household Members: Spouse and Family Housing: House Do you presently have visiting nurse or other home services: No Alcohol intake: former Patient Tobacco Use Status: Never used Tobacco e-Cigarette/Vaping Use: Never Used Second Hand Smoke Exposure: No Use of substances other than those prescribed or required for medical reasons: No Advance Directives: No Advance Directives Information Provided: Yes service: No Meds Allergies Allergy/AdvReac Type Severity Reaction Status Date / Time No Known Allergies Allergy Verified 09/25/24 11:25 Exam Exam Date and Time: Airway Heart: rrr Lungs: rrr Other: cta Assessment and Plan Assessment Anesthesia Assessment: Anesthesia Plan Discussed Final Anesthetic Review NPO: Yes ASA Class: II and III Final Preanesthetic Review: No Changes in Pt Med Stat, Meds/Allgs Chart Reviewed, Consent Obtained/Reviewed and Anes Risks/Benef Reviewed Patient Risk: Intermediate Procedure Risk: Low Anesthetic Plan Anesthetic Plan: GA Disposition: Standard PACU
--- NOTE | ~2024-11-11 | FL_ITS ---
EXAMINATION: FL GUIDANCE ONLY HISTORY: cystoscopy with retrograde COMPARISON: Comparison is made with the prior examination dated 09/13/2024. TECHNIQUE: Fluoroscopy time: 11.2 seconds. Cumulative Dose: 5.68 mGy. Images: 4. FINDINGS: Fluoroscopic spot films of the abdomen demonstrated left nephroureteral stent in place. Injection of the ureter demonstrates normal caliber distal ureter. The renal collecting system is well opacified. FL/FL guidance in OR IMPRESSION: Fluoroscopy during procedure. Please see procedure report for additional information. Electronically signed by: Dennis Gardner MD 11/12/2024 07:05 AM EDT
[2024-11-11 12:54] VITALS: BMI 54.1
[2024-11-11 13:19] VITALS: BP 121/60; PULSE 74; RESP 16; TEMP 36.6; O2SAT 97
[2024-11-11] MEDS: Lactated Ringers 1,000 ML 50 ML IVCONT (13:21)
--- NOTE | 2024-11-11 14:20 | MHC.SHP ---
Pre-Procedural Eval Section A - 24 Hr Update-Section A only Date of Service: 11/11/24 The patient is an INPATIENT: No Changes since office visit: No Cold of Flu in the past 2 weeks, No New Medical Problems, No Changes in Medication and No Patient answered all questions The patient has been examined within 24 hours of the surgical procedure. The History & Physical has been completed within 30 days and I have reviewed it.: Yes Section B - Complete if H&P > 30 days Chief Complaint: Calculus of kidney Details of Present Illness: Indwelling left stent, here for cystoscopy, left stent removal, left ureteroscopy with laser lithotripsy and stone basket Relevant Family History (Specify if Yes): No Relevant Social History: None Present Medications: see Short Stay Collaborative assessment Medical History: Significant History History of Previous Operations: Relevant previous surgery/procedure and date(s) Allergies: Allergies Allergy/AdvReac Type Severity Reaction Status Date / Time No Known Allergies Allergy Verified 09/25/24 11:25 Review of Systems Sugical H&P ROS: Negative: Constitution, Cardiovascular, Respiratory, Neurological, Psychiatric, Hem-Onc, Allergic/Immunologic, Gastrointestinal, Genitourinary, Musculoskeletal, Integumentary, Endocrine and Eyes/Ears/Nose/Throat Exam Surgical H&P Exam: Normal: HEENT, Normal: Heart, Normal: Lungs, Normal: Extremities, Normal: Abdomen, Normal: Skin and Normal: Neurological Plan Diagnosis/Plan: Unchanged I have reviewed the history and physical and performed a pertinent physical examination on my patient. No changes have occurred unless specified. Time Spent With Patient Time: Total time managing care of this patient today ____ minutes.
--- NOTE | 2024-11-11 15:54 | W.PM.OPN ---
Operative Note Operative Note Date of Service: 11/11/24 Narrative: PreOperative Diagnosis: Left struvite stone greater than 2 cm renal, indwelling stent Post Operative Diagnosis: Left struvite stone renal greater than 2 cm Procedure: - cystoscopy, left retrograde - removal of left stent - left dilatation of ureteric orifice under fluoroscopy - left ureteroscopy, laser lithotripsy - with steerable vacuum aspiration sheath Surgeon: Dr Thomas Waters Anesthesia: General Indications for procedure: Indwelling stent, large [address] scan. Initially stent placed for urosepsis. Pansensitive Proteus and E coli. Here for definitive stone procedure. Procedure: After informed consent was verified patient was brought to the operating placed in supine position. Anesthesia was administered per protocol. Patient was placed in modified dorsal lithotomy position and prepped and draped in a sterile fashion. Safety pause time-out and side of surgery confirmed. Antibiotics confirmed. A 22 Samoan cystoscope was inserted per urethra. The urethra and bladder were normal in their entirety. Both ureteric orifices were in normal position. The stent was emerging from the left ureteric orifice. It was already covered with biofilm and new onset struvite stone from presumed low-grade infection. The left ureteric orifice was cannulated and a retrograde examination was performed. Contrast flowed into kidney with filling defect in kidney. The stent was then grasped and removed. A Sensor guidewire was placed up to the level of the renal pelvis under fluoroscopy. The rigid cystoscope was removed. The steerable vacuum aspiration ureteric access sheath was placed and the inner cannula with access wire removed. The disposable digital flexible ureteral scope was placed. Using a 272 holmium fiber with blended settings from the 60 w laser the struvite stone was encountered which was extending from the renal pelvis into a calyx approximately 3 cm x 1 cm. The stone was broken up and using the suction settings dusted and removed. After the primary stone was addressed a secondary stone further in the mid calyx was identified and also addressed. The steerable sheath allowed aspiration from every calyx. This continued for approximately 45 minutes. At the completion of the stone procedure a decision was made not to place a stent. The sheath with camera was slowly backed out to confirm mucosal integrity throughout the length of the ureter. The bladder was emptied. The patient tolerated the procedure well and was extubated in the operating room, and transferred in stable condition to the recovery area. Pathology: Struvite stone fragments Drains: No stent left [facility] code C9761 describes cystourethroscopy, with ureteroscopy and/or pyeloscopy, with lithotripsy, and ureteral catheterization for steerable vacuum aspiration of the kidney, collecting system, ureter, bladder, and urethra if applicable (must use a steerable ureteral catheter).
[2024-11-11 16:00] VITALS: BP 112/63; PULSE 87; RESP 16; TEMP 36.4; O2SAT 94
[2024-11-11 16:05] VITALS: BP 113/68; PULSE 76; RESP 23; O2SAT 94
[2024-11-11 16:10] VITALS: BP 96/62; PULSE 73; RESP 21; O2SAT 94
[2024-11-11 16:14] VITALS: BP 109/53; PULSE 76; RESP 20; TEMP 36.3; O2SAT 94
== END 2024-11-11 17:00 | disposition home or self-care (01) ==
PROVIDERS: PCP Internal Medicine Medical Oncology; Visit Provider Urology
PROC: (CPT 52353; principal; 2024-11-11 14:10)
DX: N20.0 Calculus of kidney (principal); Z96.0 Presence of urogenital implants; N12 Tubulo-interstitial nephritis, not specified as acute or chronic; I50.9 Heart failure, unspecified; I48.91 Unspecified atrial fibrillation; R06.02 Shortness of breath; I35.0 Nonrheumatic aortic (valve) stenosis; L97.909 Non-pressure chronic ulcer of unspecified part of unspecified lower leg with unspecified severity; Z66 Do not resuscitate
CPT/HCPCS: 52353; 82365; 88300; C1758; C1769; J1956; J2704; J3010; Q9967

== ENCOUNTER → 2024-11-11 12:16 | Outpatient (BNV) | payer MEDICARE, SELFPAY | PROVIDERS: PCP Internal Medicine Medical Oncology; Visit Provider Urology | DX: N20.0 Calculus of kidney (principal) | CPT/HCPCS: 52353; 74420 ==

== ENCOUNTER 2024-12-13 14:23 | Outpatient (REF) | payer MEDICARE, SELFPAY ==
--- OUTSIDE RECORDS SUMMARY | 2023-06-21 05:15 | XMS_ITS ---
Author Organization Dennis Chavria III, MD Address [address] [place] [address] [place] [phone] Care Team Providers Care Certified Coder Name Role Phone Dr. Dennis Chavira III Primary Care Provider [phone] Allergies Allergen (clinical drug ingredient) Drug/Non Drug Allergy documented on EMR Reaction Allergy Type Onset Date Status No Known Drug Allergy Unknown Drug Allergy Active REASON FOR VISIT follow up Medications Medication SIG (Take, Route, Frequency, Duration) Notes Start Date End Date Status Potassium Chloride 20 MEQ 1 packet with food Orally Once a day Active Eliquis 5 MG 1 tablet Orally Twic e a day Active Ondansetron HCl 4 MG 1 tablet Orally Once a day Active Furosemide 40 MG 1 tablet Orally Once a day Active Digoxin 125 MCG 1 tablet Orally Once a day Active Social History Tobacco Use: Social History Observation Description Date Details (start date - stop date) Never Smoker NA - NA Sex Assigned At : Social History Observation Description Sex Assigned At Female Tobacco Use/Smoking Question Answer Notes Patient is a nonsmoker Encounters Encounter Location Date Provider Diagnosis Dennis Chavira III, MD [address] [place] [address] [place] [phone] 06/21/2023 Dennis Chavira Cellulitis of right lower limb L03.115 Assessments Encounter Date Diagnosis (ICD Code) Assessment Notes Treatment Notes Treatment Clinical Notes 06/21/2023 Cellulitis of right lower limb (ICD-10 - L03.115) The cellulitis has completely resolved. The open areas on the right leg have healed. There were no open wounds today. We haad a long discussion about how to prevent furthher skin breakdown. Plan Of Treatment Medication Medication Name Sig Start Date Stop Date Notes Potassium Chloride 20 MEQ 1 packet with food Orally Once a day Eliquis 5 MG 1 tablet Orally Twice a day Ondansetron HCl 4 MG 1 tablet Orally Once a day Furosemide 40 MG 1 tablet Orally Once a day Digoxin 125 MCG 1 tablet Orally Once a day Next Appt Details Provider Name:Dennis Chavira , 02/04/2025 11:15:00 AM, [address] [place] [address] JOSÉ [address]ELSH, [place], [phone], Progress Notes * Karma YEEDOB:1955 ( 69 yo F)Acc No.[id number]:06/21/2023 Progress Notes Patient: Karma PALM Provider: Lalo Chavira MD :1955 A ge:67 Y S ex:Female Date:06/21/2023 Address:[address] [place] [address] Subjective: * Chief Complaints: * 1 . Follow up. * HPI: C OVID-19 Screening: Questions H ave you had any new onset fever, chills, cough, congestion, sore throat, shortness of breath, muscle aches? N o H ave you been exposed to the virus within the last 10 days? N o H ave you travelled internationally in the last 10 days? N o H ave you been exposed to COVID-19 in the past? N o * ROS: G eneral/Constitutional: pain o nly normal aches and pains. C hills d enies.?Fatigue a dmits. F ever d enies. E NT: Decreased hearing d enies. R espiratory: Cough d enies. C ardiovascular: Chest pain with exertion d enies. D yspnea on exertion?denies. S hortness of breath d enies. G astrointestinal: Constipation d enies. D ecreased appetite d enies.?Diarrhea d enies. H eartburn d enies. N ausea d enies. R ectal bleeding?denies. V omiting d enies. H ematology: bruising d enies. p etechiae d enies. S wollen glands n one have been noted. G enitourinary: Frequent urination d enies. M usculoskeletal: Muscle aches d enies. P ainful joints d enies. S ciatica d enies. W eakness d enies. S kin: Itching d enies. R regan d enies. S kin lesion(s)?denies. N eurologic: Difficulty speaking d enies. D izziness d enies.?Headache d enies. L ow back pain d enies. P sychiatric: Depressed mood d enies. * Medical History: C ellulitis of right lower limb, Other specified sepsis, Paroxysmal atrial fibrillation, Acute kidney failure, unspecified, Hypokalemia, Acute respiratory failure with hypoxia, Acute respiratory failure with hypercapnia, Morbid (severe) obesity due to excess calories, Muscle weakness (generalized), Venous insufficiency (chronic) (peripheral), Nonrheumatic aortic valve stenosis, Right Bran's cyst, Chronic anticoagulatiion, Chronic diastolic congestive heart failure, Fungal dermatitis. * Surgical History: D ebridement of ulceration, right lower extremity 11/2022. * Hospitalization/Major Diagno stic Procedure: D enies Past Hospitalization. * Family History: F ather: 68 yrs, diagnosed with Cancer. M other: 79 yrs, lung cancer, diagnosed with Cancer. S iblings: alive, one brother one sister one with arthritis. 1 brother(s) , 1 sister(s) . 1 daughter(s) - healthy. . Her mother of lung cancer. She is not sure of the cause of of her father. Her brother who is 10 years older than her is healthy and well. Her sister has bad arthritis. She is not aware of any family history of mental health disorders or substance use disorders. She is not aware of any family cancers ssyndromes. * Social History: T obacco Use: T obacco Use/Smoking P ale is a n onsmoker S he was born in [place], [place]. She retired last July. From the [employer]. She was to her in 1974. They have 1 daughter, Clarissa. She doess not smoke tobacco or drink alcohol. She has no hoahaoism objection to blood transfusion. * Medications: T umbertog Ondansetron HCl 4 MG Tablet 1 tablet Orally Once a day , Taking Potassium Chloride 20 MEQ Packet 1 packet with food Orally Once a day , Taking Eliquis 5 MG Tablet 1 tablet Orally Twice a day , Taking Furosemide 40 MG Tablet 1 tablet Orally Once a day , Taking Digoxin 125 MCG Tablet 1 tablet Orally Once a day , Medication List reviewed and reconciled with the patient * Allergies: N o Known Drug Allergy. Objective: * Vitals: * Examination: G eneral Examination: GENERAL APPEARANCE: p leasant, well nourished, well developed, in no acute distress, calm and relaxed. HEAD: a traumatic, normocephalic. EYES: e gordy, perrla, anicteric, conjugate. EARS: n ormal. NOSE: s eptum intact. ORAL CAVITY: n ormal, unremarkable. NECK/THYROID: n o jugular venous distention, no carotid bruit, thyroid normal. LYMPH NODES: n o enlarged lymph nodes,spleen normal. SKIN: n o suspicious lesions, anicteric. HEART: n o clicks, gallops, murmurs, or rubs, regular rhythm, S1, S2 normal, no s3, or vascular bruits. LUNGS: c lear to auscultation . BREASTS: no masses palpable bilaterally. ABDOMEN: b owel sounds normal, no ascites, no organomegaly, no mass. RECTAL EXAM: n ot examined. MUSCULOSKELETAL: e xtremities unremarkable, no clubbing, cyanosis or edema. PERIPHERAL PULSES: n ormal. NEUROLOGIC: a lert and oriented, cranial nerves 2-12 grossly intact, deep tendon reflexes 2+ symmetrical, motor strength normal upper and lower extremities, sensory exam intact. PSYCH: a lert, oriented. Assessment: * Assessment: 1. C ellulitis of right lower limb - L03.115 N otes :The cellulitis has completely resolved. The open areas on the right leg have healed. There were no open wounds today. We haad a long discussion about how to prevent furthher skin breakdown. Plan: * Treatment: * Images: * The named appointment provid er may or may not be the originator of this progress note, and it is not deemed complete until electronically signed by the appointment provider. Sign off status: Pending * Provider: Lalo Chavira MD Date: 0 06/21/2023 Generated for Girma cummings/Frieda/Susy on: 03:00 PM EDT History and Physical Notes * HPI (History of Present Illness) Category Sub-Category Detail Notes COVID-19 Screening Questions Have you had any new onset fever, chills, cough, congestion, sore throat, shortness of breath, muscle aches?: No Have you been exposed to the virus withi n the last 10 days?: No Have you travelled internationally in [facility] last 10 days?: No Have you been exposed to COVID-19 in the past?: No Examination Category Sub-Category Detail Notes General Examination GENERAL APPEARANCE: pleasant , well nourished, well developed, in no acute distress, calm and relaxed HEAD: atraumatic, normocep halic EYES: eomi, perrla, anicte geno, conjugate EARS: normal NOSE: septum intact NECK/THYROID: no jugular venous di stention, no carotid bruit, thyroid normal HEART: no clicks, gallops, murmurs, or rubs, regular rhythm, S1, S2 normal, no s3, or vascular bruits LUNGS: clear to auscultatio n ABDOMEN: bowel sounds normal, no ascites, no organomegaly, no mass NEUROLOGIC: alert and oriented, cranial nerves 2-12 grossly intact, deep tendon reflexes 2+ symmetrical, motor strength normal upper and lower extremities, sensory exam intact SKIN: no suspicious lesion s, anicteric PERIPHERAL PULSES: normal BREASTS: no masses palpable b ilaterally MUSCULOSKELETAL: extremities unremark able, no clubbing, cyanosis or edema LYMPH NODES: no enlarged lymph no kelsey,spleen normal RECTAL EXAM: not examined PSYCH: alert, oriented ORAL CAVITY: normal, unremarkable
--- OUTSIDE RECORDS SUMMARY | 2023-11-17 09:18 | XMS_ITS ---
Author Organization Dennis Chavira III, MD Address [address] [place] [address] [address] [place] [address] Care Team Providers Care Belt Turner Name Role Phone Dr. Dennis Chavira III Primary Care Provider REASON FOR VISIT Letter Request Social History Sex Assigned At : Social History Observation Description Sex Assigned At Female Encounters Encounter Location Date Provider Diagnosis Dennis Chavira III, MD [address] [place] [address] [place] [address] 11/17/2023 Dennis Chavira Plan Of Treatment Next Appt Details Provider Name:Dennis Chavira , 02/04/2025 11:15:00 AM, [address] [place] [address] [place], [phone], Progress Notes * Karma YEEDOB:1955 ( 68 yo F)Acc No.[id number]:11/17/2023 Patient: Karma PALM :1955 A ge:68 Y S ex:Female Address:[address] [facility] [place], [address] * true * Date: Generated for Sulyi emiliano/Frieda/eTransmitting on: 02:59 PM EDT
--- OUTSIDE RECORDS SUMMARY | 2024-09-10 06:45 | XMS_ITS ---
Author Organization Dennis Chavira III, MD Address [address] [place] [address] Care Team Providers Care Bariatric Coordinator Name Role Phone Dr. Dennis Chavira III Primary Care Provider Allergies Allergen (clinical drug [...] Problem Status W/U Status Risk Notes Problem [id number] Acute dehydration (E86.0) Active confirmed She was extremely weak and has lost a great deal weight and cannot keep down food and fluids. She has been successfully transferred to the emergency room for urgent treatment. Problem 900050936 Lymphedema (I89.0) Active confirmed She has severe [...] Provider Diagnosis Dennis Chavira III, MD [address] [place] [address] [place] [address] 09/10/2024 Dennis Chavira Acute dehydration E8 6.0 [...] I48.0) Her heart rate is controlled today. Digital Marketing Coordinator has given her digoxin which is causing [...] Name:Dennis Chavira , 02/04/2025 11:15:00 AM, [address] [place] [address] DR [facility] Eric, [place], [address], Progress Notes * Karma YEEDOB:1955 ( 69 yo F)Acc No.[id number]:09/10/2024 Progress Notes Patient: Karma PALM Provider: Lalo Chavira MD :1955 A ge:69 Y S ex:Female Date:09/10/2024 Address:[address] [place], [place] [address] Subjective: * Chief Complaints: * W eaknessShortness [...] taken directly to the emergency room at [facility] for her lipase was over 400 [...] n onsmoker S he was born in [place], [place]. She retired last July. From the [employer]. She was to her in 1974. They have 1 daughter, Clarissa. She doess not smoke tobacco or drink alcohol. She has no catholic objection to blood transfusion. * Medications: T [...] otes :Her heart rate is controlled today. Digital Marketing Coordinator has given her digoxin which is causing [...] true * Provider: Lalo Chavira MD Date: 09/10/2024 Generated for Girma cummings/Frieda/Susy on: 03:00 PM [...]
--- OUTSIDE RECORDS SUMMARY | 2024-09-26 06:46 | XMS_ITS ---
Author Organization Dennis Chavira III, MD Address [address] [place] [address] [address] [place] [address] Care Team Providers Care Photo Lab Technician Name Role Phone Dr. 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 Referred Provider Specialty Gynecology ( Osteopaths only) General Notes Radha Van 09/26/2024 10:58:17 AM > Referral faxed with last progress note, CT Abd and pelvis no contrast and US pelvis doppler., Jagdish Roberto 10/11/2024 11:44:12 AM >As per patient [facility] CLAY PROCESSING FACTORY WORKER does not perform the procedure for the diagnostic problem., Radha Van 10/11/2024 01:08:43 PM > referral has been changed and updated to [facility] CLAY PROCESSING FACTORY WORKER, referral and attachments faxed, Radha Van 10/31/2024 02:58:03 PM > Spoke with Daniela at [facility] stated they have received the referral and it is currently still being processed. When it is done being processed they will contact the patient to schedule. Referral Priority Routine REASON FOR VISIT CLAY PROCESSING FACTORY WORKER Referral Social History Sex Assigned At : Social History Observation Description Sex Assigned At Female Encounters Encounter Location Date Provider Diagnosis Dennis Chavira III, MD [address] [place] [address] [place] [address] 09/26/2024 Dennis Chavira Plan Of Treatment Referrals Referral Date Details 09/26/2024 09/26/2024, Evaluate and Treat Abnormal Thickened Endrometrium, [facility] Next Appt Details Provider Name:Dennis Chavira , 02/04/2025 11:15:00 AM, [address] [place] [address] [place], [address], Progress Notes * POLINA KeyakimberlyDOB:1955 ( 69 yo F)Acc No.[id number]:09/26/2024 Patient: Karma PALM :1955 A ge:69 Y S ex:Female Address:[address] [place] [address] [place], [address] Subjective: * Chief Complaints: * G YN Referral * Medical History: * Surgical History: * Hospitalization/Major Diagno stic Procedure: * Medications: Objective: * Vitals: * Physical Examination: Assessment: Plan: * Treatment: * Procedure Codes: * true * Date: Generated for Girma cummings/Frieda/eTransmitting on: 1 02:59 PM EDT Consultation Request Notes Referral Date Referring Provider Referred Provider Not chance 09/26/2024 Dennis Chavira, [facility] Evaluate and Treat Abnormal Thickened Endrometrium
--- OUTSIDE RECORDS SUMMARY | 2024-10-17 07:25 | XMS_ITS ---
Author Organization Dennis Chavira III, MD Address [address] [place] [address] [address] [place] [address] Care Team Providers Care Pressure Steamer Tender Name Role Phone Dr. Dennis Chavira III Primary Care Provider [phone] REASON FOR VISIT Verbal Orders Social History Sex Assigned At : Social History Observation Description Sex Assigned At Female Encounters Encounter Location Date Provider Diagnosis Dennis Chavira III, MD [address] [place] [address] [place] [address] 10/17/2024 Dennis Chavira Plan Of Treatment Next Appt Details Provider Name:Dennis Chavira , 02/04/2025 11:15:00 AM, [address] [place] [address] [place], [address], Progress Notes * Karma YEEDOB:1955 ( 69 yo F)Acc No.[id number]:10/17/2024 Patient: Karma PALM :1955 A ge:69 Y S ex:Female Address:[address] [facility] [place], [address] * true * Date: Generated for Sulyi emiliano/Frieda/eTransmitting on: 02:59 PM EDT
--- OUTSIDE RECORDS SUMMARY | 2024-10-18 07:00 | XMS_ITS ---
Author Organization Dennis Chavira III, MD Address [address] [place] [address] Care Team Providers Care Machine Molder Squeeze Name Role Phone Dr. Dennis Chavira III [...] Provider Speciality Internal M edicine Referred Organization [facility] nter Referred Provider [facility], Wound Care Center Referred Address [address] [place] [phone], Referred Provider Specialty Unknown General Notes DRadha 10/21/2024 10:45:13 AM > Faxed referral, progress note and valerie.Carlota Amber 10/22/2024 10:48:41 AM > Called [facility] and left message regarding referral. [...] Date Provider Diagnosis Dennis Chavira III, MD [address] [place] [address] [place] [address] 10/18/2024 Dennis Chavira Morbid (severe) obes ity [...] lymphedema on right leg, Wound Care Center [facility], [address] [place] [address], [place], [place], [phone], Next Appt Details Follow Up: 4 Weeks, Reason: OV Provider Name:Dennis Chavira , 02/04/2025 11:15:00 AM, [address] [place] [address] [address], [place], [address], Progress Notes * Karma YEEDOB:1955 ( 69 yo F)Acc No.[id number]:10/18/2024 Patient: Karma PALM Provider: Lalo Chavira MD :1955 A ge:69 Y S ex:Female Date:10/18/2024 Address:[address] [place] [address] Subjective: * Chief Complaints: * C ellulitis [...] stabilized. She was then transferred to the [facility] in [facility] from which she was discharged yesterday. She [...] n onsmoker S he was born in [place], [place]. She retired last July. From the [employer]. She was to her in 1974. They have 1 daughter, Clarissa. She doess not smoke tobacco or drink alcohol. She has no episcopal objection to blood transfusion. * Medications: T [...] 2. L ymphedema Referral To:Wound Care Center [facility] Unknown Reason:Urgent Appointment Request Evaluate and Treat [...] 0 10/18/2024 Generated for Girma cummings/Frieda/Susy on: 1 03:00 PM EDT History and Physical Notes [...] Provider Referred Provider Not chance 10/18/2024 Cait [facility], Wound Care Center Urgent Appointment Request Evaluate and Treat Massive lymphedema on right leg
--- OUTSIDE RECORDS SUMMARY | 2024-10-29 10:29 | XMS_ITS ---
Author Organization Dennis Chavira III, MD Address [address] [place] [address] [address] [place] [address] Care Team Providers Care Fabricating Machine Operator Name Role Phone Dr. Dennis Chavira III Primary Care Provider REASON FOR VISIT Message/hadicap placard application Social History Sex Assigned At : Social History Observation Description Sex Assigned At Female Encounters Encounter Location Date Provider Diagnosis Dennis Chavira III, MD [address] [place] [address] [place] [address] 10/29/2024 Dennis Chavira Plan Of Treatment Next Appt Details Provider Name:Dennis Chavira , 02/04/2025 11:15:00 AM, [address] [place] [address] [place], [address], Progress Notes * Karma YEEDOB:1955 ( 69 yo F)Acc No.[id number]:10/29/2024 Patient: Keya PALMcy :1955 A ge:69 Y S ex:Female Address:[address] [facility] [place], [address] * true * Date: Generated for Girma cummings/Frieda/eTransmitting on: 03:01 PM EDT
--- OUTSIDE RECORDS SUMMARY | 2024-11-05 09:33 | XMS_ITS ---
Author Organization Dennis Chavira III, MD Address [address] [place] [address] Care Team Providers Care Help Desk Specialist Name Role Phone Dr. Dennis Chavira III [...] Date Provider Diagnosis Dennis Chavira III, MD [address] [place] [address] [place] [address] 11/05/2024 Dennis Chavira Plan Of Treatment Medication [...] Provider Name:Dennis Chavira , 02/04/2025 11:15:00 AM, [address] [place] [address] [place], [address], Progress Notes * Karma YEEDOB:1955 ( 69 yo F)Acc No.[id number]:11/05/2024 Patient: Karma PALM :1955 A ge:69 Y S ex:Female Address: [place], [address] * Refills Refill Famotidine Tablet, 20 MG, [...] * Date: Generated for Girma cummings/Frieda/Ceeitting on: 03:00 PM EDT
--- OUTSIDE RECORDS SUMMARY | 2024-11-13 13:00 | XMS_ITS ---
Author Organization Dennis Chavira III, MD Address [address] [place] [address] Care Team Providers Care Flat Hammerer Name Role Phone Dr. Dennis Chavira III [...] Date Provider Diagnosis Dennis Chavira III, MD [address] [place] [address] [place] [address] 11/13/2024 Dennis Chavira Plan Of Treatment Medication [...] Provider Name:Dennis Chavira , 02/04/2025 11:15:00 AM, [address] [place] [address] [address], [address], [place], [address], Progress Notes * Karma YEEDOB:1955 ( 69 yo F)Acc No.[id number]:11/13/2024 Progress Notes Patient: Karma PALM Provider: Lalo Chavira MD :1955 A ge:69 Y S ex:Female Date:11/13/2024 Address:[address] [place] [address] Subjective: * Chief Complaints: * 1 . [...] n onsmoker S he was born in [place], [place]. She retired last July. From the [employer]. She was to her in 1974. They have 1 daughter, Clarissa. She doess not smoke tobacco or drink alcohol. She has no orthodoxy objection to blood transfusion. * Medications: T [...] Provider: Lalo Chavira MD Date: Generated for Sulyi emiliano/Frieda/Susy on: 03:00 PM EDT History and Physical [...]
--- OUTSIDE RECORDS SUMMARY | 2024-12-04 07:15 | XMS_ITS ---
Author Organization Dennis Chavira III, MD Address [address] [place] [id number] Care Team Providers Care Oven Operator Automatic Name Role Phone Dr. Dennis Chavira III [...] Last Name Cait Referring Provider Speciality Internal edicine Referred Organization [facility] nter Referred Provider [facility] er, Core Physical Therapy Referred Address [address] [place] [phone], Referred Provider Specialty Physical The rapist General Notes DRadha 12/09/2024 11:30:06 AM > Referral and progress note faxed. Referral Priority Routine Reason Evaluate and Treat Diagnosis 1 Venous insufficiency (chronic) (peripheral) (I87.2) Diagnosis 2 Paroxysmal atrial fi brillation (I48.0) Diagnosis 3 Muscle weakness (gen eralized) (M62.81) Diagnosis 4 Lymphedema (I89.0) Referral Organization Dennis Chavira III, MD Referring Provider First Name Dennis Referring Provider Last Name Chavira Referring Provider Speciality Internal M edicine Referred Organization [facility] patricia Referred Provider Adrián Santana Referred Address [address] [place] [address],[place], [place],[id number],[place] Referred Provider Specialty Vascular Shauna checo General Notes Radha Van 12/09/2024 11:28:09 AM > Referral and progress [...] Eliquis 5 MG TAKE 1 TABLET BY FANTAMSA TH TWICE A DAY FOR 90 DAYS [...] Date Provider Diagnosis Dennis Chavira III, MD [address] [place] [address] [address] [place] [phone] 12/04/2024 Dennis Chavira Acute kidney failure , [...] pelvic ultrasound done September 10, 2024 at [facility]. We have referred her to gynecology for [...] and treat Lymphedema Clinic, [facility] Physical [facility], [address] [place] [address], [phone], 12/04/2024 12/04/2024, Evaluate and Treat, Adrián Santana, [address] [place] [address], [place], [place], [phone], Next Appt Details Follow Up: 2 Months, Reason: OV Provider Name:Dennis Chavira , 02/04/2025 11:15:00 AM, [address] [place] [address] [address], [place], [address], Progress Notes * Jeff YEE:1955 ( 69 yo F)Acc No.[id number]:12/04/2024 Progress Notes Patient: T ARKA, Karma Provider: Lalo Chavira MD :1955 A ge:69 Y S ex:Female Date:12/04/2024 Address:[id number] Subjective: * Chief Complaints: * L ymphedemaParoxysmal [...] n onsmoker S he was born in [place], [place]. She retired last July. From the [employer]. She was to her in 1974. They have 1 daughter, Clarissa. She doess not smoke tobacco or drink alcohol. She has no christianity objection to blood transfusion. * Medications: T [...] Small (1+) A (Ref Range: Negative) Specific Mitchell - Urine 1.020 (Ref Range: 1.005-1.025) 1.020 [...] Date & Time - 09/10/2024 11:52 AM)?ValueReference Range?[id number] - U/L ???Lab:Electrolytes Urine (Order Date - 09/10/2024) (Collection Date & Time - 09/10/2024 04:57 PM)?ValueReference Range?Chloride Urine Random< 20.0- mmol/L?Sodium Urine Random< 20.0- mmol/L?Potassium Urine Ejqqvi65.2- mmol/L * Lab:Blood Culture (First) * Collection [...] Order Date 09/15/2024 09/10/2024 12/01/2022 * Lab:[facility] - Possible Carlito tology * Collection Date 09/18/2024 09/15/2024 09/14/2024 Collection Time 06:12 AM 09:47 AM 07:01 AM 07:50 AM Order Date 09/18/2024 09/15/2024 09/14/2024 09/13/2024 [facility] - Possible Hematology SEE NOTE SEE NOTE SEE NOTE SEE NOTE ???Lab:Gastrin (Order Date - 09/18/2024) (Collection Date & Time - 09/18/2024 06:12 AM)?ValueReference Range?Wemxkek13<=100 - pg/mL * Lab:Pathology * Collection Date [...] pelvic ultrasound done September 10, 2024 at [facility]. We have referred her to gynecology for [...] w DIFF L AB: Lipid Panel Referral To:[facility] Physical Therapy [facility] Physical Therapist Reason:Evaluate and treat Lymphedema Clinic 3. H ypokalemia L AB: PROFILE, FASTING (COMPREHENSIVE METABOLIC) L AB: CBC w DIFF L AB: Lipid Panel 4. P aroxysmal atrial fibrillation Referral To:[facility] Vascular Surgery Reason:Evaluate and Treat 5. L ymphedema Referral To:[facility] Physical Therapy [facility] Physical Therapist Reason:Evaluate and treat Lymphedema Clinic Referral To:[facility] Vascular Surgery Reason:Evaluate and Treat 6. C hronic diastolic (congestive) heart failure Referral To:[facility] Physical Therapy [facility] Physical Therapist Reason:Evaluate and treat Lymphedema Clinic [...] a day. ? Referral To:[facility] Physical Therapist Reason:Evaluate and treat Lymphedema Clinic [...] Lalo Chavira MD Date: Generated for Sulyi emiliano/Frieda/eTransmitting on: 03:01 PM EDT History and Physical Notes * [...] Referred Provider Not es 12/04/2024 Dennis Chavira [facility], [facility] Physical Therapy Evaluate and treat Lymphedema Clinic 12/04/2024 Dennis Chavira Sandip Evaluate and T reat
--- NOTE | ~2024-12-13 | US_ITS ---
EXAMINATION: US RETROPERITONEAL LIMITED (RENAL ONLY) CLINICAL INFORMATION: Nephrolithiasis.. COMPARISON: December 02, 2022. Correlated to noncontrast CT dated September 10, 2024. TECHNIQUE: Real-time ultrasound kidneys using grayscale technique. FINDINGS: RIGHT KIDNEY: 13 x 5 x 6 cm (SAG x AP x TRV). Normal echotexture. Renal cortical thinning. No hydronephrosis. No gross solid or cystic lesion. LEFT KIDNEY: 9 x 5 x 4 cm (SAG x AP x TRV). Normal echotexture. Renal cortical thinning. Less than 5 mm hyperechoic foci in the midportion of the pelvicalyceal system. No hydronephrosis. No gross solid or cystic lesion. US/US renal BI IMPRESSION: Nonobstructing nephrolithiasis, left kidney. . Electronically signed by: Reilly Banerjee MD 12/13/2024 02:59 PM EDT
--- OUTSIDE RECORDS SUMMARY | 2024-12-13 15:00 | XMS_ITS | Clinical Summary ---
Author Organization [facility] Facility Address [address] [address] Care Team Providers Care Key Account Representative Name Role Phone Dennis Chavira MD Primary Care Provider [phone] Social History Tobacco Use Types Packs/Day Years [...] age to complete this topic Insurance Medicare [facility] Medicare [facility] Care Teams Key Account Representative Relationship Specialty Start Date End Date Dennis Chavira MD [address] [place] [address] [id number] [place], [place] PCP - General Medical Oncology 12/05/22
--- OUTSIDE RECORDS SUMMARY | 2024-12-13 15:01 | XMS_ITS | Patient Health Record ---
Author Organization Dennis Chavira III, MD Address [address] [place] [address] Care Team Providers Care Assistive Technology Trainer Name Role Phone Dr. Dennis Chavira III Primary Care Provider Allergies Allergen (clinical drug ingredient) Drug/Non Drug Allergy documented on EMR Reaction Allergy Type Onset Date Status No Known Drug Allergy Unknown Drug Allergy Active Results Component Value Reference Range Notes Complete Blood Count Auto Di ff Reviewed date:09/11/2024 05:44:45 AM Interpretation: Performing Lab:[facility] [place], [address] [place] [address] Notes/Report: White Blood Count 12.3 4.8-10.8 X10*3/uL [...] INR Reviewed date:09/11/2024 05:44:45 AM Interpretation: Performing Lab:[address] [address] Notes/Report: Prothrombin Time 13.3 10.9-12.4 SEC INTERNATIONAL [...] Panel Reviewed date:09/11/2024 05:44:45 AM Interpretation: Performing Lab:[address] [address] Notes/Report: Sodium 129 135-145 mmol/L Potassium 4.3 [...] Acid Reviewed date:09/11/2024 05:44:45 AM Interpretation: Performing Lab:[facility] [place], [address] [place] [address] Notes/Report: Lactic Acid 1.3 0.5-2.0 mmol/L Magnesium Reviewed date:09/11/2024 05:44:45 AM Interpretation: Performing Lab:[facility] [place], [address] [place] [address] Notes/Report: Magnesium 2.7 1.6-2.6 mg/dL Troponin-I High Sensitivity Reviewed date:09/11/2024 05:44:45 AM Interpretation: Performing Lab:[address] [address] Notes/Report: Troponin-I High Sensitivity 36.2 <3.5-17.0 ng/L The Lisa high sensitivity Troponin-I results should be used in conjunction with other diagnostic information such as ECG, clinical observations and information, and patient symptoms to aid in the diagnosis of HI. B Type Natriuretic Peptide Reviewed date:09/11/2024 05:44:45 AM Interpretation: Performing Lab:[address] [address] Notes/Report: B Type Natriuretic Peptide 40 <100 pg/mL Lipase Reviewed date:09/11/2024 05:44:45 AM Interpretation: Performing Lab:[address] [address] Notes/Report: Lipase 474 8-78 U/L Electrolytes Urine Reviewed date:09/11/2024 05:44:45 AM Interpretation: Performing Lab:[address] [address] Notes/Report: Chloride Urine Random < 20.0 Sodium Urine Random < 20.0 Potassium Urine Random 69.2 Digoxin Reviewed date:09/11/2024 05:44:45 AM Interpretation: Performing Lab:[address] [address] Notes/Report: Digoxin 1.0 0.8-2.0 ng/mL Assay modified to minimize interference from aldosterone antagonists (e.g. spironolactone and canrenone). Ethanol Reviewed date:09/11/2024 05:44:45 AM Interpretation: Performing Lab:[address] [address] Notes/Report: Ethanol < 10 Serum/plasma ethanol results are to be used for medical/treatment purposes only. Urine Culture Reviewed date:09/12/2024 08:13:27 PM Interpretation: Performing Lab:[address] [address] Notes/Report: O:ESCCOL Escherichia coli Urine Culture Quant Urine Culture > 100,000 cfu/mL Ampicillin 4 Cefazolin (Urine) <=1 Cefepime <=0.12 Ceftriaxone <=0.25 Ciprofloxacin <=0.06 Gentamicin <=1 Nitrofurantoin <=16 Trimethoprim/Sulfametho xazole <=20 SARS-CoV2/FLU/RSV Reviewed date:09/11/2024 05:44:45 AM Interpretation: Performing Lab:[address] [address] Notes/Report: Influenza A PCR NEGATIVE Negative Influenza [...] by authorized laboratories. Testing performed on the [employer] GeneXpert utilizing real-time RT-PCR. All SARS CoV2 and positive influenza A/B results are reported to [facility]. Blood Culture (First) Reviewed date:09/16/2024 04:12:37 PM Interpretation: Performing Lab:[address] [address] Notes/Report: Blood Culture (First) No growth after 5 days. Blood Culture (Second) Reviewed date:09/16/2024 04:12:37 PM Interpretation: Performing Lab:[address] [address] Notes/Report: Blood Culture (Second) No growth after 5 days. UA ClnCatch+Micro w/rflx Cul t Reviewed date:09/11/2024 05:44:45 AM Interpretation: Performing Lab:[address] [address] Notes/Report: Urine, Catheterized Color Urine Yellow Appearance Urine Cloudy PH 6.0 5.0-9.0 Glucose Urine UA Negative Negative mg/dL Urine Blood Small (1+) Negative Specific [place] - Urine 1.020 1.005-1.025 Urine Protein 100 [...] POC Reviewed date:09/11/2024 05:44:45 AM Interpretation: Performing Lab:[address] [address] Notes/Report: VBG pH 7.16 7.32-7.43 METER #: [id number] additional_comment: Cb n-ev ctrbb kort VBG pCO2 28 METER #: [id number] additional_comment: Cb n-ev ctrbb kort VBG pO2 52 METER #: [id number] additional_comment: Cb n-ev ctrbb kort VBG Base Excess -16.4 METER #: [id number] additional_comment: Cb n-ev ctrbb kort VBG HCO3 10 22-26 mmol/L METER #: [id number] additional_comment: Cb n-ev ctrbb kort VBG O2 % Saturation 79.0 METER #: [id number] additional_comment: Cb n-ev ctrbb kort Beta-Hydroxybutyrate Reviewed date:09/11/2024 05:44:45 AM Interpretation: Performing Lab:[facility] [place], [address] [place] [address] Notes/Report: Beta-Hydroxybutyrate 0.60 0.02-0.27 mmol/L CT abdomen pelvis wo con Reviewed date:09/11/2024 05:44:45 AM Interpretation: Performing Lab: Notes/Report: [address] [address] [address] Scan Report Signed Patient: Karma Yee MR#: [id number] 0 : 1955 Acct:[id number] Age/Sex: 69 / F ADM Date: 09/10/24 Loc: HO.ED Attending Dr: Ordering Physician: Mau Smith MD Date of Service: 09/10/24 Procedure(s): CT abdomen pelvis wo IV con Accession Number(s): [id number] cc: Dennis Chavira MD; Mau Smith MD Report Number: [id number]: Total DLP = 1161.00 mGy-cm EXAMINATION: CT [...] 09/10/24 1418 DD/ 1336 TD/TT: 09/10/24 1410 Ict Project Manager: [address] [address] [address] Scan Report Signed Patient: Karma Yee MR#: [id number] 0 : 1955 Acct:[id number] Age/Sex: 69 / F ADM Date: 09/10/24 Loc: HO.ED Attending Dr: Ordering Physician: Mau Smith MD Date of Service: 09/10/24 Procedure(s): CT abd omen pelvis wo IV con Accession Number(s): [id number] cc: Dennis Chavira MD; Mau Smith MD [...] Signed By: <Electron ically signed by Dennis Gardnre MD in OV> 09/10/24 1418 DD/ 1336 TD/TT: 09/10/24 1410 Ict Project Manager: XR chest 1V Reviewed date:09/11/2024 05:44:45 AM Interpretation: Performing Lab: Notes/Report: [address] [address] XRay Report Signed Patient: Karma Yee MR#: [id number] 0 : 1955 Acct:[id number] Age/Sex: 69 / F ADM Date: 09/10/24 Loc: HO.ED Attending Dr: Ordering Physician: Racheal Bruce CNP Date of Service: 09/10/24 Procedure(s): XR chest 1V Accession Number(s): [id number] cc: Racheal Bruce CNP; Dennis Chavira MD [...] 09/10/24 1250 DD/ 1148 TD/TT: 09/10/24 1247 Ict Project Manager: [place] [address] XRay Report Signed Patient: Karma Yee MR#: [id number] 0 : 1955 Acct:[id number] Age/Sex: 69 / F ADM Date: 09/10/24 Loc: .ED Attending Dr: Ordering Physician: Racheal Bruce CNP Date of Service: 09/10/24 Procedure(s): XR chest 1V Accession Number(s): [id number] cc: Racheal Bruce CNP; Dennis Chavira MD [...] Dictated By: Rickie Cline MD Signed By: <Electron ically signed by Rickie Cline MD in OV> 09/10/24 1250 DD/ 1148 TD/TT: 09/10/24 1247 Ict Project Manager: Troponin-I High Sensitivity Reviewed date:09/11/2024 05:44:45 AM Interpretation: Performing Lab:[address] [address] Notes/Report: Troponin-I High Sensitivity 32.7 <3.5-17.0 ng/L The Lisa high sensitivity Troponin-I results should be used in conjunction with other diagnostic information such as ECG, clinical observations and information, and patient symptoms to aid in the diagnosis of HI. Complete Blood Count no Diff Reviewed date:09/11/2024 09:17:23 AM Interpretation: Performing Lab:[facility] [place], [address] [place] [address] Notes/Report: White Blood Count 8.2 4.8-10.8 X10*3/uL [...] Panel Reviewed date:09/11/2024 09:17:23 AM Interpretation: Performing Lab:[address] [address] Notes/Report: Sodium 135 135-145 mmol/L Potassium 4.3 [...] Diff Reviewed date:09/12/2024 08:13:27 PM Interpretation: Performing Lab:[facility] [place], [address] [place] [address] Notes/Report: White Blood Count 8.3 4.8-10.8 X10*3/uL [...] Diff Reviewed date:09/12/2024 08:13:27 PM Interpretation: Performing Lab:[facility] [place], [address] [place] [address] Notes/Report: White Blood Count 8.8 4.8-10.8 X10*3/uL [...] Panel Reviewed date:09/12/2024 08:13:27 PM Interpretation: Performing Lab:[facility] [place], [address] [place] [address] Notes/Report: Sodium 136 135-145 mmol/L Potassium 4.2 [...] date:10/15/2024 05:04:28 AM Interpretation: Performing Lab: Notes/Report: [address] [address] Ultrasound Report Signed Patient: Karma Yee MR#: [id number] 0 : 1955 Acct:[id number] Age/Sex: 69 / F ADM Date: 09/10/24 Loc: [facility] [address]: Mary Brunson MD Ordering Physician: Johnie Arango Date of Service: 09/12/24 Procedure(s): US pelvic complete Accession Number(s): [id number] cc: Johnie Arango; Dennis Chavira MD CLINICAL [...] By: 09/25/24 1054 DD/ 33 TD/TT: 09/12/241833 Ict Project Manager: [place] [address] Ultrasound Report Signed Patient: Karma Yee MR#: [id number] 0 : 1955 Acct:[id number] Age/Sex: 69 / F ADM Date: 09/10/24 Loc: .[facility] 469-[address]: Hannah Brunson MD Ordering Physician: Johnie Arango Date of Service: 09/12/24 Procedure(s): US pel hayder complete Accession Number(s): [id number] cc: Johnie Arango; Dennis Chavira MD CLINICAL [...] By: 09/25/24 1054 DD/ 33 TD/TT: 09/12/241833 Ict Project Manager: US pelvic and transvaginal Reviewed date:09/12/2024 08:13:27 PM Interpretation: Performing Lab: Notes/Report: [place] [address] Ultrasound Report Signed Patient: Karma Yee MR#: [id number] 0 : 1955 Acct:[id number] Age/Sex: 69 / F ADM Date: 09/10/24 Loc: [facility] [address]: Johnie GREENE Ordering Physician: Johnie Arango Date of Service: 09/12/24 Procedure(s): US pelvic and transvaginal Accession Number(s): [id number] cc: Johnie Arango; Dennis Chavira MD CLINICAL [...] in OV> 09/12/241833 DD/ 33 TD/TT: 09/12/241833 Ict Project Manager: [place] [address] Ultrasound Report Signed Patient: Karma Yee MR#: [id number] 0 : 1955 Acct:[id number] Age/Sex: 69 / F ADM Date: 09/10/24 Loc: .[facility] [address]: Renita GREENE Ordering Physician: Johnie Arango Date of Service: 09/12/24 Procedure(s): US pel hayder and transvaginal Accession Number(s): [id number] cc: Johnie Arango; Dennis Chavira MD CLINICAL [...] By: Darleen Ballesteros MD Signed By: <Electron icallariella signed by Ramona Ballesteros MD in OV> 09/12/241833 DD/ 33 TD/TT: 09/12/241833 Ict Project Manager: Hold Lav - Possible Hematolo gy Reviewed date:09/13/2024 12:54:04 PM Interpretation: Performing Lab:[facility] [place], [address] [place] [address] Notes/Report: Hold Lav - Possible Hematology SEE NOTE Specimen will be held untested for 8 hours. Call Hematology if testing is desired. Basic Metabolic Panel Reviewed date:09/13/2024 12:54:04 PM Interpretation: Performing Lab:[facility] [place], [address] [place] [address] Notes/Report: Hardstick try 1, I couldn't find any more vein. Alecis [id number] Sodium 139 135-145 mmol/L Potassium 3.6 3.3-5.1 [...] Culture Reviewed date:09/16/2024 04:12:37 PM Interpretation: Performing Lab:[facility] [place], [address] [place] [address] Notes/Report: O:PROMIR Proteus mirabilis Urine Culture Quant Urine Culture > 100,000 cfu/mL Ampicillin <=2 Cefazolin (Urine) 4 Cefepime <=0.12 Ceftriaxone <=0.25 Ciprofloxacin <=0.06 Gentamicin <=1 Nitrofurantoin 128 Trimethoprim/Sulfametho xazole <=20 FL guidance in OR Reviewed date:09/13/2024 12:54:04 PM Interpretation: Performing Lab: Notes/Report: [address] [address] Fluoroscopy Report Signed Patient: Karma Yee MR#: [id number] 0 : 1955 Acct:[id number] Age/Sex: 69 / F ADM Date: 09/10/24 Loc: [facility] [address]: Giulia GREENE Ordering Physician: Thomas Waters MD Date of Service: 09/13/24 Procedure(s): FL guidance in OR Accession Number(s): [id number] cc: Thomas Waters MD; Dennis Chavira MD [...] 09/13/24 1103 DD/ 0930 TD/TT: 09/13/24 0948 Ict Project Manager: [address] [address] Fluoroscopy Report Signed Patient: Karma Yee MR#: [id number] 0 : 1955 Acct:[id number] Age/Sex: 69 / F ADM Date: 09/10/24 Loc: .[facility] 469-[address]: Brigida GREENE Ordering Physician: Thomas Waters MD Date of Service: 09/13/24 Procedure(s): FL olivier jonas in OR Accession Number(s): [id number] cc: Thomas Waters MD; Dennis Chavira MD [...] 09/13/24 1103 DD/ 0930 TD/TT: 09/13/24 0948 Ict Project Manager: Hold Lav - Possible Hematolo gy Reviewed date:09/14/2024 07:10:27 PM Interpretation: Performing Lab:[facility] [place], [address] [place] [address] Notes/Report: Hold Lav - Possible Hematology SEE NOTE Specimen will be held untested for 8 hours. Call Hematology if testing is desired. Basic Metabolic Panel Reviewed date:09/14/2024 07:10:27 PM Interpretation: Performing Lab:[facility] [place], [address] [place] [address] Notes/Report: Sodium 140 135-145 mmol/L Potassium 3.9 [...] gy Reviewed date:09/16/2024 04:12:37 PM Interpretation: Performing Lab:[facility] [place], [address] [place] [address] Notes/Report: Hold Lav - Possible Hematology SEE NOTE Specimen will be held untested for 8 hours. Call Hematology if testing is desired. Basic Metabolic Panel Reviewed date:09/16/2024 04:12:37 PM Interpretation: Performing Lab:[facility] [place], [address] [place] [address] Notes/Report: Sodium 141 135-145 mmol/L Potassium 3.8 [...] date:09/16/2024 04:12:37 PM Interpretation: Performing Lab: Notes/Report: [address] [address] XRay Report Signed Patient: Karma Yee MR#: [id number] 0 : 1955 Acct:[id number] Age/Sex: 69 / F ADM Date: 09/10/24 Loc: [facility] 469-[address]: Johnie GREENE Ordering Physician: Johnie Arango Date of Service: 09/15/24 Procedure(s): XR chest 1V Accession Number(s): [id number] cc: Johnie Arango; Dennis Chavira MD CLINICAL [...] 09/15/24 1111 DD/ 1110 TD/TT: 09/15/24 1110 Ict Project Manager: [address] [address] XRay Report Signed Patient: Karma Yee MR#: [id number] 0 : 1955 Acct:[id number] Age/Sex: 69 / F ADM Date: 09/10/24 Loc: [facility] 469-[address]: Renita GREENE Ordering Physician: Johnie Arango Date of Service: 09/15/24 Procedure(s): XR chest 1V Accession Number(s): [id number] cc: Johnie Arango; Dennis Chavira MD CLINICAL [...] 09/15/24 1111 DD/ 1110 TD/TT: 09/15/24 1110 Ict Project Manager: Basic Metabolic Panel Reviewed date:09/18/2024 12:43:11 PM Interpretation: Performing Lab:[facility] [place], [address] [place] [address] Notes/Report: Sodium 143 135-145 mmol/L Potassium 3.8 [...] Pathology Reviewed date:09/22/2024 08:03:44 PM Interpretation: Performing Lab:[facility] [place], [address] [place] [address] Notes/Report: ------ Name: Karma Yee Age/Sex: 69/F : 1955 Unit#: [id number] Attend Dr: Mary Brunson MD Re09/10/24 Status : DIS IN Location: [facility] 469-1 Disch: 09/18/24 ------ SPEC : [id number] RECD : 09/17/24-1346 STATUS: PARAS PRADO NUM: [id number] MICHAEL: 09/17/24-[address] [facility] [address]: Darleen Tran MD ENTERED: 09/17/24-13 [...] Name: Karma Yee Age/Sex: 69/F [facility] 1955 [id number]#: [id number] Attend Dr: Mary Brunson MD Re09/10/24 Status : DIS IN Location: [facility] 469-1 Disch: 09/18/24 ------ SPEC : [id number] RECD : 09/17/245157 STATUS: PARAS PRADO NUM: [id number] MICHAEL: 09/17/24-[address]: Darleen Tran MD ENTERED: 09/17/24-13 47 [...] microscopic examination, 4 pieces in cassette C. ([facility]) Special studies orde red and performed: Immunostain for H. pylori on A1, B1 and C1. IHC S/NG Disclaimer NOTE: Unless otherwi se stated, all tissue is formalin-fixed and paraffin-embedded. Some or all of the immunohistochemical tests reported herein may have been developed and their performance characteristics determined by [facility]. They have not been cleared or appr drake by the U.S. Food and Drug Administration (FDA). However, the FDA has determined that such clearance or approval is not necessary. This laboratory is certified under the Clinical Laboratory Improvement Amendments of 1988 (CLIA) as qualified to perform high comp lexity clinical laboratory testing. Copies To: Johnie Arango [address] [place] [phone] [email or web address] Dennis Chavira MD [address] [place] [address] [address] [place] [address] Darleen Tran MD [facility] [address] [place] [phone] [email or web address] ------ Signed (signature on file) Jessica [place] 09/19/24 1004 ------ END OF REPORT Hold Lav - Possible Hematolo gy Reviewed date:09/18/2024 12:43:10 PM Interpretation: Performing Lab:[facility] [place], [address] [place] [address] Notes/Report: Hold Lav - Possible Hematology SEE NOTE Specimen will be held untested for 8 hours. Call Hematology if testing is desired. Basic Metabolic Panel Reviewed date:09/18/2024 12:43:11 PM Interpretation: Performing Lab:[facility] [place], [address] [place] [phone] Notes/Report: Sodium 145 135-145 mmol/L Potassium 4.1 [...] Magnesium Reviewed date:09/18/2024 12:43:11 PM Interpretation: Performing Lab:[facility] [place], [address] [place] [address] Notes/Report: Magnesium 1.8 1.6-2.6 mg/dL Gastrin Reviewed date:09/22/2024 08:03:44 PM Interpretation: Performing Lab:[facility] [place], [address] [place] [address] Notes/Report: Gastrin 49 <=100 pg/mL Reference range applies to fasting specimens only. For additional information, please refer to [email or web address].Enable Injections/f [email or web address] (This link is being provided for informational/ educational purposes only.) THIS TEST WAS PERFORMED AT: [facility] [address] [place], [place] ALEIDA SERRATO MD,PHD Kidney Stone Reviewed date:11/23/2024 06:24:58 AM Interpretation: Performing Lab:[facility] [place], [address] [place] [phone] Notes/Report: LEFT KIDNEY Component 1 SEE NOTE Carbonate Apati te (Dahllite) 100% Stone Weight 0.115 Formalin, surgical gel, tape adhesive or transport media interfere with the analytical procedure. Follow up testing with the UroRisk(R) Panel is suggested for affected samples, if clinically indicated. This test was developed and its analytical performance characteristics have been determined by [facility]. It has not been cleared or approved by the FDA. This assay has been validated pursuant to the CLIA regulations and is used for clinical purposes. THIS TEST WAS PERFORMED AT: [employer] [address] [place] [address] KALEB SORIA MD,PHD,AN [facility] KIDNEY Pathology Reviewed date:11/18/2024 03:20:02 PM Interpretation: Performing Lab:[facility] [place], [address] [place] [address] Notes/Report: ------ Name: Karma Yee Age/Sex: 69/F : 1955 Unit#: [id number] Attend Dr: Thomas Waters MD Re11/11/24 Status : [facility] Location: [facility] Disch: ------ SPEC : [id number] RECD : 11/12/24 STATUS: PARAS PRADO NUM: [id number] MICHAEL: 11/11/24-[address] [facility] [address]: Thomas Waters MD ENTERED: 11/12/24-10 24 SP TYPE: Surgical OTHR DR: Dennis Chavira MD ORDERED: GO Diagnosis Left kidney stone: Calculous material. Gross examination only. Sent for chemical analysis. Please se e laboratory portion of the EMR for outside report from [facility]. Clinical History Calculus of kidney Material Received Left kidney stone Gross Description Received fresh label ed ?left kidney stone? are fragments of pink-parrish and yellow parrish calculi forming an aggregate measuring 1.2 by 0.6 x 0.5 cm which is entirely submitted to [facility] for chem ical analysis. No sections taken. ([facility]) IHC S/NG Disclaimer NOTE: Unless otherwi se stated, all tissue is formalin-fixed and paraffin-embedded. Some or all of the immunohistochemical tests reported herein may have been developed and their performance characteristics determined by [facility]. They have not been cleared or appr drake by the U.S. Food and Drug Administration (FDA). However, the FDA has determined that such clearance or approval is not necessary. This laboratory is certified under the Clinical Laboratory Improvement Amendments of 1988 (CLIA) as qualified to perform high comp lexity clinical laboratory testing. Copies To: Thomas Waters MD [facility] Urology Services [address] [place] [address] [address] [place] [address] Dennis Chavira MD [address] [place] [address], [address] [place] [address] CONTINUED ON NEXT PAGE ------ Name: Karma Yee Age/Sex: 69/F : 1955 Unit#: [id number] Attend Dr: Thomas Waters MD Re11/11/24 Status : [facility] Location: [facility] Disch: ------ SPEC : [id number] RECD : 11/12/24 STATUS: PARAS PRADO NUM: [id number] MICHAEL: 11/11/24-[address] [facility] [address]: Thomas Waters MD ENTERED: 11/12/24-10 24 SP TYPE: Surgical OTHR DR: Dennis Chavira MD ORDERED: GO ------ Signed (signature on file) Addison Khan MD 11/13/24 1310 ------ END OF REPORT FL guidance in OR Reviewed date:11/12/2024 09:18:16 AM Interpretation: Performing Lab: Notes/Report: [address] [address] Fluoroscopy Report Signed Patient: Karma Yee MR#: [id number] 0 : 1955 Acct:[id number] Age/Sex: 69 / F ADM Date: 11/11/24 Loc: .[facility] Attending Dr: Thomas Waters MD Ordering Physician: Thomas Waters MD Date of Service: 11/11/24 Procedure(s): FL guidance in OR Accession Number(s): [id number] cc: Thomas Waters MD; Dennis Chavira MD Reason for Exam: cystoscopy with retrograde EXAMINATION: FL GUIDANCE ONLY HISTORY: cystoscopy with retrograde COMPARISON: Comparison is made with the prior examination dated 09/13/2024. TECHNIQUE: Fluoroscopy time: 11.2 seconds. Cumulative Dose: 5.68 mGy. Images: 4. FINDINGS: Fluoroscopic spot films of the abdomen demonstrated left nephroureteral stent in place. Injection of the ureter demonstrates normal caliber distal ureter. The renal collecting system is well opacified. FL/FL guidance in OR IMPRESSION: Fluoroscopy during procedure. Please see procedure report for additional information. Electronically signed by: Dennis Gardner MD 11/12/2024 07:05 AM EDT Dictated By: Dennis Gardner MD Signed By: <Electronically signed by Dennis Gardner MD in OV> 11/12/24 0705 DD/ 1515 TD/TT: 11/11/24 1600 Ict Project Manager: [address] [address] Fluoroscopy Report Signed Patient: Karma Yee MR#: [id number] 0 : 1955 Acct:[id number] Age/Sex: 69 / F ADM Date: 11/11/24 Loc: HO.SSS Attending Dr: Raúl Shearer MD Ordering Physician: Thomas Waters MD Date of Service: 11/11/24 Procedure(s): MARIAH jonas in OR Accession Number(s): [id number] cc: Thomas Waters MD; Dennis Chavira MD Reason for Exam: cystoscopy with retrograde EXAMINATION: FL GUID ANCE ONLY HISTORY: cystoscopy with retrograde COMPARISON: Comparison is made w ith the prior examination dated 09/13/2024. TECHNIQUE: Fluoroscopy time: 11 .2 seconds. Cumulative Dose: 5.68 mGy. Images: 4. FINDINGS: Fluoroscopic spot fi lms of the abdomen demonstrated left nephroureteral stent in place. Inje ction of the ureter demonstrates normal caliber distal ureter. The r enal collecting system is well opacified. F L/FL guidance in OR IMPRESSION: Fluoroscopy during procedure. Please see procedure report for additional information. 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) Referral Organization Dennis Chavira III, MD Referring Provider First Name Dennis Referring Provider Last Name Cait Referring Provider Speciality Internal M edicine Referred Provider [facility] [employer] Referred Provider Specialty Gynecology ( Osteopaths only) General Notes DRadha 09/26/2024 10:58:17 AM > Referral faxed with last progress note, CT Abd and pelvis no contrast and US pelvis doppler.Felisa Melianet ASMA 10/11/2024 11:44:12 AM >As per patient [facility] does not perform the procedure for the diagnostic problem., DRadha 10/11/2024 01:08:43 PM > referral has been changed and updated to [facility] [facility], referral and attachments faxed, Radha Van 10/31/2024 02:58:03 PM > Spoke with Daniela at [facility] stated they have received the referral and it is currently still being processed. When it is done being processed they will contact the patient to schedule. Referral Priority Routine Reason Urgent Appointment R equest Evaluate and Treat Massive lymphedema on right leg Diagnosis 1 Cellulitis of right lower limb (L03.115) Diagnosis 2 Lymphedema (I89.0) Referral Organization Dennis Chavira III, MD Referring Provider First Name Dennis Referring Provider Last Name Cait Referring Provider Speciality Internal edicine Referred Organization [facility] nter Referred Provider [facility], [facility] Referred Address [address] [place] [id number], Referred Provider Specialty Unknown General Notes 10/21/2024 10:45:13 AM > Faxed referral, progress note and demos., Carlota10/22/2024 10:48:41 AM > Called [facility] and left message regarding referral. Requested a call back Referral Priority Urgent Referral Appointment Date 10/30/2024 Reason Evaluate and treat Lymphedema Clinic Diagnosis [...] Referring Provider Speciality Internal edicine Referred Organization [facility] nter Referred Provider [facility], Core Physical Therapy Referred Address [address] [place] [id number], Referred Provider Specialty Physical The rapist General Notes 12/09/2024 11:30:06 AM > Referral and progress [...] Provider Speciality Internal M edicine Referred Organization [facility] nt Referred Provider Esther Adrián Referred Address [address] [place] [address],[place], [place],[id number], Referred Provider Specialty Vascular Shauna checo General Notes DRadha 12/09/2024 11:28:09 AM > Referral and progress note faxed. Progress note from Wound Care was also faxed. Referral Priority Routine Medications Medication SIG (Take, Route, Frequency, Duration) Notes Start Date End Date Status Sulfamethoxazole-Trimethop rim 400-80 MG TAKE 1 TABLET [...] TWICE A DAY FOR 90 DAYS Active Immunizations Vaccine Route Administration Date Status [...] Status Risk Notes Problem Morbid obesity (disorder) (682443475) Morbid (severe) obesity due to excess calories (E66.01) Active confirmed She has gained 15 pounds since her last visit and there was no sign of fluid retention. She continues to have massive lymphedema in her legs without venous stasis or erythema. There were no open areas. We have discussed the elements of weight reduction diet. We will consider medical therapy. Close followup was ordered. Diet and nutrition were discussed. Problem Hypokalemia (30856679) Hypokalemia (E87.6) Active confirmed Her hypokalemia has resolved. A repeat set of labs has been ordered. Problem Paroxysmal atrial fibrillation (139615748) Paroxysmal atrial fibrillation (I48.0) Active confirmed She is in a slo w controlled atrial fibrillation today. Her peripheral edema is mostly resolved. She is comfortable breathing room air. A repeat cardiology consultation has been requested for evaluation of congestive heart failure and aortic stenosis. Problem 624577368 Chronic diastolic (congestive) heart failure (I50.32) Active confirmed A BNP is not available. One was ordered today with comprehensive blood work. Her congestive heart failure is likely invaded by the aortic stenosis. It was described as chronic, diastolic in the hospital. She is anticoagulateed. It seems compensated today. She is taking digoxin. Problem Peripheral venous insufficiency (80609640) Venous insufficiency (chronic) (peripheral) (I87.2) Active confirmed She has significant skin breakdown. The right lower extremity. On admission to hospital. That is now resollved. There are mild changes of venous insufficiency. This will be observed. She will continue on diurettic therapy. Problem Acute hypoxemic respiratory failure (832181969) Acute respiratory failure with hypoxia (J96.01) Active confirmed She recover ed with use of BiPAP.She was breathing room air comfortably today and her ooxygen saturation was normal. Problem Acute hypercapnic respiratory failure (241096374) Acute respiratory failure with hypercapnia (J96.02) Active confirmed She rrecovered with use of BiPAP. Comprrehensive blood work is pending. Sharri oxygen satturation today was normal. Problem Cellulitis of right lower limb (804610965249294 04) Cellulitis of right lower limb (L03.115) Active confirmed The cellulitis has completely resolved. The open areas on the right leg have healed. There were no open wounds today. We haad a long discussion about how to prevent furthher skin breakdown. Problem Muscle weakness (48222334) Muscle weakness (generalized) (M62.81) Active confirmed This is due to deconditioning. She is now ambulatory. If she needs physical therapy going forward. This wiill be provided. Currently she is stable. She is able to conduct activities of daily living. Problem Acute renal failure syndrome (55077707) Acute kidney failure, unspecified (N17.9) Active confirmed He acute renal failure has resolved. Comprehensive blood work has been ordered prior to her next visit to assess renal function and general metabolic status. Problem Endometrial hyperplasia (131010296) Endometrial hyperplasia, unspecified (N85.00) Active confirmed A thickened endometrium was seen on a pelvic ultrasound done September 10, 2024 at [facility]. We have referred her to gynecology for evaluation of this. 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 Obserrvation will be continued for this is likely recurrent problem. Problem 017603567 Chronic anticoagulation (Z79.01) Active confirmed She is taking apixaban without bleeding. Problem Atresia and stenosis of aorta (560851536) Aortic stenosis (Q25.3) Active confirmed An echocardiogram done durinng her recent hospitalization in 2022 showed aortic stenoosis with a valve area of 0.82. I have requested a repeat consultation cardiology.She willl likelyy need repaiir this valve. Problem 516551509 Lymphedema (I89.0) Active confirmed She has severe edema of both legs with chronic changes of venous stasis. She reports that her legs have become much less swollen in recent weeks. This is likely from dehydration Problem Acute metabolic acidosis (E87.21) Active confirmed Upon admission to hosppital. She was septic and acidotic and hypokalemic. This has been corrected. Comprehensive blood work is pending too reassess this problem. Problem 074512255324348 Bran cyst, right (M71.21) Active confirmed This was a finding on ultrasound of the right lower extremity to rule out DVT. Itt is not infected. It is large but nonpainful. Treatmentt of this may be necessary in the future will be delayed until her acute cardiac problem is addressed. Problem 60697852 Acute dehydration (E86.0) Active confirmed She was extremely weak and has lost a great deal weight and cannot keep down food and fluids. She has been successfully transferred to the emergency room for urgent treatment. Vital Signs Heart Rate 86 /min 12/04/2024 Temperature 97.7 degrees Fahrenheit 12/04/2024 Respiratory Rate 16 /min 12/04/2024 Oximetry 99 % 12/04/2024 Blood pressure diastolic 75 mm Hg 12/04/2024 Height 65 in 12/04/2024 Blood pressure systolic 138 mm Hg 12/04/2024 Weight 331 lbs 12/04/2024 BMI 55.08 kg/m2 12/04/2024 Encounters Encounter Location Date Provider Diagnosis Dennis Chavira III, MD [address] [place] [address] [address] [place] [phone] 09/10/2024 Dennis Chaivra Acute dehydration E8 6.0 ; Lymphedema I89.0 ; Paroxysmal atrial fibrillation I48.0 ; Morbid (severe) obesity due to excess calories E66.01 ; Chronic diastolic (congestive) heart failure I50.32 and Chronic anticoagulation Z79.01 Dennis Chavira III, MD [address] [place] [address] [place] [phone] 10/18/2024 Dennis Chavira Morbid (severe) obes ity due to excess calories E66.01 ; Cellulitis of right lower limb L03.115 ; Paroxysmal atrial fibrillation I48.0 ; Acute kidney failure, unspecified N17.9 ; Acute metabolic acidosis E87.21 ; Venous insufficiency (chronic) (peripheral) I87.2 and Lymphedema I89.0 Dennis Chavira III, MD [address] [place] [address] [place] [phone] 12/04/2024 Dennis Chavira Acute kidney failure , unspecified N17.9 ; Morbid (severe) obesity due to excess calories E66.01 ; Hypokalemia E87.6 ; Cellulitis of right lower limb L03.115 ; Paroxysmal atrial fibrillation I48.0 ; Aortic stenosis Q25.3 ; Lymphedema I89.0 ; Endometrial hyperplasia, unspecified N85.00 and Chronic diastolic (congestive) heart failure I50.32 Dennis Chavira III, MD [address] [place] [address] [place] [phone] 09/26/2024 Dennis Chavira III, MD [address] [place] [address] [place] [phone] 10/17/2024 Dennis Chavira III, MD [address] [place] [address] [place] [phone] 10/29/2024 Dennis Chavira III, MD [address] [place] [address] [place] [phone] 11/05/2024 Dennis Chavira Assessments Encounter Date Diagnosis (ICD Code) Assessment Notes T reatment Notes Treatment Clinical Notes 09/10/2024 Lymphedema (ICD-10 [...] how to prevent furthher skin breakdown. 12/04/2024 Morbid (severe) obesity due to excess [...] ordered. Diet and nutrition were discussed. 12/04/2024 Acute kidney failure , unspecified (ICD-10 - N17.9) He acute renal failure has resolved. Comprehensive blood work has been ordered prior to her next visit to assess renal function and general metabolic status. 09/10/2024 Paroxysmal atrial fibrillation (ICD-10 - I48.0) Her heart rate is controlled today. Billet Assembler has given her digoxin which is causing [...] congestive heart failure and aortic stenosis. 12/04/2024 Hypokalemia (ICD-10 - E87.6) Her hypokalemia has resolved. A repeat set of labs has been ordered. 09/10/2024 Morbid (severe) obesity due to excess [...] has been ordered to reevaluate her status. 12/04/2024 Cellulitis of right lower limb (ICD-10 - L03.115) The cellulitis has completely resolved. The open areas on the right leg have healed. There were no open wounds today. We haad a long discussion about how to prevent furthher skin breakdown. 09/10/2024 Chronic diastolic (congestive) heart failure (ICD-10 [...] work is pending too reassess this problem. 12/04/2024 Paroxysmal atrial fibrillation (ICD-10 - I48.0) She is in a slow controlled atrial fibrillation today. Her peripheral edema is mostly resolved. She is comfortable breathing room air. A repeat cardiology consultation has been requested for evaluation of congestive heart failure and aortic stenosis. 09/10/2024 Chronic anticoagulation (ICD-10 - Z79.01) She is taking apixaban without bleeding. 10/18/2024 Venous insufficiency (chronic) (peripheral) (ICD-10 - I87.2) She has significant skin breakdown. The right lower extremity. On admission to hospital. That is now resollved. There are mild changes of venous insufficiency. This will be observed. She will continue on diurettic therapy. 12/04/2024 Aortic stenosis (ICD-10 - Q25.3) An echocardiogram done durinng her recent hospitalization in 2022 showed aortic stenoosis with a valve area of 0.82. I have requested a repeat consultation cardiology.She willl likelyy need repaiir this valve. 10/18/2024 Lymphedema (ICD-10 - I89.0) She has severe edema of both legs with chronic changes of venous stasis. She reports that her legs have become much less swollen in recent weeks. This is likely from dehydration 12/04/2024 Lymphedema (ICD-10 - I89.0) She has severe edema of both legs with chronic changes of venous stasis. She reports that her legs have become much less swollen in recent weeks. This is likely from dehydration 12/04/2024 Endometrial hyperplasia, unspecified (ICD-10 - N85.00) A thickened endometrium was seen on a pelvic ultrasound done September 10, 2024 at [facility]. We have referred her to gynecology [...] She is taking digoxin. Plan Of Treatment Pending Test Test Name Order Date PROFILE, FASTING (COMPREHENSIVE METABOLI C) 01/18/2023 PROFILE, FASTING (COMPREHENSIVE METABOLI C) 12/04/2024 CBC w DIFF 12/04/2024 CBC WITH AUTO DIFF 01/18/2023 Lipid Panel 12/04/2024 Next Appt Details Provider Name:Dennis Chavira , 02/04/2025 11:15:00 AM, [address] [place] [address] [address], [place], [address], Insurance Providers Payer Name Payer Address Payer Phone Subscriber Number Group Number Insured Name Patient Relationship to Insured Coverage Start Date Coverage End Date MEDICARE NGS [address] [place] [address] [phone] [id number] Karma Yee Self - patient is the insured [facility] [address] [place], [place] [phone] [id number] Karma Yee Self - patient is [...]
== END 2024-12-13 14:24 | disposition home or self-care (01) ==
LOC: HO.HMGCX 14:23
PROVIDERS: PCP Internal Medicine Medical Oncology; Visit Provider Urology
DX: N20.0 Calculus of kidney (principal)
CPT/HCPCS: 76775

== ENCOUNTER → 2024-12-13 14:26 | Outpatient (BNV) | payer MEDICARE, SELFPAY | PROVIDERS: PCP Internal Medicine Medical Oncology; Visit Provider Radiology Diagnostic Radiology | DX: N20.0 Calculus of kidney (principal) | CPT/HCPCS: 76775 ==

== ENCOUNTER 2024-12-26 11:21 | Outpatient (AMB) | payer MEDICARE, SELFPAY ==
--- OUTSIDE RECORDS SUMMARY | 2023-11-17 08:18 | XMS_ITS ---
Author Organization Dennis Chavira III, MD Address [address] [place] [address] [address] [place] [address] Care Team Providers Care Quality Assurance Qa Lab Technician Name Role Phone Dr. Dennis Chavira III Primary Care Provider [phone] REASON FOR VISIT Letter Request Social History Sex Assigned At : Social History Observation Description Sex Assigned At Female Encounters Encounter Location Date Provider Diagnosis Dennis Chavira III, MD [address] [place] [address] [place] [address] 11/17/2023 Dennis Chavira Plan Of Treatment Next Appt Details Provider Name:Dennis Chavira , 02/04/2025 11:15:00 AM, [address] [place] [address] [place], [address], Progress Notes * Karma YEEDOB:1955 ( 68 yo F)Acc No.[id number]:11/17/2023 Patient: Karma PALM :1955 A ge:68 Y S ex:Female Address:[address] [facility] [place], [address] * true * Date: Generated for Sulyi emiliano/Frieda/eTransmitting on: 02/26/2024 02:27 PM EST
--- OUTSIDE RECORDS SUMMARY | 2024-09-10 05:45 | XMS_ITS ---
Author Organization Dennis Chavira III, MD Address [address] [place] [address] Care Team Providers Care Brake Lining Finisher Asbestos Name Role Phone Dr. Dennis Chavira III Primary Care Provider [phone] Allergies Allergen (clinical drug ingredient) Drug/Non Drug Allergy documented on EMR Reaction Allergy Type Onset Date Status No Known Drug Allergy Unknown Drug Allergy Active REASON FOR VISIT Weakness, Shortness of breath with minimal exertion, Epigastric abdominal pain, Able to eat or drink due to vomiting, Peripheral edema Medications Medication SIG (Take, Route, Frequency, Duration) Notes Start Date End Date Status Potassium Chloride 20 MEQ 1 packet with food Orally Once a day Active Furosemide 40 MG 1 tablet Orally Once a day Active Digoxin 125 MCG TAKE 1 TABLET BY FANTASMA TH EVERY DAY FOR 90 DAYS Active Ondansetron HCl 4 MG 1 tablet Orally Once a day Active Eliquis 5 MG TAKE 1 TABLET BY FANTASMA TH TWICE A DAY FOR 90 DAYS Active Social History Tobacco Use: Social History Observation Description Date Details (start date - stop date) Never Smoker NA - NA Sex Assigned At : Social History Observation Description Sex Assigned At Female Tobacco Use/Smoking Question Answer Notes Patient is a nonsmoker Problems Problem Type SNOMED Code ICD Code Onset Dates Problem Status W/U Status Risk Notes Problem 48157795 Acute dehydration (E86.0) Active confirmed She was extremely weak and has lost a great deal weight and cannot keep down food and fluids. She has been successfully transferred to the emergency room for urgent treatment. Problem 824002179 Lymphedema (I89.0) Active confirmed She has severe edema of both legs with chronic changes of venous stasis. She reports that her legs have become much less swollen in recent weeks. This is likely from dehydration Vital Signs Temperature 98.6 degrees Fahrenheit 09/11/19 25 Blood pressure systolic 100 mm Hg 09/11/19 25 Blood pressure diastolic 60 mm Hg 025 Heart Rate 95 /min 09/10/2024 Respiratory Rate 18 /min 09/10/2024 Height 65 in 09/10/2024 Weight 300 lbs 09/10/2024 BMI 49.92 kg/m2 09/10/2024 Encounters Encounter Location Date Provider Diagnosis Dennis Chavira III, MD [address] [place] [address] [place] [address] 09/10/2024 Dennis Chavira Acute dehydration E8 6.0 ; Lymphedema I89.0 ; Paroxysmal atrial fibrillation I48.0 ; Morbid (severe) obesity due to excess calories E66.01 ; Chronic diastolic (congestive) heart failure I50.32 and Chronic anticoagulation Z79.01 Assessments Encounter Date Diagnosis (ICD Code) Assessment Notes Treat ment Notes Treatment Clinical Notes 09/10/2024 Acute dehydration (ICD-10 - E86.0) She was extremely weak and has lost a great deal weight and cannot keep down food and fluids. She has been successfully transferred to the emergency room for urgent treatment. 09/10/2024 Lymphedema (ICD-10 - I89.0) She has severe edema of both legs with chronic changes of venous stasis. She reports that her legs have become much less swollen in recent weeks. This is likely from dehydration 09/10/2024 Paroxysmal atrial fibrillation (ICD-10 - I48.0) Her heart rate is controlled today. Body Hanger has given her digoxin which is causing no side effects. Her peripheral edema is mostly resolved. She is comfortable breathing room air. A repeat cardiology consultation has been requested for evaluation of congestive heart failure and aortic stenosis. 09/10/2024 Morbid (severe) obesity due to excess calories (ICD-10 - E66.01) She is still morbidly obese but hasn't documented 48 pound weight loss since her last visit. She is likely extremely dehydrated from her inability to keep down food and fluids. 09/10/2024 Chronic diastolic (congestive) heart failure (ICD-10 - I50.32) A BNP is not available. One was ordered today with comprehensive blood work. Her congestive heart failure is likely invaded by the aortic stenosis. It was described as chronic, diastolic in the hospital. She is anticoagulateed. It seems compensated today. She is taking digoxin. 09/10/2024 Chronic anticoagulation (ICD-10 - Z79.01) She is taking apixaban without bleeding. Plan Of Treatment Medication Medication Name Sig Start Date Stop Date Notes Potassium Chloride 20 MEQ 1 packet with food Orally Once a day Furosemide 40 MG 1 tablet Orally Once a day Digoxin 125 MCG TAKE 1 TABLET BY FANTASMA TH EVERY DAY FOR 90 DAYS Ondansetron HCl 4 MG 1 tablet Orally Once a day Eliquis 5 MG TAKE 1 TABLET BY FANTASMA TH TWICE A DAY FOR 90 DAYS Next Appt Details Follow Up: 2 Weeks, Reason: ov Provider Name:Dennis Chavira , 02/04/2025 11:15:00 AM, [address] [place] [address] [address] [facility] [place] [facility] Eric, [place], [address], Progress Notes * Karma YEEDOB:1955 ( 69 yo F)Acc No.[id number]:09/10/2024 Progress Notes Patient: Karma PALM Provider: Lalo Chavira MD :1955 A ge:69 Y S ex:Female Date:09/10/2024 Address:[address] [place], [place] [address] Subjective: * Chief Complaints: * W eaknessShortness of breath with minimal exertionEpigastric abdominal painAble to eat or drink due to vomitingPeripheral edema * HPI: C OVID-19 Screening: She came to this office in February 2023 for initial visit and has not been seen since due to cancellations, not showing, and rescheduling. She was brought in today by her who says she is so sick he cannot care for home. She required a wheelchair to come up to the office. He was extremely short of breath with minimal exertion. Her oxygen saturation was 95 her pulse was 100. She was quite red in the face visibly dyspneic. Her lungs were clear. There was massive lymphedema of the both lower extremities with open areas which are bandaged she looked very ill and was taken directly to the emergency room at [facility] for her lipase was over 400 and her BUN was over 100. She was admitted to the hospital for corrective care. Questions H ave you had any new onset fever, chills, cough, congestion, sore throat, shortness of breath, muscle aches? N o * ROS: G eneral/Constitutional: pain B oth legs and upper abdomen. C hills d enies.?Fatigue a dmits. F ever d enies. E NT: Decreased hearing d enies. R espiratory: Cough d enies. C ardiovascular: Chest pain with exertion o ccurred frequently. D yspnea on exertion w ith mild activity. S hortness of breath t hat is severe. G astrointestinal: Constipation o ccasional. D ecreased appetite d enies. D iarrhea d enies. H eartburn n ot controlled with medications. N ausea d enies. R ectal bleeding d enies. V omiting d enies. H ematology: bruising d enies. p etechiae d enies. S wollen glands n one have been noted. G enitourinary: Frequent urination a small amount. M usculoskeletal: Muscle aches d enies. P ainful joints d enies. S ciatica d enies. W eakness t hat is generalized. S kin: Itching d enies. R regan d enies. S kin lesion(s)?denies. N eurologic: Difficulty speaking d enies. D izziness d enies.?Headache d enies. L ow back pain d enies. P sychiatric: Depressed mood d enies. * Medical History: * Surgical History: D ebridement of ulceration, right lower extremity 11/2022 * Hospitalization/Major Diagno stic Procedure: D enies Past Hospitalization * Family History: F ather: 68 yrs, [...] History: T obacco Use: T obacco Use/Smoking Felisa aguilera is a n onsmoker S he was born in [place], [place]. She retired last July. From the [employer]. She was to her in 1974. They have 1 daughter, Clarissa. She doess not smoke tobacco or drink alcohol. She has no jew objection to blood transfusion. * Medications: T akingOndansetron HCl 4 MG Tablet 1 tablet Orally Once a day Potassium Chloride 20 MEQ Packet 1 packet with food Orally Once a day Furosemide 40 MG Tablet 1 tablet Orally Once a day Digoxin 125 MCG Tablet TAKE 1 TABLET BY MOUTH EVERY DAY FOR 90 DAYS Eliquis 5 MG Tablet TAKE 1 TABLET BY MOUTH TWICE A DAY FOR 90 DAYS Medication List reviewed and reconciled with the patientTaking Ondansetron HCl 4 MG Tablet 1 tablet Orally Once a day Taking Potassium Chloride 20 MEQ Packet 1 packet with food Orally Once a day Taking Furosemide 40 MG Tablet 1 tablet Orally Once a day Taking Digoxin 125 MCG Tablet TAKE 1 TABLET BY MOUTH EVERY DAY FOR 90 DAYS Taking Eliquis 5 MG Tablet TAKE 1 TABLET BY MOUTH TWICE A DAY FOR 90 DAYS Medication List reviewed and reconciled with the patient * Allergies: N o Known Drug Allergyno[Allergies Verified] Objective: * Vitals: H t: 65, Wt:300, BMI:49.92, BP:100/60, HR:95, RR:18, Temp:98.6, Ht-cm: 165.1, Wt- k.08. * Examination: G eneral Examination: GENERAL APPEARANCE: p ridgeasant, well nourished, well developed, in no acute distress, calm and relaxed: morbidly obese: woman. HEAD: F acial plethora. EYES: e gordy, perrla, anicteric, conjugate. EARS: n ormal. NOSE: s eptum intact. ORAL CAVITY: n ormal, unremarkable. NECK/THYROID: n o jugular venous distention, no carotid bruit, thyroid normal. LYMPH NODES: n o enlarged lymph nodes,spleen normal. SKIN: S evere lymphedema both lower extremities below knees with bilateral open areas which are bandaged, weeping. HEART: n o clicks, gallops, murmurs, or rubs, regular rhythm, S1, S2 normal, no s3, or vascular bruits. LUNGS: c lear to auscultation . BREASTS: no masses palpable bilaterally. ABDOMEN: b owel sounds normal, no ascites, no organomegaly, no mass: morbid obesity, Tenderness to palpation of epigastric area. RECTAL EXAM: n ot examined. MUSCULOSKELETAL: e xtremities unremarkable, no clubbing, cyanosis or edema, Severe lymphedema both legs with open areas. PERIPHERAL PULSES: n ormal. NEUROLOGIC: a lert and oriented, cranial nerves 2-12 grossly intact, deep tendon reflexes 2+ symmetrical, motor strength normal upper and lower extremities, sensory exam intact. PSYCH: a lert, oriented: mood depressed. ? Assessment: * Assessment: 1. A cute dehydration - E86.0 (Primary) N otes :She was extremely weak and has lost a great deal weight and cannot keep down food and fluids. She has been successfully transferred to the emergency room for urgent treatment. 2 . L ymphedema - I89.0 N otes :She has severe edema of both legs with chronic changes of venous stasis. She reports that her legs have become much less swollen in recent weeks. This is likely from dehydration 3 . P aroxysmal atrial fibrillation - I48.0 N otes :Her heart rate is controlled today. Body Hanger has given her digoxin which is causing no side effects. Her peripheral edema is mostly resolved. She is comfortable breathing room air. A repeat cardiology consultation has been requested for evaluation of congestive heart failure and aortic stenosis. 4 . M orbid (severe) obesity due to excess calories - E66.01 N otes :She is still morbidly obese but hasn't documented 48 pound weight loss since her last visit. She is likely extremely dehydrated from her inability to keep down food and fluids. 5 . C hronic diastolic (congestive) heart failure - I50.32 N otes :A BNP is not available. One was ordered today with comprehensive blood work. Her congestive heart failure is likely invaded by the aortic stenosis. It was described as chronic, diastolic in the hospital. She is anticoagulateed. It seems compensated today. She is taking digoxin. 6 . C hronic anticoagulation - Z79.01 N otes :She is taking apixaban without bleeding. Plan: * Treatment: * Procedure Codes: * Preventive Medicine: Counseling: C are goal follow-up plan: Counseling for abnormal BMI given Y es Above Normal BMI Follow-up D ietary management education, guidance, and counseling, Dietary needs education, Exercise promotion: strength training, Exercise promotion: stretching, Feeding regime, Giving encouragement to exercise, Lifestyle education regarding diet, Nutrition / feeding management, Nutrition therapy, Prescribed activity/exercise education, Prescribed diet education, Prescribed dietary intake, Special diet education, Weight monitoring , Intervention, Order not done: Medical or Other reason not done * Follow Up: 2 Weeks (Reason: ov) * Images: * Sign off status: Completed true * Provider: Lalo Chavira MD Date: 0 09/10/2024 Generated for Girma cummings/Frieda/Susy on: 02/26/2024 02:28 PM EST History and Physical Notes * HPI (History of Present Illness) Category Sub-Category Detail Notes COVID-19 Screening Questions Have you had any new onset fever, chills, cough, congestion, sore throat, shortness of breath, muscle aches?: No Examination Category Sub-Category Detail Notes General Examination GENERAL APPEARANCE: pleasant , well nourished, well developed, in no acute distress, calm and relaxed: morbidly obese: woman HEAD: Facial plethora EYES: eomi, perrla, anicte geno, conjugate EARS: normal NOSE: septum intact NECK/THYROID: no jugular venous di stention, no carotid bruit, thyroid normal HEART: no clicks, gallops, murmurs, or rubs, regular rhythm, S1, S2 normal, no s3, or vascular bruits LUNGS: clear to auscultatio n ABDOMEN: bowel sounds normal, no ascites, no organomegaly, no mass: morbid obesity, Tenderness to palpation of epigastric area NEUROLOGIC: alert and oriented, cranial nerves 2-12 grossly intact, deep tendon reflexes 2+ symmetrical, motor strength normal upper and lower extremities, sensory exam intact SKIN: Severe lymphedema shawn th lower extremities below knees with bilateral open areas which are bandaged, weeping PERIPHERAL PULSES: normal BREASTS: no masses palpable b ilaterally MUSCULOSKELETAL: extremities unremark able, no clubbing, cyanosis or edema, Severe lymphedema both legs with open areas LYMPH NODES: no enlarged lymph no kelsey,spleen normal RECTAL EXAM: not examined PSYCH: alert, oriented: moo d depressed ORAL CAVITY: normal, unremarkable
--- OUTSIDE RECORDS SUMMARY | 2024-09-26 05:46 | XMS_ITS ---
Author Organization Dennis Chavira III, MD Address [address] [place] [address] [address] [place] [address] Care Team Providers Care Administrative Analyst Name Role Phone Dr. Dennis Chavira III Primary Care Provider Reason For Referral Reason Evaluate and Treat Abnormal Thickened Endrometrium Diagnosis 1 Endometrial hyperpla scott, unspecified (N85.00) Referral Organization Dennis Chavira III, MD Referring Provider First Name Dennis Referring Provider Last Name Cait Referring Provider Speciality Internal M edicine Referred Provider [facility] Referred Provider Specialty Gynecology ( Osteopaths only) General Notes Radha Van 09/26/2024 10:58:17 AM > Referral faxed with last progress note, CT Abd and pelvis no contrast and US pelvis doppler., Jagdish Roberto 10/11/2024 11:44:12 AM >As per patient [facility] does not perform the procedure for the diagnostic problem., Radha Van 10/11/2024 01:08:43 PM > referral has been changed and updated to [facility], referral and attachments faxed, Radha Van 10/31/2024 02:58:03 PM > Spoke with Daniela at [facility] stated they have received the referral and it is currently still being processed. When it is done being processed they will contact the patient to schedule. Referral Priority Routine REASON FOR VISIT LAB ASSISTANT Referral Social History Sex Assigned At : Social History Observation Description Sex Assigned At Female Encounters Encounter Location Date Provider Diagnosis Dennis Chavira III, MD [address] [place] [address] [place] [address] 09/26/2024 Dennis Chavira Plan Of Treatment Referrals Referral Date Details 09/26/2024 09/26/2024, Evaluate and Treat Abnormal Thickened Endrometrium, [facility] Next Appt Details Provider Name:Dennis Chavira , 02/04/2025 11:15:00 AM, [address] [place] [address] [address], [place], [id number], Progress Notes * POLINA KeyakimberlyDOB:1955 ( 69 yo F)Acc No.[id number]:09/26/2024 Patient: Karma PALM :1955 A ge:69 Y S ex:Female Address:[address] [place] [address] [place], [id number] Subjective: * Chief Complaints: * G YN Referral * Medical History: * Surgical History: * Hospitalization/Major Diagno stic Procedure: * Medications: Objective: * Vitals: * Physical Examination: Assessment: Plan: * Treatment: * Procedure Codes: * true * Date: Generated for Girma cummings/Frieda/eTransmitting on: 1 02/26/2024 02:27 PM EST Consultation Request Notes Referral Date Referring Provider Referred Provider Not chance 09/26/2024 Dennis Chavira, [facility] Evaluate and Treat Abnormal Thickened Endrometrium
--- OUTSIDE RECORDS SUMMARY | 2024-10-17 06:25 | XMS_ITS ---
Author Organization Dennis Chavira III, MD Address [address] [place] [address] [address] [place] [address] Care Team Providers Care Senior Energy Consultant Name Role Phone Dr. Dennis Chavira III Primary Care Provider REASON FOR VISIT Verbal Orders Social History Sex Assigned At : Social History Observation Description Sex Assigned At Female Encounters Encounter Location Date Provider Diagnosis Dennis Chavira III, MD [address] [place] [address] [place] [address] 10/17/2024 Dennis Chavira Plan Of Treatment Next Appt Details Provider Name:Dennis Chavira , 02/04/2025 11:15:00 AM, [address] [place] [address] [place], [address], Progress Notes * Karma YEEDOB:1955 ( 69 yo F)Acc No.[id number]:10/17/2024 Patient: Karma PALM :1955 A ge:69 Y S ex:Female Address:[address] [facility] [place], [address] * true * Date: Generated for Sulyi emiliano/Frieda/eTransmitting on: 02/26/2024 02:27 PM EST
--- OUTSIDE RECORDS SUMMARY | 2024-10-18 06:00 | XMS_ITS ---
Author Organization Dennis Chavira III, MD Address [address] [place] [address] Care Team Providers Care Commercial Center Manager Name Role Phone Dr. Dennis Chavira III Primary Care Provider Allergies Allergen (clinical drug ingredient) Drug/Non Drug Allergy documented on EMR Reaction Allergy Type Onset Date Status No Known Drug Allergy Unknown Drug Allergy Active Reason For Referral Reason Urgent Appointment R equest Evaluate and Treat Massive lymphedema on right leg Diagnosis 1 Cellulitis of right lower limb (L03.115) Diagnosis 2 Lymphedema (I89.0) Referral Organization Dennis Chavira III, MD Referring Provider First Name Dennis Referring Provider Last Name Cait Referring Provider Speciality Internal M edicine Referred Organization [facility] nter Referred Provider [facility], Wound Care Center Referred Address [address] [place] [phone], Referred Provider Specialty Unknown General Notes DRadha 10/21/2024 10:45:13 AM > Faxed referral, progress note and valerie.Carlota Amber 10/22/2024 10:48:41 AM > Called [facility] and left message regarding referral. Requested a call back Referral Priority Urgent Referral Appointment Date 10/30/2024 REASON FOR VISIT Cellulitis right leg, resolved, Paroxysmal atrial fibrillation, Acute renal failure, Morbid obesity, Recent respiratory failure, Aortic stenosis, Congestive heart, Anticoagulated, Massive lymphedema Medications Medication SIG (Take, Route, Frequency, Duration) Notes Start Date End Date Status Potassium Chloride ER 20 MEQ Oral Active Metoprolol Succinate ER 25 MG Oral Active Sucralfate 1 GM/10ML 10 mL 1 hour before meals and at bedtime on an empty stomach Orally Four times a day Active Omeprazole 20 MG 1 capsule 1/2 to 1 h our before morning meal Orally Once a day Active Famotidine 20 MG Oral Act margarito Eliquis 5 MG TAKE 1 TABLET BY TWICE A DAY FOR 90 DAYS Active Furosemide 20 MG 1 tablet Orally Once a day Active Metoprolol Succinate ER 25 MG 1 tablet Orally Once a day for 90 days 10/18/2024 Active Social History Tobacco Use: Social History Observation Description Date Details (start date - stop date) Never Smoker NA - NA Sex Assigned At : Social History Observation Description Sex Assigned At Female Tobacco Use/Smoking Question Answer Notes Patient is a nonsmoker Vital Signs Temperature 98.8 degrees Fahrenheit 10/19/19 25 Blood pressure systolic 129 mm Hg 10/19/19 25 Blood pressure diastolic 79 mm Hg 025 Heart Rate 90 /min 10/18/2024 Height 65 in 10/18/2024 Weight 316 lbs 10/18/2024 BMI 52.58 kg/m2 10/18/2024 Oximetry 94 % 10/18/2024 Encounters Encounter Location Date Provider Diagnosis Dennis Chavira III, MD [address] [place] [address] [place] [address] 10/18/2024 Dennis Chavira Morbid (severe) obes ity due to excess calories E66.01 ; Cellulitis of right lower limb L03.115 ; Paroxysmal atrial fibrillation I48.0 ; Acute kidney failure, unspecified N17.9 ; Acute metabolic acidosis E87.21 ; Venous insufficiency (chronic) (peripheral) I87.2 and Lymphedema I89.0 Assessments Encounter Date Diagnosis (ICD Code) Assessment Notes Treat ment Notes Treatment Clinical Notes 10/18/2024 Morbid (severe) obesity due to excess calories (ICD-10 - E66.01) She is now rehydrated and weighs 316 pounds with a body mass index of 52. This problem will be addressed. I will discuss bariatric surgery as well as injectable medication to suppress her appetite. We reviewed diet and nutrition today. 10/18/2024 Cellulitis of right lower limb (ICD-10 - L03.115) The cellulitis has completely resolved. The open areas on the right leg have healed. There were no open wounds today. We haad a long discussion about how to prevent furthher skin breakdown. 10/18/2024 Paroxysmal atrial fibrillation (ICD-10 - I48.0) She is in a slow controlled atrial fibrillation today. Her peripheral edema is mostly resolved. She is comfortable breathing room air. A repeat cardiology consultation has been requested for evaluation of congestive heart failure and aortic stenosis. 10/18/2024 Acute kidney failure, unspecified (ICD-10 - N17.9) Her kidney function had returned to normal when she was discharged from the hospital. Repeaat comprehensive blood work has been ordered to reevaluate her status. 10/18/2024 Acute metabolic acidosis (ICD-10 - E87.21) Upon admission to hosppital. She was septic and acidotic and hypokalemic. This has been corrected. Comprehensive blood work is pending too reassess this problem. 10/18/2024 Venous insufficiency (chronic) (peripheral) (ICD-10 - I87.2) She has significant skin breakdown. The right lower extremity. On admission to hospital. That is now resollved. There are mild changes of venous insufficiency. This will be observed. She will continue on diurettic therapy. 10/18/2024 Lymphedema (ICD-10 - I89.0) She has severe edema of both legs with chronic changes of venous stasis. She reports that her legs have become much less swollen in recent weeks. This is likely from dehydration Plan Of Treatment Medication Medication Name Sig Start Date Stop Date Notes Potassium Chloride ER 20 MEQ Oral Metoprolol Succinate ER 25 MG Oral Sucralfate 1 GM/10ML 10 mL 1 hour before meals and at bedtime on an empty stomach Orally Four times a day Omeprazole 20 MG 1 capsule 1/2 to 1 h our before morning meal Orally Once a day Famotidine 20 MG Oral Eliquis 5 MG TAKE 1 TABLET BY FANTASMA TH TWICE A DAY FOR 90 DAYS Furosemide 20 MG 1 tablet Orally Once a day Metoprolol Succinate ER 25 MG 1 tablet O rally Once a day for 90 days 10/18/2024 Referrals Referral Date Details 10/18/2024 10/18/2024, Urgent A ppointment Request Evaluate and Treat Massive lymphedema on right leg, W[facility], [address] [place] [address], [place], [place], [phone], Next Appt Details Follow Up: 4 Weeks, Reason: OV Provider Name:Dennis Chavira , 02/04/2025 11:15:00 AM, [address] [place] [address] [address], [place], [phone], Progress Notes * Karma YEEDOB:1955 ( 69 yo F)Acc No.[id number]:10/18/2024 Patient: Karma PALM Provider: Lalo Chavira MD :1955 A ge:69 Y S ex:Female Date:10/18/2024 Address:[address] [place] [address] Subjective: * Chief Complaints: * C ellulitis right leg, resolvedParoxysmal atrial fibrillationAcute renal failureMorbid obesityRecent respiratory failureAortic stenosisCongestive heartAnticoagulatedMassive lymphedema * HPI: C OVID-19 Screening: . On her last visit she was found to be in acute renal failure and respiratory failure decompensated CHF and a BUN over 100. She was taken to the emergency room and admitted to the hospital and stabilized. She was then transferred to the [facility] in [facility] from which she was discharged yesterday. She is seen today in follow-up. Her medications were reviewed. Her medical condition is much improved. She is awake and alert and verbal. She continues to have massive lymphedema and was referred to the wound clinic for wrappings and treatment. There was no skin breakdown on her legs and cellulitis of the right leg has completely resolved. Comprehensive blood work has been ordered. She agreed to close follow-up. He was in a controlled atrial fibrillation. She has a moderate umbilical hernia which is not incarcerated. She is anticoagulated with no bleeding. Questions H ave you had any new onset fever, chills, cough, congestion, sore throat, shortness of breath, muscle aches? N o * ROS: G eneral/Constitutional: pain E dematous legs below the knees. C hills d enies. F atigue a dmits. F ever d enies. E NT: Decreased hearing d enies. R espiratory: Cough d enies. C ardiovascular: Chest pain with exertion d enies. D yspnea on exertion?with mild activity. S hortness of breath w ith exertion. G astrointestinal: Constipation d enies. D ecreased appetite d enies.?Diarrhea d enies. H eartburn d enies. N ausea d enies. R ectal bleeding?denies. V omiting d enies. H ematology: bruising d enies. p etechiae d enies. S wollen glands n one have been noted. G enitourinary: Frequent urination a t night. M usculoskeletal: Muscle aches d enies. P [...] n onsmoker S he was born in [place], [place]. She retired last July. From the [employer]. She was to her in 1974. They have 1 daughter, Clarissa. She doess not smoke tobacco or drink alcohol. She has no mormon objection to blood transfusion. * Medications: T akingSucralfate 1 GM/10ML Suspension 10 mL 1 hour before meals and at bedtime on an empty stomach Orally Four times a day Omeprazole 20 MG Capsule Delayed Release 1 capsule 1/2 to 1 hour before morning meal Orally Once a day Famotidine 20 MG Tablet Oral Eliquis 5 MG Tablet TAKE 1 TABLET BY MOUTH TWICE A DAY FOR 90 DAYS Furosemide 20 MG Tablet 1 tablet Orally Once a day Potassium Chloride ER 20 MEQ Tablet Extended Release Oral Metoprolol Succinate ER 25 MG Tablet Extended Release 24 Hour Oral Taking Sucralfate 1 GM/10ML Suspension 10 mL 1 hour before meals and at bedtime on an empty stomach Orally Four times a day Taking Omeprazole 20 MG Capsule Delayed Release 1 capsule 1/2 to 1 hour before morning meal Orally Once a day Taking Famotidine 20 MG Tablet Oral Taking Eliquis 5 MG Tablet TAKE 1 TABLET BY MOUTH TWICE A DAY FOR 90 DAYS Taking Furosemide 20 MG Tablet 1 tablet Orally Once a day Taking Potassium Chloride ER 20 MEQ Tablet Extended Release Oral Taking Metoprolol Succinate ER 25 MG Tablet Extended Release 24 Hour Oral DiscontinuedDigoxin 125 MCG Tablet TAKE 1 TABLET BY MOUTH EVERY DAY FOR 90 DAYS Ondansetron HCl 4 MG Tablet 1 tablet Orally Once a day Potassium Chloride 20 MEQ Packet 1 packet with food Orally Once a day Medication List reviewed and reconciled with the patientDiscontinued Digoxin 125 MCG Tablet TAKE 1 TABLET BY MOUTH EVERY DAY FOR 90 DAYS Discontinued Ondansetron HCl 4 MG Tablet 1 tablet Orally Once a day Discontinued Potassium Chloride 20 MEQ Packet 1 packet with food Orally Once a day Medication List reviewed and reconciled with the patient * Allergies: N o Known Drug Allergyno[Allergies Verified] Objective: * Vitals: H t: 65, Wt:316, BMI:52.58, BP:129/79, HR:90, Temp:98.8, Oxygen sat %:94, Ht-cm: 165.1, Wt-k.34. * Examination: G eneral Examination: GENERAL APPEARANCE: p leasant, well nourished, well developed, in no acute distress, calm and relaxed: morbidly obese: woman. HEAD: a traumatic, normocephalic. EYES: e gordy, perrla, anicteric, conjugate. EARS: n ormal. NOSE: s eptum intact. ORAL CAVITY: n ormal, unremarkable. NECK/THYROID: n o jugular venous distention, no carotid bruit, thyroid normal. LYMPH NODES: n o enlarged lymph nodes,spleen normal. SKIN: n o suspicious lesions, anicteric, Without skin breakdown legs below-knee, skin is intact. HEART: n o clicks, gallops, murmurs, or rubs, irregular rhythm, S1, S2 normal, no s3, or vascular bruits. LUNGS: c lear to auscultation . BREASTS: N ot examined. ABDOMEN: b owel sounds normal, no ascites, no organomegaly, no mass: morbid obesity, Umbilical hernia nonincarcerated. RECTAL EXAM: n ot examined. MUSCULOSKELETAL: e xtremities unremarkable, no clubbing, cyanosis or edemaSevere lymphedema below knees. PERIPHERAL PULSES: n ormal. NEUROLOGIC: a lert and oriented, cranial nerves 2-12 grossly intact, deep tendon reflexes 2+ symmetrical, motor strength normal upper and lower extremities, sensory exam intact. PSYCH: a lert, oriented. Assessment: * Assessment: 1. M orbid (severe) obesity due to excess calories - E66.01 (Primary) N otes :She is now rehydrated and weighs 316 pounds with a body mass index of 52. This problem will be addressed. I will discuss bariatric surgery as well as injectable medication to suppress her appetite. We reviewed diet and nutrition today. 2 . C ellulitis of right lower limb - L03.115 N otes :The cellulitis has completely resolved. The open areas on the right leg have healed. There were no open wounds today. We haad a long discussion about how to prevent furthher skin breakdown. 3 . P aroxysmal atrial fibrillation - I48.0 N otes :She is in a slow controlled atrial fibrillation today. Her peripheral edema is mostly resolved. She is comfortable breathing room air. A repeat cardiology consultation has been requested for evaluation of congestive heart failure and aortic stenosis. 4 . A cute kidney failure, unspecified - N17.9 N otes :Her kidney function had returned to normal when she was discharged from the hospital. Repeaat comprehensive blood work has been ordered to reevaluate her status. 5 . A cute metabolic acidosis - E87.21 N otes :Upon admission to hosppital. She was septic and acidotic and hypokalemic. This has been corrected. Comprehensive blood work is pending too reassess this problem. 6 . V enous insufficiency (chronic) (peripheral) - I87.2 N otes :She has significant skin breakdown. The right lower extremity. On admission to hospital. That is now resollved. There are mild changes of venous insufficiency. This will be observed. She will continue on diurettic therapy. 7 . L ymphedema - I89.0 N otes :She has severe edema of both legs with chronic changes of venous stasis. She reports that her legs have become much less swollen in recent weeks. This is likely from dehydration Plan: * Treatment: 2. L ymphedema Referral To:[facility] Unknown Reason:Urgent Appointment Request Evaluate and Treat Massive lymphedema on right leg 3. O thers Continue Sucralfate Suspension, 1 GM/10ML, 10 mL 1 hour before meals and at bedtime on an empty stomach, Orally, Four times a day; C ontinue Omeprazole Capsule Delayed Release, 20 MG, 1 capsule 1/2 to 1 hour before morning meal, Orally, Once a day; C ontinue Famotidine Tablet, 20 MG, Oral;?Continue Eliquis Tablet, 5 MG, TAKE 1 TABLET BY MOUTH TWICE A DAY FOR 90 DAYS; C ontinue Furosemide Tablet, 20 MG, 1 tablet, Orally, Once a day; C ontinue Potassium Chloride ER Tablet Extended Release, 20 MEQ, Oral; C ontinue Metoprolol Succinate ER Tablet Extended Release 24 Hour, 25 MG, Oral; S tart Metoprolol Succinate ER Tablet Extended Release 24 Hour, 25 MG, 1 tablet, Orally, Once a day, 90 days, 90 Tablet, Refills 3. * Procedure Codes: 9 4760 MEASURE BLOOD OXYGEN LEVEL * Preventive Medicine: Counseling: C are goal [...] Other reason not done * Follow Up: 4 Weeks (Reason: OV) * Images: * Sign off status: Completed true * Provider: Lalo Chavira MD Date: 0 10/18/2024 Generated for Girma cummings/Frieda/Susy on: 02/26/2024 02:27 PM EST History and Physical Notes * HPI (History of Present Illness) Category Sub-Category Detail Notes COVID-19 Screening Questions Have you had any new onset fever, chills, cough, congestion, sore throat, shortness of breath, muscle aches?: No Examination Category Sub-Category Detail Notes General Examination GENERAL APPEARANCE: pleasant , well nourished, well developed, in no acute distress, calm and relaxed: morbidly obese: woman HEAD: atraumatic, normocep halic EYES: eomi, perrla, anicte geno, conjugate EARS: normal NOSE: septum intact NECK/THYROID: no jugular venous di stention, no carotid bruit, thyroid normal HEART: no clicks, gallops, murmurs, or rubs, irregular rhythm, S1, S2 normal, no s3, or vascular bruits LUNGS: clear to auscultatio n ABDOMEN: bowel sounds normal, no ascites, no organomegaly, no mass: morbid obesity, Umbilical hernia nonincarcerated NEUROLOGIC: alert and oriented, cranial nerves 2-12 grossly intact, deep tendon reflexes 2+ symmetrical, motor strength normal upper and lower extremities, sensory exam intact SKIN: no suspicious lesion s, anicteric, Without skin breakdown legs below-knee, skin is intact PERIPHERAL PULSES: normal BREASTS: Not examined MUSCULOSKELETAL: extremities unremark able, no clubbing, cyanosis or edemaSevere lymphedema below knees LYMPH NODES: no enlarged lymph no kelsey,spleen normal RECTAL EXAM: not examined PSYCH: alert, oriented ORAL CAVITY: normal, unremarkable Consultation Request Notes Referral Date Referring Provider Referred Provider Not chance 10/18/2024 Cait [facility], Wound Care Center Urgent Appointment Request Evaluate and Treat Massive lymphedema on right leg
--- OUTSIDE RECORDS SUMMARY | 2024-10-29 09:29 | XMS_ITS ---
Author Organization Dennis Chavira III, MD Address [address] [place] [address] [address] [place] [address] Care Team Providers Care Joint Filler Name Role Phone Dr. Dennis Chavira III Primary Care Provider REASON FOR VISIT Message/hadicap placard application Social History Sex Assigned At : Social History Observation Description Sex Assigned At Female Encounters Encounter Location Date Provider Diagnosis Dennis Chavira III, MD [address] [place] [address] [place] [address] 10/29/2024 Dennis Chavira Plan Of Treatment Next Appt Details Provider Name:Dennis Chavira , 02/04/2025 11:15:00 AM, [address] [place] [address] [place], [address], Progress Notes * Karma YEEDOB:1955 ( 69 yo F)Acc No.[id number]:10/29/2024 Patient: Keya PALMcy :1955 A ge:69 Y S ex:Female Address:[address] [facility] [place], [address] * true * Date: Generated for Girma cummings/Frieda/eTransmitting on: 02/26/2024 02:28 PM EST
--- OUTSIDE RECORDS SUMMARY | 2024-11-05 08:33 | XMS_ITS ---
Author Organization Dennis Chavira III, MD Address [address] [address] Care Team Providers Care Heel Caser Name Role Phone Dr. Dennis Chavira III Primary Care Provider REASON FOR VISIT Rx Refill Medications Medication SIG (Take, Route, Frequency, Duration) Notes Start Date End Date Status Potassium Chloride ER 20 MEQ 2 tabs with food Orally Once a day for 90 days Active Furosemide 20 MG 1 tablet Orally Once a day for 90 days Active Famotidine 20 MG 1 tablet at bedtime Oral Once a day for 90 days Active Sucralfate 1 GM 1 tablet on an empty stomach Orally Four times a day for 90 days Active Social History Sex Assigned At : Social History Observation Description Sex Assigned At Female Encounters Encounter Location Date Provider Diagnosis Dennis Chavira III, MD [address] [place] [address] [place] [address] 11/05/2024 Dennis Chavira Plan Of Treatment Medication Medication Name Sig Start Date Stop Date Notes Potassium Chloride ER 20 MEQ 2 tabs with food Orally Once a day for 90 days Furosemide 20 MG 1 tablet Orally Once a day for 90 days Famotidine 20 MG 1 tablet at bedtime Oral Once a day for 90 days Sucralfate 1 GM 1 tablet on an empty stomach Orally Four times a day for 90 days Next Appt Details Provider Name:Dennis Chavira , 02/04/2025 11:15:00 AM, [address] [place] [address] [place], [address], Progress Notes * Karma YEEDOB:1955 ( 69 yo F)Acc No.[id number]:11/05/2024 Patient: Karma PALM :1955 A ge:69 Y S ex:Female Address: [place], [address] * Refills Refill Famotidine Tablet, 20 MG, Oral, 90 Tablet, 1 tablet at bedtime, Once a day, 90 days, Refills=3 Refill Potassium Chloride ER Tablet Extended Release, 20 MEQ, Orally, 180 Tablet, 2 tabs with food, Once a day, 90 days, Refills=3 Refill Furosemide Tablet, 20 MG, Orally, 90, 1 tablet, Once a day, 90 days, Refills=3 Refill Sucralfate Tablet, 1 GM, Orally, 360 Tablet, 1 tablet on an empty stomach, Four times a day, 90 days, Refills=3 * true * Date: Generated for Girma cummings/Frieda/Ceeitting on: 02/26/2024 02:28 PM EST
--- OUTSIDE RECORDS SUMMARY | 2024-11-13 12:00 | XMS_ITS ---
Author Organization Dennis Chavira III, MD Address [address] [place] [address] Care Team Providers Care Full Time Staff Interpreter Name Role Phone Dr. Dennis Chavira III Primary Care Provider Allergies Allergen (clinical drug ingredient) Drug/Non Drug Allergy documented on EMR Reaction Allergy Type Onset Date Status No Known Drug Allergy Unknown Drug Allergy Active REASON FOR VISIT Follow up Medications Medication SIG (Take, Route, Frequency, Duration) Notes Start Date End Date Status Metoprolol Succinate ER 25 MG 1 tablet Orally Once a day 10/18/2024 A ctive Famotidine 20 MG 1 tablet at bedtime Oral Once a day Active Potassium Chloride ER 20 MEQ 2 tabs with food Orally Once a day Active Furosemide 20 MG 1 tablet Orally Once a day Active Sucralfate 1 GM 1 tablet on an empty stomach Orally Four times a day Active Omeprazole 20 MG 1 capsule 1/2 to 1 h our before morning meal Orally Once a day Active Eliquis 5 [...] Date Provider Diagnosis Dennis Chavira III, MD [address] [place] [address] [place] [address] 11/13/2024 Dennis Chavira Plan Of Treatment Medication Medication Name Sig Start Date Stop Date Notes Metoprolol Succinate ER 25 MG 1 tablet Orally Once a day 0 10/18/2024 Famotidine 20 MG 1 tablet at bedtime Oral Once a day Potassium Chloride ER 20 MEQ 2 tabs with food Orally Once a day Furosemide 20 MG 1 tablet Orally Once a day Sucralfate 1 GM 1 tablet on an empty stomach Orally Four times a day Omeprazole 20 MG 1 capsule 1/2 to 1 h our before morning meal Orally Once a day Eliquis 5 MG TAKE 1 TABLET BY FANTASMA TWICE A DAY FOR 90 DAYS Next Appt Details Provider Name:Dennis Chavira , 02/04/2025 11:15:00 AM, [address] [place] [address] [address], [address], [place], [address], Progress Notes * Karma YEEDOB:1955 ( 69 yo F)Acc No.[id number]:11/13/2024 Progress Notes Patient: Karma PALM Provider: Lalo Chavira MD :1955 A ge:69 Y S ex:Female Date:11/13/2024 Address:[address] [place] [address] Subjective: * Chief Complaints: * 1 . [...] n onsmoker S he was born in [place], [place]. She retired last July. From the [employer]. She was to her in 1974. They have 1 daughter, Clarissa. She doess not smoke tobacco or drink alcohol. She has no gnosticism objection to blood transfusion. * Medications: T aking Omeprazole 20 MG Capsule Delayed Release 1 capsule 1/2 to 1 hour before morning meal Orally Once a day , Taking Eliquis 5 MG Tablet TAKE 1 TABLET BY MOUTH TWICE A DAY FOR 90 DAYS , Taking Metoprolol Succinate ER 25 MG Tablet Extended Release 24 Hour 1 tablet Orally Once a day , Taking Famotidine 20 MG Tablet 1 tablet at bedtime Oral Once a day , Taking Potassium Chloride ER 20 MEQ Tablet Extended Release 2 tabs with food Orally Once a day , Taking Furosemide 20 MG Tablet 1 tablet Orally Once a day , Taking Sucralfate 1 GM Tablet 1 tablet on an empty stomach Orally Four times a day , Discontinued Metoprolol Succinate ER 25 MG Tablet Extended Release 24 Hour Oral , Medication List reviewed and reconciled with [...] exam intact. PSYCH: a lert, oriented. Assessment: Plan: * Treatment: * Images: * The named appointment provid er may or may not be the originator of this progress note, and it is not deemed complete until electronically signed by the appointment provider. Sign off status: Pending * Provider: Lalo Chavira MD Date: Generated for Girma cummings/Frieda/Susy on: 02/26/2024 02:28 [...]
--- OUTSIDE RECORDS SUMMARY | 2024-12-04 06:15 | XMS_ITS ---
Author Organization Dennis Chavira III, MD Address [address] [place] [address] [place] [address] Care Team Providers Care Machine Pie Maker Name Role Phone Dr. Dennis Chavira III Primary Care Provider Allergies Allergen (clinical drug ingredient) Drug/Non Drug Allergy documented on EMR Reaction Allergy Type Onset Date Status No Known Drug Allergy Unknown Drug Allergy Active Reason For Referral Reason Evaluate and treat Lymphedema Clinic Diagnosis 1 Muscle weakness (gen eralized) (M62.81) Diagnosis 2 Lymphedema (I89.0) Diagnosis 3 Acute kidney failure , unspecified (N17.9) Diagnosis 4 Venous insufficiency (chronic) (peripheral) (I87.2) Diagnosis 5 Chronic diastolic (c ongestive) heart failure (I50.32) Referral Organization Dennis Chavira III, MD Referring Provider First Name Dennis Referring Provider Last Name Cait Referring Provider Speciality Internal M edicine Referred Organization [facility] nter Referred Provider [facility], Core Physical Therapy Referred Address [address] [place] [phone], Referred Provider Specialty Physical The rapist General Notes Radha Van 12/09/2024 11:30:06 AM > Referral and progress note faxed.Carlota Amber 12/16/2024 02:36:12 PM > Patient called and spoke with Isatu from [facility], she stated they did not receive the referral and refax it to her attention. Referral refaxed Referral Priority Routine Reason Evaluate and Treat Diagnosis 1 Venous insufficiency (chronic) (peripheral) (I87.2) Diagnosis 2 Paroxysmal atrial fi brillation (I48.0) Diagnosis 3 Muscle weakness (gen eralized) (M62.81) Diagnosis 4 Lymphedema (I89.0) Referral Organization Dennis Chavira III, MD Referring Provider First Name Dennis Referring Provider Last Name Cait Referring Provider Speciality Internal M edicine Referred Organization Aditya gomez Referred Provider Adrián Santana Referred Address [address] [place] [address],[place], [place],[phone], Referred Provider Specialty Vascular Shauna checo General Notes D, Radha 12/09/2024 11:28:09 AM > Referral and progress note faxed. Progress note from Wound Care was also faxed. Referral Priority Routine REASON FOR VISIT lymphedema, Paroxysmal atrial fibrillation, Chronic kidney disease, Morbid obesity, Aortic stenosis, Congestive heart failure, Anticoagulation, Endometrial hyperplasia Medications Medication SIG (Take, Route, Frequency, Duration) Notes Start Date End Date Status Famotidine 20 MG 1 tablet at bedtime [...] morning meal Orally Once a day Active Sulfamethoxazole-Trimethop rim 400-80 MG TAKE 1 TABLET BY MOUTH EVERY DAY Oral Active Metoprolol Succinate ER 25 MG 1 tablet Orally Once a day 10/18/2024 A ctive Eliquis 5 MG TAKE 1 TABLET BY FANTASMA TH TWICE A DAY FOR 90 DAYS Active Social History Tobacco Use: Social History Observation Description Date Details (start date - stop date) Never Smoker NA - NA Sex Assigned At : Social History Observation Description Sex Assigned At Female Tobacco Use/Smoking Question Answer Notes Patient is a nonsmoker Vital Signs Temperature 97.7 degrees Fahrenheit 12/05/19 25 Blood pressure systolic 138 mm Hg 12/05/19 25 Blood pressure diastolic 75 mm Hg 025 Heart Rate 86 /min 12/04/2024 Respiratory Rate 16 /min 12/04/2024 Height 65 in 12/04/2024 Weight 331 lbs 12/04/2024 BMI 55.08 kg/m2 12/04/2024 Oximetry 99 % 12/04/2024 Encounters Encounter Location Date Provider Diagnosis Dennis Chavira III, MD [address] [place] [address] [place] [address] 12/04/2024 Dennis Chavira Acute kidney failure , unspecified N17.9 ; Morbid (severe) obesity due to excess calories E66.01 ; Hypokalemia E87.6 ; Cellulitis of right lower limb L03.115 ; Paroxysmal atrial fibrillation I48.0 ; Aortic stenosis Q25.3 ; Lymphedema I89.0 ; Endometrial hyperplasia, unspecified N85.00 and Chronic diastolic (congestive) heart failure I50.32 Assessments Encounter Date Diagnosis (ICD Code) Assessment Notes Treatment Notes Treatment Clinical Notes 12/04/2024 Acute kidney failure, unspecified (ICD-10 - N17.9) He acute renal failure has resolved. Comprehensive blood work has been ordered prior to her next visit to assess renal function and general metabolic status. 12/04/2024 Morbid (severe) obesity due to excess calories (ICD-10 - E66.01) She has gained 15 pounds since her last visit and there was no sign of fluid retention. She continues to have massive lymphedema in her legs without venous stasis or erythema. There were no open areas. We have discussed the elements of weight reduction diet. We will consider medical therapy. Close followup was ordered. Diet and nutrition were discussed. 12/04/2024 Hypokalemia (ICD-10 - E87.6) Her hypokalemia has resolved. A repeat set of labs has been ordered. 12/04/2024 Cellulitis of right lower limb (ICD-10 - L03.115) The cellulitis has completely resolved. The open areas on the right leg have healed. There were no open wounds today. We haad a long discussion about how to prevent furthher skin breakdown. 12/04/2024 Paroxysmal atrial fibrillation (ICD-10 - I48.0) She is in a slow controlled atrial fibrillation today. Her peripheral edema is mostly resolved. She is comfortable breathing room air. A repeat cardiology consultation has been requested for evaluation of congestive heart failure and aortic stenosis. 12/04/2024 Aortic stenosis (ICD-10 - Q25.3) An echocardiogram done durinng her recent hospitalization in 2022 showed aortic stenoosis with a valve area of 0.82. I have requested a repeat consultation cardiology.She willl likelyy need repaiir this valve. 12/04/2024 Lymphedema (ICD-10 - I89.0) She has severe edema of both legs with chronic changes of venous stasis. She reports that her legs have become much less swollen in recent weeks. This is likely from dehydration 12/04/2024 Endometrial hyperplasia, unspecified (ICD-10 - N85.00) A thickened endometrium was seen on a pelvic ultrasound done September 10, 2024 at [facility]. We have referred her to gynecology for evaluation of this. 12/04/2024 Chronic diastolic (congestive) heart failure (ICD-10 - I50.32) A BNP is not available. One was ordered today with comprehensive blood work. Her congestive heart failure is likely invaded by the aortic stenosis. It was described as chronic, diastolic in the hospital. She is anticoagulateed. It seems compensated today. She is taking digoxin. Plan Of Treatment Medication Medication Name Sig Start Date Stop Date Notes Famotidine 20 MG 1 tablet at bedtime [...] before morning meal Orally Once a day Sulfamethoxazole-Trimethopri m 400-80 MG TAKE 1 TABLET BY MOUTH EVERY DAY Oral Metoprolol Succinate ER 25 MG 1 tablet Orally Once a day 0 10/18/2024 Eliquis 5 MG TAKE 1 TABLET BY FANTASMA TH TWICE A DAY FOR 90 DAYS Pending Test Test Name Order Date PROFILE, FASTING (COMPREHENSIVE METABOLI C) 12/04/2024 CBC w DIFF 12/04/2024 Lipid Panel 12/04/2024 Referrals Referral Date Details 12/04/2024 12/04/2024, Evaluate and treat Lymphedema Clinic, Core Physical Therapy [facility], [address] [place] [address], [place], [place], [phone], 12/04/2024 12/04/2024, Evaluate and TreatAdrián, [address] [place] [address], [place], [place], [phone], Next Appt Details Follow Up: 2 Months, Reason: OV Provider Name:Dennis Chavira , 02/04/2025 11:15:00 AM, [address] [place] [address] [address]É [address], [place], [phone], Progress Notes * Karma YEEDOB:1955 ( 69 yo F)Acc No.[id number]:12/04/2024 Progress Notes Patient: Karma PALM Provider: Lalo Chavira MD :1955 A ge:69 Y S ex:Female Date:12/04/2024 Address:[address] [place] [address] [id number] Subjective: * Chief Complaints: * L ymphedemaParoxysmal atrial fibrillationChronic kidney diseaseMorbid obesityAortic stenosisCongestive heart failureAnticoagulationEndometrial hyperplasia * HPI: C OVID-19 Screening: S he returns for medical management. Her general appearance is markedly improved since her last visit. She is anticoagulated with Elik with and has had no bleeding. She has massive lower extremity edema, but no open wounds and no erythema. The wound clinic has discharged her as she has no open wounds. She was in a regular sinus rhythm today. Her breathing was unimpaired with an excellent oxygen saturation. She is short of breath with prolonged exertion but her congestive heart failure is well compensated. She is scheduled to have an ultrasound of her kidneys and ureters ordered by nephrology on December 13, 2024. She is taking no new medications and has been compliant with her regimen.Her left ureteral stent has been removed by urology. Questions H ave you had any new [...] exertion d enies. D yspnea on exertion?with moderate activity. S hortness of breath t hat is moderate. G astrointestinal: Constipation o ccasional. D ecreased appetite d enies. D iarrhea d enies. H eartburn d enies. N ausea d enies. R ectal bleeding d enies. V omiting d enies. H ematology: bruising d enies. p etechiae d enies. S wollen glands n one have been noted. G enitourinary: Frequent urination d enies. M usculoskeletal: Muscle aches B oth legs. P ainful joints d enies.?Sciatica d enies. W eakness d enies. S kin: Itching d enies. R regan d enies. S kin lesion(s)?denies. N eurologic: Difficulty speaking d enies. D izziness d enies.?Headache d enies. L ow back pain d enies. P sychiatric: Depressed mood w hich is mild. * Medical History: * Surgical History: D [...] n onsmoker S he was born in [place], [place]. She retired last July. From the [employer]. She was to her in 1974. They have 1 daughter, Clarissa. She doess not smoke tobacco or drink alcohol. She has no sabianist objection to blood transfusion. * Medications: T akingFamotidine 20 MG Tablet 1 tablet at bedtime Oral Once a day Potassium Chloride ER 20 MEQ Tablet Extended Release 2 tabs with food Orally Once a day Furosemide 20 MG Tablet 1 tablet Orally Once a day Sucralfate 1 GM Tablet 1 tablet on an empty stomach Orally Four times a day Omeprazole 20 MG Capsule Delayed Release 1 capsule 1/2 to 1 hour before morning meal Orally Once a day Eliquis 5 MG Tablet TAKE 1 TABLET BY MOUTH TWICE A DAY FOR 90 DAYS Metoprolol Succinate ER 25 MG Tablet Extended Release 24 Hour 1 tablet Orally Once a day Sulfamethoxazole-Trimethoprim 400-80 MG Tablet TAKE 1 TABLET BY MOUTH EVERY DAY Oral Medication List reviewed and reconciled with the patientTaking Famotidine 20 MG Tablet 1 tablet at bedtime Oral Once a day Taking Potassium Chloride ER 20 MEQ Tablet Extended Release 2 tabs with food Orally Once a day Taking Furosemide 20 MG Tablet 1 tablet Orally Once a day Taking Sucralfate 1 GM Tablet 1 tablet on an empty stomach Orally Four times a day Taking Omeprazole 20 MG Capsule Delayed Release 1 capsule 1/2 to 1 hour before morning meal Orally Once a day Taking Eliquis 5 MG Tablet TAKE 1 TABLET BY MOUTH TWICE A DAY FOR 90 DAYS Taking Metoprolol Succinate ER 25 MG Tablet Extended Release 24 Hour 1 tablet Orally Once a day Taking Sulfamethoxazole-Trimethoprim 400-80 MG Tablet TAKE 1 TABLET BY MOUTH EVERY DAY Oral Medication List reviewed and reconciled with the patient * Allergies: N o Known Drug Allergyno[Allergies Verified] Objective: * Vitals: H t: 65, Wt:331, BMI:55.08, BP:138/75, HR:86, RR:16, Temp:97.7, Oxygen sat %:99, Ht-cm: 165.1, Wt-k.14. * P ast Orders: Lab:Comprehensive Met. Panel * Collection Date 09/10/2024 12/08/2022 12/07/2022 Collection Time 11:52 AM 04:58 AM 04:50 AM Order Date 09/10/2024 12/08/2022 12/07/2022 Sodium 129 L (Ref Range: 135-145 mmol/L) 146 H (Ref Range: 135-145 mmol/L) 143 (Ref Range: 135-145 mmol/L) Bilirubin Total 0.2 (Ref Range: 0.0-1.0 mg/dL) 0.3 (Ref Range: 0.0-1.0 mg/dL) 0.4 (Ref Range: 0.0-1.0 mg/dL) Aspartate Amino Transferase 22 (Ref Range: 5-31 U/L) 60 H (Ref Range: 5-31 U/L) 71 H (Ref Range: 5-31 U/L) Alanine Aminotransferase 8 (Ref Range: 0-31 U/L) 28 (Ref Range: 0-31 U/L) 34 H (Ref Range: 0-31 U/L) Total Protein 8.7 H (Ref Range: 6.5-8.0 g/dL) 5.9 L (Ref Range: 6.5-8.0 g/dL) 6.0 L (Ref Range: 6.5-8.0 g/dL) Albumin Level 4.0 (Ref Range: 3.5-5.0 g/dL) 2.3 L (Ref Range: 3.5-5.0 g/dL) 2.4 L (Ref Range: 3.5-5.0 g/dL) Alkaline Phosphatase 109 (Ref Range: 39-117 U/L) 81 (Ref Range: 39-117 U/L) 77 (Ref Range: 39-117 U/L) Potassium 4.3 (Ref Range: 3.3-5.1 mmol/L) 2.7 L (Ref Range: 3.3-5.1 mmol/L) 3.0 L (Ref Range: 3.3-5.1 mmol/L) Chloride 104 (Ref Range: 96-108 mmol/L) 107 (Ref Range: 96-108 mmol/L) 105 (Ref Range: 96-108 mmol/L) Carbon Dioxide 12 L (Ref Range: 22-29 mmol/L) 28 (Ref Range: 22-29 mmol/L) 29 (Ref Range: 22-29 mmol/L) Anion Gap 17 (Ref Range: 12-20) 14 (Ref Range: 12-20) 12 (Ref Range: 12-20) Blood Urea Nitrogen 102 H (Ref Range: 9-16 mg/dL) 81 H (Ref Range: 9-16 mg/dL) 101 H (Ref Range: 9-16 mg/dL) Creatinine 3.40 H (Ref Range: 0.5-1.4 mg/dL) 0.86 (Ref Range: 0.5-1.4 mg/dL) 1.11 (Ref Range: 0.5-1.4 mg/dL) Estimated Glomerular Filt Rate 13 > 60 49 Glucose Random 111 (Ref Range: 60-115 mg/dL) 120 H (Ref Range: 60-115 mg/dL) 111 (Ref Range: 60-115 mg/dL) Calcium 9.0 (Ref Range: 8.4-10.2 mg/dL) 9.1 (Ref Range: 8.4-10.2 mg/dL) 8.6 (Ref Range: 8.4-10.2 mg/dL) Creatinine Clr Calc Pharmacy 21.2 97.7 64.3 * Imaging:FL guidance in OR * Performed Date 11/11/2024 09/13/2024 03:15 PM 09:30 AM Order Date 11/11/2024 09/13/2024 ???Lab:Ethanol (Order Date - 09/10/2024) (Collection Date & Time - 09/10/2024 11:52 AM)?ValueReference Range?Ethanol< 10- mg/dL * Lab:UA ClnCatch+Micro w/rflx Cult * Collection Date 09/10/2024 12/01/2022 Collection Time 04:57 PM 09:11 PM Order Date 09/10/2024 12/01/2022 Color Urine Yellow Dark Yellow Appearance Urine Cloudy Cloudy PH 6.0 (Ref Range: 5.0-9.0) 5.5 (Ref Range: 5.0-9.0) Glucose Urine UA Negative (Ref Range: Negative mg/dL) Negative (Ref Range: Negative mg/dL) Urine Blood Small (1+) A (Ref Range: Negative) Small (1+) A (Ref Range: Negative) Specific [place] - Urine 1.020 (Ref Range: 1.005-1.025) 1.020 (Ref Range: 1.005-1.025) Urine Protein 100 (2+) A (Ref Range: Neg-Trace mg/dL) 100 (2+) A (Ref Range: Neg-Trace mg/dL) Urine Ketones Trace (Ref Range: Negative mg/dL) Negative (Ref Range: Negative mg/dL) Nitrite Urine Negative (Ref Range: Negative) Negative (Ref Range: Negative) Leukocyte Esterase Urine Moderate (2+) A (Ref Range: Negative) Small (1+) A (Ref Range: Negative) RBC Urine 0-2 (Ref Range: 0-2 /HPF) 3-5 A (Ref Range: 0-2 /HPF) WBC Urine >50 A (Ref Range: 0-5 /HPF) 0-5 (Ref Range: 0-5 /HPF) Squamous Epithelial Cell Urine 0-2 (Ref Range: 0-2 /HPF) >20 (Ref Range: 0-2 /HPF) Bacteria Urine 3+ (Ref Range: None Seen) 1+ (Ref Range: None Seen) Hyaline Casts Urine 3-5 (Ref Range: 0-2 /LPF) 11-20 (Ref Range: 0-2 /LPF) Granular Casts Urine NR Present * Lab:Troponin-I High Sensitiv ity * Collection Date 09/10/2024 09/10/2024 12/02/2022 Collection Time 01:30 PM 11:52 AM 10:41 AM Order Date 09/10/2024 09/10/2024 12/02/2022 Troponin-I High Sensitivity 32.7 H (Ref Range: <3.5-17.0 ng/L) 36.2 H (Ref Range: <3.5-17.0 ng/L) 11.0 (Ref Range: <3.5-17.0 ng/L) * Lab:Magnesium * Collection Date 09/18/2024 09/10/2024 12/08/2022 Collection Time 06:13 AM 11:52 AM 04:58 AM Order Date 09/18/2024 09/10/2024 12/08/2022 Magnesium 1.8 (Ref Range: 1.6-2.6 mg/dL) 2.7 H (Ref Range: 1.6-2.6 mg/dL) 2.1 (Ref Range: 1.6-2.6 mg/dL) * Lab:Complete Blood Count Aut o Diff * Collection Date 09/10/2024 01/25/2023 12/07/2022 Collection Time 11:52 AM 12:06 PM 04:50 AM Order Date 09/10/2024 01/25/2023 12/07/2022 White Blood Count 12.3 H (Ref Range: 4.8-10.8 X10*3/uL) 8.1 (Ref Range: 4.8-10.8 X10*3/uL) 14.1 H (Ref Range: 4.8-10.8 X10*3/uL) Red Blood Count 4.64 (Ref Range: 4.20-5.50 X10*6/uL) 3.78 L (Ref Range: 4.20-5.50 X10*6/uL) 3.26 L (Ref Range: 4.20-5.50 X10*6/uL) Hemoglobin 14.4 (Ref Range: 12.0-16.0 g/dl) 12.0 (Ref Range: 12.0-16.0 g/dl) 10.0 L (Ref Range: 12.0-16.0 g/dl) Hematocrit 41.9 (Ref Range: 37.0-47.0 %) 37.0 (Ref Range: 37.0-47.0 %) 31.0 L (Ref Range: 37.0-47.0 %) Mean Corpuscular Volume 90.3 (Ref Range: 80.0-98.0 fL) 97.9 (Ref Range: 80.0-98.0 fL) 95.1 (Ref Range: 80.0-98.0 fL) Mean Corpuscular Hemoglobin 31.0 (Ref Range: 27.0-33.0 pg) 31.7 (Ref Range: 27.0-33.0 pg) 30.7 (Ref Range: 27.0-33.0 pg) Mean Corpuscular HGB Conc 34.4 (Ref Range: 31.0-35.0 g/dl) 32.4 (Ref Range: 31.0-35.0 g/dl) 32.3 (Ref Range: 31.0-35.0 g/dl) Red Cell Distribution Width 14.9 (Ref Range: 11.0-16.0 %) 13.9 (Ref Range: 11.0-16.0 %) 14.0 (Ref Range: 11.0-16.0 %) Platelet Count 325 (Ref Range: 160-400 X10*3/uL) 255 (Ref Range: 160-400 X10*3/uL) 188 (Ref Range: 160-400 X10*3/uL) Mean Platelet Volume 10.1 (Ref Range: 9.4-12.3 fL) 9.8 (Ref Range: 9.4-12.3 fL) 9.2 L (Ref Range: 9.4-12.3 fL) Neutrophils Percent Auto 89.0 H (Ref Range: 45-73 %) 78.5 H (Ref Range: 45-73 %) 81.1 H (Ref Range: 45-73 %) Imm Gran Pct Auto 0.4 (Ref Range: 0.0-0.4 %) 0.5 H (Ref Range: 0.0-0.4 %) 5.8 H (Ref Range: 0.0-0.4 %) Lymphocytes Percent Auto 6.2 L (Ref Range: 20-40 %) 13.8 L (Ref Range: 20-40 %) 5.7 L (Ref Range: 20-40 %) Monocytes Percent Auto 4.0 (Ref Range: 2-11 %) 5.2 (Ref Range: 2-11 %) 5.0 (Ref Range: 2-11 %) Eosinophils Percent Auto 0.2 (Ref Range: 0-4 %) 1.5 (Ref Range: 0-4 %) 2.0 (Ref Range: 0-4 %) Basophils Percent Auto 0.2 (Ref Range: 0-2 %) 0.5 (Ref Range: 0-2 %) 0.4 (Ref Range: 0-2 %) NRBC Pct Auto 0.0 (Ref Range: 0.0-0.2 /100WBC) 0.0 (Ref Range: 0.0-0.2 /100WBC) 0.0 (Ref Range: 0.0-0.2 /100WBC) Neutrophils Absolute Auto 10.9 H (Ref Range: 2.0-8.3 x10*3/uL) 6.3 (Ref Range: 2.0-8.3 x10*3/uL) 11.4 H (Ref Range: 2.0-8.3 x10*3/uL) Imm Gran Abs Auto 0.05 H (Ref Range: 0.00-0.03 X10*3/uL) 0.04 H (Ref Range: 0.00-0.03 X10*3/uL) 0.82 H (Ref Range: 0.00-0.03 X10*3/uL) Lymphocytes Absolute Auto 0.8 L (Ref Range: 1.2-4.9 X10*3/uL) 1.1 L (Ref Range: 1.2-4.9 X10*3/uL) 0.8 L (Ref Range: 1.2-4.9 X10*3/uL) Monocytes Absolute Auto 0.5 (Ref Range: 0.1-1.2 X10*3/uL) 0.4 (Ref Range: 0.1-1.2 X10*3/uL) 0.7 (Ref Range: 0.1-1.2 X10*3/uL) Eosinophils Absolute Auto 0.0 (Ref Range: 0.0-0.4 X10*3/uL) 0.1 (Ref Range: 0.0-0.4 X10*3/uL) 0.3 (Ref Range: 0.0-0.4 X10*3/uL) Basophils Absolute Auto 0.0 (Ref Range: 0.0-0.2 X10*3/uL) 0.0 (Ref Range: 0.0-0.2 X10*3/uL) 0.1 (Ref Range: 0.0-0.2 X10*3/uL) NRBC Abs Auto 0.000 (Ref Range: 0.0-0.012 X10*3/uL) 0.000 (Ref Range: 0.0-0.012 X10*3/uL) 0.000 (Ref Range: 0.0-0.012 X10*3/uL) * Lab:Venous Blood Gases - POC * Collection Date 09/10/2024 12/08/2022 12/07/2022 Collection Time 01:36 PM 04:58 AM 04:50 AM Order Date 09/10/2024 12/08/2022 12/07/2022 VBG pH 7.16 LL (Ref Range: 7.32-7.43) 7.51 H (Ref Range: 7.32-7.43) 7.40 (Ref Range: 7.32-7.43) VBG pCO2 28 (Ref Range: mmHg) 44 (Ref Range: mmHg) 53 (Ref Range: mmHg) VBG pO2 52 (Ref Range: mmHg) 115 (Ref Range: mmHg) 37 (Ref Range: mmHg) VBG Base Excess -16.4 (Ref Range: mmol/L) 12.2 (Ref Range: mmol/L) 7.5 (Ref Range: mmol/L) VBG HCO3 10 L (Ref Range: 22-26 mmol/L) 36 H (Ref Range: 22-26 mmol/L) 33 H (Ref Range: 22-26 mmol/L) VBG O2 % Saturation 79.0 (Ref Range: %) 99.0 (Ref Range: %) 59.0 (Ref Range: %) * Lab:Urine Culture * Collection Date 09/13/2024 09/10/2024 12/01/2022 Collection Time 09:42 AM 09:11 PM Order Date 09/13/2024 09/10/2024 12/01/2022 Urine Culture > 100,000 cfu/mL > 100,000 cfu/mL < 10,000 cfu/ml Ampicillin <=2 S 4 S NR Ceftriaxone <=0.25 S <=0.25 S NR Gentamicin <=1 S <=1 S NR Nitrofurantoin 128 R <=16 S NR Trimethoprim/Sulfamethoxazole <=20 S <=20 S NR O:ESCCOL NR Escherichia coli NR O:PROMIR Proteus mirabilis NR NR Ciprofloxacin <=0.06 S <=0.06 S NR Cefepime <=0.12 S <=0.12 S NR Cefazolin (Urine) 4 S <=1 S NR * Lab:B Type Natriuretic Pepti de * Collection Date 09/10/2024 12/01/2022 Collection Time 11:52 AM 04:15 PM Order Date 09/10/2024 12/01/2022 B Type Natriuretic Peptide 40 (Ref Range: <100 pg/mL) 115 H (Ref Range: <100 pg/mL) * Lab:Prothrombin Time INR * Collection Date 09/10/2024 12/01/2022 Collection Time 11:52 AM 04:15 PM Order Date 09/10/2024 12/01/2022 Prothrombin Time 13.3 H (Ref Range: 10.9-12.4 SEC) 15.9 H (Ref Range: 11.1-13.3 SEC) INTERNATIONAL NORM RATIO 1.2 H (Ref Range: 0.9-1.1) 1.3 H (Ref Range: 0.9-1.1) ???Lab:Beta-Hydroxybutyrate (Order Date - 09/10/2024) (Collection Date & Time - 09/10/2024 01:30 PM)?ValueReference Range?Beta-Hydroxybutyrate0.60 H0.02-0.27 - mmol/L ???Lab:SARS-CoV2/FLU/RSV (Order Date - 09/10/2024) (Collection Date & Time - 09/10/2024 11:52 AM)?ValueReference Range?Influenza A PCRNEGATIVE Negative -?Influenza B PCRNEGATIVENegative -?Resp Syncy Virus RNA Qual PCRNEGATIVENegative -?SARS COV2 PCR INHOUSENEGATIVENegative - ???Lab:Lipase (Order Date - 09/10/2024) (Collection Date & Time - 09/10/2024 11:52 AM)?ValueReference Range?[id number] - U/L ???Lab:Electrolytes Urine (Order Date - 09/10/2024) (Collection Date & Time - 09/10/2024 04:57 PM)?ValueReference Range?Chloride Urine Random< 20.0- mmol/L?Sodium Urine Random< 20.0- mmol/L?Potassium Urine Ybshmy97.2- mmol/L * Lab:Blood Culture (First) * Collection Date 09/10/2024 12/01/2022 Collection Time 06:26 PM 04:17 PM Order Date 09/10/2024 12/01/2022 Blood Culture (First) No growth after 5 days. No growth after 5 days. * Lab:Lactic Acid * Collection Date 09/10/2024 12/01/2022 Collection Time 06:26 PM 04:15 PM Order Date 09/10/2024 12/01/2022 Lactic Acid 1.3 (Ref Range: 0.5-2.0 mmol/L) 1.5 (Ref Range: 0.5-2.0 mmol/L) * Lab:Blood Culture (Second) * Collection Date 09/10/2024 12/01/2022 Collection Time 07:20 PM 06:25 PM Order Date 09/10/2024 12/01/2022 Blood Culture (Second) No growth after 5 days. No growth after 5 days. * Lab:Digoxin * Collection Date 09/10/2024 01/25/2023 Collection Time 01:30 PM 12:06 PM Order Date 09/10/2024 01/18/2023 Digoxin 1.0 (Ref Range: 0.8-2.0 ng/mL) 0.7 L (Ref Range: 0.8-2.0 ng/mL) * Lab:Complete Blood Count no Diff * Collection Date 09/12/2024 09/11/2024 09/11/2024 Collection Time 05:49 AM 02:33 PM 06:37 AM Order Date 09/12/2024 09/11/2024 09/11/2024 White Blood Count 8.8 (Ref Range: 4.8-10.8 X10*3/uL) 8.3 (Ref Range: 4.8-10.8 X10*3/uL) 8.2 (Ref Range: 4.8-10.8 X10*3/uL) Red Blood Count 3.84 L (Ref Range: 4.20-5.50 X10*6/uL) 4.05 L (Ref Range: 4.20-5.50 X10*6/uL) 4.12 L (Ref Range: 4.20-5.50 X10*6/uL) Hemoglobin 12.0 (Ref Range: 12.0-16.0 g/dl) 12.4 (Ref Range: 12.0-16.0 g/dl) 12.8 (Ref Range: 12.0-16.0 g/dl) Hematocrit 34.2 L (Ref Range: 37.0-47.0 %) 36.4 L (Ref Range: 37.0-47.0 %) 37.4 (Ref Range: 37.0-47.0 %) Mean Corpuscular Volume 89.1 (Ref Range: 80.0-98.0 fL) 89.9 (Ref Range: 80.0-98.0 fL) 90.8 (Ref Range: 80.0-98.0 fL) Mean Corpuscular Hemoglobin 31.3 (Ref Range: 27.0-33.0 pg) 30.6 (Ref Range: 27.0-33.0 pg) 31.1 (Ref Range: 27.0-33.0 pg) Mean Corpuscular HGB Conc 35.1 H (Ref Range: 31.0-35.0 g/dl) 34.1 (Ref Range: 31.0-35.0 g/dl) 34.2 (Ref Range: 31.0-35.0 g/dl) Red Cell Distribution Width 14.8 (Ref Range: 11.0-16.0 %) 14.6 (Ref Range: 11.0-16.0 %) 14.7 (Ref Range: 11.0-16.0 %) Platelet Count 250 (Ref Range: 160-400 X10*3/uL) 251 (Ref Range: 160-400 X10*3/uL) 250 (Ref Range: 160-400 X10*3/uL) Mean Platelet Volume 10.1 (Ref Range: 9.4-12.3 fL) 9.7 (Ref Range: 9.4-12.3 fL) 9.7 (Ref Range: 9.4-12.3 fL) NRBC Pct Auto 0.0 (Ref Range: 0.0-0.2 /100WBC) 0.0 (Ref Range: 0.0-0.2 /100WBC) 0.0 (Ref Range: 0.0-0.2 /100WBC) NRBC Abs Auto 0.000 (Ref Range: 0.0-0.012 X10*3/uL) 0.000 (Ref Range: 0.0-0.012 X10*3/uL) 0.000 (Ref Range: 0.0-0.012 X10*3/uL) * Lab:Basic Metabolic Panel * Collection Date 09/18/2024 09/17/2024 09/15/2024 09/14/2024 09/13/2024 09/12/2024 09/11/2024 Collection Time 06:13 AM 06:13 AM 09:47 AM 06:34 AM 07:50 AM 05:49 AM 06:37 AM Order Date 09/18/2024 09/17/2024 09/15/2024 09/14/2024 09/12/2024 09/11/2024 Sodium 145 (Ref Range: 135-145 mmol/L) 143 (Ref Range: 135-145 mmol/L) 141 (Ref Range: 135-145 mmol/L) 140 (Ref Range: 135-145 mmol/L) 139 (Ref Range: 135-145 mmol/L) 136 (Ref Range: 135-145 mmol/L) 135 (Ref Range: 135-145 mmol/L) Blood Urea Nitrogen 22 H (Ref Range: 9-16 mg/dL) 25 H (Ref Range: 9-16 mg/dL) 32 H (Ref Range: 9-16 mg/dL) 41 H (Ref Range: 9-16 mg/dL) 54 H (Ref Range: 9-16 mg/dL) 72 H (Ref Range: 9-16 mg/dL) 96 H (Ref Range: 9-16 mg/dL) Creatinine 1.22 (Ref Range: 0.5-1.4 mg/dL) 1.18 (Ref Range: 0.5-1.4 mg/dL) 1.46 H (Ref Range: 0.5-1.4 mg/dL) 1.53 H (Ref Range: 0.5-1.4 mg/dL) 1.62 H (Ref Range: 0.5-1.4 mg/dL) 1.96 H (Ref Range: 0.5-1.4 mg/dL) 2.59 H (Ref Range: 0.5-1.4 mg/dL) Glucose Random 91 (Ref Range: 60-115 mg/dL) 92 (Ref Range: 60-115 mg/dL) 103 (Ref Range: 60-115 mg/dL) 101 (Ref Range: 60-115 mg/dL) 97 (Ref Range: 60-115 mg/dL) 97 (Ref Range: 60-115 mg/dL) 94 (Ref Range: 60-115 mg/dL) Calcium 8.4 (Ref Range: 8.4-10.2 mg/dL) 8.4 (Ref Range: 8.4-10.2 mg/dL) 9.0 (Ref Range: 8.4-10.2 mg/dL) 8.7 (Ref Range: 8.4-10.2 mg/dL) 9.0 (Ref Range: 8.4-10.2 mg/dL) 8.6 (Ref Range: 8.4-10.2 mg/dL) 8.5 (Ref Range: 8.4-10.2 mg/dL) Potassium 4.1 (Ref Range: 3.3-5.1 mmol/L) 3.8 (Ref Range: 3.3-5.1 mmol/L) 3.8 (Ref Range: 3.3-5.1 mmol/L) 3.9 (Ref Range: 3.3-5.1 mmol/L) 3.6 (Ref Range: 3.3-5.1 mmol/L) 4.2 (Ref Range: 3.3-5.1 mmol/L) 4.3 (Ref Range: 3.3-5.1 mmol/L) Chloride 110 H (Ref Range: 96-108 mmol/L) 112 H (Ref Range: 96-108 mmol/L) 110 H (Ref Range: 96-108 mmol/L) 109 H (Ref Range: 96-108 mmol/L) 106 (Ref Range: 96-108 mmol/L) 104 (Ref Range: 96-108 mmol/L) 106 (Ref Range: 96-108 mmol/L) Carbon Dioxide 29 (Ref Range: 22-29 mmol/L) 26 (Ref Range: 22-29 mmol/L) 24 (Ref Range: 22-29 mmol/L) 24 (Ref Range: 22-29 mmol/L) 26 (Ref Range: 22-29 mmol/L) 22 (Ref Range: 22-29 mmol/L) 18 L (Ref Range: 22-29 mmol/L) Anion Gap 10 L (Ref Range: 12-20) 9 L (Ref Range: 12-20) 11 L (Ref Range: 12-20) 11 L (Ref Range: 12-20) 11 L (Ref Range: 12-20) 14 (Ref Range: 12-20) 15 (Ref Range: 12-20) Estimated Glomerular Filt Rate 44 45 35 34 31 25 18 Creatinine Clr Calc Pharmacy 59.8 61.8 49.9 47.6 45.0 37.1 28.1 * Imaging:XR chest 1V * Performed Date 09/15/2024 09/10/2024 12/01/2022 11:10 AM 11:48 AM 03:57 PM Order Date 09/15/2024 09/10/2024 12/01/2022 * Lab:[facility] - Possible Carlito tology * Collection Date 09/18/2024 09/15/2024 09/14/2024 Collection Time 06:12 AM 09:47 AM 07:01 AM 07:50 AM Order Date 09/18/2024 09/15/2024 09/14/2024 09/13/2024 [facility] - Possible Hematology SEE NOTE SEE NOTE SEE NOTE SEE NOTE ???Lab:Gastrin (Order Date - 09/18/2024) (Collection Date & Time - 09/18/2024 06:12 AM)?ValueReference Range?[id number]<=100 - pg/mL * Lab:Pathology * Collection Date 11/11/2024 09/17/2024 Collection Time 03:50 PM 01:26 PM Order Date 11/11/2024 09/17/2024 ???Lab:Kidney Stone (Order Date - 11/11/2024) (Collection Date & Time - 11/11/2024 03:50 PM)?ValueReference Range?Component 1SEE NOTE- ?Stone Weight0.115- g?Stone SourceKIDNEY- ???Imaging:US pelvic complete (Order Date - 09/12/2024) (Performed Date - 09/12/2024) ???Imaging:CT abdomen pelvis wo con (Order Date - 09/10/2024) (Performed Date - 09/10/2024) ???Imaging:US pelvic and transvaginal (Order Date - 09/12/2024) (Performed Date - 09/12/2024) * Examination: G eneral Examination: GENERAL APPEARANCE: [...] n o enlarged lymph nodes,spleen normal. SKIN: M assive lymphedema below the knees bilaterally, no open areas, no erythema. HEART: n o clicks, gallops, murmurs, or rubs, regular rhythm, S1, S2 normal, no s3, or vascular bruits. LUNGS: c lear to auscultation . BREASTS: N ot examined. ABDOMEN: b owel sounds normal, no ascites, no organomegaly, no mass: morbid obesity. RECTAL EXAM: n ot examined. MUSCULOSKELETAL: e xtremities unremarkable, no clubbing, cyanosis or edema. PERIPHERAL PULSES: n ormal. NEUROLOGIC: a lert and oriented, cranial nerves 2-12 grossly intact, deep tendon reflexes 2+ symmetrical, motor strength normal upper and lower extremities, sensory exam intact. PSYCH: a lert, oriented: cognitive function intact: thought process logical, goal directed. Assessment: * Assessment: 1. M orbid (severe) obesity due to excess calories - E66.01 (Primary) N otes :She has gained 15 pounds since her last visit and there was no sign of fluid retention. She continues to have massive lymphedema in her legs without venous stasis or erythema. There were no open areas. We have discussed the elements of weight reduction diet. We will consider medical therapy. Close followup was ordered. Diet and nutrition were discussed. 2 . A cute kidney failure, unspecified - N17.9 N otes :He acute renal failure has resolved. Comprehensive blood work has been ordered prior to her next visit to assess renal function and general metabolic status. 3 . H ypokalemia - E87.6 N otes :Her hypokalemia has resolved. A repeat set of labs has been ordered. 4 . C ellulitis of right lower limb - L03.115 N otes :The cellulitis has completely resolved. The open areas on the right leg have healed. There were no open wounds today. We haad a long discussion about how to prevent furthher skin breakdown. 5 . P aroxysmal atrial fibrillation - I48.0 N otes :She is in a slow controlled atrial fibrillation today. Her peripheral edema is mostly resolved. She is comfortable breathing room air. A repeat cardiology consultation has been requested for evaluation of congestive heart failure and aortic stenosis. 6 . A ortic stenosis - Q25.3 N otes :An echocardiogram done durinng her recent hospitalization in 2022 showed aortic stenoosis with a valve area of 0.82. I have requested a repeat consultation cardiology.She willl likelyy need repaiir this valve. 7 . L ymphedema - I89.0 N otes :She has severe edema of both legs with chronic changes of venous stasis. She reports that her legs have become much less swollen in recent weeks. This is likely from dehydration 8 . E ndometrial hyperplasia, unspecified - N85.00 N otes :A thickened endometrium was seen on a pelvic ultrasound done September 10, 2024 at [facility]. We have referred her to gynecology for evaluation of this. 9 . C hronic diastolic (congestive) heart failure - I50.32 N otes :A BNP is not available. One was ordered today with comprehensive blood work. Her congestive heart failure is likely invaded by the aortic stenosis. It was described as chronic, diastolic in the hospital. She is anticoagulateed. It seems compensated today. She is taking digoxin. Plan: * Treatment: 2. A cute kidney failure, unspecified Continue Sulfamethoxazole-Trimethoprim Tablet, 400-80 MG, TAKE 1 TABLET BY MOUTH EVERY DAY, Oral.? L AB: PROFILE, FASTING (COMPREHENSIVE METABOLIC) L AB: CBC w DIFF L AB: Lipid Panel Referral To:[facility] Physical Therapy [facility] Physical Therapist Reason:Evaluate and treat Lymphedema Clinic 3. H ypokalemia L AB: PROFILE, FASTING (COMPREHENSIVE METABOLIC) L AB: CBC w DIFF L AB: Lipid Panel 4. P aroxysmal atrial fibrillation Referral To:[facility] Vascular Surgery Reason:Evaluate and Treat 5. L ymphedema Referral To:[facility] Physical Therapist Reason:Evaluate and treat Lymphedema Clinic Referral To:[facility] Vascular Surgery Reason:Evaluate and Treat 6. C hronic diastolic (congestive) heart failure Referral To:[facility] Physical Therapy [facility] Physical Therapist Reason:Evaluate and treat Lymphedema Clinic 7. O thers Continue Famotidine Tablet, 20 MG, 1 tablet at bedtime, Oral, Once a day; C ontinue Potassium Chloride ER Tablet Extended Release, 20 MEQ, 2 tabs with food, Orally, Once a day; C ontinue Furosemide Tablet, 20 MG, 1 tablet, Orally, Once a day; C ontinue Sucralfate Tablet, 1 GM, 1 tablet on an empty stomach, Orally, Four times a day; C ontinue Omeprazole Capsule Delayed Release, 20 MG, 1 capsule 1/2 to 1 hour before morning meal, Orally, Once a day; C ontinue Eliquis Tablet, 5 MG, TAKE 1 TABLET BY MOUTH TWICE A DAY FOR 90 DAYS; C ontinue Metoprolol Succinate ER Tablet Extended Release 24 Hour, 25 MG, 1 tablet, Orally, Once a day. ? Referral To:[facility] Physical Therapist Reason:Evaluate and treat Lymphedema Clinic Referral To:[facility] V[facility] Surgery Reason:Evaluate and Treat * Procedure Codes: 9 4760 MEASURE BLOOD [...] reason not done * Follow Up: 2 Months (Reason: OV) * Images: * Sign off status: Completed true * Provider: Lalo Chavira MD Date: Generated [...] no ascites, no organomegaly, no mass: morbid obesity NEUROLOGIC: alert and oriented, cranial nerves 2-12 grossly intact, deep tendon reflexes 2+ symmetrical, motor strength normal upper and lower extremities, sensory exam intact SKIN: Massive lymphedema b elow the knees bilaterally, no open areas, no erythema PERIPHERAL PULSES: normal BREASTS: Not examined MUSCULOSKELETAL: extremities unremark able, no clubbing, cyanosis or edema LYMPH NODES: no enlarged lymph no kelsey,spleen normal RECTAL EXAM: not examined PSYCH: alert, oriented: cog nitive function intact: thought process logical, goal directed ORAL CAVITY: normal, unremarkable Consultation Request Notes Referral Date Referring Provider Referred Provider Not es 12/04/2024 Dennis Chavira [facility], [facility] Therapy Evaluate and treat Lymphedema Clinic 12/04/2024 Dennis Chavira Sandip Evaluate and T reat
--- NOTE | 2024-12-26 11:23 | A.OFFVIS_ITS ---
Intake Visit Reasons: Nephrolithiasis follow up/US Intake Note: PATIENT PRESENTS FOR POST Op UROLOGY MEDICATIONS: NONE BLOOD THINNERS: NONE Imaging: Ultrasound 12/13/24 Insulation Board Back Tender Required: No Accompanied by: Self / Same As Patient Allergies No Known Allergies Allergy (Verified 12/26/24 11:24) HPI Comments Details: Karma is a pleasant female. She is a patient of Dr. Chavira. She is seen for the following urologic conditions - pyelonephritis with nephrolithiasis Follow-up from stone procedure Significant improvement in well-being - likely stone had chronic infections going on for a long time Repeat ultrasound small fragment left side Repeat KUB in six-month Remain on low-dose Bactrim till 90 day script complete Nephrolithiasis Initial presentation through emergency room with infected stone Intervention - left ureteroscopy with laser lithotripsy for significant stone burden Imaging - CT innumerable left renal calculi measuring up to 12 mm in size. In addition, there is an 8 mm calculus at the left UPJ Culture positive Proteus and E coli [facility] Medical History Gastritis Elevated troponin Persistent atrial fibrillation Calculus of proximal left ureter Chronic venous stasis dermatitis Bilateral edema of lower extremity Non-rheumatic aortic stenosis Heart failure Aortic stenosis Afib Shortness of breath Leg ulcer Surgical History History of esophagogastroduodenoscopy (EGD) (09/18/24) Hx of cystoscopy (09/13/24) History of dental surgery Family History Mother No problems noted. Father No problems noted. Social History Household Members: Spouse and Family Housing: House Do you presently have visiting nurse or other home services: No Alcohol intake: former Patient Tobacco Use Status: Never used Tobacco e-Cigarette/Vaping Use: Never Used Second Hand Smoke Exposure: No service: No Review of Systems Const Denies chills and Denies fever(s) Card Reports no additional complaints and Denies syncope Resp Denies cough GI Denies abdominal pain and Denies heartburn Reports as per HPI and Denies change in libido Neuro Denies syncope Psych Denies change in libido Endo Denies change in libido Physical Exam Const General: cooperative, healthy appearing, comfortable and no acute distress Orientation/consciousness: patient oriented x3 HEENT Face and sinus: Yes normal facial exam Mouth: moist mucous membranes Neck Neck: Yes normal visual inspection, Yes full ROM and Yes trachea midline Chest Chest palpation & inspection: normal inspection of the chest Resp Effort & Inspection: normal respiratory effort, able to speak in complete sentences and no respiratory distress GI Inspection: Yes normal to inspection Back/Spine/Pelvis Cervical Spine: normal cervical lordosis Thoracic/Lumbar Spine: thoracic and lumbar spine normal to inspection Skin General skin exam: no rashes or lesions noted Neuro General: patient oriented x3, gait normal, tone normal and moves all extremities Extrem General: Yes normal to inspection and Yes capillary refill normal Assessment & Plan Assessment & Plan (1) Nephrolithiasis: Code(s): N20.0 - Calculus of kidney Category: Medical Plan Six-month follow-up Orders: Orders XR KUB 6 Months N20.0 - Calculus of kidney Patient Instructions: This note is constructed using voice recognition software. While every effort has been made to ensure accuracy vocational guidance counselor errors may have been included. Imaging studies, laboratory and physical exam results were discussed and reviewed in detail. No major barriers to patient understanding were identified. An opportunity to ask questions regarding the treatment plan was provided. All questions were answered. The patient expressed understanding and agreement with the above treatment plan. The patient is aware they should contact our office by phone for worsening of their current condition or the appearance of new urologic symptoms. Compliance is encouraged with any medications and followup testing that is ordered. It is a privilege to participate in the urologic care of your patient. If you have any questions or concerns regarding treatment for the above conditions, or other urologic issues, please do not hesitate to contact me. The office telephone contact is [phone]. Sincerely, Dr Thomas Waters MD, AN [facility] - Urology Compassionate Specialist Care for the Genitourinary System Coding Level of Care Code Est Pt Level 3 (65627) Complex EM visit Add On G2211 Diagnoses Nephrolithiasis N20.0
--- OUTSIDE RECORDS SUMMARY | 2024-12-26 14:27 | XMS_ITS | Clinical Summary ---
Author Organization [facility] Facility Address [address] [address] Care Team Providers Care Clam Grower Name Role Phone Dennis Chavira MD Primary Care Provider [phone] Social History Tobacco Use Types Packs/Day Years [...] age to complete this topic Insurance Medicare [facility] Medicare [facility] Care Teams Clam Grower Relationship Specialty Start Date End Date Dennis Chavira MD [address] [place] [id number] [phone] [place], [place] PCP - General Medical Oncology 12/05/22
--- OUTSIDE RECORDS SUMMARY | 2024-12-26 14:28 | XMS_ITS | Patient Health Record ---
Author Organization Dennis Chavira III, MD Address [address] [place] [address] Care Team Providers Care Psychological Examiner Name Role Phone Dr. Dennis Chavira III Primary Care Provider Allergies Allergen (clinical drug ingredient) Drug/Non Drug Allergy documented on EMR Reaction Allergy Type Onset Date Status No Known Drug Allergy Unknown Drug Allergy Active Results Component Value Reference Range Notes Complete Blood Count Auto Di ff Reviewed date:09/11/2024 05:44:45 AM Interpretation: Performing Lab:[facility], [address] [place] [phone] Notes/Report: White Blood Count 12.3 4.8-10.8 X10*3/uL [...] INR Reviewed date:09/11/2024 05:44:45 AM Interpretation: Performing Lab:[address] [address] Notes/Report: Prothrombin Time 13.3 10.9-12.4 SEC INTERNATIONAL [...] Panel Reviewed date:09/11/2024 05:44:45 AM Interpretation: Performing Lab:[address] [address] Notes/Report: Sodium 129 135-145 mmol/L Potassium 4.3 [...] Acid Reviewed date:09/11/2024 05:44:45 AM Interpretation: Performing Lab:[facility], [address] [place] [phone] Notes/Report: Lactic Acid 1.3 0.5-2.0 mmol/L Magnesium Reviewed date:09/11/2024 05:44:45 AM Interpretation: Performing Lab:[facility], [address] [place] [phone] Notes/Report: Magnesium 2.7 1.6-2.6 mg/dL Troponin-I High Sensitivity Reviewed date:09/11/2024 05:44:45 AM Interpretation: Performing Lab:[address] [address] Notes/Report: Troponin-I High Sensitivity 36.2 <3.5-17.0 ng/L The Lisa high sensitivity Troponin-I results should be used in conjunction with other diagnostic information such as ECG, clinical observations and information, and patient symptoms to aid in the diagnosis of CO. B Type Natriuretic Peptide Reviewed date:09/11/2024 05:44:45 AM Interpretation: Performing Lab:[address] [address] Notes/Report: B Type Natriuretic Peptide 40 <100 pg/mL Lipase Reviewed date:09/11/2024 05:44:45 AM Interpretation: Performing Lab:[address] [address] Notes/Report: Lipase 474 8-78 U/L Electrolytes Urine Reviewed date:09/11/2024 05:44:45 AM Interpretation: Performing Lab:[address] [address] Notes/Report: Chloride Urine Random < 20.0 Sodium Urine Random < 20.0 Potassium Urine Random 69.2 Digoxin Reviewed date:09/11/2024 05:44:45 AM Interpretation: Performing Lab:[address] [address] Notes/Report: Digoxin 1.0 0.8-2.0 ng/mL Assay modified to minimize interference from aldosterone antagonists (e.g. spironolactone and canrenone). Ethanol Reviewed date:09/11/2024 05:44:45 AM Interpretation: Performing Lab:[address] [address] Notes/Report: Ethanol < 10 Serum/plasma ethanol results are to be used for medical/treatment purposes only. Urine Culture Reviewed date:09/12/2024 08:13:27 PM Interpretation: Performing Lab:[address] [address] Notes/Report: O:ESCCOL Escherichia coli Urine Culture Quant Urine Culture > 100,000 cfu/mL Ampicillin 4 Cefazolin (Urine) <=1 Cefepime <=0.12 Ceftriaxone <=0.25 Ciprofloxacin <=0.06 Gentamicin <=1 Nitrofurantoin <=16 Trimethoprim/Sulfametho xazole <=20 SARS-CoV2/FLU/RSV Reviewed date:09/11/2024 05:44:45 AM Interpretation: Performing Lab:[address] [address] Notes/Report: Influenza A PCR NEGATIVE Negative Influenza [...] by authorized laboratories. Testing performed on the [employer] GeneXpert utilizing real-time RT-PCR. All SARS CoV2 and positive influenza A/B results are reported to [facility]. Blood Culture (First) Reviewed date:09/16/2024 04:12:37 PM Interpretation: Performing Lab:[address] [address] Notes/Report: Blood Culture (First) No growth after 5 days. Blood Culture (Second) Reviewed date:09/16/2024 04:12:37 PM Interpretation: Performing Lab:[address] [address] Notes/Report: Blood Culture (Second) No growth after 5 days. UA ClnCatch+Micro w/rflx Cul t Reviewed date:09/11/2024 05:44:45 AM Interpretation: Performing Lab:[address] [address] Notes/Report: Urine, Catheterized Color Urine Yellow Appearance Urine Cloudy PH 6.0 5.0-9.0 Glucose Urine UA Negative Negative mg/dL Urine Blood Small (1+) Negative Specific [place] - Urine 1.020 1.005-1.025 Urine Protein 100 [...] POC Reviewed date:09/11/2024 05:44:45 AM Interpretation: Performing Lab:[address] [address] Notes/Report: VBG pH 7.16 7.32-7.43 METER #: [id number] additional_comment: Cb n-ev ctrbb kort VBG pCO2 28 METER #: [id number] additional_comment: Cb n-ev ctrbb kort VBG pO2 52 METER #: [id number] additional_comment: Cb n-ev ctrbb kort VBG Base Excess -16.4 METER #: [id number] additional_comment: Cb n-ev ctrbb kort VBG HCO3 10 22-26 mmol/L METER #: [id number] additional_comment: Cb n-ev ctrbb kort VBG O2 % Saturation 79.0 METER #: [id number] additional_comment: Cb n-ev ctrbb kort Beta-Hydroxybutyrate Reviewed date:09/11/2024 05:44:45 AM Interpretation: Performing Lab:[facility], [address] [place] [phone] Notes/Report: Beta-Hydroxybutyrate 0.60 0.02-0.27 mmol/L CT abdomen pelvis wo con Reviewed date:09/11/2024 05:44:45 AM Interpretation: Performing Lab: Notes/Report: [address] [address] [address] Scan Report Signed Patient: Karma Yee MR#: [id number] 0 : 1955 Acct:[id number] Age/Sex: 69 / F ADM Date: 09/10/24 Loc: HO.ED Attending Dr: Ordering Physician: Mau Smith MD Date of Service: 09/10/24 Procedure(s): CT abdomen pelvis wo IV con Accession Number(s): [id number] cc: Dennis Chavira MD; Mau Smith MD Report Number: [id number]: Total DLP = 1161.00 mGy-cm EXAMINATION: CT [...] 09/10/24 1418 DD/ 1336 TD/TT: 09/10/24 1410 Tooth Grinder: [address] [address] [address] Scan Report Signed Patient: Karma Yee MR#: [id number] 0 : 1955 Acct:[id number] Age/Sex: 69 / F ADM Date: 09/10/24 Loc: HO.ED Attending Dr: Ordering Physician: Mau Smith MD Date of Service: 09/10/24 Procedure(s): CT abd omen pelvis wo IV con Accession Number(s): [id number] cc: Dennis Chavira MD; Mau Smith MD [...] MD Signed By: <Electron ically signed by Denins Gardner MD in OV> 09/10/24 1418 DD/ 1336 TD/TT: 09/10/24 1410 Tooth Grinder: XR chest 1V Reviewed date:09/11/2024 05:44:45 AM Interpretation: Performing Lab: Notes/Report: [address] [address] XRay Report Signed Patient: Karma Yee MR#: [id number] 0 : 1955 Acct:[id number] Age/Sex: 69 / F ADM Date: 09/10/24 Loc: HO.ED Attending Dr: Ordering Physician: Racheal Bruce CNP Date of Service: 09/10/24 Procedure(s): XR chest 1V Accession Number(s): [id number] cc: Racheal Bruce CNP; Dennis Chavira MD [...] 09/10/24 1250 DD/ 1148 TD/TT: 09/10/24 1247 Tooth Grinder: [place] [address] XRay Report Signed Patient: Karma Yee MR#: [id number] 0 : 1955 Acct:[id number] Age/Sex: 69 / F ADM Date: 09/10/24 Loc: .ED Attending Dr: Ordering Physician: Racheal Bruce CNP Date of Service: 09/10/24 Procedure(s): XR chest 1V Accession Number(s): [id number] cc: Racheal Bruce CNP; Dennis Chavira MD [...] 09/10/24 1250 DD/ 1148 TD/TT: 09/10/24 1247 Tooth Grinder: Troponin-I High Sensitivity Reviewed date:09/11/2024 05:44:45 AM Interpretation: Performing Lab:[address] [address] Notes/Report: Troponin-I High Sensitivity 32.7 <3.5-17.0 ng/L The Lisa high sensitivity Troponin-I results should be used in conjunction with other diagnostic information such as ECG, clinical observations and information, and patient symptoms to aid in the diagnosis of CO. Complete Blood Count no Diff Reviewed date:09/11/2024 09:17:23 AM Interpretation: Performing Lab:[facility], [address] [place] [phone] Notes/Report: White Blood Count 8.2 4.8-10.8 X10*3/uL [...] Panel Reviewed date:09/11/2024 09:17:23 AM Interpretation: Performing Lab:[address] [address] Notes/Report: Sodium 135 135-145 mmol/L Potassium 4.3 [...] Diff Reviewed date:09/12/2024 08:13:27 PM Interpretation: Performing Lab:[facility], [address] [place] [phone] Notes/Report: White Blood Count 8.3 4.8-10.8 X10*3/uL [...] Diff Reviewed date:09/12/2024 08:13:27 PM Interpretation: Performing Lab:[facility], [address] [place] [phone] Notes/Report: White Blood Count 8.8 4.8-10.8 X10*3/uL [...] Panel Reviewed date:09/12/2024 08:13:27 PM Interpretation: Performing Lab:[facility], [address] [place] [phone] Notes/Report: Sodium 136 135-145 mmol/L Potassium 4.2 [...] date:10/15/2024 05:04:28 AM Interpretation: Performing Lab: Notes/Report: [address] [address] Ultrasound Report Signed Patient: Karma Yee MR#: [id number] 0 : 1955 Acct:[id number] Age/Sex: 69 / F ADM Date: 09/10/24 Loc: [facility] [address]: Mary Brunson MD Ordering Physician: Johnie Arango Date of Service: 09/12/24 Procedure(s): US pelvic complete Accession Number(s): [id number] cc: Johnie Arango; Dennis Chavira MD CLINICAL [...] By: 09/25/24 1054 DD/ 33 TD/TT: 09/12/241833 Tooth Grinder: [place] [address] Ultrasound Report Signed Patient: Karma Yee MR#: [id number] 0 : 1955 Acct:[id number] Age/Sex: 69 / F ADM Date: 09/10/24 Loc: .[facility] 469-[address]: Hannah Brunson MD Ordering Physician: Johnie Arango Date of Service: 09/12/24 Procedure(s): US pel hayder complete Accession Number(s): [id number] cc: Johnie Arango; Dennis Chavira MD CLINICAL [...] Ballesteros DO on 09/12/2024 18:34:00 Dictated By: Darlene Ballesteros MD Signed By: 09/25/24 1054 DD/ 33 TD/TT: 09/12/241833 Tooth Grinder: US pelvic and transvaginal Reviewed date:09/12/2024 08:13:27 PM Interpretation: Performing Lab: Notes/Report: [place] [address] Ultrasound Report Signed Patient: Karma Yee MR#: [id number] 0 : 1955 Acct:[id number] Age/Sex: 69 / F ADM Date: 09/10/24 Loc: [facility] 469-[address]: Johnie GREENE Ordering Physician: Johnie Arango Date of Service: 09/12/24 Procedure(s): US pelvic and transvaginal Accession Number(s): [id number] cc: Johnie Arango; Dennis Chavira MD CLINICAL [...] in OV> 09/12/241833 DD/ 33 TD/TT: 09/12/241833 Tooth Grinder: [place] [address] Ultrasound Report Signed Patient: Karma Yee MR#: [id number] 0 : 1955 Acct:[id number] Age/Sex: 69 / F ADM Date: 09/10/24 Loc: .[facility] 469-[address]: Renita GREENE Ordering Physician: Johnie Arango Date of Service: 09/12/24 Procedure(s): US pel hayder and transvaginal Accession Number(s): [id number] cc: Johnie Arango; Dennis Chavira MD CLINICAL [...] in OV> 09/12/241833 DD/ 33 TD/TT: 09/12/241833 Tooth Grinder: Hold Lav - Possible Hematolo gy Reviewed date:09/13/2024 12:54:04 PM Interpretation: Performing Lab:[facility], [address] [place] [phone] Notes/Report: Hold Lav - Possible Hematology SEE NOTE Specimen will be held untested for 8 hours. Call Hematology if testing is desired. Basic Metabolic Panel Reviewed date:09/13/2024 12:54:04 PM Interpretation: Performing Lab:[facility], [address] [place] [phone] Notes/Report: Hardstick try 1, I couldn't find any more vein. Alecis [phone] Sodium 139 135-145 mmol/L Potassium 3.6 3.3-5.1 [...] Culture Reviewed date:09/16/2024 04:12:37 PM Interpretation: Performing Lab:[facility], [address] [place] [phone] Notes/Report: O:PROMIR Proteus mirabilis Urine Culture Quant Urine Culture > 100,000 cfu/mL Ampicillin <=2 Cefazolin (Urine) 4 Cefepime <=0.12 Ceftriaxone <=0.25 Ciprofloxacin <=0.06 Gentamicin <=1 Nitrofurantoin 128 Trimethoprim/Sulfametho xazole <=20 FL guidance in OR Reviewed date:09/13/2024 12:54:04 PM Interpretation: Performing Lab: Notes/Report: [address] [address] Fluoroscopy Report Signed Patient: Karam Yee MR#: [id number] 0 : 1955 Acct:[id number] Age/Sex: 69 / F ADM Date: 09/10/24 Loc: [facility] 469-[address]: Giulia GREENE Ordering Physician: Thomas Waters MD Date of Service: 09/13/24 Procedure(s): FL guidance in OR Accession Number(s): [id number] cc: Thomas Waters MD; Dennis Chavira MD [...] 09/13/24 1103 DD/ 0930 TD/TT: 09/13/24 0948 Tooth Grinder: [address] [address] Fluoroscopy Report Signed Patient: Karma Yee MR#: [id number] 0 : 1955 Acct:[id number] Age/Sex: 69 / F ADM Date: 09/10/24 Loc: .[facility] 469-[address]: Brigida GREENE Ordering Physician: Thomas Wtaers MD Date of Service: 09/13/24 Procedure(s): FL olivier jonas in OR Accession Number(s): [id number] cc: Thomas Waters MD; Dennis Chavira MD [...] 09/13/24 1103 DD/ 0930 TD/TT: 09/13/24 0948 Tooth Grinder: Hold Lav - Possible Hematolo gy Reviewed date:09/14/2024 07:10:27 PM Interpretation: Performing Lab:[facility], [address] [place] [phone] Notes/Report: Hold Lav - Possible Hematology SEE NOTE Specimen will be held untested for 8 hours. Call Hematology if testing is desired. Basic Metabolic Panel Reviewed date:09/14/2024 07:10:27 PM Interpretation: Performing Lab:[facility], [address] [place] [phone] Notes/Report: Sodium 140 135-145 mmol/L Potassium 3.9 [...] gy Reviewed date:09/16/2024 04:12:37 PM Interpretation: Performing Lab:[facility], [address] [place] [phone] Notes/Report: Hold Lav - Possible Hematology SEE NOTE Specimen will be held untested for 8 hours. Call Hematology if testing is desired. Basic Metabolic Panel Reviewed date:09/16/2024 04:12:37 PM Interpretation: Performing Lab:[facility], [address] [place] [phone] Notes/Report: Sodium 141 135-145 mmol/L Potassium 3.8 [...] date:09/16/2024 04:12:37 PM Interpretation: Performing Lab: Notes/Report: [address] [address] XRay Report Signed Patient: Karma Yee MR#: [id number] 0 : 1955 Acct:[id number] Age/Sex: 69 / F ADM Date: 09/10/24 Loc: [facility] 469-[address]: Johnie GREENE Ordering Physician: Johnie Arango Date of Service: 09/15/24 Procedure(s): XR chest 1V Accession Number(s): [id number] cc: Johnie Arango; Dennis Chavira MD CLINICAL [...] 09/15/24 1111 DD/ 1110 TD/TT: 09/15/24 1110 Tooth Grinder: [address] [address] XRay Report Signed Patient: Karma Yee MR#: [id number] 0 : 1955 Acct:[id number] Age/Sex: 69 / F ADM Date: 09/10/24 Loc: [facility] 469-[address]: Renita GREENE Ordering Physician: Johnie Arango Date of Service: 09/15/24 Procedure(s): XR chest 1V Accession Number(s): [id number] cc: Johnie Arango; Dennis Chavira MD CLINICAL [...] 09/15/24 1111 DD/ 1110 TD/TT: 09/15/24 1110 Tooth Grinder: Basic Metabolic Panel Reviewed date:09/18/2024 12:43:11 PM Interpretation: Performing Lab:[facility], [address] [place] [phone] Notes/Report: Sodium 143 135-145 mmol/L Potassium 3.8 [...] Pathology Reviewed date:09/22/2024 08:03:44 PM Interpretation: Performing Lab:[facility], [address] [place] [phone] Notes/Report: ------ Name: Karma Yee Age/Sex: 69/F : 1955 Unit#: [id number] Attend Dr: Mary Brunson MD Re09/10/24 Status : DIS IN Location: [facility] 469-1 Disch: 09/18/24 ------ SPEC : [id number] RECD : 09/17/24-1346 STATUS: PARAS PRADO NUM: [id number] MICHAEL: 09/17/24-1326 [facility] DR: Darleen Tran MD ENTERED: 09/17/24-13 [...] Name: Karma Yee Age/Sex: 69/F : 1955 [id number] Unit#: [id number] Attend Dr: Mary Brunson MD Re09/10/24 Status : DIS IN Location: [facility] 469-1 Disch: 09/18/24 ------ SPEC : [id number] RECD : 09/17/241561 STATUS: PARAS PRADO NUM: [id number] MICHAEL: 09/17/24-[address]: Darleen Tran MD [...] microscopic examination, 4 pieces in cassette C. ([facility]) Special studies orde red and performed: Immunostain for H. pylori on A1, B1 and C1. IHC S/NG Disclaimer NOTE: Unless otherwi se stated, all tissue is formalin-fixed and paraffin-embedded. Some or all of the immunohistochemical tests reported herein may have been developed and their performance characteristics determined by [facility]. They have not been cleared or appr drake by the U.S. Food and Drug Administration (FDA). However, the FDA has determined that such clearance or approval is not necessary. This laboratory is certified under the Clinical Laboratory Improvement Amendments of 1988 (CLIA) as qualified to perform high comp lexity clinical laboratory testing. Copies To: Johnie Arango [address] [place] [phone] [email or web address] Dennis Chavira MD [address] [place] [address] [address] [place] [address] Darleen Tran MD [facility] [address] [place] [address] [email or web address] ------ Signed (signature on file) Jessica Cazenovia 09/19/24 1004 ------ END OF REPORT Hold Lav - Possible Hematolo gy Reviewed date:09/18/2024 12:43:10 PM Interpretation: Performing Lab:[facility], [address] [place] [phone] Notes/Report: Hold Lav - Possible Hematology SEE NOTE Specimen will be held untested for 8 hours. Call Hematology if testing is desired. Basic Metabolic Panel Reviewed date:09/18/2024 12:43:11 PM Interpretation: Performing Lab:[facility], [address] [place] [phone] Notes/Report: Sodium 145 135-145 mmol/L Potassium 4.1 [...] Magnesium Reviewed date:09/18/2024 12:43:11 PM Interpretation: Performing Lab:[facility], [address] [place] [phone] Notes/Report: Magnesium 1.8 1.6-2.6 mg/dL Gastrin Reviewed date:09/22/2024 08:03:44 PM Interpretation: Performing Lab:[facility], [address] [place] [phone] Notes/Report: Gastrin 49 <=100 pg/mL Reference range applies to fasting specimens only. For additional information, please refer to https://Chronicity.Angstro/f aq/GRB108 (This link is being provided for informational/ educational purposes only.) THIS TEST WAS PERFORMED AT: [facility] [address] [place], [place] ALEIDA SERRATO MD,PHD Kidney Stone Reviewed date:11/23/2024 06:24:58 AM Interpretation: Performing Lab:[facility], [address] [place] [phone] Notes/Report: LEFT KIDNEY Component 1 SEE NOTE Carbonate Apati te (Dahllite) 100% Stone Weight 0.115 Formalin, surgical gel, tape adhesive or transport media interfere with the analytical procedure. Follow up testing with the UroRisk(R) Panel is suggested for affected samples, if clinically indicated. This test was developed and its analytical performance characteristics have been determined by [facility]. It has not been cleared or approved by the FDA. This assay has been validated pursuant to the CLIA regulations and is used for clinical purposes. THIS TEST WAS PERFORMED AT: [facility] [facility] [address] [place] [address] KALEB SORIA MD,PHD,AN [facility] KIDNEY Pathology Reviewed date:11/18/2024 03:20:02 PM Interpretation: Performing Lab:[facility], [address] [place] [phone] Notes/Report: ------ Name: Karma Yee Age/Sex: 69/F : 1955 Unit#: [id number] Attend Dr: Thomas Waters MD Re11/11/24 Status : [facility] Location: [facility] Disch: ------ SPEC : [id number] RECD : 11/12/24 STATUS: PARAS PRADO NUM: [id number] MICHAEL: 11/11/24-1549 [facility] DR: Thomas Waters MD ENTERED: 11/12/24-10 24 SP TYPE: Surgical OTHR DR: Dennis Chavira MD ORDERED: GO Diagnosis Left kidney stone: Calculous material. Gross examination only. Sent for chemical analysis. Please se e laboratory portion of the EMR for outside report from [facility]. Clinical History Calculus of kidney Material Received Left kidney stone Gross Description Received fresh label ed ?left kidney stone? are fragments of pink-parrish and yellow parrish calculi forming an aggregate measuring 1.2 by 0.6 x 0.5 cm which is entirely submitted to [employer] for chem ical analysis. No sections taken. ([facility]) IHC S/NG Disclaimer NOTE: Unless otherwi se stated, all tissue is formalin-fixed and paraffin-embedded. Some or all of the immunohistochemical tests reported herein may have been developed and their performance characteristics determined by [facility]. They have not been cleared or appr drake by the U.S. Food and Drug Administration (FDA). However, the FDA has determined that such clearance or approval is not necessary. This laboratory is certified under the Clinical Laboratory Improvement Amendments of 1988 (CLIA) as qualified to perform high comp lexity clinical laboratory testing. Copies To: Thomas Waters MD [facility] [address] [place] [address] [address] [place] [address] Dennis Chavira MD [address] [place] [address], [address] [place] [address] CONTINUED ON NEXT PAGE ------ Name: Karma Yee Age/Sex: 69/F : 1955 Unit#: [id number] Attend Dr: Thomas Waters MD Re11/11/24 Status : [facility] Location: [facility] Disch: ------ SPEC : [id number] RECD : 11/12/24 STATUS: PARAS PRADO NUM: [id number] MICHAEL: 11/11/24-1549 [facility] DR: Thomas Waters MD ENTERED: 11/12/24-10 24 SP TYPE: Surgical OTHR DR: Dennis Chavira MD ORDERED: GO ------ Signed (signature on file) Addison Khan MD 11/13/24 1310 ------ END OF REPORT FL guidance in OR Reviewed date:11/12/2024 09:18:16 AM Interpretation: Performing Lab: Notes/Report: [address] [address] Fluoroscopy Report Signed Patient: Karma Yee MR#: [id number] 0 : 1955 Acct:[id number] Age/Sex: 69 / F ADM Date: 11/11/24 Loc: .[facility] Attending Dr: Thomas Waters MD Ordering Physician: Thomas Waters MD Date of Service: 11/11/24 Procedure(s): FL guidance in OR Accession Number(s): [id number] cc: Thomas Waters MD; Dennis Chavira MD [...] 11/12/24 0705 DD/ 1515 TD/TT: 11/11/24 1600 Tooth Grinder: [address] [address] Fluoroscopy Report Signed Patient: Karma Yee MR#: [id number] 0 : 1955 Acct:[id number] Age/Sex: 69 / F ADM Date: 11/11/24 Loc: HO.SSS Attending Dr: Raúl Shearer MD Ordering Physician: Thomas Waters MD Date of Service: 11/11/24 Procedure(s): FL olivier jonas in OR Accession Number(s): [id number] cc: Thomas Waters MD; Dennis Chavira MD [...] Dennis Gardner MD 11/12/2024 07:05 AM EDT RP Dictated By: Dennis Gardner MD Signed By: <Electron icallariella signed by Dennis Gardner MD in OV> 11/12/24 0705 DD/ 1515 TD/TT: 11/11/24 1600 Tooth Grinder: US renal BI Reviewed date:12/15/2024 06:54:44 AM Interpretation: Performing Lab: Notes/Report: [facility] [place] [address] Ultrasound Report Signed Patient: Karma Yee MR#: [id number] 0 : 1955 Acct:[id number] Age/Sex: 69 / F ADM Date: 12/13/24 Loc: HO.[facility]GCX Attending Dr: Thomas Waters MD Ordering Physician: Thomas Waters MD Date of Service: 12/13/24 Procedure(s): US renal BI Accession Number(s): [id number] cc: Thomas Waters MD; Dennis Chavira MD Reason for Exam: N20.0 - Calculus of kidney EXAMINATION: US RETROPERITONEAL LIMITED (RENAL ONLY) CLINICAL INFORMATION: Nephrolithiasis.. COMPARISON: December 02, 2022. Correlated to noncontrast CT dated September 10, 2024. TECHNIQUE: Real-time ultrasound kidneys using grayscale technique. FINDINGS: RIGHT KIDNEY: 13 x 5 x 6 cm (SAG x AP x TRV). Normal echotexture. Renal cortical thinning. No hydronephrosis. No gross solid or cystic lesion. LEFT KIDNEY: 9 x 5 x 4 cm (SAG x AP x TRV). Normal echotexture. Renal cortical thinning. Less than 5 mm hyperechoic foci in the midportion of the pelvicalyceal system. No hydronephrosis. No gross solid or cystic lesion. US/US renal BI IMPRESSION: Nonobstructing nephrolithiasis, left kidney. . Electronically signed by: Reilly Banerjee MD 12/13/2024 02:59 PM EDT RP Dictated By: Reilly Morgan MD Signed By: <Electronically signed by Reilly Gaitan MD in OV> 12/13/24 1459 DD/ 1431 TD/TT: 12/13/24 1455 Tooth Grinder: [facility] [address] [place] [address] Dr. Graves, [place] [address] Ultrasound Report Signed Patient: Karma Yee MR#: [id number] 0 : 1955 Acct:[id number] Age/Sex: 69 / F ADM Date: 12/13/24 Loc: HO.HMGCX Attending Dr: Raúl Shearer MD Ordering Physician: Thomas Waters MD Date of Service: 12/13/24 Procedure(s): US renal BI Accession Number(s): [id number] cc: Thomas Waters MD; Dennis Chavira MD Reason for Exam: N20 .0 - Calculus of kidney EXAMINATION: US RETROPERITONEAL L IMITED (RENAL ONLY) CLINICAL INFORMATION: Nephrolithiasis.. COMPARISON: December 02, 2022. Correlated to noncon trast CT dated September 10, 2024. TECHNIQUE: Real-time ultrasound kidneys using grayscale technique. FINDINGS: RIGHT KIDNEY: 13 x 5 x 6 cm (SAG x AP x TRV). Normal echotexture. Renal cortical thinn ing. No hydronephrosis. No gross solid or cystic lesion. LEFT KIDNEY: 9 x 5 x 4 cm (SAG x AP x TRV). Normal echotexture. Renal cortical thinning. L ess than 5 mm hyperechoic foci in the midportion of the pelvicalyceal sy stem. No hydronephrosis. No gross solid or cystic lesion. U S/US renal BI IMPRESSION: Nonobstructing nephrolithiasis, left kidney. . Electronically marcio d by: Reilly Banerjee MD 12/13/2024 02:59 PM EDT RP Dictated By: Reilly Bolivar MD Signed By: <Electron ically signed by Reilly Gaitan MD in OV> 12/13/24 1459 DD/ 1431 TD/TT: 12/13/24 145 Tooth Grinder: Complete Blood Count Auto Di ff (Not yet reviewed by provider) Interpretation: Performing Lab:[facility], [address] [place] [id number] Notes/Report: White Blood Count 8.7 4.8-10.8 X10*3/uL Red Blood Count 4.41 4.20-5.50 X10*6/uL Hemoglobin 12.7 12.0-16.0 g/dl Hematocrit 41.2 37.0-47.0 % Mean Corpuscular Volume 93.4 80.0-98.0 fL Mean Corpuscular Hemoglobin 28.8 27.0-33.0 pg Mean Corpuscular HGB Conc 30.8 31.0-35.0 g/dl Red Cell Distribution Width 13.7 11.0-16.0 % Platelet Count 270 160-400 X10*3/uL Mean Platelet Volume 9.6 9.4-12.3 fL Neutrophils Percent Auto 80.2 45-73 % Imm Gran Pct Auto 0.5 0.0-0.4 % Lymphocytes Percent Auto 12.0 20-40 % Monocytes Percent Auto 5.8 2-11 % Eosinophils Percent Auto 1.3 0-4 % Basophils Percent Auto 0.2 0-2 % NRBC Pct Auto 0.0 0.0-0.2 /100WBC Neutrophils Absolute Auto 7.0 2.0-8.3 x10*3/uL Imm Gran Abs Auto 0.04 0.00-0.03 X10*3/uL Lymphocytes Absolute Auto 1.0 1.2-4.9 X10*3/uL Monocytes Absolute Auto 0.5 0.1-1.2 X10*3/uL Eosinophils Absolute Auto 0.1 0.0-0.4 X10*3/uL Basophils Absolute Auto 0.0 0.0-0.2 X10*3/uL NRBC Abs Auto 0.000 0.0-0.012 X10*3/uL Comprehensive Met. Panel (No t yet reviewed by provider) Interpretation: Performing Lab:[facility], [address] [place] [phone] Notes/Report: Sodium 141 135-145 mmol/L Potassium 4.7 3.3-5.1 mmol/L Chloride 105 96-108 mmol/L Carbon Dioxide 30 22-29 mmol/L Anion Gap 11 12-20 Blood Urea Nitrogen 23 9-16 mg/dL Creatinine 1.01 0.5-1.4 mg/dL Estimated Glomerular Filt Rate 54 Chronic Kidney Disease: Estimated GFR < 60 mL/min/1.73m2 Severe Kidney Disease: Estimated GFR < 15 mL/min/1.73m2 Glucose Random 100 60-115 mg/dL Calcium 9.0 8.4-10.2 mg/dL Bilirubin Total 0.5 0.0-1.0 mg/dL Aspartate Amino Transferase 18 5-31 U/L Alanine Aminotransferase 7 0-31 U/L Total Protein 7.9 6.5-8.0 g/dL Albumin Level 3.9 3.5-5.0 g/dL Alkaline Phosphatase 109 39-117 U/L Reason For Referral Reason Evaluate and Treat Abnormal Thickened Endrometrium Diagnosis 1 Endometrial hyperpla scott, unspecified (N85.00) Referral Organization Dennis Chavira III, MD Referring Provider First Name Dennis Referring Provider Last Name Cait Referring Provider Speciality Internal M edicine Referred Provider [facility] Referred Provider Specialty Gynecology ( Osteopaths only) General Notes D, Radha 09/26/2024 10:58:17 AM > Referral faxed with last progress note, CT Abd and pelvis no contrast and US pelvis doppler., PJagdish 10/11/2024 11:44:12 AM >As per patient [facility] [place] [facility] MACHINE OPERATOR does not perform the procedure for the diagnostic problem., Radha Van 10/11/2024 01:08:43 PM > referral has been changed and updated to [facility] FILE MACHINE OPERATOR, referral and attachments faxed, Radha Van 10/31/2024 02:58:03 PM > Spoke with Daniela at [facility] stated they have received the referral [...] Referring Provider Speciality Internal edicine Referred Organization [facility] nter Referred Provider [facility] Referred Address [address] [place] [phone], Referred Provider Specialty Unknown General Notes Radha Van 10/21/2024 10:45:13 AM > Faxed referral, progress note and demos.Carlota Amber 10/22/2024 10:48:41 AM > Called [facility] [place] Wound Care and left [...] Provider Speciality Internal M edicine Referred Organization [facility] Referred Provider [facility], [facility] Referred Address [address] [place] [phone], Referred Provider Specialty Physical The rapist General Notes Radha Van 12/09/2024 11:30:06 AM > Referral and progress note faxed.Carlota Amber 12/16/2024 02:36:12 PM > Patient called and spoke with Isatu from [facility] [facility], she stated they did not receive [...] Provider Speciality Internal M edicine Referred Organization [facility] Referred Provider Adrián Santana Referred Address [address] [place] [address],[place], [place],[id number], Referred Provider Specialty Vascular Shauna checo General [...] Status Risk Notes Problem Morbid obesity (disorder) (522358047) Morbid (severe) obesity due to excess calories [...] Diet and nutrition were discussed. Problem Hypokalemia (84723783) Hypokalemia (E87.6) Active confirmed Her hypokalemia has resolved. A repeat set of labs has been ordered. Problem Paroxysmal atrial fibrillation (912394925) Paroxysmal atrial fibrillation (I48.0) Active confirmed She is in a slo w controlled atrial fibrillation today. Her peripheral edema is mostly resolved. She is comfortable breathing room air. A repeat cardiology consultation has been requested for evaluation of congestive heart failure and aortic stenosis. Problem 531234917 Chronic diastolic (congestive) heart failure (I50.32) Active confirmed A BNP is not available. One was ordered today with comprehensive blood work. Her congestive heart failure is likely invaded by the aortic stenosis. It was described as chronic, diastolic in the hospital. She is anticoagulateed. It seems compensated today. She is taking digoxin. Problem Peripheral venous insufficiency (75640230) Venous insufficiency (chronic) (peripheral) (I87.2) Active confirmed She has significant skin breakdown. The right lower extremity. On admission to hospital. That is now resollved. There are mild changes of venous insufficiency. This will be observed. She will continue on diurettic therapy. Problem Acute hypoxemic respiratory failure (269841018) Acute respiratory failure with hypoxia (J96.01) Active confirmed She recover ed with use of BiPAP.She was breathing room air comfortably today and her ooxygen saturation was normal. Problem Acute hypercapnic respiratory failure (827874076) Acute respiratory failure with hypercapnia (J96.02) Active confirmed She rrecovered with use of BiPAP. Comprrehensive blood work is pending. Sharri oxygen satturation today was normal. Problem Cellulitis of right lower limb (340337777467715 04) Cellulitis of right lower limb (L03.115) Active confirmed The cellulitis has completely resolved. The open areas on the right leg have healed. There were no open wounds today. We haad a long discussion about how to prevent furthher skin breakdown. Problem Muscle weakness (60796692) Muscle weakness (generalized) (M62.81) Active confirmed This is due to deconditioning. She is now ambulatory. If she needs physical therapy going forward. This wiill be provided. Currently she is stable. She is able to conduct activities of daily living. Problem Acute renal failure syndrome (40534833) Acute kidney failure, unspecified (N17.9) Active confirmed He acute renal failure has resolved. Comprehensive blood work has been ordered prior to her next visit to assess renal function and general metabolic status. Problem Endometrial hyperplasia (261577884) Endometrial hyperplasia, unspecified (N85.00) Active confirmed A thickened endometrium was seen on a pelvic ultrasound done September 10, 2024 at [facility]. We have referred her to gynecology for evaluation of this. 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 Obserrvation will be continued for this is likely recurrent problem. Problem 108059208 Chronic anticoagulation (Z79.01) Active confirmed She is taking apixaban without bleeding. Problem Atresia and stenosis of aorta (371656630) Aortic stenosis (Q25.3) Active confirmed An echocardiogram done durinng her recent hospitalization in 2022 showed aortic stenoosis with a valve area of 0.82. I have requested a repeat consultation cardiology.She willl likelyy need repaiir this valve. Problem 309213542 Lymphedema (I89.0) Active confirmed She has severe [...] is pending too reassess this problem. Problem 880971061359053 Bran cyst, right (M71.21) Active confirmed This was a finding on ultrasound of the right lower extremity to rule out DVT. Itt is not infected. It is large but nonpainful. Treatmentt of this may be necessary in the future will be delayed until her acute cardiac problem is addressed. Problem 33411885 Acute dehydration (E86.0) Active confirmed She was [...] Date Provider Diagnosis Dennis Chavira III, MD [address] [place] [address] [place] [phone] 09/10/2024 Dennis Chavira Acute dehydration E8 6.0 ; Lymphedema I89.0 ; Paroxysmal atrial fibrillation I48.0 ; Morbid (severe) obesity due to excess calories E66.01 ; Chronic diastolic (congestive) heart failure I50.32 and Chronic anticoagulation Z79.01 Dennis Chavira III, MD [address] [place] [address] [place] [address] 10/18/2024 Dennis Chavira Morbid (severe) obes ity due to excess calories E66.01 ; Cellulitis of right lower limb L03.115 ; Paroxysmal atrial fibrillation I48.0 ; Acute kidney failure, unspecified N17.9 ; Acute metabolic acidosis E87.21 ; Venous insufficiency (chronic) (peripheral) I87.2 and Lymphedema I89.0 Dennis Chavira III, MD [address] [place] [address] [place] [address] 12/04/2024 Dennis Chavira Acute kidney failure , unspecified N17.9 ; Morbid (severe) obesity due to excess calories E66.01 ; Hypokalemia E87.6 ; Cellulitis of right lower limb L03.115 ; Paroxysmal atrial fibrillation I48.0 ; Aortic stenosis Q25.3 ; Lymphedema I89.0 ; Endometrial hyperplasia, unspecified N85.00 and Chronic diastolic (congestive) heart failure I50.32 Dennis Chavira III, MD [address] [place] [address] [place] [address] 09/26/2024 Dennis Chavira III, MD [address] [place] [address] [address] [place] [address] 10/17/2024 Dennis Chavira III, MD [address] [place] [address] [address] [place], [place] [address] 10/29/2024 Dennis Chavira III, MD [address] [place] [address] [address] [place] [address] 11/05/2024 Dennis Chavira Assessments Encounter Date Diagnosis [...] I48.0) Her heart rate is controlled today. Objects Conservator has given her digoxin which is causing [...] pelvic ultrasound done September 10, 2024 at [facility]. We have referred her to [...] DIFF 12/04/2024 CBC WITH AUTO DIFF 01/18/2023 Complete Blood Count Auto Diff Comprehensive Met. Panel 12/26/2024 Lipid Panel 12/04/2024 Next Appt Details Provider Name:Dennis Chavira , 02/04/2025 11:15:00 AM, [address] [place] [address] [address], [place], [address], Insurance Providers Payer Name Payer Address Payer Phone Subscriber Number Group Number Insured Name Patient Relationship to Insured Coverage Start Date Coverage End Date MEDICARE NGS [address] [place] [address] [id number] Karma Yee Self - patient is the insured [facility] [address] [place], [place] [id number] Karma Yee Self - patient is [...]
== END 2024-12-26 11:44 | disposition home or self-care (01) ==
LOC: HO.HUSH 11:21
PROVIDERS: PCP Internal Medicine Medical Oncology; Visit Provider Urology
DX: N20.0 Calculus of kidney (principal)
CPT/HCPCS: 99213; G2211

== ENCOUNTER → 2024-12-26 11:21 | Outpatient (BNVA) | payer MEDICARE, SELFPAY | PROVIDERS: PCP Internal Medicine Medical Oncology; Visit Provider Urology | DX: N20.0 Calculus of kidney (principal); E87.1 Hypo-osmolality and hyponatremia; Z98.890 Other specified postprocedural states; N18.9 Chronic kidney disease, unspecified | CPT/HCPCS: 36415; 80053; 85025; 99212 ==

== ENCOUNTER 2024-12-26 11:46 | Outpatient (AMB) | payer MEDICARE, SELFPAY ==
[2024-12-26 11:55] VITALS: BP 110/70; PULSE 109; O2SAT 91; BMI 58.4
--- NOTE | 2024-12-26 11:55 | HO.NEPHOV_ITS ---
Vital Signs 12/26/24 11:55 Height 5 ft 4 in Weight 340 lb BMI 58.4 BP 110/70 Blood Pressure Location Lt brachial Position Sitting Pulse 109 H Pulse Source Pulse Oximeter Pulse Oximetry (%) 91 L Oxygen Delivery Method Room Air Intake Visit Reasons: [facility] Windows Migration Technician Required: No Accompanied by: Self / Same As Patient Allergies No Known Allergies Allergy (Verified 12/26/24 11:57) Medication List - Last Reconciled 12/26/24 by Paul Fofana MD cefuroxime axetil 500 mg PO BID famotidine 20 mg PO BEDTIME metoprolol succinate ER 12.5 mg (1/2 x 25 mg) PO BID omeprazole 40 mg PO DAILY@0630 sucralfate 1 g (10 mL) PO QIDACHS sulfamethoxazole-trimethoprim 400-80 mg (Bactrim) 1 tab PO DAILY 90 days HPI Comments Details: The patient is a 69-year-old female presenting for follow-up on her kidney function after an acute kidney injury. She has a history of atrial fibrillation and congestive heart failure, which have been managed over time. She also suffers from chronic lymphedema, which has been persistent. In August, she was hospitalized due to an acute kidney injury, due to obstrustuction. Her creatinine level was 3.4 mg/dL in August, which improved to 1.2 mg/dL recently. Her sodium levels were also low at 129 mmol/L but have normalized to 145 mmol/L. The patient has a history of nephrolithiasis, having had a 2 cm kidney stone removed in October. A stent was placed and later removed, with no current urinary issues reported. [facility] Medical History Gastritis Elevated troponin Persistent atrial fibrillation Calculus of proximal left ureter Chronic venous stasis dermatitis Bilateral edema of lower extremity Non-rheumatic aortic stenosis Heart failure Aortic stenosis Afib Shortness of breath Leg ulcer Surgical History History of esophagogastroduodenoscopy (EGD) (09/18/24) Hx of cystoscopy (09/13/24) History of dental surgery Family History Mother No problems noted. Father No problems noted. Social History Household Members: Spouse and Family Housing: House Do you presently have visiting nurse or other home services: No Alcohol intake: former Patient Tobacco Use Status: Never used Tobacco e-Cigarette/Vaping Use: Never Used Second Hand Smoke Exposure: No service: No Physical Exam Vital Signs: Last Vital Signs Pulse 109 H 12/26/24 11:55 BP 110/70 12/26/24 11:55 Pulse Ox 91 L 12/26/24 11:55 Oxygen Delivery Method Room Air 12/26/24 11:55 BMI result Body Mass Index 58.4 Comfortable Obese Neck supple no JVD. Lungs entry equal no rales. Heart S1-S2 heard no gallop or rub. Abdomen soft nontender. Neuro alert awake oriented. No asterixis. Extremities - chronic lymphedema. Results Reviewed Results Reviewed: Nov 2024 RIGHT KIDNEY: 13 x 5 x 6 cm (SAG x AP x TRV). Normal echotexture. Renal cortical thinning. No hydronephrosis. No gross solid or cystic lesion. LEFT KIDNEY: 9 x 5 x 4 cm (SAG x AP x TRV). Normal echotexture. Renal cortical thinning. Less than 5 mm hyperechoic foci in the midportion of the pelvicalyceal system. No hydronephrosis. No gross solid or cystic lesion. US/US renal BI IMPRESSION: Nonobstructing nephrolithiasis, left kidney. . Nephrology Results: Hgb, (12.0-16.0) 12.7 g/dl Today WBC, (4.8-10.8) 8.7 X10*3/uL Today Plt Count, (160-400) 270 X10*3/uL Today Sodium, (135-145) 141 mmol/L Today Potassium, (3.3-5.1) 4.7 mmol/L Today Chloride, (96-108) 105 mmol/L Today Carbon Dioxide, (22-29) 30 mmol/L H Today BUN, (9-16) 23 mg/dL H Today Creatinine, (0.5-1.4) 1.01 mg/dL Today Calcium, (8.4-10.2) 9.0 mg/dL Δ Today Renal US 10/31/25 Assessment & Plan Assessment & Plan (1) Nephrolithiasis: Code(s): N20.0 - Calculus of kidney Category: Medical (2) Hyponatremia: Code(s): E87.1 - Hypo-osmolality and hyponatremia Category: Medical Plan WANDY due to obstructive uropathy Resolved Creatinine back to baseline BP acceptable Obesity Lymphedema stay on lwo salt diet Keep LAsix Avid thiazide due to h/o hyponatremia Current serum sodium is normal Orders: Orders Comprehensive Met. Panel Today E87.1 - Hypo-osmolality and hyponatremia, N18.9 - Chronic kidney disease, unspecified Complete Blood Count Auto Diff Today E87.1 - Hypo-osmolality and hyponatremia, N18.9 - Chronic kidney disease, unspecified Coding Level of Care Code Est Pt Level 4 (46832) Diagnoses Nephrolithiasis N20.0 Hyponatremia E87.1
== END 2024-12-26 12:20 | disposition home or self-care (01) ==
LOC: HO.HKA 11:47
PROVIDERS: PCP Internal Medicine Medical Oncology; Visit Provider Internal Medicine Hypertension Specialist
DX: N20.0 Calculus of kidney (principal); E87.1 Hypo-osmolality and hyponatremia
CPT/HCPCS: 99214

== ENCOUNTER 2024-12-26 12:42 | Outpatient (REF) | payer MEDICARE, SELFPAY ==
[2024-12-26 13:12] LABS: MANUAL DIFF FLAG NO
[2024-12-26 13:20] LABS: Hematocrit 41.2 % (37.0-47.0); Hemoglobin 12.7 g/dl (12.0-16.0); Imm Gran Abs Auto 0.04 X10*3/uL (0.00-0.03); Imm Gran Pct Auto 0.5 % (0.0-0.4); Lymphocytes Absolute Auto 1.0 X10*3/uL (1.2-4.9); Mean Corpuscular HGB Conc 30.8 g/dl (31.0-35.0); Mean Corpuscular Hemoglobin 28.8 pg (27.0-33.0); Mean Corpuscular Volume 93.4 fL (80.0-98.0); NRBC Abs Auto 0.000 X10*3/uL (0.0-0.012); NRBC Pct Auto 0.0 /100WBC (0.0-0.2); Platelet Count 270 X10*3/uL (160-400); Red Blood Count 4.41 X10*6/uL (4.20-5.50); White Blood Count 8.7 X10*3/uL (4.8-10.8)
[2024-12-26 14:20] LABS: Alanine Aminotransferase 7 U/L (0-31); Albumin Level 3.9 g/dL (3.5-5.0); Alkaline Phosphatase 109 U/L (39-117); Anion Gap 11 (12-20); Aspartate Amino Transferase 18 U/L (5-31); Blood Urea Nitrogen 23 mg/dL (9-16); Calcium 9.0 mg/dL (8.4-10.2); Carbon Dioxide 30 mmol/L (22-29); Chloride 105 mmol/L (96-108); Estimated Glomerular Filt Rate 54; Potassium 4.7 mmol/L (3.3-5.1); Sodium 141 mmol/L (135-145); Total Protein 7.9 g/dL (6.5-8.0)
== END 2024-12-26 12:43 | disposition home or self-care (01) ==
LOC: HO.10HDL 12:42
PROVIDERS: Visit Provider Internal Medicine Hypertension Specialist
DX: Z13.89 Encounter for screening for other disorder (principal)
CPT/HCPCS: 36415; 80053; 85025